=== PATIENT | male | born 1940 | race Hispanic/Latino ===

== ENCOUNTER 2019-09-26 23:17 | Emergency (ER) | payer MEDICARE ==
[~2019-09-26] VITALS: Ht 182.9 cm; Wt 78.0 kg
== END 2019-09-26 23:34 ==
LOC: ER 23:17
DX: Z46.6 Encounter for fitting and adjustment of urinary device (principal); I10 Essential (primary) hypertension; Z86.73 Personal history of transient ischemic attack (TIA), and cerebral infarction without residual deficits; Z85.89 Personal history of malignant neoplasm of other organs and systems
CPT/HCPCS: 51700; 51702; 99283

== ENCOUNTER 2019-11-10 13:04 | Inpatient (IN) | payer MEDICARE ==
[~2019-11-10] VITALS: Ht 177.8 cm; Wt 64.7 kg
[2019-11-10] MEDS: ALBUTEROL SULF 0.083% NEB SOLN 3 ML NEB NEB SCH ×4 (00:20→22:40)
--- OUTSIDE RECORDS SUMMARY | 2019-11-10 13:10 | XMS REPORT ---
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 Allergies, Adverse Reactions, Alerts This patient has no known allergies or adverse reactions. Medications This patient has no known medications. Encounters Start Date/Time End Date/Time Encounter Type Admission Type Attending Clinicians Care Facility Care Department Encounter ID 2017-12-21 13:58:00 2017-12-21 13:58:00 Outpatient [facility] [id number] 2017-12-21 08:26:00 2017-12-21 08:26:00 Outpatient [facility] [id number] 2017-06-21 13:03:00 2017-06-21 13:03:00 Outpatient [facility] [id number] 2017-04-01 14:23:00 2017-04-01 14:23:00 Outpatient [facility] [id number] Results Test Description Test Time Test Comments Text Results Atomic Results Result Comments XR Modified Barium Swallow 2019-11-08 14:52:18 Patient: ERIK DONATO Date/Time11/03/2019 15:21 CSTReason for ExamChokingReportEXAM: BARIUM SWALLOWCLINICAL HISTORY: ChokingTECHNIQUE: Barium swallow study was performed in conjunction with the speech pathologist.FINDINGS: The oral and pharyngeal phases of swallowing are normal. No evidence of muscular abnormality. No evidence of masses or ulcerations. There is significant tracheal aspiration noted. No evidence of diverticula or strictures.Fluoroscopy time: 26 secondsNumber Of Images: 55 cine loopsIMPRESSION:1. Tracheal aspiration is noted.2. Please see dedicated speech pathologist report for further details.LOCATION: R16 Final Dictated by: MD Connors Melanie CDictated DT/TM: 11/08/2019 2:50 pmSigned by: MD Connors Melanie CSigned (Electronic Signature): 11/08/2019 2:52 pm Basic Metabolic Panel 2019-11-03 06:52:50 Sodium Level (test code=Sodium Level) 140.0 mmol/L 135.0-145.0 Potassium Level (test code=Potassium Level) 4.1 mmol/L 3.5-5.1 Chloride Level (test code=Chloride Level) 107 mmol/L 98-105 CO2 (test code=CO2) 23 mmol/L 22-29 Anion Gap (test code=Anion Gap) 10 mmol/L 7-16 BUN (test code=BUN) 20.40 mg/dL 8.00-23.00 Creatinine Level (test code=Creatinine Level) 0.80 mg/dL 0.70-1.20 BUN/Creat Ratio (test code=BUN/Creat Ratio) 26 Glucose Level (test code=Glucose Level) 142 mg/dL 70-115 Calcium Level (test code=Calcium Level) 8.7 mg/dL 8.3-10.5 Basic Metabolic [id number] 06:52:50* Test Item Value Reference Range Comments Sodium Level (test code=Sodium Level) 140.0 mmol/L 135.0-145.0 Potassium Level (test code=Potassium Level) 4.1 mmol/L 3.5-5.1 Chloride Level (test code=Chloride Level) 107 mmol/L 98-105 CO2 (test code=CO2) 23 mmol/L 22-29 Anion Gap (test code=Anion Gap) 10 mmol/L 7-16 BUN (test code=BUN) 20.40 mg/dL 8.00-23.00 Creatinine Level (test code=Creatinine Level) 0.80 mg/dL 0.70-1.20 BUN/Creat Ratio (test code=BUN/Creat Ratio) 26 Glucose Level (test code=Glucose Level) 142 mg/dL 70-115 Calcium Level (test code=Calcium Level) 8.7 mg/dL 8.3-10.5 eGFR AA (test code=eGFR AA) >60 mL/min/1.73 m2 eGFR (estimated Glomerular Filtration Rate) is an estimated value, calculated from the patient's serum creatinine using the MDRD equation. It is NOT the patient's actual GFR. The eGFR provides a more clinically useful measure of kidney disease than serum creatinine alone.This calculation takes sex and race into account, if the information is provided. If the race is not provided, and the patient is -Aust[place], multiply by 1.212. If sex is not provided, and the patient is female, multiply by 0.742. Results for patients <18 years of age have not been validated by the MDRD study and should be interpreted with caution. eGFR Result Interpretation:eGFR > or=60 is in the Normal RangeeGFR < 60 may mean kidney diseaseeGFR < 15 may mean kidney failure Ranges recommended by the National Kidney Foundation, http://nkdep.nih.gov Basic Metabolic [id number] 06:52:50* Test Item Value Reference Range Comments Sodium Level (test code=Sodium Level) 140.0 mmol/L 135.0-145.0 Potassium Level (test code=Potassium Level) 4.1 mmol/L 3.5-5.1 Chloride Level (test code=Chloride Level) 107 mmol/L 98-105 CO2 (test code=CO2) 23 mmol/L 22-29 Anion Gap (test code=Anion Gap) 10 mmol/L 7-16 BUN (test code=BUN) 20.40 mg/dL 8.00-23.00 Creatinine Level (test code=Creatinine Level) 0.80 mg/dL 0.70-1.20 BUN/Creat Ratio (test code=BUN/Creat Ratio) 26 Glucose Level (test code=Glucose Level) 142 mg/dL 70-115 Calcium Level (test code=Calcium Level) 8.7 mg/dL 8.3-10.5 eGFR AA (test code=eGFR AA) >60 mL/min/1.73 m2 eGFR (estimated Glomerular Filtration Rate) is an estimated value, calculated from the patient's serum creatinine using the MDRD equation. It is NOT the patient's actual GFR. The eGFR provides a more clinically useful measure of kidney disease than serum creatinine alone.This calculation takes sex and race into account, if the information is provided. If the race is not provided, and the patient is -Austrian, multiply by 1.212. If sex is not provided, and the patient is female, multiply by 0.742. Results for patients <18 years of age have not been validated by the MDRD study and should be interpreted with caution. eGFR Result Interpretation:eGFR > or=60 is in the Normal RangeeGFR < 60 may mean kidney diseaseeGFR < 15 may mean kidney failure Ranges recommended by the National Kidney Foundation, http://nkdep.nih.gov eGFR Non-AA (test code=eGFR Non-AA) >60.00 mL/min/1.73 m2 eGFR (estimated Glomerular Filtration Rate) is an estimated value, calculated from the patient's serum creatinine using the MDRD equation. It is NOT the patient's actual GFR. The eGFR provides a more clinically useful measure of kidney disease than serum creatinine alone.This calculation takes sex and race into account, if the information is provided. If the race is not provided, and the patient is -Austrian, multiply by 1.212. If sex is not provided, and the patient is female, multiply by 0.742. Results for patients <18 years of age have not been validated by the MDRD study and should be interpreted with caution. eGFR Result Interpretation:eGFR > or=60 is in the Normal RangeeGFR < 60 may mean kidney diseaseeGFR < 15 may mean kidney failure Ranges recommended by the National Kidney Foundation, http://nkdep.nih.gov IG [id number] 06:30:40* Test Item Value Reference Range Comments IG (test code=IG) 0.4 % 0.0-5.0 IG Abs (test code=IG Abs) 0 x10 Complete Blood Count with [id number] 06:30:39* Test Item Value Reference Range Comments WBC (test code=WBC) 8.2 x10 4.4-10.5 RBC (test code=RBC) 4.06 x10 4.10-5.70 Hgb (test code=Hgb) 11.2 g/dL 13.4-17.4 MCV (test code=MCV) 87.40 fL 80.00-100.00 Hct (test code=Hct) 35.5 % 38.7-52.0 MCHC (test code=MCHC) 31.50 g/dL 32.00-37.50 RDW CV (test code=RDW CV) 14.6 % 11.5-14.5 MCH (test code=MCH) 27.6 pg 27.0-32.5 Platelets (test code=Platelets) 230.0 x10 140.0-440.0 MPV (test code=MPV) 12.1 fL Slide Review (test code=Slide Review) Auto Auto Result created by [email or web address] nRBC (test code=nRBC) 0 NRBC Abs (test code=NRBC Abs) 0.00 x10 IPF (test code=IPF) 0 % Automated [id number] 06:30:39* Test Item Value Reference Range Comments Neutro Auto (test code=Neutro Auto) 74.4 % 36.0-70.0 Lymph Auto (test code=Lymph Auto) 13.5 % 12.0-44.0 [place] Auto (test code=[place] Auto) 10.0 % 0.0-11.0 Eos, Auto (test code=Eos, Auto) 1.2 % 0.0-7.0 Basophil Auto (test code=Basophil Auto) 0.5 % 0.0-2.0 Neutro Absolute (test code=Neutro Absolute) 6.1 x10 1.6-7.4 Lymph Absolute (test code=Lymph Absolute) 1.11 x10 .50-4.60 [place] Absolute (test code=[place] Absolute) .82 x10 .00-1.20 Eos Absolute (test code=Eos Absolute) 0.10 x10 0.00-0.74 Baso Absolute (test code=Baso Absolute) 0.04 x10 0.00-0.21 C Reactive [id number] 19:07:59* Test Item Value Reference Range Comments CRP (test code=CRP) 134.0 mg/L 0.0-5.0 Vancomycin Level [id number] 19:07:49* Test Item Value Reference Range Comments Vanco Tr (test code=Vanco Tr) 6.2 mcg/mL 10.0-20.0 CT Foot w/o Contrast [id number] 16:10:52Patient: ERIK DONATO Date/Time11/02/2019 11:50 CSTReason for ExamOsteomyelitisReportCLINICAL INFORMATION: Ulcer of the distal hallux. Osteomyelitis.Dictation Location: R 16COMPARISON: Radiographs 10/31/2019.Technique: CT was done in the usual fashion. Sagittal and coronal reconstructions. Appropriate dose reduction and image optimization techniques were used. Findings: There is no acute fracture identified. Soft tissue swelling is seen at the dorsum of the great toe at the level of the first metatarsal phalangeal joint, and about the tuft of the distal phalanx. There is no apparent soft tissue mass or periosteal reaction. No destructive bone lesion identified. No radiopaque foreign body is noted.IMPRESSION:1. Soft tissue swelling at the dorsum of the great toe and about the tuft of the distal phalanx.2. No bony destruction or periosteal reaction is identified.3. Otherwise no acute finding noted.4. Perhaps follow-up with bone scan or MRI could be of additional benefi t. Final Dictated by: MD Flower Andrew GDictated DT/TM: 0 1:59 pmSigned by: MD Flower Andrew GSigned (Electronic Signature): 020 4:10 pmPOC [id number] 07:33:01* Test Item Value Reference Range Comments Glucose POC (test code=Glucose POC) 87 mg/dL 70-115 If you consider your patient critically ill, the Rosalinda-Accu Check Infrom II meter should not be used for Glucose determination. Draw a venous Glucose and send to the main Lab for analysis. POC [id number] 20:36:37* Test Item Value Reference Range Comments Glucose POC (test code=Glucose POC) 87 mg/dL 70-115 If you consider your patient critically ill, the Rosalinda-Accu Check Infrom II meter should not be used for Glucose determination. Draw a venous Glucose and send to the main Lab for analysis. Complete Blood Count with [id number] 08:21:12* Test Item Value Reference Range Comments WBC (test code=WBC) 11.1 x10 4.4-10.5 RBC (test code=RBC) 3.94 x10 4.10-5.70 Hgb (test code=Hgb) 10.9 g/dL 13.4-17.4 MCV (test code=MCV) 87.60 fL 80.00-100.00 Hct (test code=Hct) 34.5 % 38.7-52.0 MCHC (test code=MCHC) 31.60 g/dL 32.00-37.50 RDW CV (test code=RDW CV) 14.7 % 11.5-14.5 MCH (test code=MCH) 27.7 pg 27.0-32.5 Platelets (test code=Platelets) 259.0 x10 140.0-440.0 MPV (test code=MPV) 12.4 fL Slide Review (test code=Slide Review) Auto Auto Result created by [email or web address]_REV_AUTO nRBC (test code=nRBC) 0 NRBC Abs (test code=NRBC Abs) 0.00 x10 IPF (test code=IPF) 0 % Automated [id number] 08:21:12* Test Item Value Reference Range Comments Neutro Auto (test code=Neutro Auto) 80.8 % 36.0-70.0 Lymph Auto (test code=Lymph Auto) 9.7 % 12.0-44.0 [place] Auto (test code=[place] Auto) 8.0 % 0.0-11.0 Eos, Auto (test code=Eos, Auto) 0.5 % 0.0-7.0 Basophil Auto (test code=Basophil Auto) 0.5 % 0.0-2.0 Neutro Absolute (test code=Neutro Absolute) 9.0 x10 1.6-7.4 Lymph Absolute (test code=Lymph Absolute) 1.07 x10 .50-4.60 [place] Absolute (test code=[place] Absolute) .89 x10 .00-1.20 Eos Absolute (test code=Eos Absolute) 0.06 x10 0.00-0.74 Baso Absolute (test code=Baso Absolute) 0.05 x10 0.00-0.21 IG [id number] 08:21:12* Test Item Value Reference Range Comments IG (test code=IG) 0.5 % 0.0-5.0 IG Abs (test code=IG Abs) 0 x10 POC [id number] 07:40:40* Test Item Value Reference Range Comments Glucose POC (test code=Glucose POC) 93 mg/dL 70-115 Notify RN or MDIf you consider your patient critically ill, the Rosalinda-Accu Check Infrom II meter should not be used for Glucose determination. Draw a venous Glucose and send to the main Lab for analysis. XR Foot Complete 3+ Views [id number] 02:00:35Patient: ERIK DONATO Date/Time10/31/2019 21:14 CSTReason for Examulcer distal hallux;Other (please specify)ReportRADIOGRAPH OF THE left footLocation Code: [id number] HISTORY: Pain, ulcer distal halluxCOMMENT: No acute fracture or dislocation. Bones are well mildly osteopenic. Mild to moderate narrowing of the tarsometatarsal joints. Mild narrowing of the hallux MTP joint. Mild plantar soft tissue induration distall y.IMPRESSION:1. No acute osseous abnormality. Mild plantar soft tissue induratio n. Final Dictated by: MD Shannon RoyDictated DT/TM: 11/01/2019 1:59 amSigned by: MD Shannon RoySigned (Electronic Signature): 11/01/2019 2:00 amXR Chest 1 View [id number] 01:59:21Patient: ERIK DONATO Date/Time10/31/2019 21:15 CSTReason for ExamCongestionReportAP CHEST 10/31/2019 9:15 PMLocation Code: [id number]: October 02, 2019INDICATION: Congestion.FINDINGS: The cardiomediastinal silhouette is not enlarged. Pulmonary arya and vascularity are normal. Minimal left basilar atelectasis. Moderate ectasia of the aorta. Costophrenic sulci are sharp without effusion.IMPRESSION:1. Minimal left basilar atelectasis.2. Moderate ectasia of the aorta Final Dictated by: MD Shannon RoyDictated DT/TM: 11/01/2019 1:58 amSigned by: MD Shannon RoySigned (Electronic Signature): 11/01/2019 1:59 amBasic Metabolic [id number] 00:42:27* Test Item Value Reference Range Comments Sodium Level (test code=Sodium Level) 139.0 mmol/L 135.0-145.0 Potassium Level (test code=Potassium Level) 4.7 mmol/L 3.5-5.1 Chloride Level (test code=Chloride Level) 105 mmol/L 98-105 CO2 (test code=CO2) 19 mmol/L 22-29 Anion Gap (test code=Anion Gap) 15 mmol/L 7-16 BUN (test code=BUN) 17.80 mg/dL 8.00-23.00 Creatinine Level (test code=Creatinine Level) 0.90 mg/dL 0.70-1.20 BUN/Creat Ratio (test code=BUN/Creat Ratio) 20 Glucose Level (test code=Glucose Level) 94 mg/dL 70-115 Calcium Level (test code=Calcium Level) 9.0 mg/dL 8.3-10.5 Basic Metabolic [id number] 00:42:27* Test Item Value Reference Range Comments Sodium Level (test code=Sodium Level) 139.0 mmol/L 135.0-145.0 Potassium Level (test code=Potassium Level) 4.7 mmol/L 3.5-5.1 Chloride Level (test code=Chloride Level) 105 mmol/L 98-105 CO2 (test code=CO2) 19 mmol/L 22-29 Anion Gap (test code=Anion Gap) 15 mmol/L 7-16 BUN (test code=BUN) 17.80 mg/dL 8.00-23.00 Creatinine Level (test code=Creatinine Level) 0.90 mg/dL 0.70-1.20 BUN/Creat Ratio (test code=BUN/Creat Ratio) 20 Glucose Level (test code=Glucose Level) 94 mg/dL 70-115 Calcium Level (test code=Calcium Level) 9.0 mg/dL 8.3-10.5 eGFR AA (test code=eGFR AA) >60 mL/min/1.73 m2 eGFR (estimated Glomerular Filtration Rate) is an estimated value, calculated from the patient's serum creatinine using the MDRD equation. It is NOT the patient's actual GFR. The eGFR provides a more clinically useful measure of kidney disease than serum creatinine alone.This calculation takes sex and race into account, if the information is provided. If the race is not provided, and the patient is -Aust[place], multiply by 1.212. If sex is not provided, and the patient is female, multiply by 0.742. Results for patients <18 years of age have not been validated by the MDRD study and should be interpreted with caution. eGFR Result Interpretation:eGFR > or=60 is in the Normal RangeeGFR < 60 may mean kidney diseaseeGFR < 15 may mean kidney failure Ranges recommended by the National Kidney Foundation, http://nkdep.nih.gov Basic Metabolic [id number] 00:42:27* Test Item Value Reference Range Comments Sodium Level (test code=Sodium Level) 139.0 mmol/L 135.0-145.0 Potassium Level (test code=Potassium Level) 4.7 mmol/L 3.5-5.1 Chloride Level (test code=Chloride Level) 105 mmol/L 98-105 CO2 (test code=CO2) 19 mmol/L 22-29 Anion Gap (test code=Anion Gap) 15 mmol/L 7-16 BUN (test code=BUN) 17.80 mg/dL 8.00-23.00 Creatinine Level (test code=Creatinine Level) 0.90 mg/dL 0.70-1.20 BUN/Creat Ratio (test code=BUN/Creat Ratio) 20 Glucose Level (test code=Glucose Level) 94 mg/dL 70-115 Calcium Level (test code=Calcium Level) 9.0 mg/dL 8.3-10.5 eGFR AA (test code=eGFR AA) >60 mL/min/1.73 m2 eGFR (estimated Glomerular Filtration Rate) is an estimated value, calculated from the patient's serum creatinine using the MDRD equation. It is NOT the patient's actual GFR. The eGFR provides a more clinically useful measure of kidney disease than serum creatinine alone.This calculation takes sex and race into account, if the information is provided. If the race is not provided, and the patient is -Austrian, multiply by 1.212. If sex is not provided, and the patient is female, multiply by 0.742. Results for patients <18 years of age have not been validated by the MDRD study and should be interpreted with caution. eGFR Result Interpretation:eGFR > or=60 is in the Normal RangeeGFR < 60 may mean kidney diseaseeGFR < 15 may mean kidney failure Ranges recommended by the National Kidney Foundation, http://nkdep.nih.gov eGFR Non-AA (test code=eGFR Non-AA) >60.00 mL/min/1.73 m2 eGFR (estimated Glomerular Filtration Rate) is an estimated value, calculated from the patient's serum creatinine using the MDRD equation. It is NOT the patient's actual GFR. The eGFR provides a more clinically useful measure of kidney disease than serum creatinine alone.This calculation takes sex and race into account, if the information is provided. If the race is not provided, and the patient is -Austrian, multiply by 1.212. If sex is not provided, and the patient is female, multiply by 0.742. Results for patients <18 years of age have not been validated by the MDRD study and should be interpreted with caution. eGFR Result Interpretation:eGFR > or=60 is in the Normal RangeeGFR < 60 may mean kidney diseaseeGFR < 15 may mean kidney failure Ranges recommended by the National Kidney Foundation, http://nkdep.nih.gov Erythrocyte Sedimentation Rate [id number] 00:28:53* Test Item Value Reference Range Comments ESR STAT (test code=ESR STAT) 58 mm/hr 0-9 Prothrombin Time and [id number] 13:47:14* Test Item Value Reference Range Comments Prothrombin Time (test code=Prothrombin Time) 13.6 seconds 9.8-13.4 INR (test code=INR) 1.2 ratio 0.6-1.2 Comprehensive Metabolic [id number] 13:31:57* Test Item Value Reference Range Comments Sodium Level (test code=Sodium Level) 133.0 mmol/L 135.0-145.0 Potassium Level (test code=Potassium Level) 4.9 mmol/L 3.5-5.1 Chloride Level (test code=Chloride Level) 98 mmol/L 98-105 CO2 (test code=CO2) 25 mmol/L 22-29 Anion Gap (test code=Anion Gap) 10 mmol/L 7-16 BUN (test code=BUN) 22.60 mg/dL 8.00-23.00 Creatinine Level (test code=Creatinine Level) 1.10 mg/dL 0.70-1.20 BUN/Creat Ratio (test code=BUN/Creat Ratio) 21 Glucose Level (test code=Glucose Level) 135 mg/dL 70-115 Calcium Level (test code=Calcium Level) 9.8 mg/dL 8.3-10.5 Alk Phos (test code=Alk Phos) 128 U/L 40-129 Bilirubin Total (test code=Bilirubin Total) 0.5 mg/dL 0.1-0.9 Albumin Level (test code=Albumin Level) 3.8 g/dL 3.5-5.2 Protein Total (test code=Protein Total) 7.0 g/dL 6.4-8.3 ALT (test code=ALT) 34 U/L 1-41 AST (test code=AST) 25 U/L 1-40 Globulin (test code=Globulin) 3.2 g/dL 2.9-3.1 A/G Ratio (test code=A/G Ratio) 1.2 ratio Comprehensive Metabolic [id number] 13:31:57* Test Item Value Reference Range Comments Sodium Level (test code=Sodium Level) 133.0 mmol/L 135.0-145.0 Potassium Level (test code=Potassium Level) 4.9 mmol/L 3.5-5.1 Chloride Level (test code=Chloride Level) 98 mmol/L 98-105 CO2 (test code=CO2) 25 mmol/L 22-29 Anion Gap (test code=Anion Gap) 10 mmol/L 7-16 BUN (test code=BUN) 22.60 mg/dL 8.00-23.00 Creatinine Level (test code=Creatinine Level) 1.10 mg/dL 0.70-1.20 BUN/Creat Ratio (test code=BUN/Creat Ratio) 21 Glucose Level (test code=Glucose Level) 135 mg/dL 70-115 Calcium Level (test code=Calcium Level) 9.8 mg/dL 8.3-10.5 Alk Phos (test code=Alk Phos) 128 U/L 40-129 Bilirubin Total (test code=Bilirubin Total) 0.5 mg/dL 0.1-0.9 Albumin Level (test code=Albumin Level) 3.8 g/dL 3.5-5.2 Protein Total (test code=Protein Total) 7.0 g/dL 6.4-8.3 ALT (test code=ALT) 34 U/L 1-41 AST (test code=AST) 25 U/L 1-40 Globulin (test code=Globulin) 3.2 g/dL 2.9-3.1 A/G Ratio (test code=A/G Ratio) 1.2 ratio eGFR AA (test code=eGFR AA) >60 mL/min/1.73 m2 eGFR (estimated Glomerular Filtration Rate) is an estimated value, calculated from the patient's serum creatinine using the MDRD equation. It is NOT the patient's actual GFR. The eGFR provides a more clinically useful measure of kidney disease than serum creatinine alone.This calculation takes sex and race into account, if the information is provided. If the race is not provided, and the patient is -Austrian, multiply by 1.212. If sex is not provided, and the patient is female, multiply by 0.742. Results for patients <18 years of age have not been validated by the MDRD study and should be interpreted with caution. eGFR Result Interpretation:eGFR > or=60 is in the Normal RangeeGFR < 60 may mean kidney diseaseeGFR < 15 may mean kidney failure Ranges recommended by the National Kidney Foundation, http://nkdep.nih.gov Comprehensive Metabolic [id number] 13:31:57* Test Item Value Reference Range Comments Sodium Level (test code=Sodium Level) 133.0 mmol/L 135.0-145.0 Potassium Level (test code=Potassium Level) 4.9 mmol/L 3.5-5.1 Chloride Level (test code=Chloride Level) 98 mmol/L 98-105 CO2 (test code=CO2) 25 mmol/L 22-29 Anion Gap (test code=Anion Gap) 10 mmol/L 7-16 BUN (test code=BUN) 22.60 mg/dL 8.00-23.00 Creatinine Level (test code=Creatinine Level) 1.10 mg/dL 0.70-1.20 BUN/Creat Ratio (test code=BUN/Creat Ratio) 21 Glucose Level (test code=Glucose Level) 135 mg/dL 70-115 Calcium Level (test code=Calcium Level) 9.8 mg/dL 8.3-10.5 Alk Phos (test code=Alk Phos) 128 U/L 40-129 Bilirubin Total (test code=Bilirubin Total) 0.5 mg/dL 0.1-0.9 Albumin Level (test code=Albumin Level) 3.8 g/dL 3.5-5.2 Protein Total (test code=Protein Total) 7.0 g/dL 6.4-8.3 ALT (test code=ALT) 34 U/L 1-41 AST (test code=AST) 25 U/L 1-40 Globulin (test code=Globulin) 3.2 g/dL 2.9-3.1 A/G Ratio (test code=A/G Ratio) 1.2 ratio eGFR AA (test code=eGFR AA) >60 mL/min/1.73 m2 eGFR (estimated Glomerular Filtration Rate) is an estimated value, calculated from the patient's serum creatinine using the MDRD equation. It is NOT the patient's actual GFR. The eGFR provides a more clinically useful measure of kidney disease than serum creatinine alone.This calculation takes sex and race into account, if the information is provided. If the race is not provided, and the patient is -Austrian, multiply by 1.212. If sex is not provided, and the patient is female, multiply by 0.742. Results for patients <18 years of age have not been validated by the MDRD study and should be interpreted with caution. eGFR Result Interpretation:eGFR > or=60 is in the Normal RangeeGFR < 60 may mean kidney diseaseeGFR < 15 may mean kidney failure Ranges recommended by the National Kidney Foundation, http://nkdep.nih.gov eGFR Non-AA (test code=eGFR Non-AA) >60.00 mL/min/1.73 m2 eGFR (estimated Glomerular Filtration Rate) is an estimated value, calculated from the patient's serum creatinine using the MDRD equation. It is NOT the patient's actual GFR. The eGFR provides a more clinically useful measure of kidney disease than serum creatinine alone.This calculation takes sex and race into account, if the information is provided. If the race is not provided, and the patient is -[place]rian, multiply by 1.212. If sex is not provided, and the patient is female, multiply by 0.742. Results for patients <18 years of age have not been validated by the MDRD study and should be interpreted with caution. eGFR Result Interpretation:eGFR > or=60 is in the Normal RangeeGFR < 60 may mean kidney diseaseeGFR < 15 may mean kidney failure Ranges recommended by the National Kidney Foundation, http://nkdep.nih.gov IG [id number] 13:25:27* Test Item Value Reference Range Comments IG (test code=IG) 0.4 % 0.0-5.0 IG Abs (test code=IG Abs) 0 x10 Complete Blood Count with [id number] 13:25:26* Test Item Value Reference Range Comments WBC (test code=WBC) 12.3 x10 4.4-10.5 RBC (test code=RBC) 4.84 x10 4.10-5.70 Hgb (test code=Hgb) 13.2 g/dL 13.4-17.4 Hct (test code=Hct) 42.3 % 38.7-52.0 MCV (test code=MCV) 87.40 fL 80.00-100.00 MCHC (test code=MCHC) 31.20 g/dL 32.00-37.50 RDW CV (test code=RDW CV) 15.0 % 11.5-14.5 MCH (test code=MCH) 27.3 pg 27.0-32.5 Platelets (test code=Platelets) 319.0 x10 140.0-440.0 MPV (test code=MPV) 12.4 fL Slide Review (test code=Slide Review) Auto Auto Result created by [email or web address] nRBC (test code=nRBC) 0 NRBC Abs (test code=NRBC Abs) 0.00 x10 IPF (test code=IPF) 0 % Automated [id number] 13:25:26* Test Item Value Reference Range Comments Neutro Auto (test code=Neutro Auto) 83.8 % 36.0-70.0 Lymph Auto (test code=Lymph Auto) 9.8 % 12.0-44.0 [place] Auto (test code=[place] Auto) 5.2 % 0.0-11.0 Eos, Auto (test code=Eos, Auto) 0.4 % 0.0-7.0 Basophil Auto (test code=Basophil Auto) 0.4 % 0.0-2.0 Neutro Absolute (test code=Neutro Absolute) 10.3 x10 1.6-7.4 Lymph Absolute (test code=Lymph Absolute) 1.21 x10 .50-4.60 [place] Absolute (test code=[place] Absolute) .64 x10 .00-1.20 Eos Absolute (test code=Eos Absolute) 0.05 x10 0.00-0.74 Baso Absolute (test code=Baso Absolute) 0.05 x10 0.00-0.21 CT Angio Lower Extremity [id number] 15:46:45Patient: ERIK DONATO Date/Time10/25/2019 13:40 CSTReason for ExamPAIN, DISCOLORATION AND HX OF VENOUS [id number] OF STUDY: 10/25/2019 1:25 PMREASON FOR EXAM: PAIN, DISCOLORATION AND HX OF VENOUS INSUFFICIENCYCOMPARISON: None.TECHNIQUE: Contrast enhanced thin section helical images were obtained through the pelvis and bilateral lower extremities with the bolus of contrast timed for the optimal opacification of the arterial structures per departmental CTA protocol; Post-processing, retro reconstruction, and interpretation of angiographic images of the vessels was performed.3-D reconstructions were performed on an independent workstation and reviewed.There is motion degradation of the images which significantly limits evaluation.One or more of the following radiation dose reduction techniques was used: automated exposure control, adjustment of mA and/or KV according to patient size, and/or utilization of iterative reconstruction technique.FINDINGS:CTA of pelvis:There is infrarenal abdominal aortic aneurysm measuring 3.5 cm in diameter with eccentric mural thrombus present. There is atherosclerosis of the iliac arteries without aneurysm or significant stenosis. 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 There is small amount of atherosclerotic plaque present, however. Bilateral p rofunda femoris arteries and its muscular branches are well opacified and are un remarkable. The right superficial femoral artery is normal in course and caliber . There is no evidence of a focal stenosis of aneurysm. There is no dissection.B ilateral popliteal arteries are normal in course and caliber; however, the left popliteal artery is difficult to evaluate due to motion degradation. In the calf , three-vessel runoff is seen with evaluation limitations due to motion degradat ion. There is good visualization of the arterial structures to the distal ankle. The dorsalis pedis artery and the distal continuation of the posterior tibial a rtery, medial to the ankle are well visualized.The visualized soft tissue struct ures in the lower extremities are unremarkable. No focal masses are seen. The mu scles are unremarkable. There is no evidence of a fatty atrophy or rupture. No i ntramuscular mass or hematoma is seen.Included views of the knee joints demonstr ate no effusions or focal masses. The osseous structures of the lower extremitie s bilaterally are unremarkable. There are no focal lesions.IMPRESSION:1. 3.5 cm infrarenal abdominal aortic aneurysm.Exam Date/Time10/25/2019 13:40 CSTReport2. M oderate segment complete occlusion of the left SFA with distal reconstitution vi a profundus femoris arteries.3. Three-vessel runoff in the infrapopliteal vessel s seen bilaterally.Consider interventional radiology consultation for evaluation and treatment of left SFA lesion. Final Dictated by: MD Papo, adDictated DT/TM: 10/25/2019 3:39 pmSigned by: MD Papo, DianedSigned (Electroni c Signature): 10/25/2019 3:46 pmComprehensive Metabolic [id number] 06:29:24* Test Item Value Reference Range Comments Sodium Level (test code=Sodium Level) 136.0 mmol/L 135.0-145.0 Potassium Level (test code=Potassium Level) 4.2 mmol/L 3.5-5.1 Chloride Level (test code=Chloride Level) 103 mmol/L 98-105 CO2 (test code=CO2) 25 mmol/L 22-29 Anion Gap (test code=Anion Gap) 8 mmol/L 7-16 BUN (test code=BUN) 8.60 mg/dL 8.00-23.00 Creatinine Level (test code=Creatinine Level) 0.70 mg/dL 0.70-1.20 BUN/Creat Ratio (test code=BUN/Creat Ratio) 12 Glucose Level (test code=Glucose Level) 133 mg/dL 70-115 Calcium Level (test code=Calcium Level) 8.4 mg/dL 8.3-10.5 Alk Phos (test code=Alk Phos) 120 U/L 40-129 Bilirubin Total (test code=Bilirubin Total) 0.4 mg/dL 0.1-0.9 Albumin Level (test code=Albumin Level) 2.9 g/dL 3.5-5.2 Protein Total (test code=Protein Total) 5.4 g/dL 6.4-8.3 ALT (test code=ALT) 53 U/L 1-41 AST (test code=AST) 40 U/L 1-40 Globulin (test code=Globulin) 2.5 g/dL 2.9-3.1 A/G Ratio (test code=A/G Ratio) 1.2 ratio Magnesium [id number] 06:29:24* Test Item Value Reference Range Comments Magnesium Level (test code=Magnesium Level) 2.1 mg/dL 1.7-2.5 Comprehensive Metabolic [id number] 06:29:24* Test Item Value Reference Range Comments Sodium Level (test code=Sodium Level) 136.0 mmol/L 135.0-145.0 Potassium Level (test code=Potassium Level) 4.2 mmol/L 3.5-5.1 Chloride Level (test code=Chloride Level) 103 mmol/L 98-105 CO2 (test code=CO2) 25 mmol/L 22-29 Anion Gap (test code=Anion Gap) 8 mmol/L 7-16 BUN (test code=BUN) 8.60 mg/dL 8.00-23.00 Creatinine Level (test code=Creatinine Level) 0.70 mg/dL 0.70-1.20 BUN/Creat Ratio (test code=BUN/Creat Ratio) 12 Glucose Level (test code=Glucose Level) 133 mg/dL 70-115 Calcium Level (test code=Calcium Level) 8.4 mg/dL 8.3-10.5 Alk Phos (test code=Alk Phos) 120 U/L 40-129 Bilirubin Total (test code=Bilirubin Total) 0.4 mg/dL 0.1-0.9 Albumin Level (test code=Albumin Level) 2.9 g/dL 3.5-5.2 Protein Total (test code=Protein Total) 5.4 g/dL 6.4-8.3 ALT (test code=ALT) 53 U/L 1-41 AST (test code=AST) 40 U/L 1-40 Globulin (test code=Globulin) 2.5 g/dL 2.9-3.1 A/G Ratio (test code=A/G Ratio) 1.2 ratio eGFR AA (test code=eGFR AA) >60 mL/min/1.73 m2 eGFR (estimated Glomerular Filtration Rate) is an estimated value, calculated from the patient's serum creatinine using the MDRD equation. It is NOT the patient's actual GFR. The eGFR provides a more clinically useful measure of kidney disease than serum creatinine alone.This calculation takes sex and race into account, if the information is provided. If the race is not provided, and the patient is -[place], multiply by 1.212. If sex is not provided, and the patient is female, multiply by 0.742. Results for patients <18 years of age have not been validated by the MDRD study and should be interpreted with caution. eGFR Result Interpretation:eGFR > or=60 is in the Normal RangeeGFR < 60 may mean kidney diseaseeGFR < 15 may mean kidney failure Ranges recommended by the National Kidney Foundation, http://nkdep.nih.gov Comprehensive Metabolic [id number] 06:29:24* Test Item Value Reference Range Comments Sodium Level (test code=Sodium Level) 136.0 mmol/L 135.0-145.0 Potassium Level (test code=Potassium Level) 4.2 mmol/L 3.5-5.1 Chloride Level (test code=Chloride Level) 103 mmol/L 98-105 CO2 (test code=CO2) 25 mmol/L 22-29 Anion Gap (test code=Anion Gap) 8 mmol/L 7-16 BUN (test code=BUN) 8.60 mg/dL 8.00-23.00 Creatinine Level (test code=Creatinine Level) 0.70 mg/dL 0.70-1.20 BUN/Creat Ratio (test code=BUN/Creat Ratio) 12 Glucose Level (test code=Glucose Level) 133 mg/dL 70-115 Calcium Level (test code=Calcium Level) 8.4 mg/dL 8.3-10.5 Alk Phos (test code=Alk Phos) 120 U/L 40-129 Bilirubin Total (test code=Bilirubin Total) 0.4 mg/dL 0.1-0.9 Albumin Level (test code=Albumin Level) 2.9 g/dL 3.5-5.2 Protein Total (test code=Protein Total) 5.4 g/dL 6.4-8.3 ALT (test code=ALT) 53 U/L 1-41 AST (test code=AST) 40 U/L 1-40 Globulin (test code=Globulin) 2.5 g/dL 2.9-3.1 A/G Ratio (test code=A/G Ratio) 1.2 ratio eGFR AA (test code=eGFR AA) >60 mL/min/1.73 m2 eGFR (estimated Glomerular Filtration Rate) is an estimated value, calculated from the patient's serum creatinine using the MDRD equation. It is NOT the patient's actual GFR. The eGFR provides a more clinically useful measure of kidney disease than serum creatinine alone.This calculation takes sex and race into account, if the information is provided. If the race is not provided, and the patient is -[place], multiply by 1.212. If sex is not provided, and the patient is female, multiply by 0.742. Results for patients <18 years of age have not been validated by the MDRD study and should be interpreted with caution. eGFR Result Interpretation:eGFR > or=60 is in the Normal RangeeGFR < 60 may mean kidney diseaseeGFR < 15 may mean kidney failure Ranges recommended by the National Kidney Foundation, http://nkdep.nih.gov eGFR Non-AA (test code=eGFR Non-AA) >60.00 mL/min/1.73 m2 eGFR (estimated Glomerular Filtration Rate) is an estimated value, calculated from the patient's serum creatinine using the MDRD equation. It is NOT the patient's actual GFR. The eGFR provides a more clinically useful measure of kidney disease than serum creatinine alone.This calculation takes sex and race into account, if the information is provided. If the race is not provided, and the patient is -[place], multiply by 1.212. If sex is not provided, and the patient is female, multiply by 0.742. Results for patients <18 years of age have not been validated by the MDRD study and should be interpreted with caution. eGFR Result Interpretation:eGFR > or=60 is in the Normal RangeeGFR < 60 may mean kidney diseaseeGFR < 15 may mean kidney failure Ranges recommended by the National Kidney Foundation, http://nkdep.nih.gov Complete Blood Count with [id number] 06:22:52* Test Item Value Reference Range Comments WBC (test code=WBC) 10.8 x10 4.4-10.5 RBC (test code=RBC) 3.65 x10 4.10-5.70 Hgb (test code=Hgb) 10.0 g/dL 13.4-17.4 MCV (test code=MCV) 88.50 fL 80.00-100.00 Hct (test code=Hct) 32.3 % 38.7-52.0 MCHC (test code=MCHC) 31.00 g/dL 32.00-37.50 RDW CV (test code=RDW CV) 14.0 % 11.5-14.5 MCH (test code=MCH) 27.4 pg 27.0-32.5 Platelets (test code=Platelets) 361.0 x10 140.0-440.0 MPV (test code=MPV) 11.2 fL Slide Review (test code=Slide Review) Auto Auto Result created by [email or web address]_AUTO nRBC (test code=nRBC) 0 NRBC Abs (test code=NRBC Abs) 0.00 x10 IPF (test code=IPF) 0 % Automated [id number] 06:22:52* Test Item Value Reference Range Comments Neutro Auto (test code=Neutro Auto) 76.2 % 36.0-70.0 Lymph Auto (test code=Lymph Auto) 14.4 % 12.0-44.0 [place] Auto (test code=[place] Auto) 6.7 % 0.0-11.0 Eos, Auto (test code=Eos, Auto) 1.7 % 0.0-7.0 Basophil Auto (test code=Basophil Auto) 0.4 % 0.0-2.0 Neutro Absolute (test code=Neutro Absolute) 8.2 x10 1.6-7.4 Lymph Absolute (test code=Lymph Absolute) 1.55 x10 .50-4.60 [place] Absolute (test code=[place] Absolute) .72 x10 .00-1.20 Eos Absolute (test code=Eos Absolute) 0.18 x10 0.00-0.74 Baso Absolute (test code=Baso Absolute) 0.04 x10 0.00-0.21 IG [id number] 06:22:52* Test Item Value Reference Range Comments IG (test code=IG) 0.6 % 0.0-5.0 IG Abs (test code=IG Abs) 0 x10 XR Chest 1 View CVAD Insertion Fxsysy-[id number] 17:52:15Patient: ERIK DONATO Date/Time09/12/2019 17:36 CSTReason for ExamLine placementReportLocation: [id number], FRONTAL VIEWHISTORY: Line placementFINDINGS:Since 09/07/2019 a right PICC line has been place in the SVC. A right IJ central venous line is in place in this great toe pneumothorax. Bronchial wall thickening and likely infiltrate seen in both lower lungs. The heart size is normal. Aorta is partially calcified. Degenerative changes affect the thoracic spine.IMPRESSION:Right PICC line in good position within the SVC.Right IJ central venous line in good position within the SVC. No pneumothorax.Possible bilateral lower lung infiltrate/pneumonia. Final Dictated by: MD Belle, Agus DT/TM: 09/12/2019 5:51 pmS igned by: MD Belle, Lindsey (Electronic Signature): 09/12/2019 5:5 2 pmAutomated [id number] 05:53:49* Test Item Value Reference Range Comments Neutro Auto (test code=Neutro Auto) 71.5 % 36.0-70.0 Lymph Auto (test code=Lymph Auto) 18.1 % 12.0-44.0 [place] Auto (test code=[place] Auto) 7.9 % 0.0-11.0 Eos, Auto (test code=Eos, Auto) 1.7 % 0.0-7.0 Basophil Auto (test code=Basophil Auto) 0.4 % 0.0-2.0 Neutro Absolute (test code=Neutro Absolute) 5.8 x10 1.6-7.4 Lymph Absolute (test code=Lymph Absolute) 1.48 x10 .50-4.60 [place] Absolute (test code=[place] Absolute) .65 x10 .00-1.20 Eos Absolute (test code=Eos Absolute) 0.14 x10 0.00-0.74 Baso Absolute (test code=Baso Absolute) 0.03 x10 0.00-0.21 IG [id number] 05:53:49* Test Item Value Reference Range Comments IG (test code=IG) 0.4 % 0.0-5.0 IG Abs (test code=IG Abs) 0 x10 Complete Blood Count with [id number] 05:53:48* Test Item Value Reference Range Comments WBC (test code=WBC) 8.2 x10 4.4-10.5 RBC (test code=RBC) 3.76 x10 4.10-5.70 Hgb (test code=Hgb) 10.3 g/dL 13.4-17.4 Hct (test code=Hct) 33.1 % 38.7-52.0 MCV (test code=MCV) 88.00 fL 80.00-100.00 MCHC (test code=MCHC) 31.10 g/dL 32.00-37.50 RDW CV (test code=RDW CV) 14.0 % 11.5-14.5 MCH (test code=MCH) 27.4 pg 27.0-32.5 Platelets (test code=Platelets) 352.0 x10 140.0-440.0 MPV (test code=MPV) 11.6 fL Slide Review (test code=Slide Review) Auto Auto Result created by [email or web address]_REV_AUTO nRBC (test code=nRBC) 0 NRBC Abs (test code=NRBC Abs) 0.00 x10 IPF (test code=IPF) 0 % Comprehensive Metabolic [id number] 05:24:41* Test Item Value Reference Range Comments Sodium Level (test code=Sodium Level) 139.0 mmol/L 135.0-145.0 Potassium Level (test code=Potassium Level) 4.3 mmol/L 3.5-5.1 Chloride Level (test code=Chloride Level) 106 mmol/L 98-105 CO2 (test code=CO2) 22 mmol/L 22-29 Anion Gap (test code=Anion Gap) 11 mmol/L 7-16 BUN (test code=BUN) 8.30 mg/dL 8.00-23.00 Creatinine Level (test code=Creatinine Level) 0.80 mg/dL 0.70-1.20 BUN/Creat Ratio (test code=BUN/Creat Ratio) 10 Glucose Level (test code=Glucose Level) 128 mg/dL 70-115 Calcium Level (test code=Calcium Level) 8.2 mg/dL 8.3-10.5 Alk Phos (test code=Alk Phos) 123 U/L 40-129 Bilirubin Total (test code=Bilirubin Total) 0.3 mg/dL 0.1-0.9 Albumin Level (test code=Albumin Level) 2.8 g/dL 3.5-5.2 Protein Total (test code=Protein Total) 5.4 g/dL 6.4-8.3 ALT (test code=ALT) 46 U/L 1-41 AST (test code=AST) 32 U/L 1-40 Globulin (test code=Globulin) 2.6 g/dL 2.9-3.1 A/G Ratio (test code=A/G Ratio) 1.1 ratio Magnesium [id number] 05:24:41* Test Item Value Reference Range Comments Magnesium Level (test code=Magnesium Level) 2.1 mg/dL 1.7-2.5 Comprehensive Metabolic [id number] 05:24:41* Test Item Value Reference Range Comments Sodium Level (test code=Sodium Level) 139.0 mmol/L 135.0-145.0 Potassium Level (test code=Potassium Level) 4.3 mmol/L 3.5-5.1 Chloride Level (test code=Chloride Level) 106 mmol/L 98-105 CO2 (test code=CO2) 22 mmol/L 22-29 Anion Gap (test code=Anion Gap) 11 mmol/L 7-16 BUN (test code=BUN) 8.30 mg/dL 8.00-23.00 Creatinine Level (test code=Creatinine Level) 0.80 mg/dL 0.70-1.20 BUN/Creat Ratio (test code=BUN/Creat Ratio) 10 Glucose Level (test code=Glucose Level) 128 mg/dL 70-115 Calcium Level (test code=Calcium Level) 8.2 mg/dL 8.3-10.5 Alk Phos (test code=Alk Phos) 123 U/L 40-129 Bilirubin Total (test code=Bilirubin Total) 0.3 mg/dL 0.1-0.9 Albumin Level (test code=Albumin Level) 2.8 g/dL 3.5-5.2 Protein Total (test code=Protein Total) 5.4 g/dL 6.4-8.3 ALT (test code=ALT) 46 U/L 1-41 AST (test code=AST) 32 U/L 1-40 Globulin (test code=Globulin) 2.6 g/dL 2.9-3.1 A/G Ratio (test code=A/G Ratio) 1.1 ratio eGFR AA (test code=eGFR AA) >60 mL/min/1.73 m2 eGFR (estimated Glomerular Filtration Rate) is an estimated value, calculated from the patient's serum creatinine using the MDRD equation. It is NOT the patient's actual GFR. The eGFR provides a more clinically useful measure of kidney disease than serum creatinine alone.This calculation takes sex and race into account, if the information is provided. If the race is not provided, and the patient is -[place], multiply by 1.212. If sex is not provided, and the patient is female, multiply by 0.742. Results for patients <18 years of age have not been validated by the MDRD study and should be interpreted with caution. eGFR Result Interpretation:eGFR > or=60 is in the Normal RangeeGFR < 60 may mean kidney diseaseeGFR < 15 may mean kidney failure Ranges recommended by the National Kidney Foundation, http://nkdep.nih.gov Phosphorus [id number] 05:24:41* Test Item Value Reference Range Comments Phosphorus Level (test code=Phosphorus Level) 2.70 mg/dL 2.70-4.50 Comprehensive Metabolic [id number] 05:24:41* Test Item Value Reference Range Comments Sodium Level (test code=Sodium Level) 139.0 mmol/L 135.0-145.0 Potassium Level (test code=Potassium Level) 4.3 mmol/L 3.5-5.1 Chloride Level (test code=Chloride Level) 106 mmol/L 98-105 CO2 (test code=CO2) 22 mmol/L 22-29 Anion Gap (test code=Anion Gap) 11 mmol/L 7-16 BUN (test code=BUN) 8.30 mg/dL 8.00-23.00 Creatinine Level (test code=Creatinine Level) 0.80 mg/dL 0.70-1.20 BUN/Creat Ratio (test code=BUN/Creat Ratio) 10 Glucose Level (test code=Glucose Level) 128 mg/dL 70-115 Calcium Level (test code=Calcium Level) 8.2 mg/dL 8.3-10.5 Alk Phos (test code=Alk Phos) 123 U/L 40-129 Bilirubin Total (test code=Bilirubin Total) 0.3 mg/dL 0.1-0.9 Albumin Level (test code=Albumin Level) 2.8 g/dL 3.5-5.2 Protein Total (test code=Protein Total) 5.4 g/dL 6.4-8.3 ALT (test code=ALT) 46 U/L 1-41 AST (test code=AST) 32 U/L 1-40 Globulin (test code=Globulin) 2.6 g/dL 2.9-3.1 A/G Ratio (test code=A/G Ratio) 1.1 ratio eGFR AA (test code=eGFR AA) >60 mL/min/1.73 m2 eGFR (estimated Glomerular Filtration Rate) is an estimated value, calculated from the patient's serum creatinine using the MDRD equation. It is NOT the patient's actual GFR. The eGFR provides a more clinically useful measure of kidney disease than serum creatinine alone.This calculation takes sex and race into account, if the information is provided. If the race is not provided, and the patient is -[place], multiply by 1.212. If sex is not provided, and the patient is female, multiply by 0.742. Results for patients <18 years of age have not been validated by the MDRD study and should be interpreted with caution. eGFR Result Interpretation:eGFR > or=60 is in the Normal RangeeGFR < 60 may mean kidney diseaseeGFR < 15 may mean kidney failure Ranges recommended by the National Kidney Foundation, http://nkdep.nih.gov eGFR Non-AA (test code=eGFR Non-AA) >60.00 mL/min/1.73 m2 eGFR (estimated Glomerular Filtration Rate) is an estimated value, calculated from the patient's serum creatinine using the MDRD equation. It is NOT the patient's actual GFR. The eGFR provides a more clinically useful measure of kidney disease than serum creatinine alone.This calculation takes sex and race into account, if the information is provided. If the race is not provided, and the patient is -[place], multiply by 1.212. If sex is not provided, and the patient is female, multiply by 0.742. Results for patients <18 years of age have not been validated by the MDRD study and should be interpreted with caution. eGFR Result Interpretation:eGFR > or=60 is in the Normal RangeeGFR < 60 may mean kidney diseaseeGFR < 15 may mean kidney failure Ranges recommended by the National Kidney Foundation, http://nkdep.nih.gov Blood [id number] 09:36:33* Test Item Value Reference Range Comments ORGANISM (test code=ORGANISM) Enterococcus group D Ampicillin (test code=Amp) Erythromycin (test code=Eryth) Gentamicin synergy (test code=Gent-Syn) Linezolid (test code=Linez) Penicillin (test code=Pen) Streptomycin synergy (test code=Strep-Syn) Vancomycin (test code=Vanc) ORGANISM (test code=ORGANISM2) Enterococcus group D Minocycline (test code=Carson) Final Report (test code=Final Report) Staphylococcus aureus For sensitivity refer to accession number [id number](blood culture of [id number]) Enterococcus group D Vancomycin-Resistant entercocci Contact isolation recommended Results called to and read back by: Eloina Gomez RN 09/10/19 12:01:32/PXS Refer to [facility] nucleic acid testing located in the Lab Tab, Infectious Disease Section in PowerChart. Anaerobic Gram Stain Report (test code=Anaerobic Gram Stain Report) Evidence of growth Gram Positive Cocci in Pairs Results called to and read back by: Brenda Cotton RN at 09/07/19 19:32:40/CL Automated [id number] 03:56:05* Test Item Value Reference Range Comments Neutro Auto (test code=Neutro Auto) 70.2 % 36.0-70.0 Lymph Auto (test code=Lymph Auto) 19.7 % 12.0-44.0 [place] Auto (test code=[place] Auto) 7.2 % 0.0-11.0 Eos, Auto (test code=Eos, Auto) 2.0 % 0.0-7.0 Basophil Auto (test code=Basophil Auto) 0.4 % 0.0-2.0 Neutro Absolute (test code=Neutro Absolute) 5.2 x10 1.6-7.4 Lymph Absolute (test code=Lymph Absolute) 1.45 x10 .50-4.60 [place] Absolute (test code=[place] Absolute) .53 x10 .00-1.20 Eos Absolute (test code=Eos Absolute) 0.15 x10 0.00-0.74 Baso Absolute (test code=Baso Absolute) 0.03 x10 0.00-0.21 IG [id number] 03:56:05* Test Item Value Reference Range Comments IG (test code=IG) 0.5 % 0.0-5.0 IG Abs (test code=IG Abs) 0 x10 Complete Blood Count with [id number] 03:56:04* Test Item Value Reference Range Comments WBC (test code=WBC) 7.4 x10 4.4-10.5 RBC (test code=RBC) 3.67 x10 4.10-5.70 Hgb (test code=Hgb) 10.2 g/dL 13.4-17.4 MCV (test code=MCV) 87.70 fL 80.00-100.00 Hct (test code=Hct) 32.2 % 38.7-52.0 MCHC (test code=MCHC) 31.70 g/dL 32.00-37.50 RDW CV (test code=RDW CV) 14.0 % 11.5-14.5 MCH (test code=MCH) 27.8 pg 27.0-32.5 Platelets (test code=Platelets) 311.0 x10 140.0-440.0 MPV (test code=MPV) 10.6 fL Slide Review (test code=Slide Review) Auto Auto Result created by [email or web address]_REV_AUTO nRBC (test code=nRBC) 0 NRBC Abs (test code=NRBC Abs) 0.00 x10 IPF (test code=IPF) 0 % Comprehensive Metabolic [id number] 03:44:11* Test Item Value Reference Range Comments Sodium Level (test code=Sodium Level) 138.0 mmol/L 135.0-145.0 Potassium Level (test code=Potassium Level) 4.0 mmol/L 3.5-5.1 Chloride Level (test code=Chloride Level) 107 mmol/L 98-105 CO2 (test code=CO2) 22 mmol/L 22-29 Anion Gap (test code=Anion Gap) 9 mmol/L 7-16 BUN (test code=BUN) 7.30 mg/dL 8.00-23.00 Creatinine Level (test code=Creatinine Level) 0.70 mg/dL 0.70-1.20 BUN/Creat Ratio (test code=BUN/Creat Ratio) 10 Glucose Level (test code=Glucose Level) 138 mg/dL 70-115 Calcium Level (test code=Calcium Level) 8.2 mg/dL 8.3-10.5 Alk Phos (test code=Alk Phos) 115 U/L 40-129 Bilirubin Total (test code=Bilirubin Total) 0.4 mg/dL 0.1-0.9 Albumin Level (test code=Albumin Level) 2.8 g/dL 3.5-5.2 Protein Total (test code=Protein Total) 5.4 g/dL 6.4-8.3 ALT (test code=ALT) 37 U/L 1-41 AST (test code=AST) 26 U/L 1-40 Globulin (test code=Globulin) 2.6 g/dL 2.9-3.1 A/G Ratio (test code=A/G Ratio) 1.1 ratio Magnesium [id number] 03:44:11* Test Item Value Reference Range Comments Magnesium Level (test code=Magnesium Level) 2.1 mg/dL 1.7-2.5 Comprehensive Metabolic [id number] 03:44:11* Test Item Value Reference Range Comments Sodium Level (test code=Sodium Level) 138.0 mmol/L 135.0-145.0 Potassium Level (test code=Potassium Level) 4.0 mmol/L 3.5-5.1 Chloride Level (test code=Chloride Level) 107 mmol/L 98-105 CO2 (test code=CO2) 22 mmol/L 22-29 Anion Gap (test code=Anion Gap) 9 mmol/L 7-16 BUN (test code=BUN) 7.30 mg/dL 8.00-23.00 Creatinine Level (test code=Creatinine Level) 0.70 mg/dL 0.70-1.20 BUN/Creat Ratio (test code=BUN/Creat Ratio) 10 Glucose Level (test code=Glucose Level) 138 mg/dL 70-115 Calcium Level (test code=Calcium Level) 8.2 mg/dL 8.3-10.5 Alk Phos (test code=Alk Phos) 115 U/L 40-129 Bilirubin Total (test code=Bilirubin Total) 0.4 mg/dL 0.1-0.9 Albumin Level (test code=Albumin Level) 2.8 g/dL 3.5-5.2 Protein Total (test code=Protein Total) 5.4 g/dL 6.4-8.3 ALT (test code=ALT) 37 U/L 1-41 AST (test code=AST) 26 U/L 1-40 Globulin (test code=Globulin) 2.6 g/dL 2.9-3.1 A/G Ratio (test code=A/G Ratio) 1.1 ratio eGFR AA (test code=eGFR AA) >60 mL/min/1.73 m2 eGFR (estimated Glomerular Filtration Rate) is an estimated value, calculated from the patient's serum creatinine using the MDRD equation. It is NOT the patient's actual GFR. The eGFR provides a more clinically useful measure of kidney disease than serum creatinine alone.This calculation takes sex and race into account, if the information is provided. If the race is not provided, and the patient is -Aust[place], multiply by 1.212. If sex is not provided, and the patient is female, multiply by 0.742. Results for patients <18 years of age have not been validated by the MDRD study and should be interpreted with caution. eGFR Result Interpretation:eGFR > or=60 is in the Normal RangeeGFR < 60 may mean kidney diseaseeGFR < 15 may mean kidney failure Ranges recommended by the National Kidney Foundation, http://nkdep.nih.gov Phosphorus [id number] 03:44:11* Test Item Value Reference Range Comments Phosphorus Level (test code=Phosphorus Level) 2.70 mg/dL 2.70-4.50 Comprehensive Metabolic [id number] 03:44:11* Test Item Value Reference Range Comments Sodium Level (test code=Sodium Level) 138.0 mmol/L 135.0-145.0 Potassium Level (test code=Potassium Level) 4.0 mmol/L 3.5-5.1 Chloride Level (test code=Chloride Level) 107 mmol/L 98-105 CO2 (test code=CO2) 22 mmol/L 22-29 Anion Gap (test code=Anion Gap) 9 mmol/L 7-16 BUN (test code=BUN) 7.30 mg/dL 8.00-23.00 Creatinine Level (test code=Creatinine Level) 0.70 mg/dL 0.70-1.20 BUN/Creat Ratio (test code=BUN/Creat Ratio) 10 Glucose Level (test code=Glucose Level) 138 mg/dL 70-115 Calcium Level (test code=Calcium Level) 8.2 mg/dL 8.3-10.5 Alk Phos (test code=Alk Phos) 115 U/L 40-129 Bilirubin Total (test code=Bilirubin Total) 0.4 mg/dL 0.1-0.9 Albumin Level (test code=Albumin Level) 2.8 g/dL 3.5-5.2 Protein Total (test code=Protein Total) 5.4 g/dL 6.4-8.3 ALT (test code=ALT) 37 U/L 1-41 AST (test code=AST) 26 U/L 1-40 Globulin (test code=Globulin) 2.6 g/dL 2.9-3.1 A/G Ratio (test code=A/G Ratio) 1.1 ratio eGFR AA (test code=eGFR AA) >60 mL/min/1.73 m2 eGFR (estimated Glomerular Filtration Rate) is an estimated value, calculated from the patient's serum creatinine using the MDRD equation. It is NOT the patient's actual GFR. The eGFR provides a more clinically useful measure of kidney disease than serum creatinine alone.This calculation takes sex and race into account, if the information is provided. If the race is not provided, and the patient is -Austrian, multiply by 1.212. If sex is not provided, and the patient is female, multiply by 0.742. Results for patients <18 years of age have not been validated by the MDRD study and should be interpreted with caution. eGFR Result Interpretation:eGFR > or=60 is in the Normal RangeeGFR < 60 may mean kidney diseaseeGFR < 15 may mean kidney failure Ranges recommended by the National Kidney Foundation, http://nkdep.nih.gov eGFR Non-AA (test code=eGFR Non-AA) >60.00 mL/min/1.73 m2 eGFR (estimated Glomerular Filtration Rate) is an estimated value, calculated from the patient's serum creatinine using the MDRD equation. It is NOT the patient's actual GFR. The eGFR provides a more clinically useful measure of kidney disease than serum creatinine alone.This calculation takes sex and race into account, if the information is provided. If the race is not provided, and the patient is -Austrian, multiply by 1.212. If sex is not provided, and the patient is female, multiply by 0.742. Results for patients <18 years of age have not been validated by the MDRD study and should be interpreted with caution. eGFR Result Interpretation:eGFR > or=60 is in the Normal RangeeGFR < 60 may mean kidney diseaseeGFR < 15 may mean kidney failure Ranges recommended by the National Kidney Foundation, http://nkdep.nih.gov Urine [id number] 09:51:55* Test Item Value Reference Range Comments ORGANISM (test code=ORGANISM) Methicillin-Resistant Staphylococcus aureus Ciprofloxacin (test code=Cipro) Gentamicin (test code=Gent) Levofloxacin (test code=Levo) Linezolid (test code=Linez) Nitrofurantoin (test code=Nitro) Oxacillin (test code=Ox) Rifampin (test code=Rif) Tetracycline (test code=Tetra) Trimethoprim/Sulfa (test code=SXT) Vancomycin (test code=Vanc) ORGANISM (test code=ORGANISM2) Enterococcus group D Ampicillin (test code=Amp) Ciprofloxacin (test code=Cipro) Gentamicin synergy (test code=Gent-Syn) Levofloxacin (test code=Levo) Linezolid (test code=Linez) Penicillin (test code=Pen) Streptomycin synergy (test code=Strep-Syn) Tetracycline (test code=Tetra) Vancomycin (test code=Vanc) Final Report (test code=Final Report) 50,000 cfu/ml Methicillin-Resistant Staphylococcus aureus Contact isolation recommended Results called to and read back by: Eloina Gomez RN 09/09/19 09:37:57/PXS >=100,000 cfu/ml Enterococcus group D Urine [id number] 09:51:55* Test Item Value Reference Range Comments ORGANISM (test code=ORGANISM) Methicillin-Resistant Staphylococcus aureus Ciprofloxacin (test code=Cipro) Gentamicin (test code=Gent) Levofloxacin (test code=Levo) Linezolid (test code=Linez) Nitrofurantoin (test code=Nitro) Oxacillin (test code=Ox) Rifampin (test code=Rif) Tetracycline (test code=Tetra) Trimethoprim/Sulfa (test code=SXT) Vancomycin (test code=Vanc) ORGANISM (test code=ORGANISM2) Enterococcus group D Ampicillin (test code=Amp) Ciprofloxacin (test code=Cipro) Gentamicin synergy (test code=Gent-Syn) Levofloxacin (test code=Levo) Linezolid (test code=Linez) Nitrofurantoin (test code=Nitro) Penicillin (test code=Pen) Streptomycin synergy (test code=Strep-Syn) Tetracycline (test code=Tetra) Vancomycin (test code=Vanc) Final Report (test code=Final Report) 50,000 cfu/ml Methicillin-Resistant Staphylococcus aureus Contact isolation recommended Results called to and read back by: Eloina Gomez RN 09/09/19 09:37:57/PXS >=100,000 cfu/ml Enterococcus group D [id number] 03:41:31* Test Item Value Reference Range Comments Ferritin Level (test code=Ferritin Level) 84 ng/mL 30-400 Comprehensive Metabolic [id number] 03:36:32* Test Item Value Reference Range Comments Sodium Level (test code=Sodium Level) 137.0 mmol/L 135.0-145.0 Potassium Level (test code=Potassium Level) 4.1 mmol/L 3.5-5.1 Chloride Level (test code=Chloride Level) 105 mmol/L 98-105 CO2 (test code=CO2) 23 mmol/L 22-29 Anion Gap (test code=Anion Gap) 9 mmol/L 7-16 BUN (test code=BUN) 8.80 mg/dL 8.00-23.00 Creatinine Level (test code=Creatinine Level) 0.70 mg/dL 0.70-1.20 BUN/Creat Ratio (test code=BUN/Creat Ratio) 13 Glucose Level (test code=Glucose Level) 119 mg/dL 70-115 Calcium Level (test code=Calcium Level) 8.2 mg/dL 8.3-10.5 Alk Phos (test code=Alk Phos) 104 U/L 40-129 Bilirubin Total (test code=Bilirubin Total) 0.3 mg/dL 0.1-0.9 Albumin Level (test code=Albumin Level) 2.6 g/dL 3.5-5.2 Protein Total (test code=Protein Total) 5.0 g/dL 6.4-8.3 ALT (test code=ALT) 32 U/L 1-41 AST (test code=AST) 23 U/L 1-40 Globulin (test code=Globulin) 2.4 g/dL 2.9-3.1 A/G Ratio (test code=A/G Ratio) 1.1 ratio Comprehensive Metabolic [id number] 03:36:32* Test Item Value Reference Range Comments Sodium Level (test code=Sodium Level) 137.0 mmol/L 135.0-145.0 Potassium Level (test code=Potassium Level) 4.1 mmol/L 3.5-5.1 Chloride Level (test code=Chloride Level) 105 mmol/L 98-105 CO2 (test code=CO2) 23 mmol/L 22-29 Anion Gap (test code=Anion Gap) 9 mmol/L 7-16 BUN (test code=BUN) 8.80 mg/dL 8.00-23.00 Creatinine Level (test code=Creatinine Level) 0.70 mg/dL 0.70-1.20 BUN/Creat Ratio (test code=BUN/Creat Ratio) 13 Glucose Level (test code=Glucose Level) 119 mg/dL 70-115 Calcium Level (test code=Calcium Level) 8.2 mg/dL 8.3-10.5 Alk Phos (test code=Alk Phos) 104 U/L 40-129 Bilirubin Total (test code=Bilirubin Total) 0.3 mg/dL 0.1-0.9 Albumin Level (test code=Albumin Level) 2.6 g/dL 3.5-5.2 Protein Total (test code=Protein Total) 5.0 g/dL 6.4-8.3 ALT (test code=ALT) 32 U/L 1-41 AST (test code=AST) 23 U/L 1-40 Globulin (test code=Globulin) 2.4 g/dL 2.9-3.1 A/G Ratio (test code=A/G Ratio) 1.1 ratio eGFR AA (test code=eGFR AA) >60 mL/min/1.73 m2 eGFR (estimated Glomerular Filtration Rate) is an estimated value, calculated from the patient's serum creatinine using the MDRD equation. It is NOT the patient's actual GFR. The eGFR provides a more clinically useful measure of kidney disease than serum creatinine alone.This calculation takes sex and race into account, if the information is provided. If the race is not provided, and the patient is -Austrian, multiply by 1.212. If sex is not provided, and the patient is female, multiply by 0.742. Results for patients <18 years of age have not been validated by the MDRD study and should be interpreted with caution. eGFR Result Interpretation:eGFR > or=60 is in the Normal RangeeGFR < 60 may mean kidney diseaseeGFR < 15 may mean kidney failure Ranges recommended by the National Kidney Foundation, http://nkdep.nih.gov Magnesium [id number] 03:36:32* Test Item Value Reference Range Comments Magnesium Level (test code=Magnesium Level) 2.0 mg/dL 1.7-2.5 Phosphorus [id number] 03:36:32* Test Item Value Reference Range Comments Phosphorus Level (test code=Phosphorus Level) 2.50 mg/dL 2.70-4.50 TIBC and [id number] 03:36:32* Test Item Value Reference Range Comments Iron (test code=Iron) 29 mcg/dL 59-158 UIBC. (test code=UIBC.) 188 mcg/dL 112-346 TIBC Calc (test code=TIBC Calc) 217 mcg/dL 149-491 PSAT (test code=PSAT) 13 % 20-50 Comprehensive Metabolic [id number] 03:36:32* Test Item Value Reference Range Comments Sodium Level (test code=Sodium Level) 137.0 mmol/L 135.0-145.0 Potassium Level (test code=Potassium Level) 4.1 mmol/L 3.5-5.1 Chloride Level (test code=Chloride Level) 105 mmol/L 98-105 CO2 (test code=CO2) 23 mmol/L 22-29 Anion Gap (test code=Anion Gap) 9 mmol/L 7-16 BUN (test code=BUN) 8.80 mg/dL 8.00-23.00 Creatinine Level (test code=Creatinine Level) 0.70 mg/dL 0.70-1.20 BUN/Creat Ratio (test code=BUN/Creat Ratio) 13 Glucose Level (test code=Glucose Level) 119 mg/dL 70-115 Calcium Level (test code=Calcium Level) 8.2 mg/dL 8.3-10.5 Alk Phos (test code=Alk Phos) 104 U/L 40-129 Bilirubin Total (test code=Bilirubin Total) 0.3 mg/dL 0.1-0.9 Albumin Level (test code=Albumin Level) 2.6 g/dL 3.5-5.2 Protein Total (test code=Protein Total) 5.0 g/dL 6.4-8.3 ALT (test code=ALT) 32 U/L 1-41 AST (test code=AST) 23 U/L 1-40 Globulin (test code=Globulin) 2.4 g/dL 2.9-3.1 A/G Ratio (test code=A/G Ratio) 1.1 ratio eGFR AA (test code=eGFR AA) >60 mL/min/1.73 m2 eGFR (estimated Glomerular Filtration Rate) is an estimated value, calculated from the patient's serum creatinine using the MDRD equation. It is NOT the patient's actual GFR. The eGFR provides a more clinically useful measure of kidney disease than serum creatinine alone.This calculation takes sex and race into account, if the information is provided. If the race is not provided, and the patient is -Aust[place], multiply by 1.212. If sex is not provided, and the patient is female, multiply by 0.742. Results for patients <18 years of age have not been validated by the MDRD study and should be interpreted with caution. eGFR Result Interpretation:eGFR > or=60 is in the Normal RangeeGFR < 60 may mean kidney diseaseeGFR < 15 may mean kidney failure Ranges recommended by the National Kidney Foundation, http://nkdep.nih.gov eGFR Non-AA (test code=eGFR Non-AA) >60.00 mL/min/1.73 m2 eGFR (estimated Glomerular Filtration Rate) is an estimated value, calculated from the patient's serum creatinine using the MDRD equation. It is NOT the patient's actual GFR. The eGFR provides a more clinically useful measure of kidney disease than serum creatinine alone.This calculation takes sex and race into account, if the information is provided. If the race is not provided, and the patient is -Austrian, multiply by 1.212. If sex is not provided, and the patient is female, multiply by 0.742. Results for patients <18 years of age have not been validated by the MDRD study and should be interpreted with caution. eGFR Result Interpretation:eGFR > or=60 is in the Normal RangeeGFR < 60 may mean kidney diseaseeGFR < 15 may mean kidney failure Ranges recommended by the National Kidney Foundation, http://nkdep.nih.gov Complete Blood Count with [id number] 03:12:46* Test Item Value Reference Range Comments WBC (test code=WBC) 8.1 x10 4.4-10.5 RBC (test code=RBC) 3.46 x10 4.10-5.70 Hgb (test code=Hgb) 9.5 g/dL 13.4-17.4 Hct (test code=Hct) 30.6 % 38.7-52.0 MCV (test code=MCV) 88.40 fL 80.00-100.00 MCHC (test code=MCHC) 31.00 g/dL 32.00-37.50 RDW CV (test code=RDW CV) 14.2 % 11.5-14.5 MCH (test code=MCH) 27.5 pg 27.0-32.5 Platelets (test code=Platelets) 292.0 x10 140.0-440.0 MPV (test code=MPV) 11.0 fL Slide Review (test code=Slide Review) Auto Auto Result created by [email or web address] nRBC (test code=nRBC) 0 NRBC Abs (test code=NRBC Abs) 0.00 x10 IPF (test code=IPF) 0 % Automated [id number] 03:12:46* Test Item Value Reference Range Comments Neutro Auto (test code=Neutro Auto) 78.1 % 36.0-70.0 Lymph Auto (test code=Lymph Auto) 12.4 % 12.0-44.0 [place] Auto (test code=[place] Auto) 7.8 % 0.0-11.0 Eos, Auto (test code=Eos, Auto) 1.0 % 0.0-7.0 Basophil Auto (test code=Basophil Auto) 0.2 % 0.0-2.0 Neutro Absolute (test code=Neutro Absolute) 6.3 x10 1.6-7.4 Lymph Absolute (test code=Lymph Absolute) 1.00 x10 .50-4.60 [place] Absolute (test code=[place] Absolute) .63 x10 .00-1.20 Eos Absolute (test code=Eos Absolute) 0.08 x10 0.00-0.74 Baso Absolute (test code=Baso Absolute) 0.02 x10 0.00-0.21 IG [id number] 03:12:46* Test Item Value Reference Range Comments IG (test code=IG) 0.5 % 0.0-5.0 IG Abs (test code=IG Abs) 0 x10 Comprehensive Metabolic [id number] 05:47:33* Test Item Value Reference Range Comments Sodium Level (test code=Sodium Level) 140.0 mmol/L 135.0-145.0 Potassium Level (test code=Potassium Level) 4.0 mmol/L 3.5-5.1 Chloride Level (test code=Chloride Level) 108 mmol/L 98-105 CO2 (test code=CO2) 21 mmol/L 22-29 Anion Gap (test code=Anion Gap) 11 mmol/L 7-16 BUN (test code=BUN) 10.70 mg/dL 8.00-23.00 Creatinine Level (test code=Creatinine Level) 0.70 mg/dL 0.70-1.20 BUN/Creat Ratio (test code=BUN/Creat Ratio) 15 Glucose Level (test code=Glucose Level) 127 mg/dL 70-115 Calcium Level (test code=Calcium Level) 7.8 mg/dL 8.3-10.5 Alk Phos (test code=Alk Phos) 107 U/L 40-129 Bilirubin Total (test code=Bilirubin Total) 0.3 mg/dL 0.1-0.9 Albumin Level (test code=Albumin Level) 2.5 g/dL 3.5-5.2 Protein Total (test code=Protein Total) 5.1 g/dL 6.4-8.3 ALT (test code=ALT) 36 U/L 1-41 AST (test code=AST) 28 U/L 1-40 Globulin (test code=Globulin) 2.6 g/dL 2.9-3.1 A/G Ratio (test code=A/G Ratio) 1.0 ratio Comprehensive Metabolic [id number] 05:47:33* Test Item Value Reference Range Comments Sodium Level (test code=Sodium Level) 140.0 mmol/L 135.0-145.0 Potassium Level (test code=Potassium Level) 4.0 mmol/L 3.5-5.1 Chloride Level (test code=Chloride Level) 108 mmol/L 98-105 CO2 (test code=CO2) 21 mmol/L 22-29 Anion Gap (test code=Anion Gap) 11 mmol/L 7-16 BUN (test code=BUN) 10.70 mg/dL 8.00-23.00 Creatinine Level (test code=Creatinine Level) 0.70 mg/dL 0.70-1.20 BUN/Creat Ratio (test code=BUN/Creat Ratio) 15 Glucose Level (test code=Glucose Level) 127 mg/dL 70-115 Calcium Level (test code=Calcium Level) 7.8 mg/dL 8.3-10.5 Alk Phos (test code=Alk Phos) 107 U/L 40-129 Bilirubin Total (test code=Bilirubin Total) 0.3 mg/dL 0.1-0.9 Albumin Level (test code=Albumin Level) 2.5 g/dL 3.5-5.2 Protein Total (test code=Protein Total) 5.1 g/dL 6.4-8.3 ALT (test code=ALT) 36 U/L 1-41 AST (test code=AST) 28 U/L 1-40 Globulin (test code=Globulin) 2.6 g/dL 2.9-3.1 A/G Ratio (test code=A/G Ratio) 1.0 ratio eGFR AA (test code=eGFR AA) >60 mL/min/1.73 m2 eGFR (estimated Glomerular Filtration Rate) is an estimated value, calculated from the patient's serum creatinine using the MDRD equation. It is NOT the patient's actual GFR. The eGFR provides a more clinically useful measure of kidney disease than serum creatinine alone.This calculation takes sex and race into account, if the information is provided. If the race is not provided, and the patient is -Aust[place], multiply by 1.212. If sex is not provided, and the patient is female, multiply by 0.742. Results for patients <18 years of age have not been validated by the MDRD study and should be interpreted with caution. eGFR Result Interpretation:eGFR > or=60 is in the Normal RangeeGFR < 60 may mean kidney diseaseeGFR < 15 may mean kidney failure Ranges recommended by the National Kidney Foundation, http://nkdep.nih.gov Magnesium [id number] 05:47:33* Test Item Value Reference Range Comments Magnesium Level (test code=Magnesium Level) 2.2 mg/dL 1.7-2.5 Phosphorus [id number] 05:47:33* Test Item Value Reference Range Comments Phosphorus Level (test code=Phosphorus Level) 2.00 mg/dL 2.70-4.50 Comprehensive Metabolic [id number] 05:47:33* Test Item Value Reference Range Comments Sodium Level (test code=Sodium Level) 140.0 mmol/L 135.0-145.0 Potassium Level (test code=Potassium Level) 4.0 mmol/L 3.5-5.1 Chloride Level (test code=Chloride Level) 108 mmol/L 98-105 CO2 (test code=CO2) 21 mmol/L 22-29 Anion Gap (test code=Anion Gap) 11 mmol/L 7-16 BUN (test code=BUN) 10.70 mg/dL 8.00-23.00 Creatinine Level (test code=Creatinine Level) 0.70 mg/dL 0.70-1.20 BUN/Creat Ratio (test code=BUN/Creat Ratio) 15 Glucose Level (test code=Glucose Level) 127 mg/dL 70-115 Calcium Level (test code=Calcium Level) 7.8 mg/dL 8.3-10.5 Alk Phos (test code=Alk Phos) 107 U/L 40-129 Bilirubin Total (test code=Bilirubin Total) 0.3 mg/dL 0.1-0.9 Albumin Level (test code=Albumin Level) 2.5 g/dL 3.5-5.2 Protein Total (test code=Protein Total) 5.1 g/dL 6.4-8.3 ALT (test code=ALT) 36 U/L 1-41 AST (test code=AST) 28 U/L 1-40 Globulin (test code=Globulin) 2.6 g/dL 2.9-3.1 A/G Ratio (test code=A/G Ratio) 1.0 ratio eGFR AA (test code=eGFR AA) >60 mL/min/1.73 m2 eGFR (estimated Glomerular Filtration Rate) is an estimated value, calculated from the patient's serum creatinine using the MDRD equation. It is NOT the patient's actual GFR. The eGFR provides a more clinically useful measure of kidney disease than serum creatinine alone.This calculation takes sex and race into account, if the information is provided. If the race is not provided, and the patient is -[place], multiply by 1.212. If sex is not provided, and the patient is female, multiply by 0.742. Results for patients <18 years of age have not been validated by the MDRD study and should be interpreted with caution. eGFR Result Interpretation:eGFR > or=60 is in the Normal RangeeGFR < 60 may mean kidney diseaseeGFR < 15 may mean kidney failure Ranges recommended by the National Kidney Foundation, http://nkdep.nih.gov eGFR Non-AA (test code=eGFR Non-AA) >60.00 mL/min/1.73 m2 eGFR (estimated Glomerular Filtration Rate) is an estimated value, calculated from the patient's serum creatinine using the MDRD equation. It is NOT the patient's actual GFR. The eGFR provides a more clinically useful measure of kidney disease than serum creatinine alone.This calculation takes sex and race into account, if the information is provided. If the race is not provided, and the patient is -[place]rian, multiply by 1.212. If sex is not provided, and the patient is female, multiply by 0.742. Results for patients <18 years of age have not been validated by the MDRD study and should be interpreted with caution. eGFR Result Interpretation:eGFR > or=60 is in the Normal RangeeGFR < 60 may mean kidney diseaseeGFR < 15 may mean kidney failure Ranges recommended by the National Kidney Foundation, http://nkdep.nih.gov Complete Blood Count with [id number] 05:32:39* Test Item Value Reference Range Comments WBC (test code=WBC) 8.3 x10 4.4-10.5 RBC (test code=RBC) 3.42 x10 4.10-5.70 Hgb (test code=Hgb) 9.5 g/dL 13.4-17.4 MCV (test code=MCV) 88.90 fL 80.00-100.00 Hct (test code=Hct) 30.4 % 38.7-52.0 MCHC (test code=MCHC) 31.30 g/dL 32.00-37.50 RDW CV (test code=RDW CV) 14.4 % 11.5-14.5 MCH (test code=MCH) 27.8 pg 27.0-32.5 Platelets (test code=Platelets) 302.0 x10 140.0-440.0 MPV (test code=MPV) 11.4 fL Slide Review (test code=Slide Review) Auto Auto Result created by [email or web address] nRBC (test code=nRBC) 0 NRBC Abs (test code=NRBC Abs) 0.00 x10 IPF (test code=IPF) 0 % Automated [id number] 05:32:39* Test Item Value Reference Range Comments Neutro Auto (test code=Neutro Auto) 77.9 % 36.0-70.0 Lymph Auto (test code=Lymph Auto) 12.9 % 12.0-44.0 [place] Auto (test code=[place] Auto) 8.3 % 0.0-11.0 Eos, Auto (test code=Eos, Auto) 0.5 % 0.0-7.0 Basophil Auto (test code=Basophil Auto) 0.2 % 0.0-2.0 Neutro Absolute (test code=Neutro Absolute) 6.4 x10 1.6-7.4 Lymph Absolute (test code=Lymph Absolute) 1.07 x10 .50-4.60 [place] Absolute (test code=[place] Absolute) .69 x10 .00-1.20 Eos Absolute (test code=Eos Absolute) 0.04 x10 0.00-0.74 Baso Absolute (test code=Baso Absolute) 0.02 x10 0.00-0.21 IG [id number] 05:32:39* Test Item Value Reference Range Comments IG (test code=IG) 0.2 % 0.0-5.0 IG Abs (test code=IG Abs) 0 x10 IR Venous [id number] 14:51:48Patient: DONATOERIK Date/Time09/08/2019 12:35 CSTReason for ExamRIJ or LIJReportPROCEDURE:1. INFERIOR VENACAVOGRAM AND IVC FILTER PLACEMENT2. 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 He is currently in the ICU with a contraindication to anticoagulation. The request is for IVC filter placement.SEDATION: Under physician supervision, intravenous Versed and fentanyl were administered for moderate sedation. Pulse oximetry, heart rate, and blood pressure were continuously monitored by a dedicated IR trained nurse. The physician spent 30 minutes of continuous jvem-vo-aoep sedation time with the patient.CONTRAST: 10 mL nonionic contrastFLUOROSCOPY TIME: 1.1 minutes; DAP: 90 [id number] TYPE: OPTION infrarenal retrievable IVC filterACCESS SITE: Right internal jugular veinCOMPLICATIONS: NoneTECHNIQUE:The risks, benefits, and alternatives to the procedure and sedation were explained, and informed written consent was obtained. A time out was performed prior to procedure initiation.The right neck was prepped and draped in sterile fashion. All elements of maximum barrier sterile technique were utilized.The vascular structures were ultrasonographically evaluated. Under ultrasound guidance, the right internal jugular vein was accessed with a micropuncture needle. Vein patency and needle entry were documented. A 0.018" wire was placed and the nee dle exchanged for a 4 [place] dilator.An Amplatz wire was advanced into the infer ior vena cava, and the dilator exchanged for a filter sheath. Inferior venacavo graphy was performed using nonionic contrast. This is a baseline study to define variant anatomy, caval size, location and number of renal veins, and to evaluate for iliocaval thrombus.Under direct fluoroscopic guidance, the filter was posi tioned and deployed below the lowest renal vein. The postplacement radiograph s howed no evidence of tilt or migration. The wire was replaced. The filter tucker th was removed. Then a new 7 [place] triple-lumen central line was placed over t he wire. The catheter tip was positioned at the superior cavoatrial junction. The catheter was secured to the skin isn't 2-0 Prolene. A sterile and thymic dr essing was applied.No immediate complication occurred, and the patient was disch arged from the angiography suite in satisfactory condition.FINDINGS:1. There is no iliocaval thrombus.2. The IVC is normal in caliber. There is no aberrant peg brianna.3. The filter is appropriately positioned below the lowest renal vein.4. The right internal jugular vein is ultrasonographically patent and compresses.Exam Date/Time09/08/2019 12:35 CSTReportIMPRESSION:1. Successful image guided placemen t of an infrarenal OPTION IVC filter as described. If the patient is a candidate for filter retrieval, this ideally should be scheduled with interventional radi ology within 3 months.2. Successful placement of a triple-lumen central venous catheter. The catheter is ready for use.Location: R16 Final Dictated by: MD Hicks Adam FDictated DT/TM: 09/08/2019 2:22 pmSigned by: MD Hicks Adam FSigned (Electronic Signature): 09/08/2019 2:51 pmIR Filter Placement 2019-09-08 14:51:48Patient: ERIK DONATO Date/Time09/08/2019 12:30 CSTReason for ExamDVTReportPROCEDURE:1. INFERIOR VENACAVOGRAM AND IVC FILTER PLACEMENT2. 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 He is currently in the ICU with a contraindication to anticoagulation. The request is for IVC filter placement.SEDATION: Under physician supervision, intravenous Versed and fentanyl were administered for moderate sedation. Pulse oximetry, heart rate, and blood pressure were continuously monitored by a dedicated IR trained nurse. The physician spent 30 minutes of continuous gpdd-ur-bleg sedation time with the patient.CONTRAST: 10 mL nonionic contrastFLUOROSCOPY TIME: 1.1 minutes; DAP: 90 [id number] TYPE: OPTION infrarenal retrievable IVC filterACCESS SITE: Right internal jugular veinCOMPLICATIONS: NoneTECHNIQUE:The risks, benefits, and alternatives to the procedure and sedation were explained, and informed written consent was obtained. A time out was performed prior to procedure initiation.The right neck was prepped and draped in sterile fashion. All elements of maximum barrier sterile technique were utilized.The vascular st ructures were ultrasonographically evaluated. Under ultrasound guidance, the [facility] internal jugular vein was accessed with a micropuncture needle. Vein patenc y and needle entry were documented. A 0.018" wire was placed and the needle exc hanged for a 4 Barbadian dilator.An Amplatz wire was advanced into the inferior jassi a cava, and the dilator exchanged for a filter sheath. Inferior venacavography was performed using nonionic contrast. This is a baseline study to define varian t anatomy, caval size, location and number of renal veins, and to evaluate for i liocaval thrombus.Under direct fluoroscopic guidance, the filter was positioned and deployed below the lowest renal vein. The postplacement radiograph showed n o evidence of tilt or migration. The wire was replaced. The filter sheath was removed. Then a new 7 Barbadian triple-lumen central line was placed over the wire . The catheter tip was positioned at the superior cavoatrial junction. The cat heter was secured to the skin isn't 2-0 Prolene. A sterile and thymic dressing was applied.No immediate complication occurred, and the patient was discharged f rom the angiography suite in satisfactory condition.FINDINGS:1. There is no ilio caval thrombus.2. The IVC is normal in caliber. There is no aberrant anatomy.3. The filter is appropriately positioned below the lowest renal vein.4. The right internal jugular vein is ultrasonographically patent and compresses.Exam Date/Ti il09/08/2019 12:30 CSTReportIMPRESSION:1. Successful image guided placement of an infrarenal OPTION IVC filter as described. If the patient is a candidate for fi lter retrieval, this ideally should be scheduled with interventional radiology siobhan perdomo 3 months.2. Successful placement of a triple-lumen central venous cathete r. The catheter is ready for use.Location: R16 Final Dictated by: MD Kurt, Samuel FDictated DT/TM: 09/08/2019 2:22 pmSigned by: MD Kutr, John candelaria FSigned (Electronic Signature): 09/08/2019 2:51 pmBlood [id number] 12:26:53* Test Item Value Reference Range Comments ORGANISM (test code=ORGANISM) Methicillin-Resistant Staphylococcus aureus Chloramphenicol (test code=Chlor) Ciprofloxacin (test code=Cipro) Erythromycin (test code=Eryth) Gentamicin (test code=Gent) Levofloxacin (test code=Levo) Linezolid (test code=Linez) Oxacillin (test code=Ox) Rifampin (test code=Rif) Tetracycline (test code=Tetra) Trimethoprim/Sulfa (test code=SXT) Vancomycin (test code=Vanc) Final Report (test code=Final Report) Methicillin-Resistant Staphylococcus aureus Contact isolation recommended Results called to and read back by: Eloina Gomez RN 09/09/19 09:40:06/PXS Anaerobic Gram Stain Report (test code=Anaerobic Gram Stain Report) Evidence of growth Gram Positive Cocci in Clusters Results called to and read back by: Brenda Cotton RN at 09/07/19 19:32:40/CL Urine [id number] 12:02:54* Test Item Value Reference Range Comments ORGANISM (test code=ORGANISM) Methicillin-Resistant Staphylococcus aureus Ciprofloxacin (test code=Cipro) Gentamicin (test code=Gent) Levofloxacin (test code=Levo) Linezolid (test code=Linez) Nitrofurantoin (test code=Nitro) Oxacillin (test code=Ox) Rifampin (test code=Rif) Tetracycline (test code=Tetra) Trimethoprim/Sulfa (test code=SXT) Vancomycin (test code=Vanc) ORGANISM (test code=ORGANISM2) Enterococcus group D Ampicillin (test code=Amp) Gentamicin synergy (test code=Gent-Syn) Linezolid (test code=Linez) Penicillin (test code=Pen) Streptomycin synergy (test code=Strep-Syn) Vancomycin (test code=Vanc) Final Report (test code=Final Report) 50,000 cfu/ml Methicillin-Resistant Staphylococcus aureus Contact isolation recommended Results called to and read back by: Eloina Gomez RN 09/09/19 09:37:57/PXS >=100,000 cfu/ml Enterococcus group D Blood [id number] 12:01:47No growth at 5 days.Magnesium [id number] 06:56:07* Test Item Value Reference Range Comments Magnesium Level (test code=Magnesium Level) 2.1 mg/dL 1.7-2.5 Phosphorus [id number] 06:56:07* Test Item Value Reference Range Comments Phosphorus Level (test code=Phosphorus Level) 2.40 mg/dL 2.70-4.50 Comprehensive Metabolic [id number] 06:56:06* Test Item Value Reference Range Comments Sodium Level (test code=Sodium Level) 137.0 mmol/L 135.0-145.0 Potassium Level (test code=Potassium Level) 4.4 mmol/L 3.5-5.1 Chloride Level (test code=Chloride Level) 108 mmol/L 98-105 CO2 (test code=CO2) 19 mmol/L 22-29 Anion Gap (test code=Anion Gap) 10 mmol/L 7-16 BUN (test code=BUN) 19.30 mg/dL 8.00-23.00 Creatinine Level (test code=Creatinine Level) 0.80 mg/dL 0.70-1.20 BUN/Creat Ratio (test code=BUN/Creat Ratio) 24 Glucose Level (test code=Glucose Level) 114 mg/dL 70-115 Calcium Level (test code=Calcium Level) 7.8 mg/dL 8.3-10.5 Alk Phos (test code=Alk Phos) 107 U/L 40-129 Bilirubin Total (test code=Bilirubin Total) 0.4 mg/dL 0.1-0.9 Albumin Level (test code=Albumin Level) 2.5 g/dL 3.5-5.2 Protein Total (test code=Protein Total) 4.9 g/dL 6.4-8.3 ALT (test code=ALT) 37 U/L 1-41 AST (test code=AST) 30 U/L 1-40 Globulin (test code=Globulin) 2.4 g/dL 2.9-3.1 A/G Ratio (test code=A/G Ratio) 1.0 ratio eGFR AA (test code=eGFR AA) >60 mL/min/1.73 m2 eGFR (estimated Glomerular Filtration Rate) is an estimated value, calculated from the patient's serum creatinine using the MDRD equation. It is NOT the patient's actual GFR. The eGFR provides a more clinically useful measure of kidney disease than serum creatinine alone.This calculation takes sex and race into account, if the information is provided. If the race is not provided, and the patient is -Austrian, multiply by 1.212. If sex is not provided, and the patient is female, multiply by 0.742. Results for patients <18 years of age have not been validated by the MDRD study and should be interpreted with caution. eGFR Result Interpretation:eGFR > or=60 is in the Normal RangeeGFR < 60 may mean kidney diseaseeGFR < 15 may mean kidney failure Ranges recommended by the National Kidney Foundation, http://nkdep.nih.gov Creatine [id number] 06:56:06* Test Item Value Reference Range Comments CK (test code=CK) 67 U/L 39-308 Comprehensive Metabolic [id number] 06:56:06* Test Item Value Reference Range Comments Sodium Level (test code=Sodium Level) 137.0 mmol/L 135.0-145.0 Potassium Level (test code=Potassium Level) 4.4 mmol/L 3.5-5.1 Chloride Level (test code=Chloride Level) 108 mmol/L 98-105 CO2 (test code=CO2) 19 mmol/L 22-29 Anion Gap (test code=Anion Gap) 10 mmol/L 7-16 BUN (test code=BUN) 19.30 mg/dL 8.00-23.00 Creatinine Level (test code=Creatinine Level) 0.80 mg/dL 0.70-1.20 BUN/Creat Ratio (test code=BUN/Creat Ratio) 24 Glucose Level (test code=Glucose Level) 114 mg/dL 70-115 Calcium Level (test code=Calcium Level) 7.8 mg/dL 8.3-10.5 Alk Phos (test code=Alk Phos) 107 U/L 40-129 Bilirubin Total (test code=Bilirubin Total) 0.4 mg/dL 0.1-0.9 Albumin Level (test code=Albumin Level) 2.5 g/dL 3.5-5.2 Protein Total (test code=Protein Total) 4.9 g/dL 6.4-8.3 ALT (test code=ALT) 37 U/L 1-41 AST (test code=AST) 30 U/L 1-40 Globulin (test code=Globulin) 2.4 g/dL 2.9-3.1 A/G Ratio (test code=A/G Ratio) 1.0 ratio eGFR AA (test code=eGFR AA) >60 mL/min/1.73 m2 eGFR (estimated Glomerular Filtration Rate) is an estimated value, calculated from the patient's serum creatinine using the MDRD equation. It is NOT the patient's actual GFR. The eGFR provides a more clinically useful measure of kidney disease than serum creatinine alone.This calculation takes sex and race into account, if the information is provided. If the race is not provided, and the patient is -Austrian, multiply by 1.212. If sex is not provided, and the patient is female, multiply by 0.742. Results for patients <18 years of age have not been validated by the MDRD study and should be interpreted with caution. eGFR Result Interpretation:eGFR > or=60 is in the Normal RangeeGFR < 60 may mean kidney diseaseeGFR < 15 may mean kidney failure Ranges recommended by the National Kidney Foundation, http://nkdep.nih.gov Creatine Kinase MB [id number] 06:56:06* Test Item Value Reference Range Comments CKMB (test code=CKMB) 2.8 ng/mL 0.0-4.9 CKMB % (test code=CKMB %) 4.2 % 0.0-3.4 Comprehensive Metabolic [id number] 06:56:06* Test Item Value Reference Range Comments Sodium Level (test code=Sodium Level) 137.0 mmol/L 135.0-145.0 Potassium Level (test code=Potassium Level) 4.4 mmol/L 3.5-5.1 Chloride Level (test code=Chloride Level) 108 mmol/L 98-105 CO2 (test code=CO2) 19 mmol/L 22-29 Anion Gap (test code=Anion Gap) 10 mmol/L 7-16 BUN (test code=BUN) 19.30 mg/dL 8.00-23.00 Creatinine Level (test code=Creatinine Level) 0.80 mg/dL 0.70-1.20 BUN/Creat Ratio (test code=BUN/Creat Ratio) 24 Glucose Level (test code=Glucose Level) 114 mg/dL 70-115 Calcium Level (test code=Calcium Level) 7.8 mg/dL 8.3-10.5 Alk Phos (test code=Alk Phos) 107 U/L 40-129 Bilirubin Total (test code=Bilirubin Total) 0.4 mg/dL 0.1-0.9 Albumin Level (test code=Albumin Level) 2.5 g/dL 3.5-5.2 Protein Total (test code=Protein Total) 4.9 g/dL 6.4-8.3 ALT (test code=ALT) 37 U/L 1-41 AST (test code=AST) 30 U/L 1-40 Globulin (test code=Globulin) 2.4 g/dL 2.9-3.1 A/G Ratio (test code=A/G Ratio) 1.0 ratio eGFR AA (test code=eGFR AA) >60 mL/min/1.73 m2 eGFR (estimated Glomerular Filtration Rate) is an estimated value, calculated from the patient's serum creatinine using the MDRD equation. It is NOT the patient's actual GFR. The eGFR provides a more clinically useful measure of kidney disease than serum creatinine alone.This calculation takes sex and race into account, if the information is provided. If the race is not provided, and the patient is -Austrian, multiply by 1.212. If sex is not provided, and the patient is female, multiply by 0.742. Results for patients <18 years of age have not been validated by the MDRD study and should be interpreted with caution. eGFR Result Interpretation:eGFR > or=60 is in the Normal RangeeGFR < 60 may mean kidney diseaseeGFR < 15 may mean kidney failure Ranges recommended by the National Kidney Foundation, http://nkdep.nih.gov eGFR Non-AA (test code=eGFR Non-AA) >60.00 mL/min/1.73 m2 eGFR (estimated Glomerular Filtration Rate) is an estimated value, calculated from the patient's serum creatinine using the MDRD equation. It is NOT the patient's actual GFR. The eGFR provides a more clinically useful measure of kidney disease than serum creatinine alone.This calculation takes sex and race into account, if the information is provided. If the race is not provided, and the patient is -Austrian, multiply by 1.212. If sex is not provided, and the patient is female, multiply by 0.742. Results for patients <18 years of age have not been validated by the MDRD study and should be interpreted with caution. eGFR Result Interpretation:eGFR > or=60 is in the Normal RangeeGFR < 60 may mean kidney diseaseeGFR < 15 may mean kidney failure Ranges recommended by the National Kidney Foundation, http://nkdep.nih.gov Complete Blood Count with [id number] 06:27:24* Test Item Value Reference Range Comments WBC (test code=WBC) 12.1 x10 4.4-10.5 Delta check investigated values correlate with patients condition, antibioticsResults called to and read back by: Fe cotton RN 09/08/2019 06:27:15 WELLNESS PROGRAM COORDINATOR CE RBC (test code=RBC) 3.30 x10 4.10-5.70 Hgb (test code=Hgb) 9.2 g/dL 13.4-17.4 MCV (test code=MCV) 91.80 fL 80.00-100.00 Hct (test code=Hct) 30.3 % 38.7-52.0 MCHC (test code=MCHC) 30.40 g/dL 32.00-37.50 MCH (test code=MCH) 27.9 pg 27.0-32.5 RDW CV (test code=RDW CV) 14.5 % 11.5-14.5 Platelets (test code=Platelets) 260.0 x10 140.0-440.0 MPV (test code=MPV) 11.2 fL Slide Review (test code=Slide Review) Auto Auto Result created by [email or web address] nRBC (test code=nRBC) 0 NRBC Abs (test code=NRBC Abs) 0.00 x10 IPF (test code=IPF) 0 % Automated [id number] 06:27:24* Test Item Value Reference Range Comments Neutro Auto (test code=Neutro Auto) 85.1 % 36.0-70.0 Lymph Auto (test code=Lymph Auto) 7.1 % 12.0-44.0 [place] Auto (test code=[place] Auto) 6.7 % 0.0-11.0 Eos, Auto (test code=Eos, Auto) 0.2 % 0.0-7.0 Basophil Auto (test code=Basophil Auto) 0.2 % 0.0-2.0 Neutro Absolute (test code=Neutro Absolute) 10.3 x10 1.6-7.4 Lymph Absolute (test code=Lymph Absolute) .86 x10 .50-4.60 [place] Absolute (test code=[place] Absolute) .81 x10 .00-1.20 Eos Absolute (test code=Eos Absolute) 0.03 x10 0.00-0.74 Baso Absolute (test code=Baso Absolute) 0.02 x10 0.00-0.21 IG [id number] 06:27:24* Test Item Value Reference Range Comments IG (test code=IG) 0.7 % 0.0-5.0 IG Abs (test code=IG Abs) 0 x10 US Lower Ext Venous Duplex [id number] 23:29:27Patient: ERIK DONATO Date/Time09/07/2019 20:15 CSTReason for ExamEvaluate Chronic DVTReportLOWER EXTREMITY VENOUS ULTRASOUND WITH Doppler ( BILATERAL )Location: [id number] HISTORY: Evaluate chronic DVTTECHNIQUE: Real-time Duplex grayscale, color and spectral Doppler evaluation of the right and left common femoral, superficial femoral, greater saphenous, popliteal , and posterior tibial veins was performed. Color flow and Spectral analysis performed. Venous inflow patterns were documented. Exam was performed without a radiologist in attendance.FINDINGS:No evidence of left leg abnormalities.There is partially occlusive thrombus in the right common femoral vein junction to the greater saphenous vein. It extends partially into the profunda femoris where it appears more hypoechoic and acute. A trickle of flow is seen here. The thrombus present at the junction of the common femoral vein and greater saphenous vein appears echogenic and could be subacute to chron ic although not evident on exam performed 5 weeks prior. The posterior tibi al vein, popliteal vein, anterior tibial vein, dorsalis pedis vein, and superfic ial femoral veins are patent without DVT.IMPRESSION:1. Partially occlusive throm bus at the junction of the right common femoral vein, greater saphenous vein and proximal profunda femoris vein. The thrombus near the junction of the right com mon femoral vein and greater saphenous vein appears mildly echogenic and may be subacute. There was no evidence of DVT on exam performed 5 weeks prior.2. Above findings were called to Yashira Cotton RN at 2328 hours Final Dictated b y: MD Norman Maria VDictated DT/TM: 09/07/2019 9:11 pmSigned by: Dexter Norman Maria VSigned (Electronic Signature): 09/07/2019 11:29 pmVerigene Gram- Positive Blood [id number] 22:56:30* Test Item Value Reference Range Comments Staphylococcus species (test code=Staphylococcus species) Detected Not Detected Positive for methicillin-resistant Staphylococcus aureus (MRSA) by Verigene nucleic acid test.Isolation precautions recommended.Conventional identification and antimicrobial susceptibility testing to follow.Positive for Vancomycin-Resistant Enterococcus faecalis (VRE) by Verigene nucleic acid test. Isolation precautions recommended.Conventional identification and antimicrobial susceptibility testing to follow.Results called to and read back by: KARIN Randolph 09/07/2019 22:54:23 WELLNESS PROGRAM COORDINATOR Sade (Pharmacist) 09/07/2019 22:56:26 WELLNESS PROGRAM COORDINATOR CE Staphylococcus aureus (test code=Staphylococcus aureus) Detected Not Detected Positive for methicillin-resistant Staphylococcus aureus (MRSA) by Verigene nucleic acid test.Isolation precautions recommended.Conventional identification and antimicrobial susceptibility testing to follow.Positive for Vancomycin-Resistant Enterococcus faecalis (VRE) by Verigene nucleic acid test. Isolation precautions recommended.Conventional identification and antimicrobial susceptibility testing to follow.Results called to and read back by: KARIN Randolph 09/07/2019 22:54:23 WELLNESS PROGRAM COORDINATOR Sade (Pharmacist) 09/07/2019 22:56:26 WELLNESS PROGRAM COORDINATOR CE Staphylococcus epidermidis (test code=Staphylococcus epidermidis) Not Detected Not Detected Staphylococcus lugdunensis (test code=Staphylococcus lugdunensis) Not Detected Not Detected mecA (methicillin) (test code=mecA (methicillin)) Detected Not Detected Positive for methicillin-resistant Staphylococcus aureus (MRSA) by Verigene nucleic acid test.Isolation precautions recommended.Conventional identification and antimicrobial susceptibility testing to follow.Positive for Vancomycin-Resistant Enterococcus faecalis (VRE) by Verigene nucleic acid test. Isolation precautions recommended.Conventional identification and antimicrobial susceptibility testing to follow.Results called to and read back by: KARIN Randolph 09/07/2019 22:54:23 WELLNESS PROGRAM COORDINATOR Sade (Pharmacist) 09/07/2019 22:56:26 WELLNESS PROGRAM COORDINATOR CE Streptococcus species (test code=Streptococcus species) Not Detected Not Detected Streptococcus anginosus Grp (test code=Streptococcus anginosus Grp) Not Detected Not Detected Streptococcus agalactiae (test code=Streptococcus agalactiae) Not Detected Not Detected Streptococcus pneumoniae (test code=Streptococcus pneumoniae) Not Detected Not Detected Streptococcus pyogenes (test code=Streptococcus pyogenes) Not Detected Not Detected Enterococcus faecalis (test code=Enterococcus faecalis) Detected Not Detected Positive for methicillin-resistant Staphylococcus aureus (MRSA) by Verigene nucleic acid test.Isolation precautions recommended.Conventional identification and antimicrobial susceptibility testing to follow.Positive for Vancomycin-Resistant Enterococcus faecalis (VRE) by Verigene nucleic acid test. Isolation precautions recommended.Conventional identification and antimicrobial susceptibility testing to follow.Results called to and read back by: KARIN Randolph 09/07/2019 22:54:23 WELLNESS PROGRAM COORDINATOR Sade (Pharmacist) 09/07/2019 22:56:26 WELLNESS PROGRAM COORDINATOR CE Enterococcus faecium (test code=Enterococcus faecium) Not Detected Not Detected Eddie (vancomycin) (test code=Eddie (vancomycin)) Detected Not Detected Positive for methicillin-resistant Staphylococcus aureus (MRSA) by Verigene nucleic acid test.Isolation precautions recommended.Conventional identification and antimicrobial susceptibility testing to follow.Positive for Vancomycin-Resistant Enterococcus faecalis (VRE) by Verigene nucleic acid test. Isolation precautions recommended.Conventional identification and antimicrobial susceptibility testing to follow.Results called to and read back by: KARIN Randolph 09/07/2019 22:54:23 WELLNESS PROGRAM COORDINATOR Sade (Pharmacist) 09/07/2019 22:56:26 WELLNESS PROGRAM COORDINATOR CE vanB (vancomycin) (test code=vanB (vancomycin)) Not Detected Not Detected Listeria species (test code=Listeria species) Not Detected Not Detected Verigene Disclaimer (test code=Verigene Disclaimer) See Comment The presence of nucleic acids in clinical specimens does not exclude the possibility of multiple organisms causing an infection. Negative results do not rule out the possibility of infection with other organisms. The detection of nucleic acids encoding genes for antibiotics resistance does not always correspond to phenotypic antibiotic resistance. Some bacterial species may carry additional antibiotics resistance not tested for by this assay. Results of nucleic acid testing are preliminary and will be verified by culture/susceptibility tests to follow. Verigene results should not be used as the sole basis for diagnosis, treatment or patient management decisions. POC [id number] 15:54:02* Test Item Value Reference Range Comments Glucose POC (test code=Glucose POC) 141 mg/dL 70-115 If you consider your patient critically ill, the Rosalinda-Accu Check Infrom II meter should not be used for Glucose determination. Draw a venous Glucose and send to the main Lab for analysis. CT Abdomen and Pelvis w/o [id number] 13:34:39Patient: DONATO, ERIK M Date/Time09/07/2019 12:22 CSTReason for ExamAbdominal painReportCT OF THE ABDOMEN AND PELVIS WITHOUT CONTRASTLocation R 16HISTORY: Abdominal painTECHNIQUE:Noncontrast axial CT abdomen and pelvis at 5 mm thickness slices. No PO contrast was administered. The images were reviewed in soft tissue, lung and bone windows. Sagittal and coronal images were reformatted. One or more the following dose reduction techniques is utilized: Use of iterative reconstruction, automated exposure control, adjustment of the mAs and Kv for the patient's weight. DLP 735.32 mGy- cm.COMPARISON: CT chest dated 02/02/2018 (upper abdomen visualized)FINDINGS:Lung bases: Diffuse airspace consolidation in the lung bases, right greater than left. Lungs appear hyperinflated.Abdomen Findings:Liver: No significant abnorma lity.Gallbladder: Mildly distended with focal gallstone at the fundus. No biliar y dilatationPancreas: Mildly atrophicSpleen: Normal sized.Kidneys: Contrast in c ollecting system from prior CT. No hydronephrosis. Kidneys are mildly atrophic.A drenals: No significant abnormality.Bowel: Small hiatal hernia is seen, 3.2 cm. Question nodular thickening at the GE junction, 2.2 cm (series 3 image 21). NG t ube terminates in the gastric body.No dilated bowel loops. Mild pancolonic diver ticulosis without diverticulitis. No appendiceal enlargement.Peritoneum: No free intra-abdominal air or fluid.Bone Windows: No aggressive appearing osseous lesi ons. Mild degenerative changes along spine.Vascular:Diffuse fusiform abdominal a ortic aneurysm, measures up to 3.8 cm in diameter infrarenal , increased compare d to 2018 exam where it measured 3.3 cm at the same level. Rim of tissue draping anterior to the aneurysm is chronic.Lymph Nodes:No significant abnormality.Pelv is Findings:Bladder: Contrast in bladder from prior diagnostic exam.Prostate: No prostatomegaly. Prominence of the prostatic urethra, question prior TURP.Seminal vesicles: No significant abnormality.Exam Date/Time09/07/2019 12:22 CSTReportIMP RESSION:1. Bilateral lower lobe pneumonia redemonstrated, right greater than lef t.2. Abdominal aortic aneurysm,, 3.8 cm infrarenal, progressed since 01/2018 with (where it measured 3.3 cm.) Vascular consultation/follow-up.3.Cholelithiasis, m inimally dilated gallbladder. Exclude right upper quadrant pain.4. Hiatal hernia with questionable 2.2 cm masslike thickening at the GE junction. Correlate on e ndoscopy when feasible.5. Mild diffuse colon diverticulosis without diverticulit is. Final Dictated by: MD Ying, Kendra FDictated DT/TM: 09/07/2019 1:05 pmSigned by: MD Ying, Kendra FSigned (Electronic S ignature): 09/07/2019 1:34 pmManual [id number] 12:55:17* Test Item Value Reference Range Comments Segs Man (test code=Segs Man) 90.0 % 36.0-70.0 Band Man (test code=Band Man) 3.0 % 0.0-6.0 Lymph Man (test code=Lymph Man) 2.0 % 12.0-44.0 Monocyte Man (test code=Monocyte Man) 5.0 % 0.0-11.0 Eos Man (test code=Eos Man) 0.0 % 0.0-7.0 Basophil Man (test code=Basophil Man) 0.0 0.0-2.0 Neut Man Abs (test code=Neut Man Abs) 47.3 x10 1.6-7.4 Lymph Man Abs (test code=Lymph Man Abs) 1.0 x10 0.5-4.6 [place] Man Abs (test code=[place] Man Abs) 2.5 x10 0.0-1.2 Eos Man Abs (test code=Eos Man Abs) 0.00 x10 0.00-0.74 Baso Man Abs (test code=Baso Man Abs) 0.00 x10 0.00-0.21 RBC Morph (test code=RBC Morph) Normal Normal Hypochromia (test code=Hypochromia) None Seen None Seen Anisocyte (test code=Anisocyte) None None Microcyte (test code=Microcyte) None Seen None Seen Macrocyte (test code=Macrocyte) None Seen None Seen Poik (test code=Poik) None Seen None Seen Polychrom (test code=Polychrom) None Seen None Seen Acanthocyte (test code=Acanthocyte) None Seen None Seen Baso Stippling RBC (test code=Baso Stippling RBC) None Seen None Seen Plt Estimation (test code=Plt Estimation) Increased Normal Platelet Morphology (test code=Platelet Morphology) Large platelets Normal Path Rev (test code=Path Rev) Indicated Pathology Review of Peripheral [id number] 12:21:48* Test Item Value Reference Range Comments Path Smear Review (test code=Path Smear Review) See Comment Reactive neutrophiliaReactive thrombocytosis Lactic Acid, Plasma (Venous)2019-09-07 08:02:25* Test Item Value Reference Range Comments Lactic Acid, Plasma (Venous) (test code=Lactic Acid, Plasma (Venous)) 2.3 mmol/L 0.5-1.9 Critical results called to nurse rashad norman at 09/07/2019 08:02:14 WELLNESS PROGRAM COORDINATOR by MARGARET. Read back and verified? Yes Manual [id number] 07:25:13* Test Item Value Reference Range Comments Segs Man (test code=Segs Man) 85.0 % 36.0-70.0 Band Man (test code=Band Man) 12.0 % 0.0-6.0 Lymph Man (test code=Lymph Man) 1.0 % 12.0-44.0 Monocyte Man (test code=Monocyte Man) 1.0 % 0.0-11.0 Eos Man (test code=Eos Man) 0.0 % 0.0-7.0 Basophil Man (test code=Basophil Man) 0.0 0.0-2.0 Rachel Man (test code=Rachel Man) 1 % 0-2 Neut Man Abs (test code=Neut Man Abs) 39.6 x10 1.6-7.4 Lymph Man Abs (test code=Lymph Man Abs) 0.4 x10 0.5-4.6 [place] Man Abs (test code=[place] Man Abs) 0.4 x10 0.0-1.2 Eos Man Abs (test code=Eos Man Abs) 0.00 x10 0.00-0.74 Baso Man Abs (test code=Baso Man Abs) 0.00 x10 0.00-0.21 RBC Morph (test code=RBC Morph) As Indicated Normal Hypochromia (test code=Hypochromia) 1+ None Seen Plt Estimation (test code=Plt Estimation) Normal Normal Manual [id number] 07:25:13* Test Item Value Reference Range Comments Segs Man (test code=Segs Man) 85.0 % 36.0-70.0 Band Man (test code=Band Man) 12.0 % 0.0-6.0 Lymph Man (test code=Lymph Man) 1.0 % 12.0-44.0 Monocyte Man (test code=Monocyte Man) 1.0 % 0.0-11.0 Eos Man (test code=Eos Man) 0.0 % 0.0-7.0 Basophil Man (test code=Basophil Man) 0.0 0.0-2.0 Rachel Man (test code=Rachel Man) 1 % 0-2 Neut Man Abs (test code=Neut Man Abs) 39.6 x10 1.6-7.4 Lymph Man Abs (test code=Lymph Man Abs) 0.4 x10 0.5-4.6 [place] Man Abs (test code=[place] Man Abs) 0.4 x10 0.0-1.2 Eos Man Abs (test code=Eos Man Abs) 0.00 x10 0.00-0.74 Baso Man Abs (test code=Baso Man Abs) 0.00 x10 0.00-0.21 RBC Morph (test code=RBC Morph) As Indicated Normal Hypochromia (test code=Hypochromia) 1+ None Seen Anisocyte (test code=Anisocyte) None None Microcyte (test code=Microcyte) None Seen None Seen Macrocyte (test code=Macrocyte) None Seen None Seen Poik (test code=Poik) None Seen None Seen Polychrom (test code=Polychrom) None Seen None Seen Acanthocyte (test code=Acanthocyte) None Seen None Seen Baso Stippling RBC (test code=Baso Stippling RBC) None Seen None Seen Plt Estimation (test code=Plt Estimation) Normal Normal CT Angio [id number] 05:45:54Patient: ERIK DONATO Date/Time09/07/2019 05:18 CSTReason for Examhypoxia, known untreated DVT LUE;DVT, knownAddendumADDENDUM:Results were verbally communicated by telephone to Dr. Pereira on 09/07/2019 5:44 AM by [facility] on- call. Final Dictated by: MD Lockett Mohammad TDictated DT/TM: 09/07/2019 5:45 amSigned by: MD Lockett Mohammad TSigned (Electronic Signature): 09/07/2019 5:45 amReportAFTER HOURS SERVICE ON: 09/07/2019 5:36 AMCT Scan of the Chest With ContrastLocation Code [id number]: DVT, known;hypoxia, known untreated DVT LUETechnique: Scans were performed on a helical scanner post IV contrast. Coronal and sagittal reconstructions were performed.One or more of the following dose reduction techniques were used: Automated exposure control, adjustment of the mA and/or kV according to patient size, and/or utilization of iterative reconstruction technique.FINDINGS:Study is motion degraded which limits evaluation of the smaller vessels. There is an elongated thin filling defect within a segmental branch of the right upper lobe consistent with pulmonary embolism. There is no saddle embolism. Atherosclerosis noted in the aorta and coronary arteries. No evidence of ascending aortic aneurysm. The mid descending aorta measures 2.8 cm. The distal descending aorta there is mildly dilated measuring 3.4 cm. The aorta had a diaphragmatic hiatus there is also tortuous and dilated measuring 3.7 cm. There is fusiform but partially vis ualized aneurysmal dilatation of the abdominal aorta measuring 3.7 cm. There is atherosclerotic plaque as well as atheromatous circumferential plaque occupying approximately 60% of the abdominal aortic diameter. No evidence of aortic dissec tion in the thorax. There is no cardiomegaly or significant pericardial effusion .There are extensive emphysematous changes. There is no pneumothorax. There is n o pulmonary edema. There are dense bilateral lower lobe atelectatic changes.Ther e is a small gallstone.IMPRESSION:Nonocclusive right upper lobe segmental pulmon pam embolism.No aortic dissection. 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.Large bilateral lower lobe atelectasis.Advanced emphys ematous changes.Cholelithiasis.Exam Date/Time09/07/2019 05:18 CSTReport FOR INTERNAL CODING PURPOSES ONLYCRITICAL RESULT CODE: C VRRN Final Dictated by: MD Lockett Mohammad TDictated DT/TM: 10/2019 5:36 amSigned by: MD Lockett Mohammad TSigned (Electronic Signature) : 09/07/2019 5:41 amReport last revised on 09/07/2019 05:45 WELLNESS PROGRAM COORDINATOR by MD Lockett Mohammad TCT Angio [id number] 05:41:59Patient: ERIK DONATO Date/Time09/07/2019 05:18 CSTReason for Examhypoxia, known untreated DVT LUE;DVT, knownReportAFTER HOURS SERVICE ON: 09/07/2019 5:36 AMCT Scan of the Chest With ContrastLocation Code [id number]: DVT, known;hypoxia, known untreated DVT LUETechnique: Scans were performed on a helical scanner post IV contrast. Coronal and sagittal reconstructions were performed.One or more of the following dose reduction techniques were used: Automated exposure control, adjustment of the mA and/or kV according to patient size, and/or utilization of iterative reconstruction technique.FINDINGS:Study is motion degraded which limits evaluation of the smaller vessels. There is an elongated thin filling defect within a segmental branch of the right upper lobe consistent with pulmonary embolism. There is no saddle embolism. Atherosclerosis noted in the aorta and coronary arteries. No evidence of ascending aortic aneurysm. The mid descending aorta measures 2.8 cm. The distal descending aorta there is mildly dilated measuring 3.4 cm. The aorta had a diaphragmatic hiatus there is also tortuous and dilated measuring 3.7 cm. There is fusiform but partially visualized aneurysmal dilatation of the abdominal aorta measuring 3.7 cm. There is atherosclerotic plaque as well as atheromatous circumferential plaque occupying approximately 60% of the abdominal aortic diameter. No evidence of aortic dissection in the thorax. There is no cardiomegaly or significant pericardial effusion.There are extensive emphysematous changes. There is no pneumothorax. There is no pulmonary edema. There are dense bilateral lower lobe atelectatic changes.There is a small gallstone.IMPRESSION:Nonocclusive right upper lobe segmental pulmonary embolism.No aortic dissection. Mild aneurysmal d ilatation of the descending aorta and abdominal aorta.Large bilateral lower lobe atelectasis.Advanced emphysematous changes.Cholelithiasis.FOR INTERNAL CODING PURPOSES ONLYCRITICAL RESULT CODE: CVRRN Final Dictated by: MD Lockett Mohammad TDictated DT/TM: 09/07/2019 5: 36 amSigned by: MD Lockett Mohammad TSigned (Electronic Signature): 020 5:41 amIG [id number] 05:23:12* Test Item Value Reference Range Comments IG (test code=IG) 2.0 % 0.0-5.0 IG Abs (test code=IG Abs) 1 x10 Complete Blood Count with [id number] 05:23:11* Test Item Value Reference Range Comments WBC (test code=WBC) 40.4 x10 4.4-10.5 Second sample submitted Delta check investigated values correlate with patients condition,no reason was given. antibiotics started after the second draw of bloodCritical results called to Yan at 09/07/2019 05:22:02 WELLNESS PROGRAM COORDINATOR by CE. Read back and verified? YES RBC (test code=RBC) 3.58 x10 4.10-5.70 Hgb (test code=Hgb) 10.2 g/dL 13.4-17.4 Hct (test code=Hct) 32.8 % 38.7-52.0 MCV (test code=MCV) 91.60 fL 80.00-100.00 MCHC (test code=MCHC) 31.10 g/dL 32.00-37.50 RDW CV (test code=RDW CV) 14.5 % 11.5-14.5 MCH (test code=MCH) 28.5 pg 27.0-32.5 Platelets (test code=Platelets) 348.0 x10 140.0-440.0 MPV (test code=MPV) 11.7 fL Slide Review (test code=Slide Review) Manual Auto Result created by GL_SJM_SLIDE_REV_AUTO GL_SJM_XN_RFLX GL_SJM_XN_RFLX nRBC (test code=nRBC) 0 NRBC Abs (test code=NRBC Abs) 0.00 x10 Pos Diff XN (test code=Pos Diff XN) A Pos Count XN (test code=Pos Count XN) A IPF (test code=IPF) 0 % Urinalysis [id number] 05:13:37* Test Item Value Reference Range Comments UA WBC (test code=UA WBC) TNTC 0-5 UA RBC (test code=UA RBC) 11-19 0-5 UA Bacteria (test code=UA Bacteria) Moderate UA Squam Epithelial (test code=UA Squam Epithelial) 0-5 UA Mucous (test code=UA Mucous) Few Urinalysis with Culture, if [id number] 04:28:21* Test Item Value Reference Range Comments UA Color (test code=UA Color) DEO Yellow UA Appear (test code=UA Appear) CLDY Clear UA pH (test code=UA pH) 5 UA Spec Grav (test code=UA Spec Grav) 1.020 1.001-1.035 UA Glucose (test code=UA Glucose) NEG Negative UA Bili (test code=UA Bili) NEG Negative UA Ketones (test code=UA Ketones) 5 mg/dL Negative UA Blood (test code=UA Blood) 250 cells/mcL Negative UA Protein (test code=UA Protein) 75 mg/dL Negative UA Urobilinogen (test code=UA Urobilinogen) 1 mg/dL >0.2 UA Nitrite (test code=UA Nitrite) NEG Negative UA Leuk Est (test code=UA Leuk Est) 500 cells/mcL Negative UA Micro Ind? (test code=UA Micro Ind?) Indicated Not Indicated Result created by rule GL_SJM_UA_MICRO_IND Lactic Acid, Plasma (Venous)2019-09-07 04:05:53* Test Item Value Reference Range Comments Lactic Acid, Plasma (Venous) (test code=Lactic Acid, Plasma (Venous)) 3.3 mmol/L 0.5-1.9 Verified by repeat analysis.Critical results called to dano hays at 09/07/2019 04:05:46 WELLNESS PROGRAM COORDINATOR by og. Read back and verified? yes Comprehensive Metabolic [id number] 04:05:52* Test Item Value Reference Range Comments Sodium Level (test code=Sodium Level) 137.0 mmol/L 135.0-145.0 Potassium Level (test code=Potassium Level) 4.7 mmol/L 3.5-5.1 Chloride Level (test code=Chloride Level) 99 mmol/L 98-105 CO2 (test code=CO2) 20 mmol/L 22-29 Anion Gap (test code=Anion Gap) 18 mmol/L 7-16 BUN (test code=BUN) 31.70 mg/dL 8.00-23.00 Creatinine Level (test code=Creatinine Level) 1.60 mg/dL 0.70-1.20 BUN/Creat Ratio (test code=BUN/Creat Ratio) 20 Glucose Level (test code=Glucose Level) 189 mg/dL 70-115 Calcium Level (test code=Calcium Level) 9.5 mg/dL 8.3-10.5 Alk Phos (test code=Alk Phos) 149 U/L 40-129 Bilirubin Total (test code=Bilirubin Total) 0.7 mg/dL 0.1-0.9 Albumin Level (test code=Albumin Level) 3.3 g/dL 3.5-5.2 Protein Total (test code=Protein Total) 6.5 g/dL 6.4-8.3 ALT (test code=ALT) 57 U/L 1-41 AST (test code=AST) 40 U/L 1-40 Globulin (test code=Globulin) 3.2 g/dL 2.9-3.1 A/G Ratio (test code=A/G Ratio) 1.0 ratio Pro B Natriuretic [id number] 04:05:52* Test Item Value Reference Range Comments NT-proBNP (test code=NT-proBNP) 643 pg/mL 0-449 Comprehensive Metabolic [id number] 04:05:52* Test Item Value Reference Range Comments Sodium Level (test code=Sodium Level) 137.0 mmol/L 135.0-145.0 Potassium Level (test code=Potassium Level) 4.7 mmol/L 3.5-5.1 Chloride Level (test code=Chloride Level) 99 mmol/L 98-105 CO2 (test code=CO2) 20 mmol/L 22-29 Anion Gap (test code=Anion Gap) 18 mmol/L 7-16 BUN (test code=BUN) 31.70 mg/dL 8.00-23.00 Creatinine Level (test code=Creatinine Level) 1.60 mg/dL 0.70-1.20 BUN/Creat Ratio (test code=BUN/Creat Ratio) 20 Glucose Level (test code=Glucose Level) 189 mg/dL 70-115 Calcium Level (test code=Calcium Level) 9.5 mg/dL 8.3-10.5 Alk Phos (test code=Alk Phos) 149 U/L 40-129 Bilirubin Total (test code=Bilirubin Total) 0.7 mg/dL 0.1-0.9 Albumin Level (test code=Albumin Level) 3.3 g/dL 3.5-5.2 Protein Total (test code=Protein Total) 6.5 g/dL 6.4-8.3 ALT (test code=ALT) 57 U/L 1-41 AST (test code=AST) 40 U/L 1-40 Globulin (test code=Globulin) 3.2 g/dL 2.9-3.1 A/G Ratio (test code=A/G Ratio) 1.0 ratio eGFR AA (test code=eGFR AA) 51 mL/min/1.73 m2 eGFR (estimated Glomerular Filtration Rate) is an estimated value, calculated from the patient's serum creatinine using the MDRD equation. It is NOT the patient's actual GFR. The eGFR provides a more clinically useful measure of kidney disease than serum creatinine alone.This calculation takes sex and race into account, if the information is provided. If the race is not provided, and the patient is -[place], multiply by 1.212. If sex is not provided, and the patient is female, multiply by 0.742. Results for patients <18 years of age have not been validated by the MDRD study and should be interpreted with caution. eGFR Result Interpretation:eGFR > or=60 is in the Normal RangeeGFR < 60 may mean kidney diseaseeGFR < 15 may mean kidney failure Ranges recommended by the National Kidney Foundation, http://nkdep.nih.gov Troponin [id number] 04:05:52* Test Item Value Reference Range Comments Troponin-T (test code=Troponin-T) 100.500 ng/L 0.000-22.000 Verified by repeat analysis.Critical results called to dano hays at 09/07/2019 04:05:46 WELLNESS PROGRAM COORDINATOR by og. Read back and verified? yesThe CV of the assay at 99th percentile for both male and female patient population is < 10%. A rise and fall in BONITA with at least one value above the 99th percentile with clinical evidence of myocardial ischemia would support a diagnosis of AMI. A delta of at least 20% is recommended to assess acute changes in results above the 99th percentile in serial measurements. Stable BONITA levels (<20%) delta above the 99th percentile URL would support a diagnosis of chronic myocardial injury. Comprehensive Metabolic [id number] 04:05:52* Test Item Value Reference Range Comments Sodium Level (test code=Sodium Level) 137.0 mmol/L 135.0-145.0 Potassium Level (test code=Potassium Level) 4.7 mmol/L 3.5-5.1 Chloride Level (test code=Chloride Level) 99 mmol/L 98-105 CO2 (test code=CO2) 20 mmol/L 22-29 Anion Gap (test code=Anion Gap) 18 mmol/L 7-16 BUN (test code=BUN) 31.70 mg/dL 8.00-23.00 Creatinine Level (test code=Creatinine Level) 1.60 mg/dL 0.70-1.20 BUN/Creat Ratio (test code=BUN/Creat Ratio) 20 Glucose Level (test code=Glucose Level) 189 mg/dL 70-115 Calcium Level (test code=Calcium Level) 9.5 mg/dL 8.3-10.5 Alk Phos (test code=Alk Phos) 149 U/L 40-129 Bilirubin Total (test code=Bilirubin Total) 0.7 mg/dL 0.1-0.9 Albumin Level (test code=Albumin Level) 3.3 g/dL 3.5-5.2 Protein Total (test code=Protein Total) 6.5 g/dL 6.4-8.3 ALT (test code=ALT) 57 U/L 1-41 AST (test code=AST) 40 U/L 1-40 Globulin (test code=Globulin) 3.2 g/dL 2.9-3.1 A/G Ratio (test code=A/G Ratio) 1.0 ratio eGFR AA (test code=eGFR AA) 51 mL/min/1.73 m2 eGFR (estimated Glomerular Filtration Rate) is an estimated value, calculated from the patient's serum creatinine using the MDRD equation. It is NOT the patient's actual GFR. The eGFR provides a more clinically useful measure of kidney disease than serum creatinine alone.This calculation takes sex and race into account, if the information is provided. If the race is not provided, and the patient is -Aust[place], multiply by 1.212. If sex is not provided, and the patient is female, multiply by 0.742. Results for patients <18 years of age have not been validated by the MDRD study and should be interpreted with caution. eGFR Result Interpretation:eGFR > or=60 is in the Normal RangeeGFR < 60 may mean kidney diseaseeGFR < 15 may mean kidney failure Ranges recommended by the National Kidney Foundation, http://nkdep.nih.gov eGFR Non-AA (test code=eGFR Non-AA) 42.24 mL/min/1.73 m2 eGFR (estimated Glomerular Filtration Rate) is an estimated value, calculated from the patient's serum creatinine using the MDRD equation. It is NOT the patient's actual GFR. The eGFR provides a more clinically useful measure of kidney disease than serum creatinine alone.This calculation takes sex and race into account, if the information is provided. If the race is not provided, and the patient is -[place], multiply by 1.212. If sex is not provided, and the patient is female, multiply by 0.742. Results for patients <18 years of age have not been validated by the MDRD study and should be interpreted with caution. eGFR Result Interpretation:eGFR > or=60 is in the Normal RangeeGFR < 60 may mean kidney diseaseeGFR < 15 may mean kidney failure Ranges recommended by the National Kidney Foundation, http://nkdep.nih.gov Complete Blood Count with [id number] 03:16:14* Test Item Value Reference Range Comments WBC (test code=WBC) 50.9 x10 4.4-10.5 Critical results called to KARIN Serna at 09/07/2019 03:14:56 WELLNESS PROGRAM COORDINATOR by CE. Read back and verified? YES RBC (test code=RBC) 4.44 x10 4.10-5.70 Hgb (test code=Hgb) 12.4 g/dL 13.4-17.4 Hct (test code=Hct) 39.6 % 38.7-52.0 MCV (test code=MCV) 89.20 fL 80.00-100.00 MCHC (test code=MCHC) 31.30 g/dL 32.00-37.50 RDW CV (test code=RDW CV) 14.4 % 11.5-14.5 MCH (test code=MCH) 27.9 pg 27.0-32.5 Platelets (test code=Platelets) 458.0 x10 140.0-440.0 MPV (test code=MPV) 12.0 fL Slide Review (test code=Slide Review) Manual Auto Result created by GL_SJM_SLIDE_REV_AUTO GL_SJM_XN_RFLX GL_SJM_XN_RFLX GL_SJM_XN_RFLX GL_SJM_XN_RFLX nRBC (test code=nRBC) 0 NRBC Abs (test code=NRBC Abs) 0.00 x10 Pos Diff XN (test code=Pos Diff XN) A Pos Count XN (test code=Pos Count XN) A IG [id number] 03:16:14* Test Item Value Reference Range Comments IG (test code=IG) 2.4 % 0.0-5.0 IG Abs (test code=IG Abs) 1 x10 Complete Blood Count with [id number] 03:16:14* Test Item Value Reference Range Comments WBC (test code=WBC) 50.9 x10 4.4-10.5 Critical results called to KARIN Serna at 09/07/2019 03:14:56 WELLNESS PROGRAM COORDINATOR by VIVIANA. Read back and verified? YES RBC (test code=RBC) 4.44 x10 4.10-5.70 Hgb (test code=Hgb) 12.4 g/dL 13.4-17.4 Hct (test code=Hct) 39.6 % 38.7-52.0 MCV (test code=MCV) 89.20 fL 80.00-100.00 MCHC (test code=MCHC) 31.30 g/dL 32.00-37.50 RDW CV (test code=RDW CV) 14.4 % 11.5-14.5 MCH (test code=MCH) 27.9 pg 27.0-32.5 Platelets (test code=Platelets) 458.0 x10 140.0-440.0 MPV (test code=MPV) 12.0 fL Slide Review (test code=Slide Review) Manual Auto Result created by GL_[facility]_SLIDE_REV_AUTO GL_SJM_XN_RFLX GL_SJM_XN_RFLX GL_SJM_XN_RFLX GL_SJM_XN_RFLX nRBC (test code=nRBC) 0 NRBC Abs (test code=NRBC Abs) 0.00 x10 Pos Diff XN (test code=Pos Diff XN) A Pos Count XN (test code=Pos Count XN) A IPF (test code=IPF) 0 % Complete Blood Count with [id number] 03:16:14* Test Item Value Reference Range Comments WBC (test code=WBC) 50.9 x10 4.4-10.5 Critical results called to KARIN Serna at 09/07/2019 03:14:56 WELLNESS PROGRAM COORDINATOR by CE. Read back and verified? YES RBC (test code=RBC) 4.44 x10 4.10-5.70 Hgb (test code=Hgb) 12.4 g/dL 13.4-17.4 Hct (test code=Hct) 39.6 % 38.7-52.0 MCV (test code=MCV) 89.20 fL 80.00-100.00 MCHC (test code=MCHC) 31.30 g/dL 32.00-37.50 RDW CV (test code=RDW CV) 14.4 % 11.5-14.5 MCH (test code=MCH) 27.9 pg 27.0-32.5 Platelets (test code=Platelets) 458.0 x10 140.0-440.0 MPV (test code=MPV) 12.0 fL Slide Review (test code=Slide Review) Manual Auto Result created by GL_[facility]_SLIDE_REV_AUTO GL_SJM_XN_RFLX GL_SJM_XN_RFLX GL_SJM_XN_RFLX GL_SJM_XN_RFLX nRBC (test code=nRBC) 0 NRBC Abs (test code=NRBC Abs) 0.00 x10 Pos Diff XN (test code=Pos Diff XN) A Pos Morph XN (test code=Pos Morph XN) A Pos Count XN (test code=Pos Count XN) A IPF (test code=IPF) 0 % Prothrombin Time and [id number] 02:50:20* Test Item Value Reference Range Comments Prothrombin Time (test code=Prothrombin Time) 13.9 seconds 9.8-13.4 INR (test code=INR) 1.2 ratio 0.6-1.2 XR Chest 1 View [id number] 02:49:50Patient: ERIK DONATO Date/Time09/07/2019 02:38 CSTReason for ExamCoughReportAFTER HOURS SERVICE ON: 09/07/2019 2:49 AMAP Portable ChestLocation Code [id number]: CoughFINDINGS:There are no infiltrates. There are no pleural effusions. There is no pneumothorax. Aorta is tortuous without significant change from multiple prior examinations including 01/24/2018. Cardiac silhouette is within normal limits.IMPRESSION:No active pulmonary findings. Final Dictated by: MD Levy, Tracey TDictated DT/TM: 09/07/2019 2:49 amSigned by: MD Lockett Mohammad TSigned (Electronic Signature): 09/07/2019 2:49 amPOC [id number] 02:19:11* Test Item Value Reference Range Comments pH Art (test code=pH Art) 7.48 7.35-7.45 pH Temp Homero Art (test code=pH Temp Homero Art) 7.48 pCO2 Art (test code=pCO2 Art) 26 mmHg 35-45 pCO2 Temp Homero Art (test code=pCO2 Temp Homero Art) 26 mmHg pO2 Art (test code=pO2 Art) 105 mmHg 80-100 L pO2 Temp Homero Art (test code=pO2 Temp Homero Art) 105 mmHg ctHb Art (test code=ctHb Art) 12.1 g/dL 12.2-17.4 O2 Sat Art (test code=O2 Sat Art) 99.1 % 80.0-100.0 FO2Hb Art (test code=FO2Hb Art) 97.0 % 0.0-100.0 FCOHb Art (test code=FCOHb Art) 1.7 % 0.0-20.0 FMetHb Art (test code=FMetHb Art) 0.4 % 0.0-20.0 HCO3 Art (test code=HCO3 Art) 19.6 mmol/L 22.0-26.0 L Hct Art (test code=Hct Art) 37 % 34-52 Na Art (test code=Na Art) 135 mmol/L 135-145 K Art (test code=K Art) 4.5 mmol/L 3.5-4.5 iCa Art (test code=iCa Art) 1.23 mmol/L 1.00-1.50 Cl Art (test code=Cl Art) 106 mmol/L 95-105 Glu Art (test code=Glu Art) 211 mg/dL 75-115 Base Excess Arterial (test code=Base Excess Arterial) -2.6 FiO2 Art (test code=FiO2 Art) 100 % Lactate Art (test code=Lactate Art) 1.7 mmol/L 0.5-2.2 Draw Site (test code=Draw Site) Radial. R Liter Flow (test code=Liter Flow) 15.0 Basic Metabolic [id number] 05:45:46* Test Item Value Reference Range Comments Sodium Level (test code=Sodium Level) 148.0 mmol/L 135.0-145.0 Potassium Level (test code=Potassium Level) 4.1 mmol/L 3.5-5.1 Chloride Level (test code=Chloride Level) 116 mmol/L 98-105 CO2 (test code=CO2) 22 mmol/L 22-29 Anion Gap (test code=Anion Gap) 10 mmol/L 7-16 BUN (test code=BUN) 23.30 mg/dL 8.00-23.00 Creatinine Level (test code=Creatinine Level) 0.80 mg/dL 0.70-1.20 BUN/Creat Ratio (test code=BUN/Creat Ratio) 29 Glucose Level (test code=Glucose Level) 211 mg/dL 70-115 Calcium Level (test code=Calcium Level) 7.5 mg/dL 8.3-10.5 Basic Metabolic [id number] 05:45:46* Test Item Value Reference Range Comments Sodium Level (test code=Sodium Level) 148.0 mmol/L 135.0-145.0 Potassium Level (test code=Potassium Level) 4.1 mmol/L 3.5-5.1 Chloride Level (test code=Chloride Level) 116 mmol/L 98-105 CO2 (test code=CO2) 22 mmol/L 22-29 Anion Gap (test code=Anion Gap) 10 mmol/L 7-16 BUN (test code=BUN) 23.30 mg/dL 8.00-23.00 Creatinine Level (test code=Creatinine Level) 0.80 mg/dL 0.70-1.20 BUN/Creat Ratio (test code=BUN/Creat Ratio) 29 Glucose Level (test code=Glucose Level) 211 mg/dL 70-115 Calcium Level (test code=Calcium Level) 7.5 mg/dL 8.3-10.5 eGFR AA (test code=eGFR AA) >60 mL/min/1.73 m2 eGFR (estimated Glomerular Filtration Rate) is an estimated value, calculated from the patient's serum creatinine using the MDRD equation. It is NOT the patient's actual GFR. The eGFR provides a more clinically useful measure of kidney disease than serum creatinine alone.This calculation takes sex and race into account, if the information is provided. If the race is not provided, and the patient is -[place], multiply by 1.212. If sex is not provided, and the patient is female, multiply by 0.742. Results for patients <18 years of age have not been validated by the MDRD study and should be interpreted with caution. eGFR Result Interpretation:eGFR > or=60 is in the Normal RangeeGFR < 60 may mean kidney diseaseeGFR < 15 may mean kidney failure Ranges recommended by the National Kidney Foundation, http://nkdep.nih.gov Basic Metabolic [id number] 05:45:46* Test Item Value Reference Range Comments Sodium Level (test code=Sodium Level) 148.0 mmol/L 135.0-145.0 Potassium Level (test code=Potassium Level) 4.1 mmol/L 3.5-5.1 Chloride Level (test code=Chloride Level) 116 mmol/L 98-105 CO2 (test code=CO2) 22 mmol/L 22-29 Anion Gap (test code=Anion Gap) 10 mmol/L 7-16 BUN (test code=BUN) 23.30 mg/dL 8.00-23.00 Creatinine Level (test code=Creatinine Level) 0.80 mg/dL 0.70-1.20 BUN/Creat Ratio (test code=BUN/Creat Ratio) 29 Glucose Level (test code=Glucose Level) 211 mg/dL 70-115 Calcium Level (test code=Calcium Level) 7.5 mg/dL 8.3-10.5 eGFR AA (test code=eGFR AA) >60 mL/min/1.73 m2 eGFR (estimated Glomerular Filtration Rate) is an estimated value, calculated from the patient's serum creatinine using the MDRD equation. It is NOT the patient's actual GFR. The eGFR provides a more clinically useful measure of kidney disease than serum creatinine alone.This calculation takes sex and race into account, if the information is provided. If the race is not provided, and the patient is -[place], multiply by 1.212. If sex is not provided, and the patient is female, multiply by 0.742. Results for patients <18 years of age have not been validated by the MDRD study and should be interpreted with caution. eGFR Result Interpretation:eGFR > or=60 is in the Normal RangeeGFR < 60 may mean kidney diseaseeGFR < 15 may mean kidney failure Ranges recommended by the National Kidney Foundation, http://nkdep.nih.gov eGFR Non-AA (test code=eGFR Non-AA) >60.00 mL/min/1.73 m2 eGFR (estimated Glomerular Filtration Rate) is an estimated value, calculated from the patient's serum creatinine using the MDRD equation. It is NOT the patient's actual GFR. The eGFR provides a more clinically useful measure of kidney disease than serum creatinine alone.This calculation takes sex and race into account, if the information is provided. If the race is not provided, and the patient is -[place], multiply by 1.212. If sex is not provided, and the patient is female, multiply by 0.742. Results for patients <18 years of age have not been validated by the MDRD study and should be interpreted with caution. eGFR Result Interpretation:eGFR > or=60 is in the Normal RangeeGFR < 60 may mean kidney diseaseeGFR < 15 may mean kidney failure Ranges recommended by the National Kidney Foundation, http://nkdep.nih.gov IG [id number] 04:39:50* Test Item Value Reference Range Comments IG (test code=IG) 0.5 % 0.0-5.0 IG Abs (test code=IG Abs) 0 x10 Complete Blood Count with [id number] 04:39:49* Test Item Value Reference Range Comments WBC (test code=WBC) 11.6 x10 4.4-10.5 RBC (test code=RBC) 2.90 x10 4.10-5.70 Hgb (test code=Hgb) 8.5 g/dL 13.4-17.4 MCV (test code=MCV) 94.10 fL 80.00-100.00 Hct (test code=Hct) 27.3 % 38.7-52.0 MCHC (test code=MCHC) 31.10 g/dL 32.00-37.50 RDW CV (test code=RDW CV) 14.6 % 11.5-14.5 MCH (test code=MCH) 29.3 pg 27.0-32.5 Platelets (test code=Platelets) 219.0 x10 140.0-440.0 MPV (test code=MPV) 12.5 fL Slide Review (test code=Slide Review) Auto Auto Result created by [email or web address]_[email or web address] nRBC (test code=nRBC) 0 NRBC Abs (test code=NRBC Abs) 0.00 x10 IPF (test code=IPF) 0 % Automated [id number] 04:39:49* Test Item Value Reference Range Comments Neutro Auto (test code=Neutro Auto) 84.5 % 36.0-70.0 Lymph Auto (test code=Lymph Auto) 7.4 % 12.0-44.0 [place] Auto (test code=[place] Auto) 6.3 % 0.0-11.0 Eos, Auto (test code=Eos, Auto) 1.0 % 0.0-7.0 Basophil Auto (test code=Basophil Auto) 0.3 % 0.0-2.0 Neutro Absolute (test code=Neutro Absolute) 9.8 x10 1.6-7.4 Lymph Absolute (test code=Lymph Absolute) .86 x10 .50-4.60 [place] Absolute (test code=[place] Absolute) .73 x10 .00-1.20 Eos Absolute (test code=Eos Absolute) 0.11 x10 0.00-0.74 Baso Absolute (test code=Baso Absolute) 0.03 x10 0.00-0.21 US Lower Ext Venous Duplex [id number] 23:02:29Patient: ERIK DONATO Date/Time08/09/2019 20:55 CSTReason for ExamHX of DVTReportBILATERAL LOWER EXTREMITY VENOUS DOPPLER ULTRASOUND :Location code: [id number] INDICATION: PainCOMPARISON: None availableFINDINGS:Static, perry-scale, color doppler and spectral imaging of the bilateral lower extremity veins were obtained with and without compression and augmentation.Normal flow is seen in bilateral common femoral, superficial femoral, popliteal, posterior tibial and anterior tibial veins. There is normal compression and augmentation. No filling defects are seen.IMPRESSION:No sonographic evidence for lower extremity deep venous thrombosis bilaterally. Final Dictated by: MD Guardado Alan FDictated DT/TM: 08/09/2019 11:01 p mSigned by: MD Guardado Alan FSigned (Electronic Signature): 08/09/2019 11:02 pm Basic Metabolic [id number] 06:44:18* Test Item Value Reference Range Comments Sodium Level (test code=Sodium Level) 148.0 mmol/L 135.0-145.0 Potassium Level (test code=Potassium Level) 3.7 mmol/L 3.5-5.1 Chloride Level (test code=Chloride Level) 116 mmol/L 98-105 CO2 (test code=CO2) 23 mmol/L 22-29 Anion Gap (test code=Anion Gap) 9 mmol/L 7-16 BUN (test code=BUN) 25.10 mg/dL 8.00-23.00 Creatinine Level (test code=Creatinine Level) 0.90 mg/dL 0.70-1.20 BUN/Creat Ratio (test code=BUN/Creat Ratio) 28 Glucose Level (test code=Glucose Level) 199 mg/dL 70-115 Calcium Level (test code=Calcium Level) 7.5 mg/dL 8.3-10.5 Basic Metabolic [id number] 06:44:18* Test Item Value Reference Range Comments Sodium Level (test code=Sodium Level) 148.0 mmol/L 135.0-145.0 Potassium Level (test code=Potassium Level) 3.7 mmol/L 3.5-5.1 Chloride Level (test code=Chloride Level) 116 mmol/L 98-105 CO2 (test code=CO2) 23 mmol/L 22-29 Anion Gap (test code=Anion Gap) 9 mmol/L 7-16 BUN (test code=BUN) 25.10 mg/dL 8.00-23.00 Creatinine Level (test code=Creatinine Level) 0.90 mg/dL 0.70-1.20 BUN/Creat Ratio (test code=BUN/Creat Ratio) 28 Glucose Level (test code=Glucose Level) 199 mg/dL 70-115 Calcium Level (test code=Calcium Level) 7.5 mg/dL 8.3-10.5 eGFR AA (test code=eGFR AA) >60 mL/min/1.73 m2 eGFR (estimated Glomerular Filtration Rate) is an estimated value, calculated from the patient's serum creatinine using the MDRD equation. It is NOT the patient's actual GFR. The eGFR provides a more clinically useful measure of kidney disease than serum creatinine alone.This calculation takes sex and race into account, if the information is provided. If the race is not provided, and the patient is -Austrian, multiply by 1.212. If sex is not provided, and the patient is female, multiply by 0.742. Results for patients <18 years of age have not been validated by the MDRD study and should be interpreted with caution. eGFR Result Interpretation:eGFR > or=60 is in the Normal RangeeGFR < 60 may mean kidney diseaseeGFR < 15 may mean kidney failure Ranges recommended by the National Kidney Foundation, http://nkdep.nih.gov Basic Metabolic [id number] 06:44:18* Test Item Value Reference Range Comments Sodium Level (test code=Sodium Level) 148.0 mmol/L 135.0-145.0 Potassium Level (test code=Potassium Level) 3.7 mmol/L 3.5-5.1 Chloride Level (test code=Chloride Level) 116 mmol/L 98-105 CO2 (test code=CO2) 23 mmol/L 22-29 Anion Gap (test code=Anion Gap) 9 mmol/L 7-16 BUN (test code=BUN) 25.10 mg/dL 8.00-23.00 Creatinine Level (test code=Creatinine Level) 0.90 mg/dL 0.70-1.20 BUN/Creat Ratio (test code=BUN/Creat Ratio) 28 Glucose Level (test code=Glucose Level) 199 mg/dL 70-115 Calcium Level (test code=Calcium Level) 7.5 mg/dL 8.3-10.5 eGFR AA (test code=eGFR AA) >60 mL/min/1.73 m2 eGFR (estimated Glomerular Filtration Rate) is an estimated value, calculated from the patient's serum creatinine using the MDRD equation. It is NOT the patient's actual GFR. The eGFR provides a more clinically useful measure of kidney disease than serum creatinine alone.This calculation takes sex and race into account, if the information is provided. If the race is not provided, and the patient is -[place], multiply by 1.212. If sex is not provided, and the patient is female, multiply by 0.742. Results for patients <18 years of age have not been validated by the MDRD study and should be interpreted with caution. eGFR Result Interpretation:eGFR > or=60 is in the Normal RangeeGFR < 60 may mean kidney diseaseeGFR < 15 may mean kidney failure Ranges recommended by the National Kidney Foundation, http://nkdep.nih.gov eGFR Non-AA (test code=eGFR Non-AA) >60.00 mL/min/1.73 m2 eGFR (estimated Glomerular Filtration Rate) is an estimated value, calculated from the patient's serum creatinine using the MDRD equation. It is NOT the patient's actual GFR. The eGFR provides a more clinically useful measure of kidney disease than serum creatinine alone.This calculation takes sex and race into account, if the information is provided. If the race is not provided, and the patient is -[place], multiply by 1.212. If sex is not provided, and the patient is female, multiply by 0.742. Results for patients <18 years of age have not been validated by the MDRD study and should be interpreted with caution. eGFR Result Interpretation:eGFR > or=60 is in the Normal RangeeGFR < 60 may mean kidney diseaseeGFR < 15 may mean kidney failure Ranges recommended by the National Kidney Foundation, http://nkdep.nih.gov Automated [id number] 06:31:12* Test Item Value Reference Range Comments Neutro Auto (test code=Neutro Auto) 83.0 % 36.0-70.0 Lymph Auto (test code=Lymph Auto) 8.3 % 12.0-44.0 [place] Auto (test code=[place] Auto) 5.9 % 0.0-11.0 Eos, Auto (test code=Eos, Auto) 1.9 % 0.0-7.0 Basophil Auto (test code=Basophil Auto) 0.3 % 0.0-2.0 Neutro Absolute (test code=Neutro Absolute) 8.4 x10 1.6-7.4 Lymph Absolute (test code=Lymph Absolute) .84 x10 .50-4.60 [place] Absolute (test code=[place] Absolute) .60 x10 .00-1.20 Eos Absolute (test code=Eos Absolute) 0.19 x10 0.00-0.74 Baso Absolute (test code=Baso Absolute) 0.03 x10 0.00-0.21 IG [id number] 06:31:12* Test Item Value Reference Range Comments IG (test code=IG) 0.6 % 0.0-5.0 IG Abs (test code=IG Abs) 0 x10 Complete Blood Count with [id number] 06:31:11* Test Item Value Reference Range Comments WBC (test code=WBC) 10.2 x10 4.4-10.5 RBC (test code=RBC) 2.83 x10 4.10-5.70 Hgb (test code=Hgb) 8.2 g/dL 13.4-17.4 Hct (test code=Hct) 26.9 % 38.7-52.0 MCV (test code=MCV) 95.10 fL 80.00-100.00 MCHC (test code=MCHC) 30.50 g/dL 32.00-37.50 RDW CV (test code=RDW CV) 14.4 % 11.5-14.5 MCH (test code=MCH) 29.0 pg 27.0-32.5 Platelets (test code=Platelets) 208.0 x10 140.0-440.0 MPV (test code=MPV) 12.2 fL Slide Review (test code=Slide Review) Auto Auto Result created by [email or web address]_REV_AUTO nRBC (test code=nRBC) 0 NRBC Abs (test code=NRBC Abs) 0.00 x10 IPF (test code=IPF) 0 % Blood [id number] 00:01:43No growth at 5 days.POC [id number] 12:52:46* Test Item Value Reference Range Comments pH Art (test code=pH Art) 7.40 7.35-7.45 pCO2 Art (test code=pCO2 Art) 39 mmHg 35-45 pO2 Art (test code=pO2 Art) 172 mmHg 80-100 pO2 Temp Homero Art (test code=pO2 Temp Homero Art) 171 mmHg ctHb Art (test code=ctHb Art) 7.6 g/dL 12.2-17.4 O2 Sat Art (test code=O2 Sat Art) 99.6 % 80.0-100.0 FO2Hb Art (test code=FO2Hb Art) 97.4 % 0.0-100.0 FCOHb Art (test code=FCOHb Art) 0.9 % 0.0-20.0 FMetHb Art (test code=FMetHb Art) 1.3 % 0.0-20.0 HCO3 Art (test code=HCO3 Art) 23.9 mmol/L 22.0-26.0 Hct Art (test code=Hct Art) 23 % 34-52 Na Art (test code=Na Art) 141 mmol/L 135-145 K Art (test code=K Art) 4.6 mmol/L 3.5-4.5 iCa Art (test code=iCa Art) 1.14 mmol/L 1.00-1.50 Cl Art (test code=Cl Art) 110 mmol/L 95-105 Glu Art (test code=Glu Art) 173 mg/dL 75-115 Base Excess Arterial (test code=Base Excess Arterial) -0.9 FiO2 Art (test code=FiO2 Art) 80 % Lactate Art (test code=Lactate Art) 2.2 mmol/L 0.5-2.2 Patient Temp (test code=Patient Temp) 37 Deg C Draw Site (test code=Draw Site) Art Line Resp Rate (test code=Resp Rate) 20 Tidal Volume (test code=Tidal Volume) 0.50 PEEP. (test code=PEEP.) 5 XR Chest 1 View [id number] 11:09:44Patient: ERIK DONATO Date/Time08/08/2019 11:00 CSTReason for ExamCoughReportCHEST 1 VIEWCLINICAL INFORMATION: CoughCOMPARISON: Chest radiograph dated August 03, 2019FINDINGS:An ill-defined patchy opacity is now seen at the right cardiophrenic angle. The remainder of the lungs are clear. No pneumothorax or pleural effusion is present. The heart size is normal. The aorta is ectatic and tortuous. A gastrostomy tube overlies the left upper quadrant.IMPRESSION:Ill-defined opacity at the right cardiophrenic angle. Correlate for aspiration versus pneumonia.LOCATION: R16 Final Dictated by: MD Hicks Adam FDictated DT/TM: 08/08/2019 11:08 amSigned by: MD Hicks Adam FSigned (Electronic Signature): 08/08/2019 11:09 amBasic Metabolic [id number] 07:54:46* Test Item Value Reference Range Comments Sodium Level (test code=Sodium Level) 149.0 mmol/L 135.0-145.0 Potassium Level (test code=Potassium Level) 4.2 mmol/L 3.5-5.1 Chloride Level (test code=Chloride Level) 116 mmol/L 98-105 CO2 (test code=CO2) 23 mmol/L 22-29 Anion Gap (test code=Anion Gap) 10 mmol/L 7-16 BUN (test code=BUN) 28.20 mg/dL 8.00-23.00 Creatinine Level (test code=Creatinine Level) 0.90 mg/dL 0.70-1.20 BUN/Creat Ratio (test code=BUN/Creat Ratio) 31 Glucose Level (test code=Glucose Level) 202 mg/dL 70-115 Calcium Level (test code=Calcium Level) 7.6 mg/dL 8.3-10.5 Basic Metabolic [id number] 07:54:46* Test Item Value Reference Range Comments Sodium Level (test code=Sodium Level) 149.0 mmol/L 135.0-145.0 Potassium Level (test code=Potassium Level) 4.2 mmol/L 3.5-5.1 Chloride Level (test code=Chloride Level) 116 mmol/L 98-105 CO2 (test code=CO2) 23 mmol/L 22-29 Anion Gap (test code=Anion Gap) 10 mmol/L 7-16 BUN (test code=BUN) 28.20 mg/dL 8.00-23.00 Creatinine Level (test code=Creatinine Level) 0.90 mg/dL 0.70-1.20 BUN/Creat Ratio (test code=BUN/Creat Ratio) 31 Glucose Level (test code=Glucose Level) 202 mg/dL 70-115 Calcium Level (test code=Calcium Level) 7.6 mg/dL 8.3-10.5 eGFR AA (test code=eGFR AA) >60 mL/min/1.73 m2 eGFR (estimated Glomerular Filtration Rate) is an estimated value, calculated from the patient's serum creatinine using the MDRD equation. It is NOT the patient's actual GFR. The eGFR provides a more clinically useful measure of kidney disease than serum creatinine alone.This calculation takes sex and race into account, if the information is provided. If the race is not provided, and the patient is -[place], multiply by 1.212. If sex is not provided, and the patient is female, multiply by 0.742. Results for patients <18 years of age have not been validated by the MDRD study and should be interpreted with caution. eGFR Result Interpretation:eGFR > or=60 is in the Normal RangeeGFR < 60 may mean kidney diseaseeGFR < 15 may mean kidney failure Ranges recommended by the National Kidney Foundation, http://nkdep.nih.gov Basic Metabolic [id number] 07:54:46* Test Item Value Reference Range Comments Sodium Level (test code=Sodium Level) 149.0 mmol/L 135.0-145.0 Potassium Level (test code=Potassium Level) 4.2 mmol/L 3.5-5.1 Chloride Level (test code=Chloride Level) 116 mmol/L 98-105 CO2 (test code=CO2) 23 mmol/L 22-29 Anion Gap (test code=Anion Gap) 10 mmol/L 7-16 BUN (test code=BUN) 28.20 mg/dL 8.00-23.00 Creatinine Level (test code=Creatinine Level) 0.90 mg/dL 0.70-1.20 BUN/Creat Ratio (test code=BUN/Creat Ratio) 31 Glucose Level (test code=Glucose Level) 202 mg/dL 70-115 Calcium Level (test code=Calcium Level) 7.6 mg/dL 8.3-10.5 eGFR AA (test code=eGFR AA) >60 mL/min/1.73 m2 eGFR (estimated Glomerular Filtration Rate) is an estimated value, calculated from the patient's serum creatinine using the MDRD equation. It is NOT the patient's actual GFR. The eGFR provides a more clinically useful measure of kidney disease than serum creatinine alone.This calculation takes sex and race into account, if the information is provided. If the race is not provided, and the patient is -[place], multiply by 1.212. If sex is not provided, and the patient is female, multiply by 0.742. Results for patients <18 years of age have not been validated by the MDRD study and should be interpreted with caution. eGFR Result Interpretation:eGFR > or=60 is in the Normal RangeeGFR < 60 may mean kidney diseaseeGFR < 15 may mean kidney failure Ranges recommended by the National Kidney Foundation, http://nkdep.nih.gov eGFR Non-AA (test code=eGFR Non-AA) >60.00 mL/min/1.73 m2 eGFR (estimated Glomerular Filtration Rate) is an estimated value, calculated from the patient's serum creatinine using the MDRD equation. It is NOT the patient's actual GFR. The eGFR provides a more clinically useful measure of kidney disease than serum creatinine alone.This calculation takes sex and race into account, if the information is provided. If the race is not provided, and the patient is -[place], multiply by 1.212. If sex is not provided, and the patient is female, multiply by 0.742. Results for patients <18 years of age have not been validated by the MDRD study and should be interpreted with caution. eGFR Result Interpretation:eGFR > or=60 is in the Normal RangeeGFR < 60 may mean kidney diseaseeGFR < 15 may mean kidney failure Ranges recommended by the National Kidney Foundation, http://nkdep.nih.gov Automated [id number] 07:17:35* Test Item Value Reference Range Comments Neutro Auto (test code=Neutro Auto) 83.7 % 36.0-70.0 Lymph Auto (test code=Lymph Auto) 6.7 % 12.0-44.0 [place] Auto (test code=[place] Auto) 6.9 % 0.0-11.0 Eos, Auto (test code=Eos, Auto) 1.7 % 0.0-7.0 Basophil Auto (test code=Basophil Auto) 0.2 % 0.0-2.0 Neutro Absolute (test code=Neutro Absolute) 10.1 x10 1.6-7.4 Lymph Absolute (test code=Lymph Absolute) .81 x10 .50-4.60 [place] Absolute (test code=[place] Absolute) .83 x10 .00-1.20 Eos Absolute (test code=Eos Absolute) 0.21 x10 0.00-0.74 Baso Absolute (test code=Baso Absolute) 0.02 x10 0.00-0.21 Hemoglobin and [id number] 07:17:35* Test Item Value Reference Range Comments Hgb (test code=Hgb) 8.6 g/dL 13.4-17.4 Hct (test code=Hct) 26.4 % 38.7-52.0 IG [id number] 07:17:35* Test Item Value Reference Range Comments IG (test code=IG) 0.8 % 0.0-5.0 IG Abs (test code=IG Abs) 0 x10 Complete Blood Count with [id number] 07:17:34* Test Item Value Reference Range Comments WBC (test code=WBC) 12.0 x10 4.4-10.5 RBC (test code=RBC) 2.84 x10 4.10-5.70 Hgb (test code=Hgb) 8.6 g/dL 13.4-17.4 MCV (test code=MCV) 93.00 fL 80.00-100.00 Hct (test code=Hct) 26.4 % 38.7-52.0 MCHC (test code=MCHC) 32.60 g/dL 32.00-37.50 MCH (test code=MCH) 30.3 pg 27.0-32.5 RDW CV (test code=RDW CV) 14.4 % 11.5-14.5 Platelets (test code=Platelets) 192.0 x10 140.0-440.0 MPV (test code=MPV) 11.9 fL Slide Review (test code=Slide Review) Auto Auto Result created by [email or web address]_REV_AUTO nRBC (test code=nRBC) 0 NRBC Abs (test code=NRBC Abs) 0.00 x10 IPF (test code=IPF) 0 % NM Gastrointestinal Blood Loss [id number] 20:29:30Patient: ERIK DONATO Date/Time08/07/2019 20:02 CSTReason for ExamG.I. bleedReportNuclear medicine GI bleeding scan:Location code: R 16CLINICAL INDICATION: GI bleedCOMMENTS: After IV injection of 27.0 mCi Tc 99m pertechnetate labeled autologous RBC, dynamic flow images of the abdomen were obtained followed by the sequential images for 71 minutes.FINDINGS:There is no evidence of focal abnormal tracer accumulation in t he abdomen to suggest active GI bleeding. Renal uptake is noted. There is also uptake within the bladder. There is normal radiotracer accumulation in the vascu lature, liver and spleen.IMPRESSION:No scintigraphic evidence for active GI blee d. Final Dictated by: MD Guardado Alan FDictated DT/TM: 08/07/2019 8: 24 pmSigned by: MD Guardado Alan FSigned (Electronic Signature): 08/07/2019 8:29 [facility] Metabolic [id number] 07:06:44* Test Item Value Reference Range Comments Sodium Level (test code=Sodium Level) 141.0 mmol/L 135.0-145.0 Potassium Level (test code=Potassium Level) 3.8 mmol/L 3.5-5.1 Chloride Level (test code=Chloride Level) 110 mmol/L 98-105 CO2 (test code=CO2) 21 mmol/L 22-29 Anion Gap (test code=Anion Gap) 10 mmol/L 7-16 BUN (test code=BUN) 24.70 mg/dL 8.00-23.00 Creatinine Level (test code=Creatinine Level) 1.00 mg/dL 0.70-1.20 BUN/Creat Ratio (test code=BUN/Creat Ratio) 25 Glucose Level (test code=Glucose Level) 191 mg/dL 70-115 Calcium Level (test code=Calcium Level) 7.8 mg/dL 8.3-10.5 Basic Metabolic [id number] 07:06:44* Test Item Value Reference Range Comments Sodium Level (test code=Sodium Level) 141.0 mmol/L 135.0-145.0 Potassium Level (test code=Potassium Level) 3.8 mmol/L 3.5-5.1 Chloride Level (test code=Chloride Level) 110 mmol/L 98-105 CO2 (test code=CO2) 21 mmol/L 22-29 Anion Gap (test code=Anion Gap) 10 mmol/L 7-16 BUN (test code=BUN) 24.70 mg/dL 8.00-23.00 Creatinine Level (test code=Creatinine Level) 1.00 mg/dL 0.70-1.20 BUN/Creat Ratio (test code=BUN/Creat Ratio) 25 Glucose Level (test code=Glucose Level) 191 mg/dL 70-115 Calcium Level (test code=Calcium Level) 7.8 mg/dL 8.3-10.5 eGFR AA (test code=eGFR AA) >60 mL/min/1.73 m2 eGFR (estimated Glomerular Filtration Rate) is an estimated value, calculated from the patient's serum creatinine using the MDRD equation. It is NOT the patient's actual GFR. The eGFR provides a more clinically useful measure of kidney disease than serum creatinine alone.This calculation takes sex and race into account, if the information is provided. If the race is not provided, and the patient is -[place], multiply by 1.212. If sex is not provided, and the patient is female, multiply by 0.742. Results for patients <18 years of age have not been validated by the MDRD study and should be interpreted with caution. eGFR Result Interpretation:eGFR > or=60 is in the Normal RangeeGFR < 60 may mean kidney diseaseeGFR < 15 may mean kidney failure Ranges recommended by the National Kidney Foundation, http://nkdep.nih.gov Basic Metabolic [id number] 07:06:44* Test Item Value Reference Range Comments Sodium Level (test code=Sodium Level) 141.0 mmol/L 135.0-145.0 Potassium Level (test code=Potassium Level) 3.8 mmol/L 3.5-5.1 Chloride Level (test code=Chloride Level) 110 mmol/L 98-105 CO2 (test code=CO2) 21 mmol/L 22-29 Anion Gap (test code=Anion Gap) 10 mmol/L 7-16 BUN (test code=BUN) 24.70 mg/dL 8.00-23.00 Creatinine Level (test code=Creatinine Level) 1.00 mg/dL 0.70-1.20 BUN/Creat Ratio (test code=BUN/Creat Ratio) 25 Glucose Level (test code=Glucose Level) 191 mg/dL 70-115 Calcium Level (test code=Calcium Level) 7.8 mg/dL 8.3-10.5 eGFR AA (test code=eGFR AA) >60 mL/min/1.73 m2 eGFR (estimated Glomerular Filtration Rate) is an estimated value, calculated from the patient's serum creatinine using the MDRD equation. It is NOT the patient's actual GFR. The eGFR provides a more clinically useful measure of kidney disease than serum creatinine alone.This calculation takes sex and race into account, if the information is provided. If the race is not provided, and the patient is -[place], multiply by 1.212. If sex is not provided, and the patient is female, multiply by 0.742. Results for patients <18 years of age have not been validated by the MDRD study and should be interpreted with caution. eGFR Result Interpretation:eGFR > or=60 is in the Normal RangeeGFR < 60 may mean kidney diseaseeGFR < 15 may mean kidney failure Ranges recommended by the National Kidney Foundation, http://nkdep.nih.gov eGFR Non-AA (test code=eGFR Non-AA) >60.00 mL/min/1.73 m2 eGFR (estimated Glomerular Filtration Rate) is an estimated value, calculated from the patient's serum creatinine using the MDRD equation. It is NOT the patient's actual GFR. The eGFR provides a more clinically useful measure of kidney disease than serum creatinine alone.This calculation takes sex and race into account, if the information is provided. If the race is not provided, and the patient is -[place], multiply by 1.212. If sex is not provided, and the patient is female, multiply by 0.742. Results for patients <18 years of age have not been validated by the MDRD study and should be interpreted with caution. eGFR Result Interpretation:eGFR > or=60 is in the Normal RangeeGFR < 60 may mean kidney diseaseeGFR < 15 may mean kidney failure Ranges recommended by the National Kidney Foundation, http://nkdep.nih.gov Complete Blood Count with [id number] 05:13:15* Test Item Value Reference Range Comments WBC (test code=WBC) 13.3 x10 4.4-10.5 RBC (test code=RBC) 2.91 x10 4.10-5.70 Hgb (test code=Hgb) 8.7 g/dL 13.4-17.4 MCV (test code=MCV) 93.10 fL 80.00-100.00 Hct (test code=Hct) 27.1 % 38.7-52.0 MCHC (test code=MCHC) 32.10 g/dL 32.00-37.50 RDW CV (test code=RDW CV) 14.6 % 11.5-14.5 MCH (test code=MCH) 29.9 pg 27.0-32.5 Platelets (test code=Platelets) 173.0 x10 140.0-440.0 MPV (test code=MPV) 11.8 fL Slide Review (test code=Slide Review) Auto Auto Result created by [email or web address]_AUTO nRBC (test code=nRBC) 0 NRBC Abs (test code=NRBC Abs) 0.00 x10 IPF (test code=IPF) 0 % Automated [id number] 05:13:15* Test Item Value Reference Range Comments Neutro Auto (test code=Neutro Auto) 84.0 % 36.0-70.0 Lymph Auto (test code=Lymph Auto) 6.8 % 12.0-44.0 [place] Auto (test code=[place] Auto) 8.1 % 0.0-11.0 Eos, Auto (test code=Eos, Auto) 0.3 % 0.0-7.0 Basophil Auto (test code=Basophil Auto) 0.2 % 0.0-2.0 Neutro Absolute (test code=Neutro Absolute) 11.2 x10 1.6-7.4 Lymph Absolute (test code=Lymph Absolute) .91 x10 .50-4.60 [place] Absolute (test code=[place] Absolute) 1.08 x10 .00-1.20 Eos Absolute (test code=Eos Absolute) 0.04 x10 0.00-0.74 Baso Absolute (test code=Baso Absolute) 0.03 x10 0.00-0.21 IG [id number] 05:13:15* Test Item Value Reference Range Comments IG (test code=IG) 0.6 % 0.0-5.0 IG Abs (test code=IG Abs) 0 x10 XR Forearm 2 Views [id number] 15:32:09Patient: ERIK DONATO Date/Time08/06/2019 15:24 CSTReason for ExamPAIN RT. ARM;Other (please specify)ReportExam: XR Forearm 2 Views RightLocation code: Z45Xxsmhdf: Other (please specify);PAIN RT. ARMComparison: None availableFINDINGS:There is no acute fracture or dislocation. There is normal mineralization of osseous structures. The joint spaces are maintained. Ulnar minus variance is seen. The soft tissues are within normal limits.IMPRESSION:No acute osseous abnormality.Ulnar minus variance. Final Dictated by: MD Guardado Alan FDictated DT/TM: 08/06/2019 3:31 pmSigned by: MD Guardado Alan FSigned (Electronic Signature): 08/06/2019 3:32 pmUrine [id number] 08:32:25* Test Item Value Reference Range Comments ORGANISM (test code=ORGANISM) Escherichia coli Amikacin (test code=Amik) Ampicillin (test code=Amp) Ampicillin/Sulbactam (test code=Amp/Sul) Cefazolin (test code=Cefaz) Cefepime (test code=Cefep) Cefotaxime (test code=Cefo) Ceftazidime (test code=Ceftaz) Ceftriaxone (test code=Ceftri) Cefuroxime (test code=Cefur) Ciprofloxacin (test code=Cipro) Gentamicin (test code=Gent) Imipenem (test code=Imi) Levofloxacin (test code=Levo) Meropenem (test code=Mackenzie) Nitrofurantoin (test code=Nitro) Piperacillin/Tazobactam (test code=Pip/Naman) Tobramycin (test code=Tobra) Trimethoprim/Sulfa (test code=SXT) Final Report (test code=Final Report) >=100,000 cfu/ml Escherichia coli Comprehensive Metabolic [id number] 05:50:12* Test Item Value Reference Range Comments Sodium Level (test code=Sodium Level) 149.0 mmol/L 135.0-145.0 Potassium Level (test code=Potassium Level) 3.8 mmol/L 3.5-5.1 Chloride Level (test code=Chloride Level) 116 mmol/L 98-105 CO2 (test code=CO2) 23 mmol/L 22-29 Anion Gap (test code=Anion Gap) 10 mmol/L 7-16 BUN (test code=BUN) 24.60 mg/dL 8.00-23.00 Creatinine Level (test code=Creatinine Level) 0.90 mg/dL 0.70-1.20 BUN/Creat Ratio (test code=BUN/Creat Ratio) 27 Glucose Level (test code=Glucose Level) 168 mg/dL 70-115 Calcium Level (test code=Calcium Level) 7.8 mg/dL 8.3-10.5 Alk Phos (test code=Alk Phos) 80 U/L 40-129 Bilirubin Total (test code=Bilirubin Total) 0.5 mg/dL 0.1-0.9 Albumin Level (test code=Albumin Level) 2.4 g/dL 3.5-5.2 Protein Total (test code=Protein Total) 4.7 g/dL 6.4-8.3 ALT (test code=ALT) 37 U/L 1-41 AST (test code=AST) 40 U/L 1-40 Globulin (test code=Globulin) 2.3 g/dL 2.9-3.1 A/G Ratio (test code=A/G Ratio) 1.0 ratio eGFR AA (test code=eGFR AA) >60 mL/min/1.73 m2 eGFR (estimated Glomerular Filtration Rate) is an estimated value, calculated from the patient's serum creatinine using the MDRD equation. It is NOT the patient's actual GFR. The eGFR provides a more clinically useful measure of kidney disease than serum creatinine alone.This calculation takes sex and race into account, if the information is provided. If the race is not provided, and the patient is -Aust[place], multiply by 1.212. If sex is not provided, and the patient is female, multiply by 0.742. Results for patients <18 years of age have not been validated by the MDRD study and should be interpreted with caution. eGFR Result Interpretation:eGFR > or=60 is in the Normal RangeeGFR < 60 may mean kidney diseaseeGFR < 15 may mean kidney failure Ranges recommended by the National Kidney Foundation, http://nkdep.nih.gov Comprehensive Metabolic [id number] 05:50:12* Test Item Value Reference Range Comments Sodium Level (test code=Sodium Level) 149.0 mmol/L 135.0-145.0 Potassium Level (test code=Potassium Level) 3.8 mmol/L 3.5-5.1 Chloride Level (test code=Chloride Level) 116 mmol/L 98-105 CO2 (test code=CO2) 23 mmol/L 22-29 Anion Gap (test code=Anion Gap) 10 mmol/L 7-16 BUN (test code=BUN) 24.60 mg/dL 8.00-23.00 Creatinine Level (test code=Creatinine Level) 0.90 mg/dL 0.70-1.20 BUN/Creat Ratio (test code=BUN/Creat Ratio) 27 Glucose Level (test code=Glucose Level) 168 mg/dL 70-115 Calcium Level (test code=Calcium Level) 7.8 mg/dL 8.3-10.5 Alk Phos (test code=Alk Phos) 80 U/L 40-129 Bilirubin Total (test code=Bilirubin Total) 0.5 mg/dL 0.1-0.9 Albumin Level (test code=Albumin Level) 2.4 g/dL 3.5-5.2 Protein Total (test code=Protein Total) 4.7 g/dL 6.4-8.3 ALT (test code=ALT) 37 U/L 1-41 AST (test code=AST) 40 U/L 1-40 Globulin (test code=Globulin) 2.3 g/dL 2.9-3.1 A/G Ratio (test code=A/G Ratio) 1.0 ratio eGFR AA (test code=eGFR AA) >60 mL/min/1.73 m2 eGFR (estimated Glomerular Filtration Rate) is an estimated value, calculated from the patient's serum creatinine using the MDRD equation. It is NOT the patient's actual GFR. The eGFR provides a more clinically useful measure of kidney disease than serum creatinine alone.This calculation takes sex and race into account, if the information is provided. If the race is not provided, and the patient is -Aust[place], multiply by 1.212. If sex is not provided, and the patient is female, multiply by 0.742. Results for patients <18 years of age have not been validated by the MDRD study and should be interpreted with caution. eGFR Result Interpretation:eGFR > or=60 is in the Normal RangeeGFR < 60 may mean kidney diseaseeGFR < 15 may mean kidney failure Ranges recommended by the National Kidney Foundation, http://nkdep.nih.gov Magnesium [id number] 05:50:12* Test Item Value Reference Range Comments Magnesium Level (test code=Magnesium Level) 2.2 mg/dL 1.7-2.5 Phosphorus [id number] 05:50:12* Test Item Value Reference Range Comments Phosphorus Level (test code=Phosphorus Level) 2.20 mg/dL 2.70-4.50 Comprehensive Metabolic [id number] 05:50:12* Test Item Value Reference Range Comments Sodium Level (test code=Sodium Level) 149.0 mmol/L 135.0-145.0 Potassium Level (test code=Potassium Level) 3.8 mmol/L 3.5-5.1 Chloride Level (test code=Chloride Level) 116 mmol/L 98-105 CO2 (test code=CO2) 23 mmol/L 22-29 Anion Gap (test code=Anion Gap) 10 mmol/L 7-16 BUN (test code=BUN) 24.60 mg/dL 8.00-23.00 Creatinine Level (test code=Creatinine Level) 0.90 mg/dL 0.70-1.20 BUN/Creat Ratio (test code=BUN/Creat Ratio) 27 Glucose Level (test code=Glucose Level) 168 mg/dL 70-115 Calcium Level (test code=Calcium Level) 7.8 mg/dL 8.3-10.5 Alk Phos (test code=Alk Phos) 80 U/L 40-129 Bilirubin Total (test code=Bilirubin Total) 0.5 mg/dL 0.1-0.9 Albumin Level (test code=Albumin Level) 2.4 g/dL 3.5-5.2 Protein Total (test code=Protein Total) 4.7 g/dL 6.4-8.3 ALT (test code=ALT) 37 U/L 1-41 AST (test code=AST) 40 U/L 1-40 Globulin (test code=Globulin) 2.3 g/dL 2.9-3.1 A/G Ratio (test code=A/G Ratio) 1.0 ratio eGFR AA (test code=eGFR AA) >60 mL/min/1.73 m2 eGFR (estimated Glomerular Filtration Rate) is an estimated value, calculated from the patient's serum creatinine using the MDRD equation. It is NOT the patient's actual GFR. The eGFR provides a more clinically useful measure of kidney disease than serum creatinine alone.This calculation takes sex and race into account, if the information is provided. If the race is not provided, and the patient is -[place], multiply by 1.212. If sex is not provided, and the patient is female, multiply by 0.742. Results for patients <18 years of age have not been validated by the MDRD study and should be interpreted with caution. eGFR Result Interpretation:eGFR > or=60 is in the Normal RangeeGFR < 60 may mean kidney diseaseeGFR < 15 may mean kidney failure Ranges recommended by the National Kidney Foundation, http://nkdep.nih.gov eGFR Non-AA (test code=eGFR Non-AA) >60.00 mL/min/1.73 m2 eGFR (estimated Glomerular Filtration Rate) is an estimated value, calculated from the patient's serum creatinine using the MDRD equation. It is NOT the patient's actual GFR. The eGFR provides a more clinically useful measure of kidney disease than serum creatinine alone.This calculation takes sex and race into account, if the information is provided. If the race is not provided, and the patient is -[place], multiply by 1.212. If sex is not provided, and the patient is female, multiply by 0.742. Results for patients <18 years of age have not been validated by the MDRD study and should be interpreted with caution. eGFR Result Interpretation:eGFR > or=60 is in the Normal RangeeGFR < 60 may mean kidney diseaseeGFR < 15 may mean kidney failure Ranges recommended by the National Kidney Foundation, http://nkdep.nih.gov Prothrombin Time and [id number] 05:13:08* Test Item Value Reference Range Comments Prothrombin Time (test code=Prothrombin Time) 13.3 seconds 9.8-13.4 INR (test code=INR) 1.1 ratio 0.6-1.2 Complete Blood Count with [id number] 05:05:22* Test Item Value Reference Range Comments WBC (test code=WBC) 11.9 x10 4.4-10.5 RBC (test code=RBC) 2.77 x10 4.10-5.70 Hgb (test code=Hgb) 8.4 g/dL 13.4-17.4 MCV (test code=MCV) 93.90 fL 80.00-100.00 Hct (test code=Hct) 26.0 % 38.7-52.0 MCHC (test code=MCHC) 32.30 g/dL 32.00-37.50 RDW CV (test code=RDW CV) 14.6 % 11.5-14.5 MCH (test code=MCH) 30.3 pg 27.0-32.5 Platelets (test code=Platelets) 147.0 x10 140.0-440.0 MPV (test code=MPV) 11.8 fL Slide Review (test code=Slide Review) Auto Auto Result created by [email or web address]_[email or web address] nRBC (test code=nRBC) 0 NRBC Abs (test code=NRBC Abs) 0.00 x10 IPF (test code=IPF) 0 % Automated [id number] 05:05:22* Test Item Value Reference Range Comments Neutro Auto (test code=Neutro Auto) 84.2 % 36.0-70.0 Lymph Auto (test code=Lymph Auto) 7.2 % 12.0-44.0 [place] Auto (test code=[place] Auto) 6.6 % 0.0-11.0 Eos, Auto (test code=Eos, Auto) 1.0 % 0.0-7.0 Basophil Auto (test code=Basophil Auto) 0.2 % 0.0-2.0 Neutro Absolute (test code=Neutro Absolute) 10.0 x10 1.6-7.4 Lymph Absolute (test code=Lymph Absolute) .86 x10 .50-4.60 [place] Absolute (test code=[place] Absolute) .78 x10 .00-1.20 Eos Absolute (test code=Eos Absolute) 0.12 x10 0.00-0.74 Baso Absolute (test code=Baso Absolute) 0.02 x10 0.00-0.21 IG [id number] 05:05:22* Test Item Value Reference Range Comments IG (test code=IG) 0.8 % 0.0-5.0 IG Abs (test code=IG Abs) 0 x10 Red Blood Cells [id number] 21:51:56* Test Item Value Reference Range Comments # of Units (test code=# of Units) 1 RBC Trn Reason (test code=RBC Trn Reason) Acute blood loss >15% or 750 ml RBC Product Ready (test code=RBC Product Ready) RBC Ready 3C ABSC [id number] 21:46:16* Test Item Value Reference Range Comments SC1 IS (test code=SC1 IS) NT SC2 IS (test code=SC2 IS) NT SC3 IS (test code=SC3 IS) NT SC1 37 (test code=SC1 37) 0 SC2 37 (test code=SC2 37) 0 SC3 37 (test code=SC3 37) 0 SC1 AHG (test code=SC1 AHG) 0 SC2 AHG (test code=SC2 AHG) 0 SC3 AHG (test code=SC3 AHG) 0 SC1 CC (test code=SC1 CC) 2+ SC2 CC (test code=SC2 CC) 2+ SC3 CC (test code=SC3 CC) 2+ Antibody Screen (3C) (test code=Antibody Screen (3C)) Negative ABSC [id number] 21:14:57* Test Item Value Reference Range Comments Previous History (test code=Previous History) Yes Prev History BBID (test code=BBID) [id number] Methodology (test code=Methodology) Test-Tube(TT) Anti-A (test code=Anti-A) 0 Anti-B (test code=Anti-B) 0 Anti-D (test code=Anti-D) 4+ DCon (test code=DCon) NT A1 (test code=A1) 4+ B cells (test code=B cells) 4+ ABORh (test code=ABORh) O POS Blood [id number] 18:02:42No growth at 5 days.Urine [id number] 10:44:39* Test Item Value Reference Range Comments ORGANISM (test code=ORGANISM) Escherichia coli Amikacin (test code=Amik) Ampicillin (test code=Amp) Ampicillin/Sulbactam (test code=Amp/Sul) Cefazolin (test code=Cefaz) Cefepime (test code=Cefep) Cefotaxime (test code=Cefo) Ceftazidime (test code=Ceftaz) Ceftriaxone (test code=Ceftri) Cefuroxime (test code=Cefur) Ciprofloxacin (test code=Cipro) Gentamicin (test code=Gent) Imipenem (test code=Imi) Levofloxacin (test code=Levo) Meropenem (test code=Mackenzie) Nitrofurantoin (test code=Nitro) Piperacillin/Tazobactam (test code=Pip/Naman) Tobramycin (test code=Tobra) Trimethoprim/Sulfa (test code=SXT) Final Report (test code=Final Report) >=100,000 cfu/ml Escherichia coli Comprehensive Metabolic [id number] 06:58:46* Test Item Value Reference Range Comments Sodium Level (test code=Sodium Level) 149.0 mmol/L 135.0-145.0 Potassium Level (test code=Potassium Level) 3.8 mmol/L 3.5-5.1 Chloride Level (test code=Chloride Level) 116 mmol/L 98-105 CO2 (test code=CO2) 23 mmol/L 22-29 Anion Gap (test code=Anion Gap) 10 mmol/L 7-16 BUN (test code=BUN) 29.30 mg/dL 8.00-23.00 Creatinine Level (test code=Creatinine Level) 1.00 mg/dL 0.70-1.20 BUN/Creat Ratio (test code=BUN/Creat Ratio) 29 Glucose Level (test code=Glucose Level) 180 mg/dL 70-115 Calcium Level (test code=Calcium Level) 7.4 mg/dL 8.3-10.5 Alk Phos (test code=Alk Phos) 74 U/L 40-129 Bilirubin Total (test code=Bilirubin Total) 0.5 mg/dL 0.1-0.9 Albumin Level (test code=Albumin Level) 2.7 g/dL 3.5-5.2 Protein Total (test code=Protein Total) 4.7 g/dL 6.4-8.3 ALT (test code=ALT) 24 U/L 1-41 AST (test code=AST) 25 U/L 1-40 Globulin (test code=Globulin) 2.0 g/dL 2.9-3.1 A/G Ratio (test code=A/G Ratio) 1.4 ratio Comprehensive Metabolic [id number] 06:58:46* Test Item Value Reference Range Comments Sodium Level (test code=Sodium Level) 149.0 mmol/L 135.0-145.0 Potassium Level (test code=Potassium Level) 3.8 mmol/L 3.5-5.1 Chloride Level (test code=Chloride Level) 116 mmol/L 98-105 CO2 (test code=CO2) 23 mmol/L 22-29 Anion Gap (test code=Anion Gap) 10 mmol/L 7-16 BUN (test code=BUN) 29.30 mg/dL 8.00-23.00 Creatinine Level (test code=Creatinine Level) 1.00 mg/dL 0.70-1.20 BUN/Creat Ratio (test code=BUN/Creat Ratio) 29 Glucose Level (test code=Glucose Level) 180 mg/dL 70-115 Calcium Level (test code=Calcium Level) 7.4 mg/dL 8.3-10.5 Alk Phos (test code=Alk Phos) 74 U/L 40-129 Bilirubin Total (test code=Bilirubin Total) 0.5 mg/dL 0.1-0.9 Albumin Level (test code=Albumin Level) 2.7 g/dL 3.5-5.2 Protein Total (test code=Protein Total) 4.7 g/dL 6.4-8.3 ALT (test code=ALT) 24 U/L 1-41 AST (test code=AST) 25 U/L 1-40 Globulin (test code=Globulin) 2.0 g/dL 2.9-3.1 A/G Ratio (test code=A/G Ratio) 1.4 ratio eGFR AA (test code=eGFR AA) >60 mL/min/1.73 m2 eGFR (estimated Glomerular Filtration Rate) is an estimated value, calculated from the patient's serum creatinine using the MDRD equation. It is NOT the patient's actual GFR. The eGFR provides a more clinically useful measure of kidney disease than serum creatinine alone.This calculation takes sex and race into account, if the information is provided. If the race is not provided, and the patient is -[place], multiply by 1.212. If sex is not provided, and the patient is female, multiply by 0.742. Results for patients <18 years of age have not been validated by the MDRD study and should be interpreted with caution. eGFR Result Interpretation:eGFR > or=60 is in the Normal RangeeGFR < 60 may mean kidney diseaseeGFR < 15 may mean kidney failure Ranges recommended by the National Kidney Foundation, http://nkdep.nih.gov Magnesium [id number] 06:58:46* Test Item Value Reference Range Comments Magnesium Level (test code=Magnesium Level) 2.0 mg/dL 1.7-2.5 Phosphorus [id number] 06:58:46* Test Item Value Reference Range Comments Phosphorus Level (test code=Phosphorus Level) 2.00 mg/dL 2.70-4.50 Comprehensive Metabolic [id number] 06:58:46* Test Item Value Reference Range Comments Sodium Level (test code=Sodium Level) 149.0 mmol/L 135.0-145.0 Potassium Level (test code=Potassium Level) 3.8 mmol/L 3.5-5.1 Chloride Level (test code=Chloride Level) 116 mmol/L 98-105 CO2 (test code=CO2) 23 mmol/L 22-29 Anion Gap (test code=Anion Gap) 10 mmol/L 7-16 BUN (test code=BUN) 29.30 mg/dL 8.00-23.00 Creatinine Level (test code=Creatinine Level) 1.00 mg/dL 0.70-1.20 BUN/Creat Ratio (test code=BUN/Creat Ratio) 29 Glucose Level (test code=Glucose Level) 180 mg/dL 70-115 Calcium Level (test code=Calcium Level) 7.4 mg/dL 8.3-10.5 Alk Phos (test code=Alk Phos) 74 U/L 40-129 Bilirubin Total (test code=Bilirubin Total) 0.5 mg/dL 0.1-0.9 Albumin Level (test code=Albumin Level) 2.7 g/dL 3.5-5.2 Protein Total (test code=Protein Total) 4.7 g/dL 6.4-8.3 ALT (test code=ALT) 24 U/L 1-41 AST (test code=AST) 25 U/L 1-40 Globulin (test code=Globulin) 2.0 g/dL 2.9-3.1 A/G Ratio (test code=A/G Ratio) 1.4 ratio eGFR AA (test code=eGFR AA) >60 mL/min/1.73 m2 eGFR (estimated Glomerular Filtration Rate) is an estimated value, calculated from the patient's serum creatinine using the MDRD equation. It is NOT the patient's actual GFR. The eGFR provides a more clinically useful measure of kidney disease than serum creatinine alone.This calculation takes sex and race into account, if the information is provided. If the race is not provided, and the patient is -[place], multiply by 1.212. If sex is not provided, and the patient is female, multiply by 0.742. Results for patients <18 years of age have not been validated by the MDRD study and should be interpreted with caution. eGFR Result Interpretation:eGFR > or=60 is in the Normal RangeeGFR < 60 may mean kidney diseaseeGFR < 15 may mean kidney failure Ranges recommended by the National Kidney Foundation, http://nkdep.nih.gov eGFR Non-AA (test code=eGFR Non-AA) >60.00 mL/min/1.73 m2 eGFR (estimated Glomerular Filtration Rate) is an estimated value, calculated from the patient's serum creatinine using the MDRD equation. It is NOT the patient's actual GFR. The eGFR provides a more clinically useful measure of kidney disease than serum creatinine alone.This calculation takes sex and race into account, if the information is provided. If the race is not provided, and the patient is -[place], multiply by 1.212. If sex is not provided, and the patient is female, multiply by 0.742. Results for patients <18 years of age have not been validated by the MDRD study and should be interpreted with caution. eGFR Result Interpretation:eGFR > or=60 is in the Normal RangeeGFR < 60 may mean kidney diseaseeGFR < 15 may mean kidney failure Ranges recommended by the National Kidney Foundation, http://nkdep.nih.gov Complete Blood Count with [id number] 06:29:34* Test Item Value Reference Range Comments WBC (test code=WBC) 11.7 x10 4.4-10.5 RBC (test code=RBC) 2.47 x10 4.10-5.70 Hgb (test code=Hgb) 7.3 g/dL 13.4-17.4 MCV (test code=MCV) 91.90 fL 80.00-100.00 Hct (test code=Hct) 22.7 % 38.7-52.0 MCHC (test code=MCHC) 32.20 g/dL 32.00-37.50 RDW CV (test code=RDW CV) 15.2 % 11.5-14.5 MCH (test code=MCH) 29.6 pg 27.0-32.5 Platelets (test code=Platelets) 144.0 x10 140.0-440.0 MPV (test code=MPV) 12.4 fL Slide Review (test code=Slide Review) Auto Auto Result created by [email or web address]_[email or web address] nRBC (test code=nRBC) 0 NRBC Abs (test code=NRBC Abs) 0.00 x10 IPF (test code=IPF) 0 % Automated [id number] 06:29:34* Test Item Value Reference Range Comments Neutro Auto (test code=Neutro Auto) 81.8 % 36.0-70.0 Lymph Auto (test code=Lymph Auto) 8.1 % 12.0-44.0 [place] Auto (test code=[place] Auto) 8.9 % 0.0-11.0 Eos, Auto (test code=Eos, Auto) 0.3 % 0.0-7.0 Basophil Auto (test code=Basophil Auto) 0.2 % 0.0-2.0 Neutro Absolute (test code=Neutro Absolute) 9.6 x10 1.6-7.4 Lymph Absolute (test code=Lymph Absolute) .95 x10 .50-4.60 [place] Absolute (test code=[place] Absolute) 1.04 x10 .00-1.20 Eos Absolute (test code=Eos Absolute) 0.03 x10 0.00-0.74 Baso Absolute (test code=Baso Absolute) 0.02 x10 0.00-0.21 IG [id number] 06:29:34* Test Item Value Reference Range Comments IG (test code=IG) 0.7 % 0.0-5.0 IG Abs (test code=IG Abs) 0 x10 Prothrombin Time and [id number] 04:32:48* Test Item Value Reference Range Comments Prothrombin Time (test code=Prothrombin Time) 12.1 seconds 9.8-13.4 INR (test code=INR) 1.0 ratio 0.6-1.2 POC [id number] 17:43:24* Test Item Value Reference Range Comments Glucose POC (test code=Glucose POC) 136 mg/dL 70-115 If you consider your patient critically ill, the Rosalinda-Accu Check Infrom II meter should not be used for Glucose determination. Draw a venous Glucose and send to the main Lab for analysis. Prothrombin Time and [id number] 04:49:19* Test Item Value Reference Range Comments Prothrombin Time (test code=Prothrombin Time) 12.1 seconds 9.8-13.4 INR (test code=INR) 1.0 ratio 0.6-1.2 Comprehensive Metabolic [id number] 04:32:21* Test Item Value Reference Range Comments Sodium Level (test code=Sodium Level) 146.0 mmol/L 135.0-145.0 Potassium Level (test code=Potassium Level) 3.9 mmol/L 3.5-5.1 Chloride Level (test code=Chloride Level) 114 mmol/L 98-105 CO2 (test code=CO2) 25 mmol/L 22-29 Anion Gap (test code=Anion Gap) 7 mmol/L 7-16 BUN (test code=BUN) 38.40 mg/dL 8.00-23.00 Creatinine Level (test code=Creatinine Level) 1.10 mg/dL 0.70-1.20 BUN/Creat Ratio (test code=BUN/Creat Ratio) 35 Glucose Level (test code=Glucose Level) 155 mg/dL 70-115 Calcium Level (test code=Calcium Level) 7.7 mg/dL 8.3-10.5 Alk Phos (test code=Alk Phos) 67 U/L 40-129 Bilirubin Total (test code=Bilirubin Total) 0.7 mg/dL 0.1-0.9 Albumin Level (test code=Albumin Level) 2.8 g/dL 3.5-5.2 Protein Total (test code=Protein Total) 4.6 g/dL 6.4-8.3 ALT (test code=ALT) 21 U/L 1-41 AST (test code=AST) 24 U/L 1-40 Globulin (test code=Globulin) 1.8 g/dL 2.9-3.1 A/G Ratio (test code=A/G Ratio) 1.6 ratio Comprehensive Metabolic [id number] 04:32:21* Test Item Value Reference Range Comments Sodium Level (test code=Sodium Level) 146.0 mmol/L 135.0-145.0 Potassium Level (test code=Potassium Level) 3.9 mmol/L 3.5-5.1 Chloride Level (test code=Chloride Level) 114 mmol/L 98-105 CO2 (test code=CO2) 25 mmol/L 22-29 Anion Gap (test code=Anion Gap) 7 mmol/L 7-16 BUN (test code=BUN) 38.40 mg/dL 8.00-23.00 Creatinine Level (test code=Creatinine Level) 1.10 mg/dL 0.70-1.20 BUN/Creat Ratio (test code=BUN/Creat Ratio) 35 Glucose Level (test code=Glucose Level) 155 mg/dL 70-115 Calcium Level (test code=Calcium Level) 7.7 mg/dL 8.3-10.5 Alk Phos (test code=Alk Phos) 67 U/L 40-129 Bilirubin Total (test code=Bilirubin Total) 0.7 mg/dL 0.1-0.9 Albumin Level (test code=Albumin Level) 2.8 g/dL 3.5-5.2 Protein Total (test code=Protein Total) 4.6 g/dL 6.4-8.3 ALT (test code=ALT) 21 U/L 1-41 AST (test code=AST) 24 U/L 1-40 Globulin (test code=Globulin) 1.8 g/dL 2.9-3.1 A/G Ratio (test code=A/G Ratio) 1.6 ratio eGFR AA (test code=eGFR AA) >60 mL/min/1.73 m2 eGFR (estimated Glomerular Filtration Rate) is an estimated value, calculated from the patient's serum creatinine using the MDRD equation. It is NOT the patient's actual GFR. The eGFR provides a more clinically useful measure of kidney disease than serum creatinine alone.This calculation takes sex and race into account, if the information is provided. If the race is not provided, and the patient is -Aust[place], multiply by 1.212. If sex is not provided, and the patient is female, multiply by 0.742. Results for patients <18 years of age have not been validated by the MDRD study and should be interpreted with caution. eGFR Result Interpretation:eGFR > or=60 is in the Normal RangeeGFR < 60 may mean kidney diseaseeGFR < 15 may mean kidney failure Ranges recommended by the National Kidney Foundation, http://nkdep.nih.gov Magnesium [id number] 04:32:21* Test Item Value Reference Range Comments Magnesium Level (test code=Magnesium Level) 2.2 mg/dL 1.7-2.5 Phosphorus [id number] 04:32:21* Test Item Value Reference Range Comments Phosphorus Level (test code=Phosphorus Level) 1.50 mg/dL 2.70-4.50 Comprehensive Metabolic [id number] 04:32:21* Test Item Value Reference Range Comments Sodium Level (test code=Sodium Level) 146.0 mmol/L 135.0-145.0 Potassium Level (test code=Potassium Level) 3.9 mmol/L 3.5-5.1 Chloride Level (test code=Chloride Level) 114 mmol/L 98-105 CO2 (test code=CO2) 25 mmol/L 22-29 Anion Gap (test code=Anion Gap) 7 mmol/L 7-16 BUN (test code=BUN) 38.40 mg/dL 8.00-23.00 Creatinine Level (test code=Creatinine Level) 1.10 mg/dL 0.70-1.20 BUN/Creat Ratio (test code=BUN/Creat Ratio) 35 Glucose Level (test code=Glucose Level) 155 mg/dL 70-115 Calcium Level (test code=Calcium Level) 7.7 mg/dL 8.3-10.5 Alk Phos (test code=Alk Phos) 67 U/L 40-129 Bilirubin Total (test code=Bilirubin Total) 0.7 mg/dL 0.1-0.9 Albumin Level (test code=Albumin Level) 2.8 g/dL 3.5-5.2 Protein Total (test code=Protein Total) 4.6 g/dL 6.4-8.3 ALT (test code=ALT) 21 U/L 1-41 AST (test code=AST) 24 U/L 1-40 Globulin (test code=Globulin) 1.8 g/dL 2.9-3.1 A/G Ratio (test code=A/G Ratio) 1.6 ratio eGFR AA (test code=eGFR AA) >60 mL/min/1.73 m2 eGFR (estimated Glomerular Filtration Rate) is an estimated value, calculated from the patient's serum creatinine using the MDRD equation. It is NOT the patient's actual GFR. The eGFR provides a more clinically useful measure of kidney disease than serum creatinine alone.This calculation takes sex and race into account, if the information is provided. If the race is not provided, and the patient is -Austrian, multiply by 1.212. If sex is not provided, and the patient is female, multiply by 0.742. Results for patients <18 years of age have not been validated by the MDRD study and should be interpreted with caution. eGFR Result Interpretation:eGFR > or=60 is in the Normal RangeeGFR < 60 may mean kidney diseaseeGFR < 15 may mean kidney failure Ranges recommended by the National Kidney Foundation, http://nkdep.nih.gov eGFR Non-AA (test code=eGFR Non-AA) >60.00 mL/min/1.73 m2 eGFR (estimated Glomerular Filtration Rate) is an estimated value, calculated from the patient's serum creatinine using the MDRD equation. It is NOT the patient's actual GFR. The eGFR provides a more clinically useful measure of kidney disease than serum creatinine alone.This calculation takes sex and race into account, if the information is provided. If the race is not provided, and the patient is -Austrian, multiply by 1.212. If sex is not provided, and the patient is female, multiply by 0.742. Results for patients <18 years of age have not been validated by the MDRD study and should be interpreted with caution. eGFR Result Interpretation:eGFR > or=60 is in the Normal RangeeGFR < 60 may mean kidney diseaseeGFR < 15 may mean kidney failure Ranges recommended by the National Kidney Foundation, http://nkdep.nih.gov Complete Blood Count with [id number] 04:26:44* Test Item Value Reference Range Comments WBC (test code=WBC) 10.4 x10 4.4-10.5 RBC (test code=RBC) 2.46 x10 4.10-5.70 Hgb (test code=Hgb) 7.3 g/dL 13.4-17.4 MCV (test code=MCV) 90.70 fL 80.00-100.00 Hct (test code=Hct) 22.3 % 38.7-52.0 MCHC (test code=MCHC) 32.70 g/dL 32.00-37.50 RDW CV (test code=RDW CV) 15.2 % 11.5-14.5 MCH (test code=MCH) 29.7 pg 27.0-32.5 Platelets (test code=Platelets) 123.0 x10 140.0-440.0 MPV (test code=MPV) 12.1 fL Slide Review (test code=Slide Review) Auto Auto Result created by GL_SJM_SLIDE_REV_AUTO GL_SJM_XN_RFLX GL_SJM_XN_RFLX nRBC (test code=nRBC) 0 NRBC Abs (test code=NRBC Abs) 0.00 x10 IPF (test code=IPF) 4 % Automated [id number] 04:26:44* Test Item Value Reference Range Comments Neutro Auto (test code=Neutro Auto) 76.7 % 36.0-70.0 Lymph Auto (test code=Lymph Auto) 9.7 % 12.0-44.0 [place] Auto (test code=[place] Auto) 11.7 % 0.0-11.0 Eos, Auto (test code=Eos, Auto) 1.1 % 0.0-7.0 Basophil Auto (test code=Basophil Auto) 0.1 % 0.0-2.0 Neutro Absolute (test code=Neutro Absolute) 8.0 x10 1.6-7.4 Lymph Absolute (test code=Lymph Absolute) 1.01 x10 .50-4.60 [place] Absolute (test code=[place] Absolute) 1.22 x10 .00-1.20 Eos Absolute (test code=Eos Absolute) 0.12 x10 0.00-0.74 Baso Absolute (test code=Baso Absolute) 0.01 x10 0.00-0.21 IG [id number] 04:26:44* Test Item Value Reference Range Comments IG (test code=IG) 0.7 % 0.0-5.0 IG Abs (test code=IG Abs) 0 x10 Complete Blood Count with Drzfxziyjcyd1464-21-12 04:26:44* Test Item Value Reference Range Comments WBC (test code=WBC) 10.4 x10 4.4-10.5 RBC (test code=RBC) 2.46 x10 4.10-5.70 Hgb (test code=Hgb) 7.3 g/dL 13.4-17.4 MCV (test code=MCV) 90.70 fL 80.00-100.00 Hct (test code=Hct) 22.3 % 38.7-52.0 MCHC (test code=MCHC) 32.70 g/dL 32.00-37.50 RDW CV (test code=RDW CV) 15.2 % 11.5-14.5 MCH (test code=MCH) 29.7 pg 27.0-32.5 Platelets (test code=Platelets) 123.0 x10 140.0-440.0 MPV (test code=MPV) 12.1 fL Slide Review (test code=Slide Review) Auto Auto Result created by GL_SJM_SLIDE_REV_AUTO GL_SJM_XN_RFLX GL_SJM_XN_RFLX nRBC (test code=nRBC) 0 NRBC Abs (test code=NRBC Abs) 0.00 x10 Pos Count XN (test code=Pos Count XN) A IPF (test code=IPF) 4 % Blood [id number] 03:01:39No growth at 5 days.[id number] 21:43:58* Test Item Value Reference Range Comments RBC Morph (test code=RBC Morph) As Indicated Normal Anisocyte (test code=Anisocyte) 1+ None Hypochromia (test code=Hypochromia) 1+ None Seen Plt Estimation (test code=Plt Estimation) Decreased Normal Complete Blood Count with [id number] 21:41:55* Test Item Value Reference Range Comments WBC (test code=WBC) 12.2 x10 4.4-10.5 RBC (test code=RBC) 2.57 x10 4.10-5.70 Hgb (test code=Hgb) 7.6 g/dL 13.4-17.4 Hct (test code=Hct) 23.1 % 38.7-52.0 MCV (test code=MCV) 89.90 fL 80.00-100.00 MCHC (test code=MCHC) 32.90 g/dL 32.00-37.50 RDW CV (test code=RDW CV) 15.1 % 11.5-14.5 MCH (test code=MCH) 29.6 pg 27.0-32.5 Platelets (test code=Platelets) 130.0 x10 140.0-440.0 MPV (test code=MPV) 12.3 fL Slide Review (test code=Slide Review) Smear Auto Result created by GL_SJM_SLIDE_REV_AUTO GL_SJM_XN_RFLX GL_SJM_XN_RFLX GL_SJM_XN_RFLX nRBC (test code=nRBC) 0 NRBC Abs (test code=NRBC Abs) 0.02 x10 Pos Count XN (test code=Pos Count XN) A IPF (test code=IPF) 4 % Automated [id number] 21:41:55* Test Item Value Reference Range Comments Neutro Auto (test code=Neutro Auto) 80.1 % 36.0-70.0 Lymph Auto (test code=Lymph Auto) 7.5 % 12.0-44.0 [place] Auto (test code=[place] Auto) 10.8 % 0.0-11.0 Eos, Auto (test code=Eos, Auto) 0.6 % 0.0-7.0 Basophil Auto (test code=Basophil Auto) 0.2 % 0.0-2.0 Neutro Absolute (test code=Neutro Absolute) 9.8 x10 1.6-7.4 Lymph Absolute (test code=Lymph Absolute) .92 x10 .50-4.60 [place] Absolute (test code=[place] Absolute) 1.32 x10 .00-1.20 Eos Absolute (test code=Eos Absolute) 0.07 x10 0.00-0.74 Baso Absolute (test code=Baso Absolute) 0.03 x10 0.00-0.21 IG [id number] 21:41:55* Test Item Value Reference Range Comments IG (test code=IG) 0.8 % 0.0-5.0 IG Abs (test code=IG Abs) 0 x10 Complete Blood Count with [id number] 16:04:03* Test Item Value Reference Range Comments WBC (test code=WBC) 12.1 x10 4.4-10.5 RBC (test code=RBC) 2.58 x10 4.10-5.70 Hgb (test code=Hgb) 7.6 g/dL 13.4-17.4 Hct (test code=Hct) 23.4 % 38.7-52.0 MCV (test code=MCV) 90.70 fL 80.00-100.00 MCHC (test code=MCHC) 32.50 g/dL 32.00-37.50 RDW CV (test code=RDW CV) 14.9 % 11.5-14.5 MCH (test code=MCH) 29.5 pg 27.0-32.5 Platelets (test code=Platelets) 138.0 x10 140.0-440.0 MPV (test code=MPV) 11.9 fL Slide Review (test code=Slide Review) Auto Auto Result created by GL_SJM_SLIDE_REV_AUTO GL_SJM_XN_RFLX nRBC (test code=nRBC) 0 NRBC Abs (test code=NRBC Abs) 0.00 x10 Pos Diff XN (test code=Pos Diff XN) A IPF (test code=IPF) 0 % Automated Pqofsqfrpfmb2652-11-93 16:04:03* Test Item Value Reference Range Comments Neutro Auto (test code=Neutro Auto) 79.0 % 36.0-70.0 Lymph Auto (test code=Lymph Auto) 7.3 % 12.0-44.0 [place] Auto (test code=[place] Auto) 12.5 % 0.0-11.0 Eos, Auto (test code=Eos, Auto) 0.3 % 0.0-7.0 Basophil Auto (test code=Basophil Auto) 0.2 % 0.0-2.0 Neutro Absolute (test code=Neutro Absolute) 9.6 x10 1.6-7.4 Lymph Absolute (test code=Lymph Absolute) .88 x10 .50-4.60 [place] Absolute (test code=[place] Absolute) 1.52 x10 .00-1.20 Eos Absolute (test code=Eos Absolute) 0.04 x10 0.00-0.74 Baso Absolute (test code=Baso Absolute) 0.02 x10 0.00-0.21 IG [id number] 16:04:03* Test Item Value Reference Range Comments IG (test code=IG) 0.7 % 0.0-5.0 IG Abs (test code=IG Abs) 0 x10 POC [id number] 15:42:16* Test Item Value Reference Range Comments Glucose POC (test code=Glucose POC) 168 mg/dL 70-115 If you consider your patient critically ill, the Rosalinda-Accu Check Infrom II meter should not be used for Glucose determination. Draw a venous Glucose and send to the main Lab for analysis. Red Blood Cells [id number] 12:20:37* Test Item Value Reference Range Comments # of Units (test code=# of Units) 1 RBC Trn Reason (test code=RBC Trn Reason) Hgb <7, symptomatic RBC Product Ready (test code=RBC Product Ready) RBC Ready POC [id number] 08:57:56* Test Item Value Reference Range Comments Glucose POC (test code=Glucose POC) 187 mg/dL 70-115 If you consider your patient critically ill, the Rosalinda-Accu Check Infrom II meter should not be used for Glucose determination. Draw a venous Glucose and send to the main Lab for analysis. [id number] 06:48:01* Test Item Value Reference Range Comments RBC Morph (test code=RBC Morph) As Indicated Normal Anisocyte (test code=Anisocyte) 1+ None Hypochromia (test code=Hypochromia) 1+ None Seen Plt Estimation (test code=Plt Estimation) Normal Normal Comprehensive Metabolic [id number] 05:59:01* Test Item Value Reference Range Comments Sodium Level (test code=Sodium Level) 145.0 mmol/L 135.0-145.0 Potassium Level (test code=Potassium Level) 4.4 mmol/L 3.5-5.1 Chloride Level (test code=Chloride Level) 112 mmol/L 98-105 CO2 (test code=CO2) 24 mmol/L 22-29 Anion Gap (test code=Anion Gap) 9 mmol/L 7-16 BUN (test code=BUN) 49.60 mg/dL 8.00-23.00 Creatinine Level (test code=Creatinine Level) 1.40 mg/dL 0.70-1.20 BUN/Creat Ratio (test code=BUN/Creat Ratio) 35 Glucose Level (test code=Glucose Level) 174 mg/dL 70-115 Calcium Level (test code=Calcium Level) 7.6 mg/dL 8.3-10.5 Alk Phos (test code=Alk Phos) 63 U/L 40-129 Bilirubin Total (test code=Bilirubin Total) 0.9 mg/dL 0.1-0.9 Albumin Level (test code=Albumin Level) 3.0 g/dL 3.5-5.2 Protein Total (test code=Protein Total) 4.6 g/dL 6.4-8.3 ALT (test code=ALT) 22 U/L 1-41 AST (test code=AST) 29 U/L 1-40 Globulin (test code=Globulin) 1.6 g/dL 2.9-3.1 A/G Ratio (test code=A/G Ratio) 1.9 ratio Magnesium [id number] 05:59:01* Test Item Value Reference Range Comments Magnesium Level (test code=Magnesium Level) 2.1 mg/dL 1.7-2.5 Comprehensive Metabolic [id number] 05:59:01* Test Item Value Reference Range Comments Sodium Level (test code=Sodium Level) 145.0 mmol/L 135.0-145.0 Potassium Level (test code=Potassium Level) 4.4 mmol/L 3.5-5.1 Chloride Level (test code=Chloride Level) 112 mmol/L 98-105 CO2 (test code=CO2) 24 mmol/L 22-29 Anion Gap (test code=Anion Gap) 9 mmol/L 7-16 BUN (test code=BUN) 49.60 mg/dL 8.00-23.00 Creatinine Level (test code=Creatinine Level) 1.40 mg/dL 0.70-1.20 BUN/Creat Ratio (test code=BUN/Creat Ratio) 35 Glucose Level (test code=Glucose Level) 174 mg/dL 70-115 Calcium Level (test code=Calcium Level) 7.6 mg/dL 8.3-10.5 Alk Phos (test code=Alk Phos) 63 U/L 40-129 Bilirubin Total (test code=Bilirubin Total) 0.9 mg/dL 0.1-0.9 Albumin Level (test code=Albumin Level) 3.0 g/dL 3.5-5.2 Protein Total (test code=Protein Total) 4.6 g/dL 6.4-8.3 ALT (test code=ALT) 22 U/L 1-41 AST (test code=AST) 29 U/L 1-40 Globulin (test code=Globulin) 1.6 g/dL 2.9-3.1 A/G Ratio (test code=A/G Ratio) 1.9 ratio eGFR AA (test code=eGFR AA) 60 mL/min/1.73 m2 eGFR (estimated Glomerular Filtration Rate) is an estimated value, calculated from the patient's serum creatinine using the MDRD equation. It is NOT the patient's actual GFR. The eGFR provides a more clinically useful measure of kidney disease than serum creatinine alone.This calculation takes sex and race into account, if the information is provided. If the race is not provided, and the patient is -[place], multiply by 1.212. If sex is not provided, and the patient is female, multiply by 0.742. Results for patients <18 years of age have not been validated by the MDRD study and should be interpreted with caution. eGFR Result Interpretation:eGFR > or=60 is in the Normal RangeeGFR < 60 may mean kidney diseaseeGFR < 15 may mean kidney failure Ranges recommended by the National Kidney Foundation, http://nkdep.nih.gov Phosphorus [id number] 05:59:01* Test Item Value Reference Range Comments Phosphorus Level (test code=Phosphorus Level) 3.20 mg/dL 2.70-4.50 Comprehensive Metabolic [id number] 05:59:01* Test Item Value Reference Range Comments Sodium Level (test code=Sodium Level) 145.0 mmol/L 135.0-145.0 Potassium Level (test code=Potassium Level) 4.4 mmol/L 3.5-5.1 Chloride Level (test code=Chloride Level) 112 mmol/L 98-105 CO2 (test code=CO2) 24 mmol/L 22-29 Anion Gap (test code=Anion Gap) 9 mmol/L 7-16 BUN (test code=BUN) 49.60 mg/dL 8.00-23.00 Creatinine Level (test code=Creatinine Level) 1.40 mg/dL 0.70-1.20 BUN/Creat Ratio (test code=BUN/Creat Ratio) 35 Glucose Level (test code=Glucose Level) 174 mg/dL 70-115 Calcium Level (test code=Calcium Level) 7.6 mg/dL 8.3-10.5 Alk Phos (test code=Alk Phos) 63 U/L 40-129 Bilirubin Total (test code=Bilirubin Total) 0.9 mg/dL 0.1-0.9 Albumin Level (test code=Albumin Level) 3.0 g/dL 3.5-5.2 Protein Total (test code=Protein Total) 4.6 g/dL 6.4-8.3 ALT (test code=ALT) 22 U/L 1-41 AST (test code=AST) 29 U/L 1-40 Globulin (test code=Globulin) 1.6 g/dL 2.9-3.1 A/G Ratio (test code=A/G Ratio) 1.9 ratio eGFR AA (test code=eGFR AA) 60 mL/min/1.73 m2 eGFR (estimated Glomerular Filtration Rate) is an estimated value, calculated from the patient's serum creatinine using the MDRD equation. It is NOT the patient's actual GFR. The eGFR provides a more clinically useful measure of kidney disease than serum creatinine alone.This calculation takes sex and race into account, if the information is provided. If the race is not provided, and the patient is -[place], multiply by 1.212. If sex is not provided, and the patient is female, multiply by 0.742. Results for patients <18 years of age have not been validated by the MDRD study and should be interpreted with caution. eGFR Result Interpretation:eGFR > or=60 is in the Normal RangeeGFR < 60 may mean kidney diseaseeGFR < 15 may mean kidney failure Ranges recommended by the National Kidney Foundation, http://nkdep.nih.gov eGFR Non-AA (test code=eGFR Non-AA) 49.27 mL/min/1.73 m2 eGFR (estimated Glomerular Filtration Rate) is an estimated value, calculated from the patient's serum creatinine using the MDRD equation. It is NOT the patient's actual GFR. The eGFR provides a more clinically useful measure of kidney disease than serum creatinine alone.This calculation takes sex and race into account, if the information is provided. If the race is not provided, and the patient is -[place], multiply by 1.212. If sex is not provided, and the patient is female, multiply by 0.742. Results for patients <18 years of age have not been validated by the MDRD study and should be interpreted with caution. eGFR Result Interpretation:eGFR > or=60 is in the Normal RangeeGFR < 60 may mean kidney diseaseeGFR < 15 may mean kidney failure Ranges recommended by the National Kidney Foundation, http://nkdep.nih.gov Red Blood Cells [id number] 05:45:28* Test Item Value Reference Range Comments # of Units (test code=# of Units) 1 RBC Trn Reason (test code=RBC Trn Reason) Hgb <7, symptomatic RBC Product Ready (test code=RBC Product Ready) RBC Ready Automated [id number] 05:29:03* Test Item Value Reference Range Comments Neutro Auto (test code=Neutro Auto) 79.2 % 36.0-70.0 Lymph Auto (test code=Lymph Auto) 7.9 % 12.0-44.0 [place] Auto (test code=[place] Auto) 11.7 % 0.0-11.0 Eos, Auto (test code=Eos, Auto) 0.3 % 0.0-7.0 Basophil Auto (test code=Basophil Auto) 0.3 % 0.0-2.0 Neutro Absolute (test code=Neutro Absolute) 8.6 x10 1.6-7.4 Lymph Absolute (test code=Lymph Absolute) .85 x10 .50-4.60 [place] Absolute (test code=[place] Absolute) 1.27 x10 .00-1.20 Eos Absolute (test code=Eos Absolute) 0.03 x10 0.00-0.74 Baso Absolute (test code=Baso Absolute) 0.03 x10 0.00-0.21 IG [id number] 05:29:03* Test Item Value Reference Range Comments IG (test code=IG) 0.6 % 0.0-5.0 IG Abs (test code=IG Abs) 0 x10 Complete Blood Count with Xawhlqgmxsgp4570-00-53 05:29:02* Test Item Value Reference Range Comments WBC (test code=WBC) 10.8 x10 4.4-10.5 RBC (test code=RBC) 2.26 x10 4.10-5.70 Hgb (test code=Hgb) 6.5 g/dL 13.4-17.4 Critical results called to Lino Reza RN at 08/03/2019 05:28:35 WELLNESS PROGRAM COORDINATOR by DD. Read back and verified? Yes MCV (test code=MCV) 92.00 fL 80.00-100.00 Hct (test code=Hct) 20.8 % 38.7-52.0 MCHC (test code=MCHC) 31.30 g/dL 32.00-37.50 RDW CV (test code=RDW CV) 15.0 % 11.5-14.5 MCH (test code=MCH) 28.8 pg 27.0-32.5 Platelets (test code=Platelets) 138.0 x10 140.0-440.0 MPV (test code=MPV) 12.3 fL Slide Review (test code=Slide Review) Smear Auto Result created by GL_SJM_SLIDE_REV_AUTO GL_SJM_XN_RFLX GL_SJM_XN_RFLX nRBC (test code=nRBC) 0 NRBC Abs (test code=NRBC Abs) 0.02 x10 Pos Count XN (test code=Pos Count XN) A IPF (test code=IPF) 0 % XR Chest 1 View [id number] 05:27:04Patient: ERIK DONATO Date/Time08/03/2019 04:52 CSTReason for ExamET tube placementReportDICTATION LOCATION: [id number]: Male, 78 years of age with ET tube placementEXAM: CHEST X-RAY, ONE VIEWCOMPARISON: 08/02/2019COMMENT: Frontal view of the chest is provided. ET tube again noted in satisfactory position. No focal infiltrate, consolidation, mass lesion, or effusion is seen. Cardiac silhouette is within normal limits. No acute bony abnormalities. Gastrostomy tube projected over the stomach.IMPRESSION: No acute infiltrate and no change since prior study. Final Dictated by: Jamila Almanza LDictated DT/TM: 08/03/2019 5:25 amSigned by: Jamila Almanza LSigned (Electronic Signature): 08/03/2019 5:27 amProthrombin Time and INR 2019-08-03 05:14:17* Test Item Value Reference Range Comments Prothrombin Time (test code=Prothrombin Time) 12.6 seconds 9.8-13.4 INR (test code=INR) 1.1 ratio 0.6-1.2 POC [id number] 04:15:46* Test Item Value Reference Range Comments pH Art (test code=pH Art) 7.39 7.35-7.45 pH Temp Homero Art (test code=pH Temp Homero Art) 7.39 pCO2 Art (test code=pCO2 Art) 41 mmHg 35-45 pCO2 Temp Homero Art (test code=pCO2 Temp Homero Art) 41 mmHg pO2 Art (test code=pO2 Art) 43 mmHg 80-100 L pO2 Temp Homero Art (test code=pO2 Temp Homero Art) 43 mmHg ctHb Art (test code=ctHb Art) 6.5 g/dL 12.2-17.4 L O2 Sat Art (test code=O2 Sat Art) 78.6 % 80.0-100.0 L FO2Hb Art (test code=FO2Hb Art) 76.5 % 0.0-100.0 FCOHb Art (test code=FCOHb Art) 1.7 % 0.0-20.0 FMetHb Art (test code=FMetHb Art) 1.0 % 0.0-20.0 HCO3 Art (test code=HCO3 Art) 24.7 mmol/L 22.0-26.0 Hct Art (test code=Hct Art) 20 % 34-52 Na Art (test code=Na Art) 144 mmol/L 135-145 K Art (test code=K Art) 4.3 mmol/L 3.5-4.5 iCa Art (test code=iCa Art) 1.13 mmol/L 1.00-1.50 Cl Art (test code=Cl Art) 112 mmol/L 95-105 Glu Art (test code=Glu Art) 169 mg/dL 75-115 Base Excess Arterial (test code=Base Excess Arterial) -0.3 FiO2 Art (test code=FiO2 Art) 30 % Lactate Art (test code=Lactate Art) 1.9 mmol/L 0.5-2.2 Draw Site (test code=Draw Site) Radial. R Tidal Volume (test code=Tidal Volume) 0.50 PEEP. (test code=PEEP.) 5.0 Lower Ext Arterial Duplex [id number] 03:54:45Patient: ERIK DONATO Date/Time08/03/2019 01:18 CSTReason for ExamDiminished or Absent Pulse(s)ReportAFTER HOURS SERVICE ON: 08/03/2019 3:51 AMBilateral Lower Extremity Arterial DopplerLocation Code [id number]: Diminished or Absent Pulse(s)Technique: Real-time perry scale, Doppler spectral analysis and Doppler color flow evaluation was performed using a dedicated transducer.Findings:Lower extremity arterial system was evaluated including the common femoral, superficial femoral and popliteal arteries. The right proximal femoral artery cannot be assessed due to overlying band age.Waveforms are predominantly triphasic comment dampened. Elevated peak systol ic velocities are seen in the right common femoral artery measuring 190 cm/s and in the left proximal femoral artery measuring 182 cm/s. There is no evidence of conclusion.Impression:Diminished/dampened arterial flow demonstrating diffuse m onophasic waveforms throughout. No evidence of occlusion. Final Dictat ed by: MD Lockett Mohammad TDictated DT/TM: 08/03/2019 3:51 amSigned by: MD Lockett Mohammad TSigned (Electronic Signature): 08/03/2019 3:54 amUS Upper Ext Venous Duplex [id number] 02:28:47Patient: ERIK DONATO Date/Time08/03/2019 01:19 CSTReason for ExamExtremity EdemaReportDICTATION LOCATION: [id number]: Male, 78 years of age with edema in the left armEXAM: LEFT UPPER EXTREMITY VENOUS DOPPLERCOMPARISON: NoneTECHNIQUE: Real-time grayscale 2-D imaging, Doppler spectral analysis, and Doppler color flow imaging were performed of the left IJ, subclavian, axillary, basilic, cephalic, brachial, radial, and ulnar veins.FINDINGS: Nonocclusive thrombus is present in the left axillary vein. Occlusive thrombus is present in the left basilic, cephalic, and median cubital veins. There is normal compressibility in the left internal jugular, subclavian, brachial, radial, and ulnar veins.IMPRESSION:1. Incompletely occlusive thrombus in left axillary vein.2. Occlusive thrombus seen in the left basilic, cephalic, and median cubital veins. Final Dictated by: Jamila Almanza LDictated DT/TM: 08/03/2019 2:25 amSigned by: Jamila Almanza LSigned (Electronic Signature): 08/03/2019 2:28 amComplete Blood Count with [id number] 23:07:44* Test Item Value Reference Range Comments WBC (test code=WBC) 12.7 x10 4.4-10.5 RBC (test code=RBC) 2.37 x10 4.10-5.70 Hgb (test code=Hgb) 7.0 g/dL 13.4-17.4 Hct (test code=Hct) 21.5 % 38.7-52.0 MCV (test code=MCV) 90.70 fL 80.00-100.00 MCHC (test code=MCHC) 32.60 g/dL 32.00-37.50 RDW CV (test code=RDW CV) 15.1 % 11.5-14.5 MCH (test code=MCH) 29.5 pg 27.0-32.5 Platelets (test code=Platelets) 144.0 x10 140.0-440.0 MPV (test code=MPV) 12.4 fL Slide Review (test code=Slide Review) Auto Auto Result created by GL_SJM_SLIDE_REV_AUTO nRBC (test code=nRBC) 0 NRBC Abs (test code=NRBC Abs) 0.00 x10 IPF (test code=IPF) 0 % Automated [id number] 23:07:44* Test Item Value Reference Range Comments Neutro Auto (test code=Neutro Auto) 81.6 % 36.0-70.0 Lymph Auto (test code=Lymph Auto) 6.3 % 12.0-44.0 [place] Auto (test code=[place] Auto) 11.2 % 0.0-11.0 Eos, Auto (test code=Eos, Auto) 0.1 % 0.0-7.0 Basophil Auto (test code=Basophil Auto) 0.2 % 0.0-2.0 Neutro Absolute (test code=Neutro Absolute) 10.4 x10 1.6-7.4 Lymph Absolute (test code=Lymph Absolute) .80 x10 .50-4.60 [place] Absolute (test code=[place] Absolute) 1.42 x10 .00-1.20 Eos Absolute (test code=Eos Absolute) 0.01 x10 0.00-0.74 Baso Absolute (test code=Baso Absolute) 0.02 x10 0.00-0.21 IG [id number] 23:07:44* Test Item Value Reference Range Comments IG (test code=IG) 0.6 % 0.0-5.0 IG Abs (test code=IG Abs) 0 x10 Automated [id number] 17:50:36* Test Item Value Reference Range Comments Neutro Auto (test code=Neutro Auto) 82.4 % 36.0-70.0 Lymph Auto (test code=Lymph Auto) 6.0 % 12.0-44.0 [place] Auto (test code=[place] Auto) 10.3 % 0.0-11.0 Eos, Auto (test code=Eos, Auto) 0.5 % 0.0-7.0 Basophil Auto (test code=Basophil Auto) 0.2 % 0.0-2.0 Neutro Absolute (test code=Neutro Absolute) 10.4 x10 1.6-7.4 Lymph Absolute (test code=Lymph Absolute) .76 x10 .50-4.60 [place] Absolute (test code=[place] Absolute) 1.30 x10 .00-1.20 Eos Absolute (test code=Eos Absolute) 0.06 x10 0.00-0.74 Baso Absolute (test code=Baso Absolute) 0.03 x10 0.00-0.21 IG [id number] 17:50:36* Test Item Value Reference Range Comments IG (test code=IG) 0.6 % 0.0-5.0 IG Abs (test code=IG Abs) 0 x10 Complete Blood Count with Oaxvbtiaaoux2393-03-42 17:50:35* Test Item Value Reference Range Comments WBC (test code=WBC) 12.7 x10 4.4-10.5 RBC (test code=RBC) 2.46 x10 4.10-5.70 Hgb (test code=Hgb) 7.2 g/dL 13.4-17.4 Hct (test code=Hct) 21.9 % 38.7-52.0 MCV (test code=MCV) 89.00 fL 80.00-100.00 MCHC (test code=MCHC) 32.90 g/dL 32.00-37.50 RDW CV (test code=RDW CV) 14.9 % 11.5-14.5 MCH (test code=MCH) 29.3 pg 27.0-32.5 Platelets (test code=Platelets) 159.0 x10 140.0-440.0 MPV (test code=MPV) 12.2 fL Slide Review (test code=Slide Review) Auto Auto Result created by GL_SJM_SLIDE_REV_AUTO nRBC (test code=nRBC) 0 NRBC Abs (test code=NRBC Abs) 0.00 x10 IPF (test code=IPF) 0 % IG [id number] 09:38:20* Test Item Value Reference Range Comments IG (test code=IG) 0.6 % 0.0-5.0 IG Abs (test code=IG Abs) 0 x10 Complete Blood Count with [id number] 09:38:19* Test Item Value Reference Range Comments WBC (test code=WBC) 15.2 x10 4.4-10.5 RBC (test code=RBC) 2.55 x10 4.10-5.70 Hgb (test code=Hgb) 7.5 g/dL 13.4-17.4 Hct (test code=Hct) 22.5 % 38.7-52.0 MCV (test code=MCV) 88.20 fL 80.00-100.00 MCHC (test code=MCHC) 33.30 g/dL 32.00-37.50 RDW CV (test code=RDW CV) 14.8 % 11.5-14.5 MCH (test code=MCH) 29.4 pg 27.0-32.5 Platelets (test code=Platelets) 181.0 x10 140.0-440.0 MPV (test code=MPV) 12.1 fL Slide Review (test code=Slide Review) Auto Auto Result created by GL_SJM_SLIDE_REV_AUTO [email or web address]_RFLX nRBC (test code=nRBC) 0 NRBC Abs (test code=NRBC Abs) 0.02 x10 Pos Diff XN (test code=Pos Diff XN) A IPF (test code=IPF) 0 % Automated Wllvagmkqozb0918-08-08 09:38:19* Test Item Value Reference Range Comments Neutro Auto (test code=Neutro Auto) 77.6 % 36.0-70.0 Lymph Auto (test code=Lymph Auto) 8.5 % 12.0-44.0 [place] Auto (test code=[place] Auto) 10.8 % 0.0-11.0 Eos, Auto (test code=Eos, Auto) 2.0 % 0.0-7.0 Basophil Auto (test code=Basophil Auto) 0.5 % 0.0-2.0 Neutro Absolute (test code=Neutro Absolute) 11.8 x10 1.6-7.4 Lymph Absolute (test code=Lymph Absolute) 1.29 x10 .50-4.60 [place] Absolute (test code=[place] Absolute) 1.64 x10 .00-1.20 Eos Absolute (test code=Eos Absolute) 0.31 x10 0.00-0.74 Baso Absolute (test code=Baso Absolute) 0.08 x10 0.00-0.21 XR Chest 1 View [id number] 07:07:00Patient: ERIK DONATO Date/Time08/02/2019 05:16 CSTReason for ExamLine placementReportDictation location R16:Portable chest one view.HISTORY: Line placementCOMMENT: Compared to one day prior. The endotracheal tube remains in good position. The heart and mediastinum are stable. Patchy bibasilar infiltrates and small effusions again noted with no new consolidation, pneumothorax or effusion Visualized soft tissues and skeletal structures are unremarkable.IMPRESSION: No active disease in the chest. Final Dictated by: MD Quiles Phebe CDictated DT/TM: 08/02/2019 7:06 amSigned by: MD Quiles Phebe CSigned (Electronic Signature): 08/02/2019 7:07 am Prothrombin Time and [id number] 03:50:44* Test Item Value Reference Range Comments Prothrombin Time (test code=Prothrombin Time) 13.7 seconds 9.8-13.4 INR (test code=INR) 1.2 ratio 0.6-1.2 Complete Blood Count with [id number] 03:44:28* Test Item Value Reference Range Comments WBC (test code=WBC) 14.5 x10 4.4-10.5 RBC (test code=RBC) 2.52 x10 4.10-5.70 Hgb (test code=Hgb) 7.4 g/dL 13.4-17.4 MCV (test code=MCV) 89.70 fL 80.00-100.00 Hct (test code=Hct) 22.6 % 38.7-52.0 MCHC (test code=MCHC) 32.70 g/dL 32.00-37.50 MCH (test code=MCH) 29.4 pg 27.0-32.5 RDW CV (test code=RDW CV) 14.7 % 11.5-14.5 Platelets (test code=Platelets) 185.0 x10 140.0-440.0 MPV (test code=MPV) 12.3 fL Slide Review (test code=Slide Review) Auto Auto Result created by GL_SJM_SLIDE_REV_AUTO nRBC (test code=nRBC) 0 NRBC Abs (test code=NRBC Abs) 0.00 x10 IPF (test code=IPF) 0 % Automated [id number] 03:44:28* Test Item Value Reference Range Comments Neutro Auto (test code=Neutro Auto) 81.0 % 36.0-70.0 Lymph Auto (test code=Lymph Auto) 7.6 % 12.0-44.0 [place] Auto (test code=[place] Auto) 9.4 % 0.0-11.0 Eos, Auto (test code=Eos, Auto) 1.0 % 0.0-7.0 Basophil Auto (test code=Basophil Auto) 0.6 % 0.0-2.0 Neutro Absolute (test code=Neutro Absolute) 11.8 x10 1.6-7.4 Lymph Absolute (test code=Lymph Absolute) 1.10 x10 .50-4.60 [place] Absolute (test code=[place] Absolute) 1.36 x10 .00-1.20 Eos Absolute (test code=Eos Absolute) 0.15 x10 0.00-0.74 Baso Absolute (test code=Baso Absolute) 0.08 x10 0.00-0.21 IG [id number] 03:44:28* Test Item Value Reference Range Comments IG (test code=IG) 0.4 % 0.0-5.0 IG Abs (test code=IG Abs) 0 x10 Comprehensive Metabolic [id number] 03:41:09* Test Item Value Reference Range Comments Sodium Level (test code=Sodium Level) 142.0 mmol/L 135.0-145.0 Potassium Level (test code=Potassium Level) 5.1 mmol/L 3.5-5.1 Chloride Level (test code=Chloride Level) 108 mmol/L 98-105 CO2 (test code=CO2) 23 mmol/L 22-29 Anion Gap (test code=Anion Gap) 11 mmol/L 7-16 BUN (test code=BUN) 46.90 mg/dL 8.00-23.00 Creatinine Level (test code=Creatinine Level) 1.60 mg/dL 0.70-1.20 BUN/Creat Ratio (test code=BUN/Creat Ratio) 29 Glucose Level (test code=Glucose Level) 198 mg/dL 70-115 Calcium Level (test code=Calcium Level) 8.2 mg/dL 8.3-10.5 Alk Phos (test code=Alk Phos) 56 U/L 40-129 Bilirubin Total (test code=Bilirubin Total) 1.5 mg/dL 0.1-0.9 Albumin Level (test code=Albumin Level) 3.0 g/dL 3.5-5.2 Protein Total (test code=Protein Total) 4.5 g/dL 6.4-8.3 ALT (test code=ALT) 15 U/L 1-41 AST (test code=AST) 24 U/L 1-40 Globulin (test code=Globulin) 1.5 g/dL 2.9-3.1 A/G Ratio (test code=A/G Ratio) 2.0 ratio Magnesium [id number] 03:41:09* Test Item Value Reference Range Comments Magnesium Level (test code=Magnesium Level) 2.0 mg/dL 1.7-2.5 Comprehensive Metabolic [id number] 03:41:09* Test Item Value Reference Range Comments Sodium Level (test code=Sodium Level) 142.0 mmol/L 135.0-145.0 Potassium Level (test code=Potassium Level) 5.1 mmol/L 3.5-5.1 Chloride Level (test code=Chloride Level) 108 mmol/L 98-105 CO2 (test code=CO2) 23 mmol/L 22-29 Anion Gap (test code=Anion Gap) 11 mmol/L 7-16 BUN (test code=BUN) 46.90 mg/dL 8.00-23.00 Creatinine Level (test code=Creatinine Level) 1.60 mg/dL 0.70-1.20 BUN/Creat Ratio (test code=BUN/Creat Ratio) 29 Glucose Level (test code=Glucose Level) 198 mg/dL 70-115 Calcium Level (test code=Calcium Level) 8.2 mg/dL 8.3-10.5 Alk Phos (test code=Alk Phos) 56 U/L 40-129 Bilirubin Total (test code=Bilirubin Total) 1.5 mg/dL 0.1-0.9 Albumin Level (test code=Albumin Level) 3.0 g/dL 3.5-5.2 Protein Total (test code=Protein Total) 4.5 g/dL 6.4-8.3 ALT (test code=ALT) 15 U/L 1-41 AST (test code=AST) 24 U/L 1-40 Globulin (test code=Globulin) 1.5 g/dL 2.9-3.1 A/G Ratio (test code=A/G Ratio) 2.0 ratio eGFR AA (test code=eGFR AA) 51 mL/min/1.73 m2 eGFR (estimated Glomerular Filtration Rate) is an estimated value, calculated from the patient's serum creatinine using the MDRD equation. It is NOT the patient's actual GFR. The eGFR provides a more clinically useful measure of kidney disease than serum creatinine alone.This calculation takes sex and race into account, if the information is provided. If the race is not provided, and the patient is -[place], multiply by 1.212. If sex is not provided, and the patient is female, multiply by 0.742. Results for patients <18 years of age have not been validated by the MDRD study and should be interpreted with caution. eGFR Result Interpretation:eGFR > or=60 is in the Normal RangeeGFR < 60 may mean kidney diseaseeGFR < 15 may mean kidney failure Ranges recommended by the National Kidney Foundation, http://nkdep.nih.gov Phosphorus [id number] 03:41:09* Test Item Value Reference Range Comments Phosphorus Level (test code=Phosphorus Level) 4.60 mg/dL 2.70-4.50 Comprehensive Metabolic [id number] 03:41:09* Test Item Value Reference Range Comments Sodium Level (test code=Sodium Level) 142.0 mmol/L 135.0-145.0 Potassium Level (test code=Potassium Level) 5.1 mmol/L 3.5-5.1 Chloride Level (test code=Chloride Level) 108 mmol/L 98-105 CO2 (test code=CO2) 23 mmol/L 22-29 Anion Gap (test code=Anion Gap) 11 mmol/L 7-16 BUN (test code=BUN) 46.90 mg/dL 8.00-23.00 Creatinine Level (test code=Creatinine Level) 1.60 mg/dL 0.70-1.20 BUN/Creat Ratio (test code=BUN/Creat Ratio) 29 Glucose Level (test code=Glucose Level) 198 mg/dL 70-115 Calcium Level (test code=Calcium Level) 8.2 mg/dL 8.3-10.5 Alk Phos (test code=Alk Phos) 56 U/L 40-129 Bilirubin Total (test code=Bilirubin Total) 1.5 mg/dL 0.1-0.9 Albumin Level (test code=Albumin Level) 3.0 g/dL 3.5-5.2 Protein Total (test code=Protein Total) 4.5 g/dL 6.4-8.3 ALT (test code=ALT) 15 U/L 1-41 AST (test code=AST) 24 U/L 1-40 Globulin (test code=Globulin) 1.5 g/dL 2.9-3.1 A/G Ratio (test code=A/G Ratio) 2.0 ratio eGFR AA (test code=eGFR AA) 51 mL/min/1.73 m2 eGFR (estimated Glomerular Filtration Rate) is an estimated value, calculated from the patient's serum creatinine using the MDRD equation. It is NOT the patient's actual GFR. The eGFR provides a more clinically useful measure of kidney disease than serum creatinine alone.This calculation takes sex and race into account, if the information is provided. If the race is not provided, and the patient is -[place], multiply by 1.212. If sex is not provided, and the patient is female, multiply by 0.742. Results for patients <18 years of age have not been validated by the MDRD study and should be interpreted with caution. eGFR Result Interpretation:eGFR > or=60 is in the Normal RangeeGFR < 60 may mean kidney diseaseeGFR < 15 may mean kidney failure Ranges recommended by the National Kidney Foundation, http://nkdep.nih.gov eGFR Non-AA (test code=eGFR Non-AA) 42.24 mL/min/1.73 m2 eGFR (estimated Glomerular Filtration Rate) is an estimated value, calculated from the patient's serum creatinine using the MDRD equation. It is NOT the patient's actual GFR. The eGFR provides a more clinically useful measure of kidney disease than serum creatinine alone.This calculation takes sex and race into account, if the information is provided. If the race is not provided, and the patient is -[place], multiply by 1.212. If sex is not provided, and the patient is female, multiply by 0.742. Results for patients <18 years of age have not been validated by the MDRD study and should be interpreted with caution. eGFR Result Interpretation:eGFR > or=60 is in the Normal RangeeGFR < 60 may mean kidney diseaseeGFR < 15 may mean kidney failure Ranges recommended by the National Kidney Foundation, http://nkdep.nih.gov Basic Metabolic [id number] 22:28:51* Test Item Value Reference Range Comments Sodium Level (test code=Sodium Level) 140.0 mmol/L 135.0-145.0 Potassium Level (test code=Potassium Level) 4.8 mmol/L 3.5-5.1 Chloride Level (test code=Chloride Level) 107 mmol/L 98-105 CO2 (test code=CO2) 24 mmol/L 22-29 Anion Gap (test code=Anion Gap) 9 mmol/L 7-16 BUN (test code=BUN) 45.10 mg/dL 8.00-23.00 Creatinine Level (test code=Creatinine Level) 1.40 mg/dL 0.70-1.20 BUN/Creat Ratio (test code=BUN/Creat Ratio) 32 Glucose Level (test code=Glucose Level) 200 mg/dL 70-115 Calcium Level (test code=Calcium Level) 8.2 mg/dL 8.3-10.5 Basic Metabolic [id number] 22:28:51* Test Item Value Reference Range Comments Sodium Level (test code=Sodium Level) 140.0 mmol/L 135.0-145.0 Potassium Level (test code=Potassium Level) 4.8 mmol/L 3.5-5.1 Chloride Level (test code=Chloride Level) 107 mmol/L 98-105 CO2 (test code=CO2) 24 mmol/L 22-29 Anion Gap (test code=Anion Gap) 9 mmol/L 7-16 BUN (test code=BUN) 45.10 mg/dL 8.00-23.00 Creatinine Level (test code=Creatinine Level) 1.40 mg/dL 0.70-1.20 BUN/Creat Ratio (test code=BUN/Creat Ratio) 32 Glucose Level (test code=Glucose Level) 200 mg/dL 70-115 Calcium Level (test code=Calcium Level) 8.2 mg/dL 8.3-10.5 eGFR AA (test code=eGFR AA) 60 mL/min/1.73 m2 eGFR (estimated Glomerular Filtration Rate) is an estimated value, calculated from the patient's serum creatinine using the MDRD equation. It is NOT the patient's actual GFR. The eGFR provides a more clinically useful measure of kidney disease than serum creatinine alone.This calculation takes sex and race into account, if the information is provided. If the race is not provided, and the patient is -[place], multiply by 1.212. If sex is not provided, and the patient is female, multiply by 0.742. Results for patients <18 years of age have not been validated by the MDRD study and should be interpreted with caution. eGFR Result Interpretation:eGFR > or=60 is in the Normal RangeeGFR < 60 may mean kidney diseaseeGFR < 15 may mean kidney failure Ranges recommended by the National Kidney Foundation, http://nkdep.nih.gov Basic Metabolic [id number] 22:28:51* Test Item Value Reference Range Comments Sodium Level (test code=Sodium Level) 140.0 mmol/L 135.0-145.0 Potassium Level (test code=Potassium Level) 4.8 mmol/L 3.5-5.1 Chloride Level (test code=Chloride Level) 107 mmol/L 98-105 CO2 (test code=CO2) 24 mmol/L 22-29 Anion Gap (test code=Anion Gap) 9 mmol/L 7-16 BUN (test code=BUN) 45.10 mg/dL 8.00-23.00 Creatinine Level (test code=Creatinine Level) 1.40 mg/dL 0.70-1.20 BUN/Creat Ratio (test code=BUN/Creat Ratio) 32 Glucose Level (test code=Glucose Level) 200 mg/dL 70-115 Calcium Level (test code=Calcium Level) 8.2 mg/dL 8.3-10.5 eGFR AA (test code=eGFR AA) 60 mL/min/1.73 m2 eGFR (estimated Glomerular Filtration Rate) is an estimated value, calculated from the patient's serum creatinine using the MDRD equation. It is NOT the patient's actual GFR. The eGFR provides a more clinically useful measure of kidney disease than serum creatinine alone.This calculation takes sex and race into account, if the information is provided. If the race is not provided, and the patient is -[place], multiply by 1.212. If sex is not provided, and the patient is female, multiply by 0.742. Results for patients <18 years of age have not been validated by the MDRD study and should be interpreted with caution. eGFR Result Interpretation:eGFR > or=60 is in the Normal RangeeGFR < 60 may mean kidney diseaseeGFR < 15 may mean kidney failure Ranges recommended by the National Kidney Foundation, http://nkdep.nih.gov eGFR Non-AA (test code=eGFR Non-AA) 49.27 mL/min/1.73 m2 eGFR (estimated Glomerular Filtration Rate) is an estimated value, calculated from the patient's serum creatinine using the MDRD equation. It is NOT the patient's actual GFR. The eGFR provides a more clinically useful measure of kidney disease than serum creatinine alone.This calculation takes sex and race into account, if the information is provided. If the race is not provided, and the patient is -[place], multiply by 1.212. If sex is not provided, and the patient is female, multiply by 0.742. Results for patients <18 years of age have not been validated by the MDRD study and should be interpreted with caution. eGFR Result Interpretation:eGFR > or=60 is in the Normal RangeeGFR < 60 may mean kidney diseaseeGFR < 15 may mean kidney failure Ranges recommended by the National Kidney Foundation, http://nkdep.nih.gov Hemoglobin and [id number] 21:33:10* Test Item Value Reference Range Comments Hgb (test code=Hgb) 7.6 g/dL 13.4-17.4 Hct (test code=Hct) 23.0 % 38.7-52.0 XR Chest 1 View CVAD Insertion Spldaf-[id number] 14:02:10Patient: ERIK DONATO Date/Time08/01/2019 13:45 CSTReason for ExamET tube placementReportEXAMINATION: XR Chest 1 View CVAD Insertion Follow-up.LOCATION: R16.HISTORY: ET tube placement.COMPARISON: None.FINDINGS:Examination is limited due to portable technique, patient body habitus and positioning.Cardiac silhouette/Mediastinal contour: Within normal limits. 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 No large pleural effusion.Osseous Structures: Degenerative changes of thoracic spine.Additional Findings: ET tube is 2.1 cm above gaby.IMPRESSION:No focal consolidation.Other findings as above. Final Dictated by: MD Velez Ankitkumar NDi ctated DT/TM: 08/01/2019 1:53 pmSigned by: MD Velez Ankitkumar NSigned (Electr onic Signature): 08/01/2019 2:02 pmPlatelet [id number] 10:04:56* Test Item Value Reference Range Comments # of Units (test code=# of Units) 1 PLT Transfuse Reason (test code=PLT Transfuse Reason) Bleeding w/ plt defect or anti plt med Platelet Product Ready (test code=Platelet Product Ready) PLT Ready 08/01/2019 10:04 ALFONSYANotified KARIN Mendoza / 1 PLT ready Red Blood Cells [id number] 10:04:56* Test Item Value Reference Range Comments # of Units (test code=# of Units) 3 RBC Trn Reason (test code=RBC Trn Reason) High risk, even if Hgb > 7 RBC Product Ready (test code=RBC Product Ready) RBC Ready 08/01/2019 10:04 ALFONSYANotified KARIN Mendoza / 2 RBC ready Basic Metabolic [id number] 09:19:42* Test Item Value Reference Range Comments Sodium Level (test code=Sodium Level) 139.0 mmol/L 135.0-145.0 Potassium Level (test code=Potassium Level) 4.2 mmol/L 3.5-5.1 Chloride Level (test code=Chloride Level) 108 mmol/L 98-105 CO2 (test code=CO2) 22 mmol/L 22-29 Anion Gap (test code=Anion Gap) 9 mmol/L 7-16 BUN (test code=BUN) 44.40 mg/dL 8.00-23.00 Creatinine Level (test code=Creatinine Level) 1.00 mg/dL 0.70-1.20 BUN/Creat Ratio (test code=BUN/Creat Ratio) 44 Glucose Level (test code=Glucose Level) 244 mg/dL 70-115 Calcium Level (test code=Calcium Level) 6.9 mg/dL 8.3-10.5 Critical results called to SABIHA Jade at 08/01/2019 09:19:30 WELLNESS PROGRAM COORDINATOR by SO. Read back and verified? YES Basic Metabolic [id number] 09:19:42* Test Item Value Reference Range Comments Sodium Level (test code=Sodium Level) 139.0 mmol/L 135.0-145.0 Potassium Level (test code=Potassium Level) 4.2 mmol/L 3.5-5.1 Chloride Level (test code=Chloride Level) 108 mmol/L 98-105 CO2 (test code=CO2) 22 mmol/L 22-29 Anion Gap (test code=Anion Gap) 9 mmol/L 7-16 BUN (test code=BUN) 44.40 mg/dL 8.00-23.00 Creatinine Level (test code=Creatinine Level) 1.00 mg/dL 0.70-1.20 BUN/Creat Ratio (test code=BUN/Creat Ratio) 44 Glucose Level (test code=Glucose Level) 244 mg/dL 70-115 Calcium Level (test code=Calcium Level) 6.9 mg/dL 8.3-10.5 Critical results called to SABIHA Jade at 08/01/2019 09:19:30 WELLNESS PROGRAM COORDINATOR by SO. Read back and verified? YES eGFR AA (test code=eGFR AA) >60 mL/min/1.73 m2 eGFR (estimated Glomerular Filtration Rate) is an estimated value, calculated from the patient's serum creatinine using the MDRD equation. It is NOT the patient's actual GFR. The eGFR provides a more clinically useful measure of kidney disease than serum creatinine alone.This calculation takes sex and race into account, if the information is provided. If the race is not provided, and the patient is -[place], multiply by 1.212. If sex is not provided, and the patient is female, multiply by 0.742. Results for patients <18 years of age have not been validated by the MDRD study and should be interpreted with caution. eGFR Result Interpretation:eGFR > or=60 is in the Normal RangeeGFR < 60 may mean kidney diseaseeGFR < 15 may mean kidney failure Ranges recommended by the National Kidney Foundation, http://nkdep.nih.gov Basic Metabolic [id number] 09:19:42* Test Item Value Reference Range Comments Sodium Level (test code=Sodium Level) 139.0 mmol/L 135.0-145.0 Potassium Level (test code=Potassium Level) 4.2 mmol/L 3.5-5.1 Chloride Level (test code=Chloride Level) 108 mmol/L 98-105 CO2 (test code=CO2) 22 mmol/L 22-29 Anion Gap (test code=Anion Gap) 9 mmol/L 7-16 BUN (test code=BUN) 44.40 mg/dL 8.00-23.00 Creatinine Level (test code=Creatinine Level) 1.00 mg/dL 0.70-1.20 BUN/Creat Ratio (test code=BUN/Creat Ratio) 44 Glucose Level (test code=Glucose Level) 244 mg/dL 70-115 Calcium Level (test code=Calcium Level) 6.9 mg/dL 8.3-10.5 Critical results called to SABIHA Jade at 08/01/2019 09:19:30 WELLNESS PROGRAM COORDINATOR by SO. Read back and verified? YES eGFR AA (test code=eGFR AA) >60 mL/min/1.73 m2 eGFR (estimated Glomerular Filtration Rate) is an estimated value, calculated from the patient's serum creatinine using the MDRD equation. It is NOT the patient's actual GFR. The eGFR provides a more clinically useful measure of kidney disease than serum creatinine alone.This calculation takes sex and race into account, if the information is provided. If the race is not provided, and the patient is -[place], multiply by 1.212. If sex is not provided, and the patient is female, multiply by 0.742. Results for patients <18 years of age have not been validated by the MDRD study and should be interpreted with caution. eGFR Result Interpretation:eGFR > or=60 is in the Normal RangeeGFR < 60 may mean kidney diseaseeGFR < 15 may mean kidney failure Ranges recommended by the National Kidney Foundation, http://nkdep.nih.gov eGFR Non-AA (test code=eGFR Non-AA) >60.00 mL/min/1.73 m2 eGFR (estimated Glomerular Filtration Rate) is an estimated value, calculated from the patient's serum creatinine using the MDRD equation. It is NOT the patient's actual GFR. The eGFR provides a more clinically useful measure of kidney disease than serum creatinine alone.This calculation takes sex and race into account, if the information is provided. If the race is not provided, and the patient is -[place], multiply by 1.212. If sex is not provided, and the patient is female, multiply by 0.742. Results for patients <18 years of age have not been validated by the MDRD study and should be interpreted with caution. eGFR Result Interpretation:eGFR > or=60 is in the Normal RangeeGFR < 60 may mean kidney diseaseeGFR < 15 may mean kidney failure Ranges recommended by the National Kidney Foundation, http://nkdep.nih.gov Ammonia [id number] 08:58:43* Test Item Value Reference Range Comments Ammonia Level (test code=Ammonia Level) 21.0 umol/L 11.0-35.0 ABORh [id number] 08:09:13* Test Item Value Reference Range Comments Methodology (test code=Methodology) Test-Tube(TT) Anti-A (test code=Anti-A) 0 Anti-B (test code=Anti-B) 0 Anti-AB (test code=Anti-AB) NT Anti-D (test code=Anti-D) 4+ ABORh Retype (test code=ABORh Retype) O POS Lipid [id number] 06:25:36* Test Item Value Reference Range Comments Cholesterol Total (test code=Cholesterol Total) 78 mg/dL 0-200 RISK OF HEART DISEASEPublished by [place] [employer] Analyte Optimal Borderline Increased RiskCHOL <200 200-239 >240TRIG <150 150-199 >200HDL Male >60 <40HDL Female >60 <50LDL <100 130-159 >160LDL Near optimal is 100-129 Triglycerides (test code=Triglycerides) 72 mg/dL 9-200 HDL (test code=HDL) 29 mg/dL 40-60 LDL (test code=LDL) 35 mg/dL 0-130 The equation being used in this calculation is LDL=(Chol - HDL) - (Trig / 5) VLDL (test code=VLDL) 14 mg/dL 5-40 The equation being used in this calculation is VLDL=Trig / 5 Chol/HDL (test code=Chol/HDL) 2.7 ratio 0.0-5.0 LDL/HDL Ratio (test code=LDL/HDL Ratio) 1 The equation being used in this calculation is LDL/HDL Ratio=LDL Calc/HDL Chol Magnesium [id number] 05:12:57* Test Item Value Reference Range Comments Magnesium Level (test code=Magnesium Level) 2.2 mg/dL 1.7-2.5 Phosphorus [id number] 05:12:57* Test Item Value Reference Range Comments Phosphorus Level (test code=Phosphorus Level) 3.40 mg/dL 2.70-4.50 Comprehensive Metabolic [id number] 05:12:56* Test Item Value Reference Range Comments Sodium Level (test code=Sodium Level) 137.0 mmol/L 135.0-145.0 Potassium Level (test code=Potassium Level) 5.7 mmol/L 3.5-5.1 Chloride Level (test code=Chloride Level) 107 mmol/L 98-105 CO2 (test code=CO2) 20 mmol/L 22-29 Anion Gap (test code=Anion Gap) 10 mmol/L 7-16 BUN (test code=BUN) 48.00 mg/dL 8.00-23.00 Creatinine Level (test code=Creatinine Level) 1.30 mg/dL 0.70-1.20 BUN/Creat Ratio (test code=BUN/Creat Ratio) 37 Glucose Level (test code=Glucose Level) 165 mg/dL 70-115 Calcium Level (test code=Calcium Level) 7.7 mg/dL 8.3-10.5 Alk Phos (test code=Alk Phos) 99 U/L 40-129 Bilirubin Total (test code=Bilirubin Total) 0.3 mg/dL 0.1-0.9 Albumin Level (test code=Albumin Level) 2.7 g/dL 3.5-5.2 Protein Total (test code=Protein Total) 4.7 g/dL 6.4-8.3 ALT (test code=ALT) 18 U/L 1-41 AST (test code=AST) 16 U/L 1-40 Globulin (test code=Globulin) 2.0 g/dL 2.9-3.1 A/G Ratio (test code=A/G Ratio) 1.4 ratio Comprehensive Metabolic [id number] 05:12:56* Test Item Value Reference Range Comments Sodium Level (test code=Sodium Level) 137.0 mmol/L 135.0-145.0 Potassium Level (test code=Potassium Level) 5.7 mmol/L 3.5-5.1 Chloride Level (test code=Chloride Level) 107 mmol/L 98-105 CO2 (test code=CO2) 20 mmol/L 22-29 Anion Gap (test code=Anion Gap) 10 mmol/L 7-16 BUN (test code=BUN) 48.00 mg/dL 8.00-23.00 Creatinine Level (test code=Creatinine Level) 1.30 mg/dL 0.70-1.20 BUN/Creat Ratio (test code=BUN/Creat Ratio) 37 Glucose Level (test code=Glucose Level) 165 mg/dL 70-115 Calcium Level (test code=Calcium Level) 7.7 mg/dL 8.3-10.5 Alk Phos (test code=Alk Phos) 99 U/L 40-129 Bilirubin Total (test code=Bilirubin Total) 0.3 mg/dL 0.1-0.9 Albumin Level (test code=Albumin Level) 2.7 g/dL 3.5-5.2 Protein Total (test code=Protein Total) 4.7 g/dL 6.4-8.3 ALT (test code=ALT) 18 U/L 1-41 AST (test code=AST) 16 U/L 1-40 Globulin (test code=Globulin) 2.0 g/dL 2.9-3.1 A/G Ratio (test code=A/G Ratio) 1.4 ratio eGFR AA (test code=eGFR AA) >60 mL/min/1.73 m2 eGFR (estimated Glomerular Filtration Rate) is an estimated value, calculated from the patient's serum creatinine using the MDRD equation. It is NOT the patient's actual GFR. The eGFR provides a more clinically useful measure of kidney disease than serum creatinine alone.This calculation takes sex and race into account, if the information is provided. If the race is not provided, and the patient is -Aust[place], multiply by 1.212. If sex is not provided, and the patient is female, multiply by 0.742. Results for patients <18 years of age have not been validated by the MDRD study and should be interpreted with caution. eGFR Result Interpretation:eGFR > or=60 is in the Normal RangeeGFR < 60 may mean kidney diseaseeGFR < 15 may mean kidney failure Ranges recommended by the National Kidney Foundation, http://nkdep.nih.gov Comprehensive Metabolic [id number] 05:12:56* Test Item Value Reference Range Comments Sodium Level (test code=Sodium Level) 137.0 mmol/L 135.0-145.0 Potassium Level (test code=Potassium Level) 5.7 mmol/L 3.5-5.1 Chloride Level (test code=Chloride Level) 107 mmol/L 98-105 CO2 (test code=CO2) 20 mmol/L 22-29 Anion Gap (test code=Anion Gap) 10 mmol/L 7-16 BUN (test code=BUN) 48.00 mg/dL 8.00-23.00 Creatinine Level (test code=Creatinine Level) 1.30 mg/dL 0.70-1.20 BUN/Creat Ratio (test code=BUN/Creat Ratio) 37 Glucose Level (test code=Glucose Level) 165 mg/dL 70-115 Calcium Level (test code=Calcium Level) 7.7 mg/dL 8.3-10.5 Alk Phos (test code=Alk Phos) 99 U/L 40-129 Bilirubin Total (test code=Bilirubin Total) 0.3 mg/dL 0.1-0.9 Albumin Level (test code=Albumin Level) 2.7 g/dL 3.5-5.2 Protein Total (test code=Protein Total) 4.7 g/dL 6.4-8.3 ALT (test code=ALT) 18 U/L 1-41 AST (test code=AST) 16 U/L 1-40 Globulin (test code=Globulin) 2.0 g/dL 2.9-3.1 A/G Ratio (test code=A/G Ratio) 1.4 ratio eGFR AA (test code=eGFR AA) >60 mL/min/1.73 m2 eGFR (estimated Glomerular Filtration Rate) is an estimated value, calculated from the patient's serum creatinine using the MDRD equation. It is NOT the patient's actual GFR. The eGFR provides a more clinically useful measure of kidney disease than serum creatinine alone.This calculation takes sex and race into account, if the information is provided. If the race is not provided, and the patient is -Austrian, multiply by 1.212. If sex is not provided, and the patient is female, multiply by 0.742. Results for patients <18 years of age have not been validated by the MDRD study and should be interpreted with caution. eGFR Result Interpretation:eGFR > or=60 is in the Normal RangeeGFR < 60 may mean kidney diseaseeGFR < 15 may mean kidney failure Ranges recommended by the National Kidney Foundation, http://nkdep.nih.gov eGFR Non-AA (test code=eGFR Non-AA) 53.67 mL/min/1.73 m2 eGFR (estimated Glomerular Filtration Rate) is an estimated value, calculated from the patient's serum creatinine using the MDRD equation. It is NOT the patient's actual GFR. The eGFR provides a more clinically useful measure of kidney disease than serum creatinine alone.This calculation takes sex and race into account, if the information is provided. If the race is not provided, and the patient is -Austrian, multiply by 1.212. If sex is not provided, and the patient is female, multiply by 0.742. Results for patients <18 years of age have not been validated by the MDRD study and should be interpreted with caution. eGFR Result Interpretation:eGFR > or=60 is in the Normal RangeeGFR < 60 may mean kidney diseaseeGFR < 15 may mean kidney failure Ranges recommended by the National Kidney Foundation, http://nkdep.nih.gov Prothrombin Time and [id number] 04:23:55* Test Item Value Reference Range Comments Prothrombin Time (test code=Prothrombin Time) 13.7 seconds 9.8-13.4 INR (test code=INR) 1.2 ratio 0.6-1.2 Platelet [id number] 04:23:15* Test Item Value Reference Range Comments # of Units (test code=# of Units) 1 PLT Transfuse Reason (test code=PLT Transfuse Reason) Other (please specify) Platelet Product Ready (test code=Platelet Product Ready) PLT Ready Complete Blood Count with [id number] 04:06:13* Test Item Value Reference Range Comments WBC (test code=WBC) 18.0 x10 4.4-10.5 RBC (test code=RBC) 2.56 x10 4.10-5.70 Hgb (test code=Hgb) 7.2 g/dL 13.4-17.4 MCV (test code=MCV) 92.60 fL 80.00-100.00 Hct (test code=Hct) 23.7 % 38.7-52.0 MCHC (test code=MCHC) 30.40 g/dL 32.00-37.50 RDW CV (test code=RDW CV) 14.2 % 11.5-14.5 MCH (test code=MCH) 28.1 pg 27.0-32.5 Platelets (test code=Platelets) 259.0 x10 140.0-440.0 MPV (test code=MPV) 12.6 fL Slide Review (test code=Slide Review) Auto Auto Result created by [email or web address]_REV_AUTO nRBC (test code=nRBC) 0 NRBC Abs (test code=NRBC Abs) 0.00 x10 IPF (test code=IPF) 0 % Automated [id number] 04:06:13* Test Item Value Reference Range Comments Neutro Auto (test code=Neutro Auto) 81.0 % 36.0-70.0 Lymph Auto (test code=Lymph Auto) 11.7 % 12.0-44.0 [place] Auto (test code=[place] Auto) 5.9 % 0.0-11.0 Eos, Auto (test code=Eos, Auto) 0.7 % 0.0-7.0 Basophil Auto (test code=Basophil Auto) 0.3 % 0.0-2.0 Neutro Absolute (test code=Neutro Absolute) 14.6 x10 1.6-7.4 Lymph Absolute (test code=Lymph Absolute) 2.11 x10 .50-4.60 [place] Absolute (test code=[place] Absolute) 1.07 x10 .00-1.20 Eos Absolute (test code=Eos Absolute) 0.12 x10 0.00-0.74 Baso Absolute (test code=Baso Absolute) 0.05 x10 0.00-0.21 IG [id number] 04:06:13* Test Item Value Reference Range Comments IG (test code=IG) 0.4 % 0.0-5.0 IG Abs (test code=IG Abs) 0 x10 XR Chest 1 View [id number] 02:50:38Patient: DONATOMADHUERIK M Date/Time08/01/2019 02:40 CSTReason for ExamShortness of breathReportAFTER HOURS SERVICE ON: 08/01/2019 2:49 AMAP Portable ChestLocation Code [id number]: Shortness of breathFINDINGS:There are no infiltrates. There are no pleural effusions. There is no pneumothorax. Again noted is a tortuous aorta compared to the prior x-ray of 12/21/2017. Cardiac silhouette is within normal limits.IMPRESSION:No active pulmonary findings. Final Dictated by: MD Lockett Mohammad TDictated DT/TM: 08/01/2019 2:49 amSigned by: MD Lockett Mohammad TSigned (Electronic Signature): 08/01/2019 2:50 amXR Abdomen KUB 1 [id number] 02:49:05Patient: ERIK DONATO Date/Time08/01/2019 02:41 CSTReason for ExamAbdominal painReportAFTER HOURS SERVICE ON: 08/01/2019 2:48 AMAbdomen, 1 Supine ViewLocation Code L07Osiwuby: Abdominal painFindings:The bowel gas pattern appears unremarkable. There is no evidence of bowel dilatation.Impression:Unremarkable abdomen. Final Dictated by: MD Lockett Mohammad TDictated DT/TM: 08/01/2019 2:48 amSigned by: MD Lockett Mohammad TSigned (Electronic Signature): 08/01/2019 2:49 amLactic Acid, Plasma (Venous)2019-08-01 02:27:28* Test Item Value Reference Range Comments Lactic Acid, Plasma (Venous) (test code=Lactic Acid, Plasma (Venous)) 1.7 mmol/L 0.5-1.9 Red Blood Cells [id number] 01:08:06* Test Item Value Reference Range Comments # of Units (test code=# of Units) 1 RBC Trn Reason (test code=RBC Trn Reason) High risk, even if Hgb > 7 RBC Product Ready (test code=RBC Product Ready) RBC Ready 3C ABSC [id number] 00:53:37* Test Item Value Reference Range Comments SC1 IS (test code=SC1 IS) NT SC2 IS (test code=SC2 IS) NT SC3 IS (test code=SC3 IS) NT SC1 37 (test code=SC1 37) 0 SC2 37 (test code=SC2 37) 0 SC3 37 (test code=SC3 37) 0 SC1 AHG (test code=SC1 AHG) 0 SC2 AHG (test code=SC2 AHG) 0 SC3 AHG (test code=SC3 AHG) 0 SC1 CC (test code=SC1 CC) 3+ SC2 CC (test code=SC2 CC) 3+ SC3 CC (test code=SC3 CC) 3+ Antibody Screen (3C) (test code=Antibody Screen (3C)) Negative ABSC ABORh [id number] 00:47:11* Test Item Value Reference Range Comments Methodology (test code=Methodology) Test-Tube(TT) Anti-A (test code=Anti-A) 0 Anti-B (test code=Anti-B) 0 Anti-AB (test code=Anti-AB) NT Anti-D (test code=Anti-D) 4+ ABORh Retype (test code=ABORh Retype) O POS [id number] 00:23:02* Test Item Value Reference Range Comments Previous History (test code=Previous History) No Prev History BBID (test code=BBID) [id number] Methodology (test code=Methodology) Test-Tube(TT) Anti-A (test code=Anti-A) 0 Anti-B (test code=Anti-B) 0 Anti-D (test code=Anti-D) 4+ DCon (test code=DCon) NT A1 (test code=A1) 4+ B cells (test code=B cells) 4+ ABORh (test code=ABORh) O POS Prothrombin Time and [id number] 00:15:40* Test Item Value Reference Range Comments Prothrombin Time (test code=Prothrombin Time) 13.5 seconds 9.8-13.4 INR (test code=INR) 1.2 ratio 0.6-1.2 Partial Thromboplastin [id number] 00:15:40* Test Item Value Reference Range Comments Partial Thromboplastin Time (test code=Partial Thromboplastin Time) 28.30 seconds 24.39-37.25 Comprehensive Metabolic [id number] 00:13:46* Test Item Value Reference Range Comments Sodium Level (test code=Sodium Level) 140.0 mmol/L 135.0-145.0 Potassium Level (test code=Potassium Level) 5.0 mmol/L 3.5-5.1 Chloride Level (test code=Chloride Level) 107 mmol/L 98-105 CO2 (test code=CO2) 23 mmol/L 22-29 Anion Gap (test code=Anion Gap) 10 mmol/L 7-16 BUN (test code=BUN) 35.00 mg/dL 8.00-23.00 Creatinine Level (test code=Creatinine Level) 1.10 mg/dL 0.70-1.20 BUN/Creat Ratio (test code=BUN/Creat Ratio) 32 Glucose Level (test code=Glucose Level) 111 mg/dL 70-115 Calcium Level (test code=Calcium Level) 7.9 mg/dL 8.3-10.5 Alk Phos (test code=Alk Phos) 108 U/L 40-129 Bilirubin Total (test code=Bilirubin Total) 0.3 mg/dL 0.1-0.9 Albumin Level (test code=Albumin Level) 2.9 g/dL 3.5-5.2 Protein Total (test code=Protein Total) 4.9 g/dL 6.4-8.3 ALT (test code=ALT) 18 U/L 1-41 AST (test code=AST) 18 U/L 1-40 Globulin (test code=Globulin) 2.0 g/dL 2.9-3.1 A/G Ratio (test code=A/G Ratio) 1.4 ratio Comprehensive Metabolic [id number] 00:13:46* Test Item Value Reference Range Comments Sodium Level (test code=Sodium Level) 140.0 mmol/L 135.0-145.0 Potassium Level (test code=Potassium Level) 5.0 mmol/L 3.5-5.1 Chloride Level (test code=Chloride Level) 107 mmol/L 98-105 CO2 (test code=CO2) 23 mmol/L 22-29 Anion Gap (test code=Anion Gap) 10 mmol/L 7-16 BUN (test code=BUN) 35.00 mg/dL 8.00-23.00 Creatinine Level (test code=Creatinine Level) 1.10 mg/dL 0.70-1.20 BUN/Creat Ratio (test code=BUN/Creat Ratio) 32 Glucose Level (test code=Glucose Level) 111 mg/dL 70-115 Calcium Level (test code=Calcium Level) 7.9 mg/dL 8.3-10.5 Alk Phos (test code=Alk Phos) 108 U/L 40-129 Bilirubin Total (test code=Bilirubin Total) 0.3 mg/dL 0.1-0.9 Albumin Level (test code=Albumin Level) 2.9 g/dL 3.5-5.2 Protein Total (test code=Protein Total) 4.9 g/dL 6.4-8.3 ALT (test code=ALT) 18 U/L 1-41 AST (test code=AST) 18 U/L 1-40 Globulin (test code=Globulin) 2.0 g/dL 2.9-3.1 A/G Ratio (test code=A/G Ratio) 1.4 ratio eGFR AA (test code=eGFR AA) >60 mL/min/1.73 m2 eGFR (estimated Glomerular Filtration Rate) is an estimated value, calculated from the patient's serum creatinine using the MDRD equation. It is NOT the patient's actual GFR. The eGFR provides a more clinically useful measure of kidney disease than serum creatinine alone.This calculation takes sex and race into account, if the information is provided. If the race is not provided, and the patient is -Aust[place], multiply by 1.212. If sex is not provided, and the patient is female, multiply by 0.742. Results for patients <18 years of age have not been validated by the MDRD study and should be interpreted with caution. eGFR Result Interpretation:eGFR > or=60 is in the Normal RangeeGFR < 60 may mean kidney diseaseeGFR < 15 may mean kidney failure Ranges recommended by the National Kidney Foundation, http://nkdep.nih.gov Comprehensive Metabolic [id number] 00:13:46* Test Item Value Reference Range Comments Sodium Level (test code=Sodium Level) 140.0 mmol/L 135.0-145.0 Potassium Level (test code=Potassium Level) 5.0 mmol/L 3.5-5.1 Chloride Level (test code=Chloride Level) 107 mmol/L 98-105 CO2 (test code=CO2) 23 mmol/L 22-29 Anion Gap (test code=Anion Gap) 10 mmol/L 7-16 BUN (test code=BUN) 35.00 mg/dL 8.00-23.00 Creatinine Level (test code=Creatinine Level) 1.10 mg/dL 0.70-1.20 BUN/Creat Ratio (test code=BUN/Creat Ratio) 32 Glucose Level (test code=Glucose Level) 111 mg/dL 70-115 Calcium Level (test code=Calcium Level) 7.9 mg/dL 8.3-10.5 Alk Phos (test code=Alk Phos) 108 U/L 40-129 Bilirubin Total (test code=Bilirubin Total) 0.3 mg/dL 0.1-0.9 Albumin Level (test code=Albumin Level) 2.9 g/dL 3.5-5.2 Protein Total (test code=Protein Total) 4.9 g/dL 6.4-8.3 ALT (test code=ALT) 18 U/L 1-41 AST (test code=AST) 18 U/L 1-40 Globulin (test code=Globulin) 2.0 g/dL 2.9-3.1 A/G Ratio (test code=A/G Ratio) 1.4 ratio eGFR AA (test code=eGFR AA) >60 mL/min/1.73 m2 eGFR (estimated Glomerular Filtration Rate) is an estimated value, calculated from the patient's serum creatinine using the MDRD equation. It is NOT the patient's actual GFR. The eGFR provides a more clinically useful measure of kidney disease than serum creatinine alone.This calculation takes sex and race into account, if the information is provided. If the race is not provided, and the patient is -[place], multiply by 1.212. If sex is not provided, and the patient is female, multiply by 0.742. Results for patients <18 years of age have not been validated by the MDRD study and should be interpreted with caution. eGFR Result Interpretation:eGFR > or=60 is in the Normal RangeeGFR < 60 may mean kidney diseaseeGFR < 15 may mean kidney failure Ranges recommended by the National Kidney Foundation, http://nkdep.nih.gov eGFR Non-AA (test code=eGFR Non-AA) >60.00 mL/min/1.73 m2 eGFR (estimated Glomerular Filtration Rate) is an estimated value, calculated from the patient's serum creatinine using the MDRD equation. It is NOT the patient's actual GFR. The eGFR provides a more clinically useful measure of kidney disease than serum creatinine alone.This calculation takes sex and race into account, if the information is provided. If the race is not provided, and the patient is -Austrian, multiply by 1.212. If sex is not provided, and the patient is female, multiply by 0.742. Results for patients <18 years of age have not been validated by the MDRD study and should be interpreted with caution. eGFR Result Interpretation:eGFR > or=60 is in the Normal RangeeGFR < 60 may mean kidney diseaseeGFR < 15 may mean kidney failure Ranges recommended by the National Kidney Foundation, http://nkdep.nih.gov Automated [id number] 23:59:13* Test Item Value Reference Range Comments Neutro Auto (test code=Neutro Auto) 76.1 % 36.0-70.0 Lymph Auto (test code=Lymph Auto) 10.7 % 12.0-44.0 [place] Auto (test code=[place] Auto) 9.3 % 0.0-11.0 Eos, Auto (test code=Eos, Auto) 2.9 % 0.0-7.0 Basophil Auto (test code=Basophil Auto) 0.4 % 0.0-2.0 Neutro Absolute (test code=Neutro Absolute) 8.2 x10 1.6-7.4 Lymph Absolute (test code=Lymph Absolute) 1.16 x10 .50-4.60 [place] Absolute (test code=[place] Absolute) 1.01 x10 .00-1.20 Eos Absolute (test code=Eos Absolute) 0.32 x10 0.00-0.74 Baso Absolute (test code=Baso Absolute) 0.04 x10 0.00-0.21 IG [id number] 23:59:13* Test Item Value Reference Range Comments IG (test code=IG) 0.6 % 0.0-5.0 IG Abs (test code=IG Abs) 0 x10 Complete Blood Count with [id number] 23:59:12* Test Item Value Reference Range Comments WBC (test code=WBC) 10.8 x10 4.4-10.5 RBC (test code=RBC) 2.91 x10 4.10-5.70 Hgb (test code=Hgb) 8.1 g/dL 13.4-17.4 MCV (test code=MCV) 91.40 fL 80.00-100.00 Hct (test code=Hct) 26.6 % 38.7-52.0 MCHC (test code=MCHC) 30.50 g/dL 32.00-37.50 RDW CV (test code=RDW CV) 14.1 % 11.5-14.5 MCH (test code=MCH) 27.8 pg 27.0-32.5 Platelets (test code=Platelets) 227.0 x10 140.0-440.0 MPV (test code=MPV) 12.3 fL Slide Review (test code=Slide Review) Auto Auto Result created by [email or web address]_REV_AUTO nRBC (test code=nRBC) 0 NRBC Abs (test code=NRBC Abs) 0.00 x10 IPF (test code=IPF) 0 % XR Ankle Complete 3+ Views [id number] 11:28:59Patient: ERIK DONATO Date/Time07/28/2019 11:14 CSTReason for ExamM25.572ReportEXAMINATION: XR Ankle Complete 3+ Views Left.LOCATION: R16.HISTORY: M25.572.COMPARISON: None.TECHNIQUE: AP, lateral, and oblique views of the left ankle were obtained.FINDINGS:No acute fracture or dislocation is identified. Posterior calcaneal enthesophyte is noted. Incidental note is made of an os peroneum. Soft tissue structures appear intact.IMPRESSION:No acute osseous abnormality is identified. Final Dictated by: MD Jake, Ferated DT/TM: 07/28/2019 11:27 amSigned by: MD Jake, Vicente (Electronic Signature): 07/28/2019 11:28 amXR Modified Barium [id number] 09:51:43Patient: ERIK DONATO Date/Time06/16/2019 09:11 CDTReason for ExamdysphagiaReportEXAMINATION: XR Modified Barium Swallow.LOCATION: R16.HISTORY: Difficulty swallowing, dysphagia.COMPARISON: None.FINDINGS:Fluoroscopic assistance was provided to speech therapy. Images were obtained from oropharynx to thoracic inlet while patient ingested barium coated food and liquid. Please see separately dictated speech therapy note for report and recommendation. Patient aspirated during the procedure.Fluoroscopic time: 2 minutes 40 seconds.IMPRESSION:Please see separately dictated speech therapy note for report and recommendation. Final Dictated by: MD Velez Ankitkumar NDictated DT/TM: 06/16/2019 9:50 amSigned by: MD Velez Ankitk umar NSigned (Electronic Signature): 06/16/2019 9:51 amUrine [id number] 06:24:20No growth at 24 hours. No growth at 48 hours.Thyroid Stimulating Hormone 2019-03-28 06:22:13* Test Item Value Reference Range Comments TSH (test code=TSH) 3.750 mIU/mL 0.270-4.200 Thyroxine Free [id number] 06:22:13* Test Item Value Reference Range Comments T4 Free (test code=T4 Free) 0.982 ng/dL 0.930-1.700 Magnesium [id number] 06:11:24* Test Item Value Reference Range Comments Magnesium Level (test code=Magnesium Level) 2.2 mg/dL 1.7-2.5 Urinalysis with Culture, if [id number] 23:46:28* Test Item Value Reference Range Comments UA Color (test code=UA Color) YELLO Yellow UA Appear (test code=UA Appear) CLEAR Clear UA pH (test code=UA pH) 6.5 UA Spec Grav (test code=UA Spec Grav) 1.017 1.001-1.035 UA Glucose (test code=UA Glucose) NEG Negative UA Bili (test code=UA Bili) NEG Negative UA Ketones (test code=UA Ketones) 5 mg/dL Negative UA Blood (test code=UA Blood) NEG Negative UA Protein (test code=UA Protein) NEG Negative UA Urobilinogen (test code=UA Urobilinogen) 1 mg/dL >0.2 UA Nitrite (test code=UA Nitrite) NEG Negative UA Leuk Est (test code=UA Leuk Est) NEG Negative UA Micro Ind? (test code=UA Micro Ind?) Not Indicated Not Indicated Result created by rule GL_SJM_UA_MICRO_IND XR Chest 2 [id number] 16:01:29Patient: ERIK DONATO Date/Time03/27/2019 15:53 CDTReason for ExamPneumoniaReportPA AND LATERAL CHEST:Location R 16HISTORY: PneumoniaCOMPARISON: Chest radiograph dated 03/09/2019FINDINGS:Interval clearing of previously seen left basilar atelectasis. No new airspace infiltrates. No evidence of pleural effusions. 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 Heart size is normal. Osseous structures appear stable.IMPRESSION:1. Interval clearing of previously seen left basilar atelec tasis. No new airspace infiltrates to suggest new or developing pneumonia. No pl eural effusions.2. 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 Recommend corre lation on CT of the chest with contrast when feasible. Final Dictated by: MD Ying, Kendra FDictated DT/TM: 03/27/2019 3:59 pmSigned by: MD He Eniola FSigned (Electronic Signature): 03/27/2019 4:01 pm MRI Brain w/o [id number] 11:14:59Patient: ERIK DONATO Date/Time03/27/2019 10:56 CDTReason for ExamCVA (Stroke)[id number] Brain w/o ContrastHISTORY: CVA (Stroke)TECHNIQUE: Multiplanar multisequence MR images of the brain were obtained without intravenous contrast.COMPARISON: Head CT 03/26/20 19FINDINGS:Multiple somewhat confluent hyperintense foci in the frontal and igor etal white matter on FLAIR and T2-weighted images. Chronic lacunar infarction in the right half of the prisca. There is no mass, mass effect or abnormal extra-axi al fluid collection. Diffusion-weighted images show no hyperacute, acute or colin y subacute infarction.The ventricles are normal in size, shape, and position.The re are normal signal voids in the larger intracranial vessels.The paranasal sinu ses and mastoid air cells are predominantly clear. The marrow signal pattern is within normal limits.IMPRESSION:Moderate white matter microvascular disease.Chr onic infarction in the prisca.No acute intracranial abnormalities. Final *Dictated by: MD Holland, Jason DT/TM: 03/27/2019 11:13 amSigned by: MD Holland, Aracelis (Electronic Signature): 03/27/2019 11:14 amBasic Metabolic [id number] 07:28:03* Test Item Value Reference Range Comments Sodium Level (test code=Sodium Level) 141.0 mmol/L 135.0-145.0 Potassium Level (test code=Potassium Level) 4.6 mmol/L 3.5-5.1 Chloride Level (test code=Chloride Level) 106 mmol/L 98-105 CO2 (test code=CO2) 25 mmol/L 22-29 Anion Gap (test code=Anion Gap) 10 mmol/L 7-16 BUN (test code=BUN) 19.60 mg/dL 8.00-23.00 Creatinine Level (test code=Creatinine Level) 1.00 mg/dL 0.70-1.20 BUN/Creat Ratio (test code=BUN/Creat Ratio) 20 Glucose Level (test code=Glucose Level) 131 mg/dL 70-115 Calcium Level (test code=Calcium Level) 9.0 mg/dL 8.3-10.5 Basic Metabolic [id number] 07:28:03* Test Item Value Reference Range Comments Sodium Level (test code=Sodium Level) 141.0 mmol/L 135.0-145.0 Potassium Level (test code=Potassium Level) 4.6 mmol/L 3.5-5.1 Chloride Level (test code=Chloride Level) 106 mmol/L 98-105 CO2 (test code=CO2) 25 mmol/L 22-29 Anion Gap (test code=Anion Gap) 10 mmol/L 7-16 BUN (test code=BUN) 19.60 mg/dL 8.00-23.00 Creatinine Level (test code=Creatinine Level) 1.00 mg/dL 0.70-1.20 BUN/Creat Ratio (test code=BUN/Creat Ratio) 20 Glucose Level (test code=Glucose Level) 131 mg/dL 70-115 Calcium Level (test code=Calcium Level) 9.0 mg/dL 8.3-10.5 eGFR AA (test code=eGFR AA) >60 mL/min/1.73 m2 eGFR (estimated Glomerular Filtration Rate) is an estimated value, calculated from the patient's serum creatinine using the MDRD equation. It is NOT the patient's actual GFR. The eGFR provides a more clinically useful measure of kidney disease than serum creatinine alone.This calculation takes sex and race into account, if the information is provided. If the race is not provided, and the patient is -Austrian, multiply by 1.212. If sex is not provided, and the patient is female, multiply by 0.742. Results for patients <18 years of age have not been validated by the MDRD study and should be interpreted with caution. eGFR Result Interpretation:eGFR > or=60 is in the Normal RangeeGFR < 60 may mean kidney diseaseeGFR < 15 may mean kidney failure Ranges recommended by the National Kidney Foundation, http://nkdep.nih.gov Basic Metabolic [id number] 07:28:03* Test Item Value Reference Range Comments Sodium Level (test code=Sodium Level) 141.0 mmol/L 135.0-145.0 Potassium Level (test code=Potassium Level) 4.6 mmol/L 3.5-5.1 Chloride Level (test code=Chloride Level) 106 mmol/L 98-105 CO2 (test code=CO2) 25 mmol/L 22-29 Anion Gap (test code=Anion Gap) 10 mmol/L 7-16 BUN (test code=BUN) 19.60 mg/dL 8.00-23.00 Creatinine Level (test code=Creatinine Level) 1.00 mg/dL 0.70-1.20 BUN/Creat Ratio (test code=BUN/Creat Ratio) 20 Glucose Level (test code=Glucose Level) 131 mg/dL 70-115 Calcium Level (test code=Calcium Level) 9.0 mg/dL 8.3-10.5 eGFR AA (test code=eGFR AA) >60 mL/min/1.73 m2 eGFR (estimated Glomerular Filtration Rate) is an estimated value, calculated from the patient's serum creatinine using the MDRD equation. It is NOT the patient's actual GFR. The eGFR provides a more clinically useful measure of kidney disease than serum creatinine alone.This calculation takes sex and race into account, if the information is provided. If the race is not provided, and the patient is -Austrian, multiply by 1.212. If sex is not provided, and the patient is female, multiply by 0.742. Results for patients <18 years of age have not been validated by the MDRD study and should be interpreted with caution. eGFR Result Interpretation:eGFR > or=60 is in the Normal RangeeGFR < 60 may mean kidney diseaseeGFR < 15 may mean kidney failure Ranges recommended by the National Kidney Foundation, http://nkdep.nih.gov eGFR Non-AA (test code=eGFR Non-AA) >60.00 mL/min/1.73 m2 eGFR (estimated Glomerular Filtration Rate) is an estimated value, calculated from the patient's serum creatinine using the MDRD equation. It is NOT the patient's actual GFR. The eGFR provides a more clinically useful measure of kidney disease than serum creatinine alone.This calculation takes sex and race into account, if the information is provided. If the race is not provided, and the patient is -Austrian, multiply by 1.212. If sex is not provided, and the patient is female, multiply by 0.742. Results for patients <18 years of age have not been validated by the MDRD study and should be interpreted with caution. eGFR Result Interpretation:eGFR > or=60 is in the Normal RangeeGFR < 60 may mean kidney diseaseeGFR < 15 may mean kidney failure Ranges recommended by the National Kidney Foundation, http://nkdep.nih.gov Troponin [id number] 07:25:05* Test Item Value Reference Range Comments Troponin-T (test code=Troponin-T) 9.850 ng/L 0.000-22.000 The CV of the assay at 99th percentile for both male and female patient population is < 10%. A rise and fall in BONITA with at least one value above the 99th percentile with clinical evidence of myocardial ischemia would support a diagnosis of AMI. A delta of at least 20% is recommended to access acute changes in results above the 99th percentile in serial measurements. Stable BONITA levels (<20%) delta above the 99th percentile URL would support a diagnosis of chronic myocardial injury. Complete Blood Count with [id number] 07:12:38* Test Item Value Reference Range Comments WBC (test code=WBC) 12.9 x10 4.4-10.5 RBC (test code=RBC) 3.80 x10 4.10-5.70 Hgb (test code=Hgb) 11.8 g/dL 13.4-17.4 Hct (test code=Hct) 35.7 % 38.7-52.0 MCV (test code=MCV) 93.90 fL 80.00-100.00 MCHC (test code=MCHC) 33.10 g/dL 32.00-37.50 MCH (test code=MCH) 31.1 pg 27.0-32.5 RDW CV (test code=RDW CV) 12.8 % 11.5-14.5 Platelets (test code=Platelets) 306.0 x10 140.0-440.0 MPV (test code=MPV) 11.9 fL Slide Review (test code=Slide Review) Auto Auto Result created by GL_SJM_SLIDE_REV_AUTO nRBC (test code=nRBC) 0 NRBC Abs (test code=NRBC Abs) 0.00 x10 IPF (test code=IPF) 0 % Automated [id number] 07:12:38* Test Item Value Reference Range Comments Neutro Auto (test code=Neutro Auto) 83.1 % 36.0-70.0 Lymph Auto (test code=Lymph Auto) 9.0 % 12.0-44.0 [place] Auto (test code=[place] Auto) 6.2 % 0.0-11.0 Eos, Auto (test code=Eos, Auto) 0.9 % 0.0-7.0 Basophil Auto (test code=Basophil Auto) 0.4 % 0.0-2.0 Neutro Absolute (test code=Neutro Absolute) 10.8 x10 1.6-7.4 Lymph Absolute (test code=Lymph Absolute) 1.16 x10 .50-4.60 [place] Absolute (test code=[place] Absolute) .80 x10 .00-1.20 Eos Absolute (test code=Eos Absolute) 0.12 x10 0.00-0.74 Baso Absolute (test code=Baso Absolute) 0.05 x10 0.00-0.21 IG [id number] 07:12:38* Test Item Value Reference Range Comments IG (test code=IG) 0.4 % 0.0-5.0 IG Abs (test code=IG Abs) 0 x10 Urinalysis with Culture, if [id number] 17:17:00* Test Item Value Reference Range Comments UA Color (test code=UA Color) YELLO Yellow UA Appear (test code=UA Appear) CLEAR Clear UA pH (test code=UA pH) 8 UA Spec Grav (test code=UA Spec Grav) 1.013 1.001-1.035 UA Glucose (test code=UA Glucose) NEG Negative UA Bili (test code=UA Bili) NEG Negative UA Ketones (test code=UA Ketones) NEG Negative UA Blood (test code=UA Blood) NEG Negative UA Protein (test code=UA Protein) NEG Negative UA Urobilinogen (test code=UA Urobilinogen) 0.2 mg/dL UA Nitrite (test code=UA Nitrite) NEG Negative UA Leuk Est (test code=UA Leuk Est) NEG Negative UA Micro Ind? (test code=UA Micro Ind?) Not Indicated Not Indicated Result created by rule GL_SJM_UA_MICRO_IND Troponin [id number] 16:41:28* Test Item Value Reference Range Comments Troponin-T (test code=Troponin-T) 9.010 ng/L 0.000-22.000 The CV of the assay at 99th percentile for both male and female patient population is < 10%. A rise and fall in BONITA with at least one value above the 99th percentile with clinical evidence of myocardial ischemia would support a diagnosis of AMI. A delta of at least 20% is recommended to access acute changes in results above the 99th percentile in serial measurements. Stable BONITA levels (<20%) delta above the 99th percentile URL would support a diagnosis of chronic myocardial injury. Comprehensive Metabolic [id number] 16:39:49* Test Item Value Reference Range Comments Sodium Level (test code=Sodium Level) 140.0 mmol/L 135.0-145.0 Potassium Level (test code=Potassium Level) 4.8 mmol/L 3.5-5.1 Chloride Level (test code=Chloride Level) 104 mmol/L 98-105 CO2 (test code=CO2) 26 mmol/L 22-29 Anion Gap (test code=Anion Gap) 10 mmol/L 7-16 BUN (test code=BUN) 22.30 mg/dL 8.00-23.00 Creatinine Level (test code=Creatinine Level) 1.00 mg/dL 0.70-1.20 BUN/Creat Ratio (test code=BUN/Creat Ratio) 22 Glucose Level (test code=Glucose Level) 132 mg/dL 70-115 Calcium Level (test code=Calcium Level) 8.8 mg/dL 8.3-10.5 Alk Phos (test code=Alk Phos) 144 U/L 40-129 Bilirubin Total (test code=Bilirubin Total) 0.3 mg/dL 0.1-0.9 Albumin Level (test code=Albumin Level) 3.5 g/dL 3.5-5.2 Protein Total (test code=Protein Total) 6.0 g/dL 6.4-8.3 ALT (test code=ALT) 21 U/L 1-41 AST (test code=AST) 21 U/L 1-40 Globulin (test code=Globulin) 2.5 g/dL 2.9-3.1 A/G Ratio (test code=A/G Ratio) 1.4 ratio Comprehensive Metabolic [id number] 16:39:49* Test Item Value Reference Range Comments Sodium Level (test code=Sodium Level) 140.0 mmol/L 135.0-145.0 Potassium Level (test code=Potassium Level) 4.8 mmol/L 3.5-5.1 Chloride Level (test code=Chloride Level) 104 mmol/L 98-105 CO2 (test code=CO2) 26 mmol/L 22-29 Anion Gap (test code=Anion Gap) 10 mmol/L 7-16 BUN (test code=BUN) 22.30 mg/dL 8.00-23.00 Creatinine Level (test code=Creatinine Level) 1.00 mg/dL 0.70-1.20 BUN/Creat Ratio (test code=BUN/Creat Ratio) 22 Glucose Level (test code=Glucose Level) 132 mg/dL 70-115 Calcium Level (test code=Calcium Level) 8.8 mg/dL 8.3-10.5 Alk Phos (test code=Alk Phos) 144 U/L 40-129 Bilirubin Total (test code=Bilirubin Total) 0.3 mg/dL 0.1-0.9 Albumin Level (test code=Albumin Level) 3.5 g/dL 3.5-5.2 Protein Total (test code=Protein Total) 6.0 g/dL 6.4-8.3 ALT (test code=ALT) 21 U/L 1-41 AST (test code=AST) 21 U/L 1-40 Globulin (test code=Globulin) 2.5 g/dL 2.9-3.1 A/G Ratio (test code=A/G Ratio) 1.4 ratio eGFR AA (test code=eGFR AA) >60 mL/min/1.73 m2 eGFR (estimated Glomerular Filtration Rate) is an estimated value, calculated from the patient's serum creatinine using the MDRD equation. It is NOT the patient's actual GFR. The eGFR provides a more clinically useful measure of kidney disease than serum creatinine alone.This calculation takes sex and race into account, if the information is provided. If the race is not provided, and the patient is -Austrian, multiply by 1.212. If sex is not provided, and the patient is female, multiply by 0.742. Results for patients <18 years of age have not been validated by the MDRD study and should be interpreted with caution. eGFR Result Interpretation:eGFR > or=60 is in the Normal RangeeGFR < 60 may mean kidney diseaseeGFR < 15 may mean kidney failure Ranges recommended by the National Kidney Foundation, http://nkdep.nih.gov Magnesium [id number] 16:39:49* Test Item Value Reference Range Comments Magnesium Level (test code=Magnesium Level) 2.2 mg/dL 1.7-2.5 Comprehensive Metabolic [id number] 16:39:49* Test Item Value Reference Range Comments Sodium Level (test code=Sodium Level) 140.0 mmol/L 135.0-145.0 Potassium Level (test code=Potassium Level) 4.8 mmol/L 3.5-5.1 Chloride Level (test code=Chloride Level) 104 mmol/L 98-105 CO2 (test code=CO2) 26 mmol/L 22-29 Anion Gap (test code=Anion Gap) 10 mmol/L 7-16 BUN (test code=BUN) 22.30 mg/dL 8.00-23.00 Creatinine Level (test code=Creatinine Level) 1.00 mg/dL 0.70-1.20 BUN/Creat Ratio (test code=BUN/Creat Ratio) 22 Glucose Level (test code=Glucose Level) 132 mg/dL 70-115 Calcium Level (test code=Calcium Level) 8.8 mg/dL 8.3-10.5 Alk Phos (test code=Alk Phos) 144 U/L 40-129 Bilirubin Total (test code=Bilirubin Total) 0.3 mg/dL 0.1-0.9 Albumin Level (test code=Albumin Level) 3.5 g/dL 3.5-5.2 Protein Total (test code=Protein Total) 6.0 g/dL 6.4-8.3 ALT (test code=ALT) 21 U/L 1-41 AST (test code=AST) 21 U/L 1-40 Globulin (test code=Globulin) 2.5 g/dL 2.9-3.1 A/G Ratio (test code=A/G Ratio) 1.4 ratio eGFR AA (test code=eGFR AA) >60 mL/min/1.73 m2 eGFR (estimated Glomerular Filtration Rate) is an estimated value, calculated from the patient's serum creatinine using the MDRD equation. It is NOT the patient's actual GFR. The eGFR provides a more clinically useful measure of kidney disease than serum creatinine alone.This calculation takes sex and race into account, if the information is provided. If the race is not provided, and the patient is -Austrian, multiply by 1.212. If sex is not provided, and the patient is female, multiply by 0.742. Results for patients <18 years of age have not been validated by the MDRD study and should be interpreted with caution. eGFR Result Interpretation:eGFR > or=60 is in the Normal RangeeGFR < 60 may mean kidney diseaseeGFR < 15 may mean kidney failure Ranges recommended by the National Kidney Foundation, http://nkdep.nih.gov eGFR Non-AA (test code=eGFR Non-AA) >60.00 mL/min/1.73 m2 eGFR (estimated Glomerular Filtration Rate) is an estimated value, calculated from the patient's serum creatinine using the MDRD equation. It is NOT the patient's actual GFR. The eGFR provides a more clinically useful measure of kidney disease than serum creatinine alone.This calculation takes sex and race into account, if the information is provided. If the race is not provided, and the patient is -Austrian, multiply by 1.212. If sex is not provided, and the patient is female, multiply by 0.742. Results for patients <18 years of age have not been validated by the MDRD study and should be interpreted with caution. eGFR Result Interpretation:eGFR > or=60 is in the Normal RangeeGFR < 60 may mean kidney diseaseeGFR < 15 may mean kidney failure Ranges recommended by the National Kidney Foundation, http://nkdep.nih.gov Prothrombin Time and [id number] 16:34:00* Test Item Value Reference Range Comments Prothrombin Time (test code=Prothrombin Time) 12.7 seconds 9.8-13.4 INR (test code=INR) 1.1 ratio 0.6-1.2 Partial Thromboplastin [id number] 16:34:00* Test Item Value Reference Range Comments Partial Thromboplastin Time (test code=Partial Thromboplastin Time) 33.10 seconds 24.39-37.25 Complete Blood Count with [id number] 16:24:00* Test Item Value Reference Range Comments WBC (test code=WBC) 9.6 x10 4.4-10.5 RBC (test code=RBC) 3.79 x10 4.10-5.70 Hgb (test code=Hgb) 11.7 g/dL 13.4-17.4 Hct (test code=Hct) 35.7 % 38.7-52.0 MCV (test code=MCV) 94.20 fL 80.00-100.00 MCHC (test code=MCHC) 32.80 g/dL 32.00-37.50 MCH (test code=MCH) 30.9 pg 27.0-32.5 RDW CV (test code=RDW CV) 12.7 % 11.5-14.5 Platelets (test code=Platelets) 328.0 x10 140.0-440.0 MPV (test code=MPV) 11.7 fL Slide Review (test code=Slide Review) Auto Auto Result created by GL_SJM_SLIDE_REV_AUTO nRBC (test code=nRBC) 0 NRBC Abs (test code=NRBC Abs) 0.00 x10 IPF (test code=IPF) 0 % Automated [id number] 16:24:00* Test Item Value Reference Range Comments Neutro Auto (test code=Neutro Auto) 78.5 % 36.0-70.0 Lymph Auto (test code=Lymph Auto) 12.0 % 12.0-44.0 [place] Auto (test code=[place] Auto) 7.1 % 0.0-11.0 Eos, Auto (test code=Eos, Auto) 1.6 % 0.0-7.0 Basophil Auto (test code=Basophil Auto) 0.5 % 0.0-2.0 Neutro Absolute (test code=Neutro Absolute) 7.6 x10 1.6-7.4 Lymph Absolute (test code=Lymph Absolute) 1.16 x10 .50-4.60 [place] Absolute (test code=[place] Absolute) .68 x10 .00-1.20 Eos Absolute (test code=Eos Absolute) 0.15 x10 0.00-0.74 Baso Absolute (test code=Baso Absolute) 0.05 x10 0.00-0.21 IG [id number] 16:24:00* Test Item Value Reference Range Comments IG (test code=IG) 0.3 % 0.0-5.0 IG Abs (test code=IG Abs) 0 x10 POC [id number] 15:52:43* Test Item Value Reference Range Comments Glucose POC (test code=Glucose POC) 162 mg/dL 70-115 Notify RN or MDIf you consider your patient critically ill, the Rosalinda-Accu Check Infrom II meter should not be used for Glucose determination. Draw a venous Glucose and send to the main Lab for analysis. CT Brain/Head w/o [id number] 15:47:52Patient: ERIK DONATO Date/Time03/26/2019 15:38 CDTReason for ExamStrokeReportCT head without contrast 03/26/2019 3:43 PMCLINICAL HISTORY: StrokeTECHNIQUE: Axial noncontrast CT images through the head were obtained. This examination was performed according to our departmental dose optimization program, which includes automated exposure control, adjustment of the mA and/or kV according to patient size, and/or use of iterative reconstruction technique.COMPARISON: 03/06/2019LOCATION: [id number]:There is no hemorrhage, extra-axial collection, mass, hydrocephalus, or midline shift. There is mild microvascular ischemia in the supratentorial white matter and prisca, with bilateral striatocapsular and thalamic infarcts. There is atherosclerotic calcification of the intracranial arterial vasculature. There is generalized parenchymal volume loss.The paranasal sinuses and mastoid air cells are well aer ated. The skull is intact.IMPRESSION:No intracranial hemorrhage or mass effect.C hronic appearing ischemic and involutional changes.If concern for acute patholog y persists, further evaluation with MRI is recommended.Findings were discussed w edmundo Phelps on 03/26/2019 at 1545. Final Dictated by: MD Harvey Ti mothy JDictated DT/TM: 03/26/2019 3:43 pmSigned by: MD Harvey Timothy JSigned (Electronic Signature): 03/26/2019 3:47 pmXR Modified Barium [id number] 08:58:30Patient: ERIK DONATO Date/Time03/22/2019 14:39 CDTReason for ExamDysphagia;StrokeAddendumAddendum to report: Correction to findings andimpression:There is blake aspiration noted with NECTAR consistencies. Cough reflex is noted. No aspiration is identified with PUDDING. Final Dictated by: MD Connors Melanie CDictated DT/TM: 03/23/2019 8:57 amSigned by: MD Connors Melanie CSdavid (Electronic Signature): 03/23/2019 8:58 amReportEXAM: BARIUM SWALLOWCLINICAL HISTORY: Dysphagia status post strokeTECHNIQUE: Barium swallow study was performed in conjunction with the speech pathologist.FINDINGS: The oral and pharyngeal phases of swallowing are normal. There is muscle weakness noted. No evidence of masses or ulcerations. There is blake aspiration noted with thin liquid consistencies. Cough reflex is noted. No aspiration is identified with thick consistencies. No evidence of dive rticula or strictures.Fluoroscopy time: 40.6 secondsNumber Of Images: 1.25 mGyIM PRESSION:1. Blake aspiration noted with thin liquid consistencies with cough r eflex noted.2. Please see dedicated speech pathologist report for further deta ils.LOCATION: R16 Final Dictated by: MD Connors Melanie CDictated DT/TM: 03/22/2019 2:48 pmSigned by: MD Connors Melanie CSigned (Electronic Sig nature): 03/22/2019 2:49 pmReport last revised on 03/23/2019 08:58 CDT by MD Connors Melanie CXR Modified Barium [id number] 14:49:54Patient: ERIK DONATO Date/Time03/22/2019 14:39 CDTReason for ExamDysphagia;StrokeReportEXAM: BARIUM SWALLOWCLINICAL HISTORY: Dysphagia status post strokeTECHNIQUE: Barium swallow study was performed in conjunction with the speech pathologist.FINDINGS: The oral and pharyngeal phases of swallowing are normal. There is muscle weakness noted. No evidence of masses or ulcerations. There is blake aspiration noted with thin liquid consistencies. Cough reflex is noted. No aspiration is identified with thick consistencies. No evidence of diverticula or strictures.Fluoroscopy time: 40.6 secondsNumber Of Images: 1.25 mGyIMPRESSION:1. Blake aspiration noted wi th thin liquid consistencies with cough reflex noted.2. Please see dedicated s peech pathologist report for further details.LOCATION: R16 Final Dicta drew by: MD Connors Melanie CDictated DT/TM: 03/22/2019 2:48 pmSigned by: Rashard chavis MD, Melanie CSigned (Electronic Signature): 03/22/2019 2:49 pmUrine [id number] 07:38:44 C Urine Added by GL_SJM_UA_CUL_INDNo growth at 24 hours. No growth at 48 hours.Urinalysis [id number] 13:36:27* Test Item Value Reference Range Comments UA WBC (test code=UA WBC) 20-29 0-5 UA RBC (test code=UA RBC) 0-5 0-5 UA Bacteria (test code=UA Bacteria) Few UA Squam Epithelial (test code=UA Squam Epithelial) 6-10 UA Mucous (test code=UA Mucous) Few UA Hyal Cast (test code=UA Hyal Cast) 1-5 Urinalysis with Culture, if [id number] 13:36:27* Test Item Value Reference Range Comments UA Color (test code=UA Color) YELLO Yellow UA Appear (test code=UA Appear) CLEAR Clear UA pH (test code=UA pH) 5 UA Spec Grav (test code=UA Spec Grav) 1.023 1.001-1.035 UA Glucose (test code=UA Glucose) NEG Negative UA Bili (test code=UA Bili) 1 mg/dL Negative UA Ketones (test code=UA Ketones) 150 mg/dL Negative UA Blood (test code=UA Blood) 150 cells/mcL Negative UA Protein (test code=UA Protein) NEG Negative UA Urobilinogen (test code=UA Urobilinogen) 1 mg/dL >0.2 UA Nitrite (test code=UA Nitrite) NEG Negative UA Leuk Est (test code=UA Leuk Est) 25 cells/mcL Negative UA Micro Ind? (test code=UA Micro Ind?) Indicated Not Indicated Result created by rule GL_SJM_UA_MICRO_IND POC [id number] 07:14:39* Test Item Value Reference Range Comments Glucose POC (test code=Glucose POC) 96 mg/dL 70-115 If you consider your patient critically ill, the Rosalinda-Accu Check Infrom II meter should not be used for Glucose determination. Draw a venous Glucose and send to the main Lab for analysis. Basic Metabolic [id number] 04:18:25* Test Item Value Reference Range Comments Sodium Level (test code=Sodium Level) 142.0 mmol/L 135.0-145.0 Potassium Level (test code=Potassium Level) 4.5 mmol/L 3.5-5.1 Chloride Level (test code=Chloride Level) 104 mmol/L 98-105 CO2 (test code=CO2) 22 mmol/L 22-29 Anion Gap (test code=Anion Gap) 16 mmol/L 7-16 BUN (test code=BUN) 19.60 mg/dL 8.00-23.00 Creatinine Level (test code=Creatinine Level) 1.20 mg/dL 0.70-1.20 BUN/Creat Ratio (test code=BUN/Creat Ratio) 16 Glucose Level (test code=Glucose Level) 84 mg/dL 70-115 Calcium Level (test code=Calcium Level) 8.7 mg/dL 8.3-10.5 Basic Metabolic [id number] 04:18:25* Test Item Value Reference Range Comments Sodium Level (test code=Sodium Level) 142.0 mmol/L 135.0-145.0 Potassium Level (test code=Potassium Level) 4.5 mmol/L 3.5-5.1 Chloride Level (test code=Chloride Level) 104 mmol/L 98-105 CO2 (test code=CO2) 22 mmol/L 22-29 Anion Gap (test code=Anion Gap) 16 mmol/L 7-16 BUN (test code=BUN) 19.60 mg/dL 8.00-23.00 Creatinine Level (test code=Creatinine Level) 1.20 mg/dL 0.70-1.20 BUN/Creat Ratio (test code=BUN/Creat Ratio) 16 Glucose Level (test code=Glucose Level) 84 mg/dL 70-115 Calcium Level (test code=Calcium Level) 8.7 mg/dL 8.3-10.5 eGFR AA (test code=eGFR AA) >60 mL/min/1.73 m2 eGFR (estimated Glomerular Filtration Rate) is an estimated value, calculated from the patient's serum creatinine using the MDRD equation. It is NOT the patient's actual GFR. The eGFR provides a more clinically useful measure of kidney disease than serum creatinine alone.This calculation takes sex and race into account, if the information is provided. If the race is not provided, and the patient is -[place], multiply by 1.212. If sex is not provided, and the patient is female, multiply by 0.742. Results for patients <18 years of age have not been validated by the MDRD study and should be interpreted with caution. eGFR Result Interpretation:eGFR > or=60 is in the Normal RangeeGFR < 60 may mean kidney diseaseeGFR < 15 may mean kidney failure Ranges recommended by the National Kidney Foundation, http://nkdep.nih.gov eGFR Non-AA (test code=eGFR Non-AA) 58.87 mL/min/1.73 m2 eGFR (estimated Glomerular Filtration Rate) is an estimated value, calculated from the patient's serum creatinine using the MDRD equation. It is NOT the patient's actual GFR. The eGFR provides a more clinically useful measure of kidney disease than serum creatinine alone.This calculation takes sex and race into account, if the information is provided. If the race is not provided, and the patient is -[place], multiply by 1.212. If sex is not provided, and the patient is female, multiply by 0.742. Results for patients <18 years of age have not been validated by the MDRD study and should be interpreted with caution. eGFR Result Interpretation:eGFR > or=60 is in the Normal RangeeGFR < 60 may mean kidney diseaseeGFR < 15 may mean kidney failure Ranges recommended by the National Kidney Foundation, http://nkdep.nih.gov Basic Metabolic [id number] 04:18:25* Test Item Value Reference Range Comments Sodium Level (test code=Sodium Level) 142.0 mmol/L 135.0-145.0 Potassium Level (test code=Potassium Level) 4.5 mmol/L 3.5-5.1 Chloride Level (test code=Chloride Level) 104 mmol/L 98-105 CO2 (test code=CO2) 22 mmol/L 22-29 Anion Gap (test code=Anion Gap) 16 mmol/L 7-16 BUN (test code=BUN) 19.60 mg/dL 8.00-23.00 Creatinine Level (test code=Creatinine Level) 1.20 mg/dL 0.70-1.20 BUN/Creat Ratio (test code=BUN/Creat Ratio) 16 Glucose Level (test code=Glucose Level) 84 mg/dL 70-115 Calcium Level (test code=Calcium Level) 8.7 mg/dL 8.3-10.5 eGFR AA (test code=eGFR AA) >60 mL/min/1.73 m2 eGFR (estimated Glomerular Filtration Rate) is an estimated value, calculated from the patient's serum creatinine using the MDRD equation. It is NOT the patient's actual GFR. The eGFR provides a more clinically useful measure of kidney disease than serum creatinine alone.This calculation takes sex and race into account, if the information is provided. If the race is not provided, and the patient is -Aust[place], multiply by 1.212. If sex is not provided, and the patient is female, multiply by 0.742. Results for patients <18 years of age have not been validated by the MDRD study and should be interpreted with caution. eGFR Result Interpretation:eGFR > or=60 is in the Normal RangeeGFR < 60 may mean kidney diseaseeGFR < 15 may mean kidney failure Ranges recommended by the National Kidney Foundation, http://nkdep.nih.gov eGFR Non-AA (test code=eGFR Non-AA) 58.87 mL/min/1.73 m2 eGFR (estimated Glomerular Filtration Rate) is an estimated value, calculated from the patient's serum creatinine using the MDRD equation. It is NOT the patient's actual GFR. The eGFR provides a more clinically useful measure of kidney disease than serum creatinine alone.This calculation takes sex and race into account, if the information is provided. If the race is not provided, and the patient is -Austrian, multiply by 1.212. If sex is not provided, and the patient is female, multiply by 0.742. Results for patients <18 years of age have not been validated by the MDRD study and should be interpreted with caution. eGFR Result Interpretation:eGFR > or=60 is in the Normal RangeeGFR < 60 may mean kidney diseaseeGFR < 15 may mean kidney failure Ranges recommended by the National Kidney Foundation, http://nkdep.nih.gov Complete Blood Count with [id number] 04:06:22* Test Item Value Reference Range Comments WBC (test code=WBC) 12.1 x10 4.4-10.5 RBC (test code=RBC) 4.35 x10 4.10-5.70 Hgb (test code=Hgb) 13.3 g/dL 13.4-17.4 Hct (test code=Hct) 41.2 % 38.7-52.0 MCV (test code=MCV) 94.70 fL 80.00-100.00 MCHC (test code=MCHC) 32.30 g/dL 32.00-37.50 RDW CV (test code=RDW CV) 12.8 % 11.5-14.5 MCH (test code=MCH) 30.6 pg 27.0-32.5 Platelets (test code=Platelets) 217.0 x10 140.0-440.0 MPV (test code=MPV) 11.4 fL Slide Review (test code=Slide Review) Auto Auto Result created by GL_[email or web address]_REV_AUTO nRBC (test code=nRBC) 0 NRBC Abs (test code=NRBC Abs) 0.00 x10 IPF (test code=IPF) 0 % Automated [id number] 04:06:22* Test Item Value Reference Range Comments Neutro Auto (test code=Neutro Auto) 79.8 % 36.0-70.0 Lymph Auto (test code=Lymph Auto) 10.7 % 12.0-44.0 [place] Auto (test code=[place] Auto) 7.8 % 0.0-11.0 Eos, Auto (test code=Eos, Auto) 0.9 % 0.0-7.0 Basophil Auto (test code=Basophil Auto) 0.2 % 0.0-2.0 Neutro Absolute (test code=Neutro Absolute) 9.6 x10 1.6-7.4 Lymph Absolute (test code=Lymph Absolute) 1.30 x10 .50-4.60 [place] Absolute (test code=[place] Absolute) .94 x10 .00-1.20 Eos Absolute (test code=Eos Absolute) 0.11 x10 0.00-0.74 Baso Absolute (test code=Baso Absolute) 0.03 x10 0.00-0.21 IG [id number] 04:06:22* Test Item Value Reference Range Comments IG (test code=IG) 0.6 % 0.0-5.0 IG Abs (test code=IG Abs) 0 x10 POC [id number] 20:45:46* Test Item Value Reference Range Comments Glucose POC (test code=Glucose POC) 96 mg/dL 70-115 If you consider your patient critically ill, the Rosalinda-Accu Check Infrom II meter should not be used for Glucose determination. Draw a venous Glucose and send to the main Lab for analysis. POC [id number] 16:21:53* Test Item Value Reference Range Comments Glucose POC (test code=Glucose POC) 97 mg/dL 70-115 If you consider your patient critically ill, the Rosalinda-Accu Check Infrom II meter should not be used for Glucose determination. Draw a venous Glucose and send to the main Lab for analysis. POC [id number] 11:42:41* Test Item Value Reference Range Comments Glucose POC (test code=Glucose POC) 89 mg/dL 70-115 If you consider your patient critically ill, the Rosalinda-Accu Check Infrom II meter should not be used for Glucose determination. Draw a venous Glucose and send to the main Lab for analysis. POC [id number] 07:30:12* Test Item Value Reference Range Comments Glucose POC (test code=Glucose POC) 97 mg/dL 70-115 If you consider your patient critically ill, the Rosalinda-Accu Check Infrom II meter should not be used for Glucose determination. Draw a venous Glucose and send to the main Lab for analysis. Comprehensive Metabolic [id number] 06:10:18* Test Item Value Reference Range Comments Sodium Level (test code=Sodium Level) 141.0 mmol/L 135.0-145.0 Potassium Level (test code=Potassium Level) 4.3 mmol/L 3.5-5.1 Chloride Level (test code=Chloride Level) 105 mmol/L 98-105 CO2 (test code=CO2) 23 mmol/L 22-29 Anion Gap (test code=Anion Gap) 13 mmol/L 7-16 BUN (test code=BUN) 16.80 mg/dL 8.00-23.00 Creatinine Level (test code=Creatinine Level) 1.20 mg/dL 0.70-1.20 BUN/Creat Ratio (test code=BUN/Creat Ratio) 14 Glucose Level (test code=Glucose Level) 96 mg/dL 70-115 Calcium Level (test code=Calcium Level) 8.8 mg/dL 8.3-10.5 Alk Phos (test code=Alk Phos) 138 U/L 40-129 Bilirubin Total (test code=Bilirubin Total) 0.7 mg/dL 0.1-0.9 Albumin Level (test code=Albumin Level) 3.8 g/dL 3.5-5.2 Protein Total (test code=Protein Total) 6.2 g/dL 6.4-8.3 ALT (test code=ALT) 14 U/L 1-41 AST (test code=AST) 22 U/L 1-40 Globulin (test code=Globulin) 2.4 g/dL 2.9-3.1 A/G Ratio (test code=A/G Ratio) 1.6 ratio Magnesium [id number] 06:10:18* Test Item Value Reference Range Comments Magnesium Level (test code=Magnesium Level) 2.0 mg/dL 1.7-2.5 Comprehensive Metabolic [id number] 06:10:18* Test Item Value Reference Range Comments Sodium Level (test code=Sodium Level) 141.0 mmol/L 135.0-145.0 Potassium Level (test code=Potassium Level) 4.3 mmol/L 3.5-5.1 Chloride Level (test code=Chloride Level) 105 mmol/L 98-105 CO2 (test code=CO2) 23 mmol/L 22-29 Anion Gap (test code=Anion Gap) 13 mmol/L 7-16 BUN (test code=BUN) 16.80 mg/dL 8.00-23.00 Creatinine Level (test code=Creatinine Level) 1.20 mg/dL 0.70-1.20 BUN/Creat Ratio (test code=BUN/Creat Ratio) 14 Glucose Level (test code=Glucose Level) 96 mg/dL 70-115 Calcium Level (test code=Calcium Level) 8.8 mg/dL 8.3-10.5 Alk Phos (test code=Alk Phos) 138 U/L 40-129 Bilirubin Total (test code=Bilirubin Total) 0.7 mg/dL 0.1-0.9 Albumin Level (test code=Albumin Level) 3.8 g/dL 3.5-5.2 Protein Total (test code=Protein Total) 6.2 g/dL 6.4-8.3 ALT (test code=ALT) 14 U/L 1-41 AST (test code=AST) 22 U/L 1-40 Globulin (test code=Globulin) 2.4 g/dL 2.9-3.1 A/G Ratio (test code=A/G Ratio) 1.6 ratio eGFR AA (test code=eGFR AA) >60 mL/min/1.73 m2 eGFR (estimated Glomerular Filtration Rate) is an estimated value, calculated from the patient's serum creatinine using the MDRD equation. It is NOT the patient's actual GFR. The eGFR provides a more clinically useful measure of kidney disease than serum creatinine alone.This calculation takes sex and race into account, if the information is provided. If the race is not provided, and the patient is -Austrian, multiply by 1.212. If sex is not provided, and the patient is female, multiply by 0.742. Results for patients <18 years of age have not been validated by the MDRD study and should be interpreted with caution. eGFR Result Interpretation:eGFR > or=60 is in the Normal RangeeGFR < 60 may mean kidney diseaseeGFR < 15 may mean kidney failure Ranges recommended by the National Kidney Foundation, http://nkdep.nih.gov eGFR Non-AA (test code=eGFR Non-AA) 58.87 mL/min/1.73 m2 eGFR (estimated Glomerular Filtration Rate) is an estimated value, calculated from the patient's serum creatinine using the MDRD equation. It is NOT the patient's actual GFR. The eGFR provides a more clinically useful measure of kidney disease than serum creatinine alone.This calculation takes sex and race into account, if the information is provided. If the race is not provided, and the patient is -Austrian, multiply by 1.212. If sex is not provided, and the patient is female, multiply by 0.742. Results for patients <18 years of age have not been validated by the MDRD study and should be interpreted with caution. eGFR Result Interpretation:eGFR > or=60 is in the Normal RangeeGFR < 60 may mean kidney diseaseeGFR < 15 may mean kidney failure Ranges recommended by the National Kidney Foundation, http://nkdep.nih.gov Phosphorus [id number] 06:10:18* Test Item Value Reference Range Comments Phosphorus Level (test code=Phosphorus Level) 3.20 mg/dL 2.70-4.50 Comprehensive Metabolic [id number] 06:10:18* Test Item Value Reference Range Comments Sodium Level (test code=Sodium Level) 141.0 mmol/L 135.0-145.0 Potassium Level (test code=Potassium Level) 4.3 mmol/L 3.5-5.1 Chloride Level (test code=Chloride Level) 105 mmol/L 98-105 CO2 (test code=CO2) 23 mmol/L 22-29 Anion Gap (test code=Anion Gap) 13 mmol/L 7-16 BUN (test code=BUN) 16.80 mg/dL 8.00-23.00 Creatinine Level (test code=Creatinine Level) 1.20 mg/dL 0.70-1.20 BUN/Creat Ratio (test code=BUN/Creat Ratio) 14 Glucose Level (test code=Glucose Level) 96 mg/dL 70-115 Calcium Level (test code=Calcium Level) 8.8 mg/dL 8.3-10.5 Alk Phos (test code=Alk Phos) 138 U/L 40-129 Bilirubin Total (test code=Bilirubin Total) 0.7 mg/dL 0.1-0.9 Albumin Level (test code=Albumin Level) 3.8 g/dL 3.5-5.2 Protein Total (test code=Protein Total) 6.2 g/dL 6.4-8.3 ALT (test code=ALT) 14 U/L 1-41 AST (test code=AST) 22 U/L 1-40 Globulin (test code=Globulin) 2.4 g/dL 2.9-3.1 A/G Ratio (test code=A/G Ratio) 1.6 ratio eGFR AA (test code=eGFR AA) >60 mL/min/1.73 m2 eGFR (estimated Glomerular Filtration Rate) is an estimated value, calculated from the patient's serum creatinine using the MDRD equation. It is NOT the patient's actual GFR. The eGFR provides a more clinically useful measure of kidney disease than serum creatinine alone.This calculation takes sex and race into account, if the information is provided. If the race is not provided, and the patient is -Austrian, multiply by 1.212. If sex is not provided, and the patient is female, multiply by 0.742. Results for patients <18 years of age have not been validated by the MDRD study and should be interpreted with caution. eGFR Result Interpretation:eGFR > or=60 is in the Normal RangeeGFR < 60 may mean kidney diseaseeGFR < 15 may mean kidney failure Ranges recommended by the National Kidney Foundation, http://nkdep.nih.gov eGFR Non-AA (test code=eGFR Non-AA) 58.87 mL/min/1.73 m2 eGFR (estimated Glomerular Filtration Rate) is an estimated value, calculated from the patient's serum creatinine using the MDRD equation. It is NOT the patient's actual GFR. The eGFR provides a more clinically useful measure of kidney disease than serum creatinine alone.This calculation takes sex and race into account, if the information is provided. If the race is not provided, and the patient is -Austrian, multiply by 1.212. If sex is not provided, and the patient is female, multiply by 0.742. Results for patients <18 years of age have not been validated by the MDRD study and should be interpreted with caution. eGFR Result Interpretation:eGFR > or=60 is in the Normal RangeeGFR < 60 may mean kidney diseaseeGFR < 15 may mean kidney failure Ranges recommended by the National Kidney Foundation, http://nkdep.nih.gov Complete Blood Count with [id number] 05:51:19* Test Item Value Reference Range Comments WBC (test code=WBC) 11.3 x10 4.4-10.5 RBC (test code=RBC) 4.29 x10 4.10-5.70 Hgb (test code=Hgb) 13.4 g/dL 13.4-17.4 MCV (test code=MCV) 93.70 fL 80.00-100.00 Hct (test code=Hct) 40.2 % 38.7-52.0 MCHC (test code=MCHC) 33.30 g/dL 32.00-37.50 RDW CV (test code=RDW CV) 12.9 % 11.5-14.5 MCH (test code=MCH) 31.2 pg 27.0-32.5 Platelets (test code=Platelets) 197.0 x10 140.0-440.0 MPV (test code=MPV) 11.0 fL Slide Review (test code=Slide Review) Auto Auto Result created by [email or web address]_AUTO nRBC (test code=nRBC) 0 NRBC Abs (test code=NRBC Abs) 0.00 x10 IPF (test code=IPF) 0 % Automated [id number] 05:51:19* Test Item Value Reference Range Comments Neutro Auto (test code=Neutro Auto) 79.6 % 36.0-70.0 Lymph Auto (test code=Lymph Auto) 11.5 % 12.0-44.0 [place] Auto (test code=[place] Auto) 7.2 % 0.0-11.0 Eos, Auto (test code=Eos, Auto) 1.1 % 0.0-7.0 Basophil Auto (test code=Basophil Auto) 0.3 % 0.0-2.0 Neutro Absolute (test code=Neutro Absolute) 9.0 x10 1.6-7.4 Lymph Absolute (test code=Lymph Absolute) 1.30 x10 .50-4.60 [place] Absolute (test code=[place] Absolute) .81 x10 .00-1.20 Eos Absolute (test code=Eos Absolute) 0.12 x10 0.00-0.74 Baso Absolute (test code=Baso Absolute) 0.03 x10 0.00-0.21 IG [id number] 05:51:19* Test Item Value Reference Range Comments IG (test code=IG) 0.3 % 0.0-5.0 IG Abs (test code=IG Abs) 0 x10 XR Chest 1 View [id number] 23:18:50Patient: ERIK DONATO Date/Time03/09/2019 22:49 CDTReason for ExamCongestionReportAFTER HOURS SERVICE ON: 03/09/2019 11:18 PMAP Portable ChestLocation Code [id number]: CongestionFINDINGS:Small left basilar subsegmental atelectasis. No confluent consolidation is seen. Comparison is made to the prior of 03/06/2019. There are no pleural effusions. There is no pneumothorax. Again noted is a tortuous aorta. Cardiac silhouette is within normal limits.IMPRESSION:Mild left basilar subsegmental atelectasis. Final Dictated by: MD Lockett Mohammad TDictated DT/TM: 03/09/2019 11:18 pmSigned by: MD Lockett Mohammad TSigned (Electronic Signature): 03/09/2019 11:18 pmBasi Metabolic [id number] 06:53:11* Test Item Value Reference Range Comments Sodium Level (test code=Sodium Level) 142.0 mmol/L 135.0-145.0 Potassium Level (test code=Potassium Level) 4.2 mmol/L 3.5-5.1 Chloride Level (test code=Chloride Level) 108 mmol/L 98-105 CO2 (test code=CO2) 22 mmol/L 22-29 Anion Gap (test code=Anion Gap) 12 mmol/L 7-16 BUN (test code=BUN) 15.50 mg/dL 8.00-23.00 Creatinine Level (test code=Creatinine Level) 1.20 mg/dL 0.70-1.20 BUN/Creat Ratio (test code=BUN/Creat Ratio) 13 Glucose Level (test code=Glucose Level) 117 mg/dL 70-115 Calcium Level (test code=Calcium Level) 8.6 mg/dL 8.3-10.5 Magnesium [id number] 06:53:11* Test Item Value Reference Range Comments Magnesium Level (test code=Magnesium Level) 2.2 mg/dL 1.7-2.5 Basic Metabolic [id number] 06:53:11* Test Item Value Reference Range Comments Sodium Level (test code=Sodium Level) 142.0 mmol/L 135.0-145.0 Potassium Level (test code=Potassium Level) 4.2 mmol/L 3.5-5.1 Chloride Level (test code=Chloride Level) 108 mmol/L 98-105 CO2 (test code=CO2) 22 mmol/L 22-29 Anion Gap (test code=Anion Gap) 12 mmol/L 7-16 BUN (test code=BUN) 15.50 mg/dL 8.00-23.00 Creatinine Level (test code=Creatinine Level) 1.20 mg/dL 0.70-1.20 BUN/Creat Ratio (test code=BUN/Creat Ratio) 13 Glucose Level (test code=Glucose Level) 117 mg/dL 70-115 Calcium Level (test code=Calcium Level) 8.6 mg/dL 8.3-10.5 eGFR AA (test code=eGFR AA) >60 mL/min/1.73 m2 eGFR (estimated Glomerular Filtration Rate) is an estimated value, calculated from the patient's serum creatinine using the MDRD equation. It is NOT the patient's actual GFR. The eGFR provides a more clinically useful measure of kidney disease than serum creatinine alone.This calculation takes sex and race into account, if the information is provided. If the race is not provided, and the patient is -Austrian, multiply by 1.212. If sex is not provided, and the patient is female, multiply by 0.742. Results for patients <18 years of age have not been validated by the MDRD study and should be interpreted with caution. eGFR Result Interpretation:eGFR > or=60 is in the Normal RangeeGFR < 60 may mean kidney diseaseeGFR < 15 may mean kidney failure Ranges recommended by the National Kidney Foundation, http://nkdep.nih.gov Phosphorus [id number] 06:53:11* Test Item Value Reference Range Comments Phosphorus Level (test code=Phosphorus Level) 3.20 mg/dL 2.70-4.50 Basic Metabolic [id number] 06:53:11* Test Item Value Reference Range Comments Sodium Level (test code=Sodium Level) 142.0 mmol/L 135.0-145.0 Potassium Level (test code=Potassium Level) 4.2 mmol/L 3.5-5.1 Chloride Level (test code=Chloride Level) 108 mmol/L 98-105 CO2 (test code=CO2) 22 mmol/L 22-29 Anion Gap (test code=Anion Gap) 12 mmol/L 7-16 BUN (test code=BUN) 15.50 mg/dL 8.00-23.00 Creatinine Level (test code=Creatinine Level) 1.20 mg/dL 0.70-1.20 BUN/Creat Ratio (test code=BUN/Creat Ratio) 13 Glucose Level (test code=Glucose Level) 117 mg/dL 70-115 Calcium Level (test code=Calcium Level) 8.6 mg/dL 8.3-10.5 eGFR AA (test code=eGFR AA) >60 mL/min/1.73 m2 eGFR (estimated Glomerular Filtration Rate) is an estimated value, calculated from the patient's serum creatinine using the MDRD equation. It is NOT the patient's actual GFR. The eGFR provides a more clinically useful measure of kidney disease than serum creatinine alone.This calculation takes sex and race into account, if the information is provided. If the race is not provided, and the patient is -[place], multiply by 1.212. If sex is not provided, and the patient is female, multiply by 0.742. Results for patients <18 years of age have not been validated by the MDRD study and should be interpreted with caution. eGFR Result Interpretation:eGFR > or=60 is in the Normal RangeeGFR < 60 may mean kidney diseaseeGFR < 15 may mean kidney failure Ranges recommended by the National Kidney Foundation, http://nkdep.nih.gov eGFR Non-AA (test code=eGFR Non-AA) 58.87 mL/min/1.73 m2 eGFR (estimated Glomerular Filtration Rate) is an estimated value, calculated from the patient's serum creatinine using the MDRD equation. It is NOT the patient's actual GFR. The eGFR provides a more clinically useful measure of kidney disease than serum creatinine alone.This calculation takes sex and race into account, if the information is provided. If the race is not provided, and the patient is -[place], multiply by 1.212. If sex is not provided, and the patient is female, multiply by 0.742. Results for patients <18 years of age have not been validated by the MDRD study and should be interpreted with caution. eGFR Result Interpretation:eGFR > or=60 is in the Normal RangeeGFR < 60 may mean kidney diseaseeGFR < 15 may mean kidney failure Ranges recommended by the National Kidney Foundation, http://nkdep.nih.gov Complete Blood Count with [id number] 06:22:49* Test Item Value Reference Range Comments WBC (test code=WBC) 11.7 x10 4.4-10.5 RBC (test code=RBC) 4.21 x10 4.10-5.70 Hgb (test code=Hgb) 13.0 g/dL 13.4-17.4 MCV (test code=MCV) 94.10 fL 80.00-100.00 Hct (test code=Hct) 39.6 % 38.7-52.0 MCHC (test code=MCHC) 32.80 g/dL 32.00-37.50 RDW CV (test code=RDW CV) 13.2 % 11.5-14.5 MCH (test code=MCH) 30.9 pg 27.0-32.5 Platelets (test code=Platelets) 200.0 x10 140.0-440.0 MPV (test code=MPV) 10.5 fL Slide Review (test code=Slide Review) Auto Auto Result created by [email or web address]_REV_AUTO nRBC (test code=nRBC) 0 NRBC Abs (test code=NRBC Abs) 0.00 x10 IPF (test code=IPF) 0 % Automated [id number] 06:22:49* Test Item Value Reference Range Comments Neutro Auto (test code=Neutro Auto) 77.5 % 36.0-70.0 Lymph Auto (test code=Lymph Auto) 12.4 % 12.0-44.0 [place] Auto (test code=[place] Auto) 8.8 % 0.0-11.0 Eos, Auto (test code=Eos, Auto) 0.7 % 0.0-7.0 Basophil Auto (test code=Basophil Auto) 0.3 % 0.0-2.0 Neutro Absolute (test code=Neutro Absolute) 9.0 x10 1.6-7.4 Lymph Absolute (test code=Lymph Absolute) 1.45 x10 .50-4.60 [place] Absolute (test code=[place] Absolute) 1.03 x10 .00-1.20 Eos Absolute (test code=Eos Absolute) 0.08 x10 0.00-0.74 Baso Absolute (test code=Baso Absolute) 0.04 x10 0.00-0.21 IG [id number] 06:22:49* Test Item Value Reference Range Comments IG (test code=IG) 0.3 % 0.0-5.0 IG Abs (test code=IG Abs) 0 x10 Complete Blood Count without [id number] 11:40:37* Test Item Value Reference Range Comments WBC (test code=WBC) 12.2 x10 4.4-10.5 RBC (test code=RBC) 4.34 x10 4.10-5.70 Hgb (test code=Hgb) 13.5 g/dL 13.4-17.4 Hct (test code=Hct) 40.6 % 38.7-52.0 MCV (test code=MCV) 93.50 fL 80.00-100.00 MCH (test code=MCH) 31.1 pg 27.0-32.5 MCHC (test code=MCHC) 33.30 g/dL 32.00-37.50 RDW CV (test code=RDW CV) 13.1 % 11.5-14.5 Platelets (test code=Platelets) 214.0 x10 140.0-440.0 MPV (test code=MPV) 11.0 fL nRBC (test code=nRBC) 0 NRBC Abs (test code=NRBC Abs) 0.00 x10 IPF (test code=IPF) 0 % XR Modified Barium [id number] 10:01:50Patient: ERIK DONATO Date/Time03/08/2019 09:45 CDTReason for Examaspiration pre;Other (please specify)ReportMODIFIED BARIUM SWALLOWLOCATION CODE: R 16HISTORY: Aspiration precautions. DysphagiaTECHNIQUE: Static fluoroscopic images of the upper airway were obtained during ingestion of various radiopaque liquids/foods under direct supervision and guidance of a speech therapist.FLUORO TIME: 84.2 secondsFINDINGS:#1 Thin Liquids:Aspiration with cup.#2 [place] Consistency:Aspiration with straw#3Pudding Consistency:There was no evidence of aspiration.IMPRESSION:Evidence of aspirationFor further evaluation of the swallowing mechanism, please see speech pathologist report. Final Dictated by: MD Ying, Kendra FDictated DT/TM: 03/08/2019 10:00 amSigned by: MD He Eniola FSigned (Elec tronic Signature): 03/08/2019 10:01 amUrine [id number] 09:47:11* Test Item Value Reference Range Comments ORGANISM (test code=ORGANISM) Escherichia coli Amikacin (test code=Amik) Ampicillin (test code=Amp) Ampicillin/Sulbactam (test code=Amp/Sul) Cefazolin (test code=Cefaz) Cefepime (test code=Cefep) Cefotaxime (test code=Cefo) Ceftazidime (test code=Ceftaz) Ceftriaxone (test code=Ceftri) Cefuroxime (test code=Cefur) Ciprofloxacin (test code=Cipro) Gentamicin (test code=Gent) Imipenem (test code=Imi) Levofloxacin (test code=Levo) Meropenem (test code=Mackenzie) Nitrofurantoin (test code=Nitro) Piperacillin/Tazobactam (test code=Pip/Naman) Tobramycin (test code=Tobra) Trimethoprim/Sulfa (test code=SXT) Final Report (test code=Final Report) >=100,000 cfu/ml Escherichia coli 30,000 cfu/ml Diphtheroids C Urine Added by GL_SJM_UA_CUL_INDLipid [id number] 06:56:21* Test Item Value Reference Range Comments Cholesterol Total (test code=Cholesterol Total) 177 mg/dL 0-200 RISK OF HEART DISEASEPublished by [employer] Analyte Optimal Borderline Increased RiskCHOL <200 200-239 >240TRIG <150 150-199 >200HDL Male >60 <40HDL Female >60 <50LDL <100 130-159 >160LDL Near optimal is 100-129 Triglycerides (test code=Triglycerides) 111 mg/dL 9-200 HDL (test code=HDL) 40 mg/dL 40-60 LDL (test code=LDL) 115 mg/dL 0-130 The equation being used in this calculation is LDL=(Chol - HDL) - (Trig / 5) VLDL (test code=VLDL) 22 mg/dL 5-40 The equation being used in this calculation is VLDL=Trig / 5 Chol/HDL (test code=Chol/HDL) 4.4 ratio 0.0-5.0 LDL/HDL Ratio (test code=LDL/HDL Ratio) 3 The equation being used in this calculation is LDL/HDL Ratio=LDL Calc/HDL Chol Troponin [id number] 18:09:02* Test Item Value Reference Range Comments Troponin-T (test code=Troponin-T) 10.290 ng/L 0.000-22.000 The CV of the assay at 99th percentile for both male and female patient population is < 10%. A rise and fall in BONITA with at least one value above the 99th percentile with clinical evidence of myocardial ischemia would support a diagnosis of AMI. A delta of at least 20% is recommended to access acute changes in results above the 99th percentile in serial measurements. Stable BONITA levels (<20%) delta above the 99th percentile URL would support a diagnosis of chronic myocardial injury. CT Angio [id number] 14:48:26Patient: DONATOERIK Dexter Date/Time03/07/2019 13:05 CDTReason for ExamEval ICA stenosis;Slurred speechReportCT Angio NeckHISTORY: Slurred speech;Eval ICA stenosisTECHNIQUE: Axial CT images were obtained from the aortic arch to the skull base after intravenous contrast utilizing CTA protocol. Maximum intensity projection images were created from the data set.One or more of the following dose reduction techniques were used: Automated exposure control, adjustment of the mA and/or kV according to patient size, and/or iterative reconstruction.COMPARISON: NoneFINDINGS:The imaged aortic arch is normal. The origins of the brachiocephalic, bilateral common carotid, and bilateral subclavian arteries are without significant stenosis.Right dominant vertebral artery system. The left vertebral artery demonstrates severe short segment stenosis in its distal V4 segment at the level of C2.The bilateral common carotid arteries are without significant stenosis or aneurysm. Mild calcified atherosclerotic plaque at the bilateral carotid bulbs. Mild stenosis of the ri ght ICA is noted estimated at less than 10%. Moderate 50% stenosis of the proxim al left ICA. Ectasia of the left ICA origin is noted.There is no evidence of art erial dissection, significant stenosis, occlusion, extravasation of contrast mat erial, arteriovenous fistula or pseudoaneurysm.Maximum intensity projection imag es confirm these findings.IMPRESSION:1. Moderate 50% stenosis of the left proxim al ICA.2. Severe stenosis of the left vertebral artery V4 segment at the level o f C2. Final Dictated by: MD Baez Roman PDictated DT/TM: 9 2:43 pmSigned by: MD Baez Roman PSigned (Electronic Signature): 03/07/2019 2:48 pmComprehensive Metabolic [id number] 07:06:15* Test Item Value Reference Range Comments Sodium Level (test code=Sodium Level) 143.0 mmol/L 135.0-145.0 Potassium Level (test code=Potassium Level) 4.6 mmol/L 3.5-5.1 Chloride Level (test code=Chloride Level) 108 mmol/L 98-105 CO2 (test code=CO2) 23 mmol/L 22-29 Anion Gap (test code=Anion Gap) 12 mmol/L 7-16 BUN (test code=BUN) 10.30 mg/dL 8.00-23.00 Creatinine Level (test code=Creatinine Level) 1.10 mg/dL 0.70-1.20 BUN/Creat Ratio (test code=BUN/Creat Ratio) 9 Glucose Level (test code=Glucose Level) 106 mg/dL 70-115 Calcium Level (test code=Calcium Level) 8.9 mg/dL 8.3-10.5 Alk Phos (test code=Alk Phos) 135 U/L 40-129 Bilirubin Total (test code=Bilirubin Total) 0.3 mg/dL 0.1-0.9 Albumin Level (test code=Albumin Level) 3.8 g/dL 3.5-5.2 Protein Total (test code=Protein Total) 6.0 g/dL 6.4-8.3 ALT (test code=ALT) 9 U/L 1-41 AST (test code=AST) 12 U/L 1-40 Globulin (test code=Globulin) 2.2 g/dL 2.9-3.1 A/G Ratio (test code=A/G Ratio) 1.7 ratio eGFR AA (test code=eGFR AA) >60 mL/min/1.73 m2 eGFR (estimated Glomerular Filtration Rate) is an estimated value, calculated from the patient's serum creatinine using the MDRD equation. It is NOT the patient's actual GFR. The eGFR provides a more clinically useful measure of kidney disease than serum creatinine alone.This calculation takes sex and race into account, if the information is provided. If the race is not provided, and the patient is -Aust[place], multiply by 1.212. If sex is not provided, and the patient is female, multiply by 0.742. Results for patients <18 years of age have not been validated by the MDRD study and should be interpreted with caution. eGFR Result Interpretation:eGFR > or=60 is in the Normal RangeeGFR < 60 may mean kidney diseaseeGFR < 15 may mean kidney failure Ranges recommended by the National Kidney Foundation, http://nkdep.nih.gov Comprehensive Metabolic [id number] 07:06:15* Test Item Value Reference Range Comments Sodium Level (test code=Sodium Level) 143.0 mmol/L 135.0-145.0 Potassium Level (test code=Potassium Level) 4.6 mmol/L 3.5-5.1 Chloride Level (test code=Chloride Level) 108 mmol/L 98-105 CO2 (test code=CO2) 23 mmol/L 22-29 Anion Gap (test code=Anion Gap) 12 mmol/L 7-16 BUN (test code=BUN) 10.30 mg/dL 8.00-23.00 Creatinine Level (test code=Creatinine Level) 1.10 mg/dL 0.70-1.20 BUN/Creat Ratio (test code=BUN/Creat Ratio) 9 Glucose Level (test code=Glucose Level) 106 mg/dL 70-115 Calcium Level (test code=Calcium Level) 8.9 mg/dL 8.3-10.5 Alk Phos (test code=Alk Phos) 135 U/L 40-129 Bilirubin Total (test code=Bilirubin Total) 0.3 mg/dL 0.1-0.9 Albumin Level (test code=Albumin Level) 3.8 g/dL 3.5-5.2 Protein Total (test code=Protein Total) 6.0 g/dL 6.4-8.3 ALT (test code=ALT) 9 U/L 1-41 AST (test code=AST) 12 U/L 1-40 Globulin (test code=Globulin) 2.2 g/dL 2.9-3.1 A/G Ratio (test code=A/G Ratio) 1.7 ratio eGFR AA (test code=eGFR AA) >60 mL/min/1.73 m2 eGFR (estimated Glomerular Filtration Rate) is an estimated value, calculated from the patient's serum creatinine using the MDRD equation. It is NOT the patient's actual GFR. The eGFR provides a more clinically useful measure of kidney disease than serum creatinine alone.This calculation takes sex and race into account, if the information is provided. If the race is not provided, and the patient is -Austrian, multiply by 1.212. If sex is not provided, and the patient is female, multiply by 0.742. Results for patients <18 years of age have not been validated by the MDRD study and should be interpreted with caution. eGFR Result Interpretation:eGFR > or=60 is in the Normal RangeeGFR < 60 may mean kidney diseaseeGFR < 15 may mean kidney failure Ranges recommended by the National Kidney Foundation, http://nkdep.nih.gov Comprehensive Metabolic [id number] 07:06:15* Test Item Value Reference Range Comments Sodium Level (test code=Sodium Level) 143.0 mmol/L 135.0-145.0 Potassium Level (test code=Potassium Level) 4.6 mmol/L 3.5-5.1 Chloride Level (test code=Chloride Level) 108 mmol/L 98-105 CO2 (test code=CO2) 23 mmol/L 22-29 Anion Gap (test code=Anion Gap) 12 mmol/L 7-16 BUN (test code=BUN) 10.30 mg/dL 8.00-23.00 Creatinine Level (test code=Creatinine Level) 1.10 mg/dL 0.70-1.20 BUN/Creat Ratio (test code=BUN/Creat Ratio) 9 Glucose Level (test code=Glucose Level) 106 mg/dL 70-115 Calcium Level (test code=Calcium Level) 8.9 mg/dL 8.3-10.5 Alk Phos (test code=Alk Phos) 135 U/L 40-129 Bilirubin Total (test code=Bilirubin Total) 0.3 mg/dL 0.1-0.9 Albumin Level (test code=Albumin Level) 3.8 g/dL 3.5-5.2 Protein Total (test code=Protein Total) 6.0 g/dL 6.4-8.3 ALT (test code=ALT) 9 U/L 1-41 AST (test code=AST) 12 U/L 1-40 Globulin (test code=Globulin) 2.2 g/dL 2.9-3.1 A/G Ratio (test code=A/G Ratio) 1.7 ratio eGFR AA (test code=eGFR AA) >60 mL/min/1.73 m2 eGFR (estimated Glomerular Filtration Rate) is an estimated value, calculated from the patient's serum creatinine using the MDRD equation. It is NOT the patient's actual GFR. The eGFR provides a more clinically useful measure of kidney disease than serum creatinine alone.This calculation takes sex and race into account, if the information is provided. If the race is not provided, and the patient is -Austrian, multiply by 1.212. If sex is not provided, and the patient is female, multiply by 0.742. Results for patients <18 years of age have not been validated by the MDRD study and should be interpreted with caution. eGFR Result Interpretation:eGFR > or=60 is in the Normal RangeeGFR < 60 may mean kidney diseaseeGFR < 15 may mean kidney failure Ranges recommended by the National Kidney Foundation, http://nkdep.nih.gov eGFR Non-AA (test code=eGFR Non-AA) >60.00 mL/min/1.73 m2 eGFR (estimated Glomerular Filtration Rate) is an estimated value, calculated from the patient's serum creatinine using the MDRD equation. It is NOT the patient's actual GFR. The eGFR provides a more clinically useful measure of kidney disease than serum creatinine alone.This calculation takes sex and race into account, if the information is provided. If the race is not provided, and the patient is -Austrian, multiply by 1.212. If sex is not provided, and the patient is female, multiply by 0.742. Results for patients <18 years of age have not been validated by the MDRD study and should be interpreted with caution. eGFR Result Interpretation:eGFR > or=60 is in the Normal RangeeGFR < 60 may mean kidney diseaseeGFR < 15 may mean kidney failure Ranges recommended by the National Kidney Foundation, http://nkdep.nih.gov Automated [id number] 06:26:58* Test Item Value Reference Range Comments Neutro Auto (test code=Neutro Auto) 75.5 % 36.0-70.0 Lymph Auto (test code=Lymph Auto) 14.7 % 12.0-44.0 [place] Auto (test code=[place] Auto) 7.7 % 0.0-11.0 Eos, Auto (test code=Eos, Auto) 1.2 % 0.0-7.0 Basophil Auto (test code=Basophil Auto) 0.4 % 0.0-2.0 Neutro Absolute (test code=Neutro Absolute) 8.1 x10 1.6-7.4 Lymph Absolute (test code=Lymph Absolute) 1.57 x10 .50-4.60 [place] Absolute (test code=[place] Absolute) .82 x10 .00-1.20 Eos Absolute (test code=Eos Absolute) 0.13 x10 0.00-0.74 Baso Absolute (test code=Baso Absolute) 0.04 x10 0.00-0.21 IG [id number] 06:26:58* Test Item Value Reference Range Comments IG (test code=IG) 0.5 % 0.0-5.0 IG Abs (test code=IG Abs) 0 x10 Complete Blood Count with [id number] 06:26:57* Test Item Value Reference Range Comments WBC (test code=WBC) 10.7 x10 4.4-10.5 RBC (test code=RBC) 4.30 x10 4.10-5.70 Hgb (test code=Hgb) 13.1 g/dL 13.4-17.4 Hct (test code=Hct) 40.1 % 38.7-52.0 MCV (test code=MCV) 93.30 fL 80.00-100.00 MCHC (test code=MCHC) 32.70 g/dL 32.00-37.50 RDW CV (test code=RDW CV) 13.1 % 11.5-14.5 MCH (test code=MCH) 30.5 pg 27.0-32.5 Platelets (test code=Platelets) 199.0 x10 140.0-440.0 MPV (test code=MPV) 11.0 fL Slide Review (test code=Slide Review) Auto Auto Result created by [email or web address]_REV_AUTO nRBC (test code=nRBC) 0 NRBC Abs (test code=NRBC Abs) 0.00 x10 IPF (test code=IPF) 0 % MRI Brain w/o [id number] 04:54:05Patient: ERIK DNOATO Date/Time03/07/2019 04:14 CDTReason for ExamConfusionAddendumADDENDUM:Results were verbally communicated by telephone to charge nurse Rosemary Nix on 03/07/2019 4:50 AM by [facility] on-call. Final Dictated by: MD Lockett Mohammad TDictated DT/TM: 03/07/2019 4:53 amSigned by: MD Lockett Mohammad TSigned (Electronic Signature): 03/07/2019 4:54 amReportAFTER HOURS SERVICE ON: 03/07/2019 4:29 AMMRI of the Brain Without ContrastLocation Code B05Skxzloj: ConfusionTechnique: Multiplanar, multisequence images were obtained pre IV contrast.Findings:Advanced chronic ischemic periventricular white matter changes are seen. Small lacunar infarcts noted in the basal ganglia. 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 Small bilateral pontine areas of impression active diffusion are seen measuring 7 and 4 mm suggestive of acute or subacute infarcts. Possible similar lesion is noted in the right thalamus. There is no large territorial infarct. There is no midline shift or mass effect. No acute hemorrhage.Impression:Small acute or subacute subcentimeter infarcts in the prisca and possibly the right thalamus.No hemorrhage, midline shift or mass effect.FOR INTERNAL CODING PURPOSES ONLYCRITICAL RESULT CODE: CVRRN Final Di ctated by: MD Lockett Mohammad TDictated DT/TM: 03/07/2019 4:29 amSigned b y: MD Lockett Mohammad TSigned (Electronic Signature): 03/07/2019 4:33 amRe port last revised on 03/07/2019 04:54 CDT by MD Lockett Mohammad [facility] Brain w/o Veyjqgxi9615-06-20 04:33:43Patient: ERIK DONATO Date/Time03/07/2019 04:14 CDTReason for ExamConfusionReportAFTER HOURS SERVICE ON: 03/07/2019 4:29 AMMRI of the Brain Without ContrastLocation Code S40Hojtjeo: ConfusionTechnique: Multiplanar, multisequence images were obtained pre IV contrast.Findings:Advanced chronic ischemic periventricular white matter changes are seen. Small lacunar infarcts noted in the basal ganglia. 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 Small bilateral pontine areas of impression active diffusion are seen measuring 7 and 4 mm suggestive of acute or subacute infarcts. Possible similar lesion is noted in the right thalamus. There is no large territorial infarct. There is no midline shift or mass effect. No acute hemorrhage.Impression:Small acute or subacute subcentimeter infarcts in the prisca and possibly the right thalamus.No hemorrhage, midline shift or mass effect.FOR INTERNAL CODING PURPOSES ONLYCRITICAL RESULT CODE: CVRRN Final Dictated by: MD Lockett Mohammad TDictated DT/TM: 03/07/2019 4:29 amSigned by: MD Lockett Mohammad TSigned (Electronic Signature): 03/07/2019 4:33 amUS Carotid Duplex [id number] 23:34:39Patient: ERIK DONATO Date/Time03/06/2019 23:00 CDTReason for UpucTbeuddexzEiqttlR39YGOTBPW DUPLEX ULTRASOUNDHISTORY: DizzinessTECHNIQUE: Grayscale real-time B-mode imaging with spectral and color flow Doppler analysis was performed of the neck to evaluate the extracranial carotid system.COMPARISON: NoneFINDINGS:Peak systolic velocities in cm/sec:Right CCA: 66Right ICA: 58Right ECA: 89Left CCA: 67Left ICA: 243Left ECA: 126Right IC/CC ratio: 0.9Left IC/CC ratio: 3.6Moderate atherosclerotic calcification in both carotid bulbs and in the left internal carotid artery.Antegrade flow seen in both vertebral arteries.IMPRESSION:Flow velocities suggest severe (greater than 70%) stenosis in the left internal carotid artery; however, there is not high-grade plaque in the left internal carotid artery. Consider further ev aluation with CTA.No significant stenosis in the right internal carotid artery.N OTE: Degree of stenosis is based on velocity criteria as defined by the Society of Radiologists in Ultrasound Consensus Conference Radiology 2003. Final * Dictated by: MD Lino VivekDictated DT/TM: 03/06/2019 11:28 pmSigned b y: MD Holland, Aracelis (Electronic Signature): 03/06/2019 11:34 pm Urinalysis [id number] 19:52:58* Test Item Value Reference Range Comments UA WBC (test code=UA WBC) TNTC 0-5 UA RBC (test code=UA RBC) 0-5 0-5 UA Bacteria (test code=UA Bacteria) Many UA Squam Epithelial (test code=UA Squam Epithelial) 0-5 Urinalysis with Culture, if [id number] 19:37:16* Test Item Value Reference Range Comments UA Color (test code=UA Color) YELLO Yellow UA Appear (test code=UA Appear) SCLD Clear UA pH (test code=UA pH) 5 UA Spec Grav (test code=UA Spec Grav) 1.010 1.001-1.035 UA Glucose (test code=UA Glucose) NEG Negative UA Bili (test code=UA Bili) NEG Negative UA Ketones (test code=UA Ketones) NEG Negative UA Blood (test code=UA Blood) 50 cells/mcL Negative UA Protein (test code=UA Protein) NEG Negative UA Urobilinogen (test code=UA Urobilinogen) 1 mg/dL >0.2 UA Nitrite (test code=UA Nitrite) POS Negative UA Leuk Est (test code=UA Leuk Est) 500 cells/mcL Negative UA Micro Ind? (test code=UA Micro Ind?) Indicated Not Indicated Result created by rule GL_SJM_UA_MICRO_IND Partial Thromboplastin [id number] 18:39:23* Test Item Value Reference Range Comments Partial Thromboplastin Time (test code=Partial Thromboplastin Time) 35.40 seconds 24.39-37.25 Prothrombin Time and [id number] 18:39:19* Test Item Value Reference Range Comments Prothrombin Time (test code=Prothrombin Time) 12.1 seconds 9.8-13.4 INR (test code=INR) 1.1 ratio 0.6-1.2 Comprehensive Metabolic [id number] 18:33:44* Test Item Value Reference Range Comments Sodium Level (test code=Sodium Level) 140.0 mmol/L 135.0-145.0 Potassium Level (test code=Potassium Level) 4.4 mmol/L 3.5-5.1 Chloride Level (test code=Chloride Level) 103 mmol/L 98-105 CO2 (test code=CO2) 27 mmol/L 22-29 Anion Gap (test code=Anion Gap) 10 mmol/L 7-16 BUN (test code=BUN) 9.60 mg/dL 8.00-23.00 Creatinine Level (test code=Creatinine Level) 1.20 mg/dL 0.70-1.20 BUN/Creat Ratio (test code=BUN/Creat Ratio) 8 Glucose Level (test code=Glucose Level) 93 mg/dL 70-115 Calcium Level (test code=Calcium Level) 9.1 mg/dL 8.3-10.5 Alk Phos (test code=Alk Phos) 147 U/L 40-129 Bilirubin Total (test code=Bilirubin Total) 0.4 mg/dL 0.1-0.9 Albumin Level (test code=Albumin Level) 4.0 g/dL 3.5-5.2 Protein Total (test code=Protein Total) 6.5 g/dL 6.4-8.3 ALT (test code=ALT) 10 U/L 1-41 AST (test code=AST) 13 U/L 1-40 Globulin (test code=Globulin) 2.5 g/dL 2.9-3.1 A/G Ratio (test code=A/G Ratio) 1.6 ratio Creatine [id number] 18:33:44* Test Item Value Reference Range Comments CK (test code=CK) 117 U/L 39-308 Comprehensive Metabolic [id number] 18:33:44* Test Item Value Reference Range Comments Sodium Level (test code=Sodium Level) 140.0 mmol/L 135.0-145.0 Potassium Level (test code=Potassium Level) 4.4 mmol/L 3.5-5.1 Chloride Level (test code=Chloride Level) 103 mmol/L 98-105 CO2 (test code=CO2) 27 mmol/L 22-29 Anion Gap (test code=Anion Gap) 10 mmol/L 7-16 BUN (test code=BUN) 9.60 mg/dL 8.00-23.00 Creatinine Level (test code=Creatinine Level) 1.20 mg/dL 0.70-1.20 BUN/Creat Ratio (test code=BUN/Creat Ratio) 8 Glucose Level (test code=Glucose Level) 93 mg/dL 70-115 Calcium Level (test code=Calcium Level) 9.1 mg/dL 8.3-10.5 Alk Phos (test code=Alk Phos) 147 U/L 40-129 Bilirubin Total (test code=Bilirubin Total) 0.4 mg/dL 0.1-0.9 Albumin Level (test code=Albumin Level) 4.0 g/dL 3.5-5.2 Protein Total (test code=Protein Total) 6.5 g/dL 6.4-8.3 ALT (test code=ALT) 10 U/L 1-41 AST (test code=AST) 13 U/L 1-40 Globulin (test code=Globulin) 2.5 g/dL 2.9-3.1 A/G Ratio (test code=A/G Ratio) 1.6 ratio eGFR AA (test code=eGFR AA) >60 mL/min/1.73 m2 eGFR (estimated Glomerular Filtration Rate) is an estimated value, calculated from the patient's serum creatinine using the MDRD equation. It is NOT the patient's actual GFR. The eGFR provides a more clinically useful measure of kidney disease than serum creatinine alone.This calculation takes sex and race into account, if the information is provided. If the race is not provided, and the patient is -Aust[place], multiply by 1.212. If sex is not provided, and the patient is female, multiply by 0.742. Results for patients <18 years of age have not been validated by the MDRD study and should be interpreted with caution. eGFR Result Interpretation:eGFR > or=60 is in the Normal RangeeGFR < 60 may mean kidney diseaseeGFR < 15 may mean kidney failure Ranges recommended by the National Kidney Foundation, http://nkdep.nih.gov eGFR Non-AA (test code=eGFR Non-AA) 58.87 mL/min/1.73 m2 eGFR (estimated Glomerular Filtration Rate) is an estimated value, calculated from the patient's serum creatinine using the MDRD equation. It is NOT the patient's actual GFR. The eGFR provides a more clinically useful measure of kidney disease than serum creatinine alone.This calculation takes sex and race into account, if the information is provided. If the race is not provided, and the patient is -Austrian, multiply by 1.212. If sex is not provided, and the patient is female, multiply by 0.742. Results for patients <18 years of age have not been validated by the MDRD study and should be interpreted with caution. eGFR Result Interpretation:eGFR > or=60 is in the Normal RangeeGFR < 60 may mean kidney diseaseeGFR < 15 may mean kidney failure Ranges recommended by the National Kidney Foundation, http://nkdep.nih.gov Comprehensive Metabolic [id number] 18:33:44* Test Item Value Reference Range Comments Sodium Level (test code=Sodium Level) 140.0 mmol/L 135.0-145.0 Potassium Level (test code=Potassium Level) 4.4 mmol/L 3.5-5.1 Chloride Level (test code=Chloride Level) 103 mmol/L 98-105 CO2 (test code=CO2) 27 mmol/L 22-29 Anion Gap (test code=Anion Gap) 10 mmol/L 7-16 BUN (test code=BUN) 9.60 mg/dL 8.00-23.00 Creatinine Level (test code=Creatinine Level) 1.20 mg/dL 0.70-1.20 BUN/Creat Ratio (test code=BUN/Creat Ratio) 8 Glucose Level (test code=Glucose Level) 93 mg/dL 70-115 Calcium Level (test code=Calcium Level) 9.1 mg/dL 8.3-10.5 Alk Phos (test code=Alk Phos) 147 U/L 40-129 Bilirubin Total (test code=Bilirubin Total) 0.4 mg/dL 0.1-0.9 Albumin Level (test code=Albumin Level) 4.0 g/dL 3.5-5.2 Protein Total (test code=Protein Total) 6.5 g/dL 6.4-8.3 ALT (test code=ALT) 10 U/L 1-41 AST (test code=AST) 13 U/L 1-40 Globulin (test code=Globulin) 2.5 g/dL 2.9-3.1 A/G Ratio (test code=A/G Ratio) 1.6 ratio eGFR AA (test code=eGFR AA) >60 mL/min/1.73 m2 eGFR (estimated Glomerular Filtration Rate) is an estimated value, calculated from the patient's serum creatinine using the MDRD equation. It is NOT the patient's actual GFR. The eGFR provides a more clinically useful measure of kidney disease than serum creatinine alone.This calculation takes sex and race into account, if the information is provided. If the race is not provided, and the patient is -Austrian, multiply by 1.212. If sex is not provided, and the patient is female, multiply by 0.742. Results for patients <18 years of age have not been validated by the MDRD study and should be interpreted with caution. eGFR Result Interpretation:eGFR > or=60 is in the Normal RangeeGFR < 60 may mean kidney diseaseeGFR < 15 may mean kidney failure Ranges recommended by the National Kidney Foundation, http://nkdep.nih.gov eGFR Non-AA (test code=eGFR Non-AA) 58.87 mL/min/1.73 m2 eGFR (estimated Glomerular Filtration Rate) is an estimated value, calculated from the patient's serum creatinine using the MDRD equation. It is NOT the patient's actual GFR. The eGFR provides a more clinically useful measure of kidney disease than serum creatinine alone.This calculation takes sex and race into account, if the information is provided. If the race is not provided, and the patient is -[place], multiply by 1.212. If sex is not provided, and the patient is female, multiply by 0.742. Results for patients <18 years of age have not been validated by the MDRD study and should be interpreted with caution. eGFR Result Interpretation:eGFR > or=60 is in the Normal RangeeGFR < 60 may mean kidney diseaseeGFR < 15 may mean kidney failure Ranges recommended by the National Kidney Foundation, http://nkdep.nih.gov Creatine Kinase MB [id number] 18:31:57* Test Item Value Reference Range Comments CKMB (test code=CKMB) 1.0 ng/mL 0.0-4.9 Troponin [id number] 18:31:57* Test Item Value Reference Range Comments Troponin-T (test code=Troponin-T) 9.030 ng/L 0.000-22.000 The CV of the assay at 99th percentile for both male and female patient population is < 10%. A rise and fall in BONITA with at least one value above the 99th percentile with clinical evidence of myocardial ischemia would support a diagnosis of AMI. A delta of at least 20% is recommended to access acute changes in results above the 99th percentile in serial measurements. Stable BONITA levels (<20%) delta above the 99th percentile URL would support a diagnosis of chronic myocardial injury. Creatine Kinase MB [id number] 18:31:57* Test Item Value Reference Range Comments CKMB (test code=CKMB) 1.0 ng/mL 0.0-4.9 CKMB % (test code=CKMB %) 0.9 % 0.0-3.4 XR Chest 1 View [id number] 18:23:11Patient: ERIK DONATO Date/Time03/06/2019 18:06 CDTReason for KdncGjcziBmaodjG02YEOH: XR Chest 1 View FrontalHISTORY: CoughCOMPARISON: 10/06/2018FINDINGS:Patchy retrocardiac airspace opacities. No pleural effusion or pneumothorax. The cardiac silhouette is within normal limits. No acute osseous abnormalities.IMPRESSION:Retrocardiac atelectasis and/or pneumonia. Final Dictated by: MD Holland, Jason DT/TM: 03/06/2019 6:22 pmSigned by: MD Lino VivekSigned (Electronic Signature): 03/06/2019 6:23 pmCT Brain/Head w/o [id number] 18:14:54Patient: ERIK DONATO Date/Time03/06/2019 17:59 CDTReason for ExamSlurred omefofHsswkdM35NA HEAD WITHOUT CONTRASTHISTORY: Slurred speechTECHNIQUE: Axial CT images from the skull base to the vertex without intravenous contrast. Coronal and sagittal reformatted images were created from the data set.One or more of the following dose reduction techniques were used: Automated exposure control, adjustment of the mA and/or kV according to patient size, and/or iterative reconstruction.COMPARISON: 05/07/2018FINDINGS:Multiple white matter hypodensities. Chronic lacunar infarctions in bilateral corpora striata. No evidence of acute infarction, intracranial hemorrhage, mass or mass effect, or abnormal extra-axial fluid collection.The ventricles are normal in size, shape and position.The density in the larger dural sinuses is grossly normal.The osseous structures and orbits have no significant abnormalities. The visualized paranasal sinuses and mastoid air cells are predominantly clear.IMPRESSION:Moderate white matter microvascular disease.No acute intracrani al abnormality. Final Dictated by: MD Holland, Jason DT/TM: 03/06/2019 6:13 pmSigned by: MD Holland, Aracelis (Electronic Signature): 03/06/2019 6:14 pmComplete Blood Count with [id number] 18:13:42* Test Item Value Reference Range Comments WBC (test code=WBC) 9.2 x10 4.4-10.5 RBC (test code=RBC) 4.43 x10 4.10-5.70 Hgb (test code=Hgb) 13.7 g/dL 13.4-17.4 MCV (test code=MCV) 93.90 fL 80.00-100.00 Hct (test code=Hct) 41.6 % 38.7-52.0 MCHC (test code=MCHC) 32.90 g/dL 32.00-37.50 RDW CV (test code=RDW CV) 13.0 % 11.5-14.5 MCH (test code=MCH) 30.9 pg 27.0-32.5 Platelets (test code=Platelets) 223.0 x10 140.0-440.0 MPV (test code=MPV) 10.8 fL Slide Review (test code=Slide Review) Auto Auto Result created by [email or web address] nRBC (test code=nRBC) 0 NRBC Abs (test code=NRBC Abs) 0.00 x10 IPF (test code=IPF) 0 % Automated [id number] 18:13:42* Test Item Value Reference Range Comments Neutro Auto (test code=Neutro Auto) 74.6 % 36.0-70.0 Lymph Auto (test code=Lymph Auto) 16.0 % 12.0-44.0 [place] Auto (test code=[place] Auto) 7.2 % 0.0-11.0 Eos, Auto (test code=Eos, Auto) 1.4 % 0.0-7.0 Basophil Auto (test code=Basophil Auto) 0.4 % 0.0-2.0 Neutro Absolute (test code=Neutro Absolute) 6.8 x10 1.6-7.4 Lymph Absolute (test code=Lymph Absolute) 1.47 x10 .50-4.60 [place] Absolute (test code=[place] Absolute) .66 x10 .00-1.20 Eos Absolute (test code=Eos Absolute) 0.13 x10 0.00-0.74 Baso Absolute (test code=Baso Absolute) 0.04 x10 0.00-0.21 IG [id number] 18:13:42* Test Item Value Reference Range Comments IG (test code=IG) 0.4 % 0.0-5.0 IG Abs (test code=IG Abs) 0 x10 XR Chest 2 [id number] 12:46:20Patient: ERIK DONATO Date/Time10/06/2018 12:08 CSTReason for ExamsmokerReportPA AND LATERAL CHEST:CLINICAL INFORMATION: smokerCOMPARISONS: Chest radiograph dated January 24, 2018FINDINGS:Lines and tubes: NoneLungs and pleura: The lungs are slightly hyperinflated. No acute airspace consolidation is seen. There is no pneumothorax or pleural effusion.Heart and mediastinum: The heart size is normal. The aorta is ectatic and tortuous.Bones and soft tissues: Mild thoracic spondylosis is noted.IMPRESSION:1. COPD.2. Ectatic aorta.Location: R16 Final Dictated by: MD Hicks Adam FDictated DT/TM: 10/06/2018 12:14 pmSigned by: MD Hicks Adam FSigned (Electronic Signature): 10/06/2018 12:46 pmCT Brain/Head w/o [id number] 23:13:17 Patient: ERIK DONATO am Date/Time05/07/2018 23:07 CDTReason for Exam?seizure;Head injuryReportCT Brain/ Head w/o ContrastLocation:[facility] hours services provided 05/07/2018 11:11 PMIndic ation:Head injury;?seizureComparison:Not availableTechnique: Axial CT images wer e acquired through the brain without contrast. Sagittal and coronal reformatted images are provided for interpretation. All CT scans at this facility use dose m odulation, iterative reconstruction, and/or weight-based dosing when appropriate to reduce radiation dose to as low as reasonably achievable.Findings:Bilateral periventricular regions of white matter hypodensity are present consistent with chronic microangiopathy. Circumscribed foci of hypodensity are present bilateral ly within the basal ganglia consistent with old lacunar infarcts. No acute intra cranial hemorrhage, mass or area of mass effect is noted. Ventricles and sulci a re prominent consistent with atrophy. The extra-axial spaces are clear. The calv arium is intact. Minimal mucosal edema is present within the right maxillary sin us.Impression: Chronic findings with no acute intracranial abnormality noted. Final Dictated by: MD Christian Dennis PDictated DT/TM: 05/07/2018 1 1:11 pmSigned by: MD Christian Dennis PSigned (Electronic Signature): 018 11:13 pmCT Chest w/o [id number] 13:45:50Patient: ERIK DONATO Date/Time02/02/2018 12:04 CDTReason for ExamR93.8ReportCT Chest w/o ContrastLOCATION CODE: V99TQTKBOG: R93.8 abnormal chest x-rayCOMPARISON: Chest radiograph 01/24/2018 and 12/21/2017TECHNIQUE: CT of the chest was performed without intravenous contrast. Coronal and sagittal reformatted images were created.One or more of the following dose reduction techniques were used: Automated exposure control, adjustment of the mA and/or kV according to patient size, and/or utilization of iterative reconstruction technique.DISCUSSION:Lungs and airways:The central a irways are clear.Subtle paraseptal emphysematous changes are seen in the upper l ungs, right greater than left.Mild groundglass and interstitial opacities are se en in the bilateral lower lungs, right greater than left.Subtle subpleural retic ular opacities are seen in the upper lungs.There are questionable trace bilatera l pleural effusions.Otherwise, no focal consolidation, or pneumothorax is seen.T here is a punctate calcified granuloma in the left upper lobe.Heart and mediasti num:The heart is normal in size.No pericardial effusion is seen.Calcified dodd ry artery and aortic atherosclerosis is seen.No mediastinal or hilar lymphadenop athy is seen.Upper abdomen: Fatty infiltration of the gastric bean is nonspecif ic. Mild cholelithiasis is present. Both kidneys are mildly atrophic. Mild perin ephric fat stranding can be normal for age. There is mild ectasia of the visuali zed abdominal aorta.Bones/soft tissues: There are mild to moderate degenerative changes throughout the spineIMPRESSION:1. Nonspecific mild groundglass and int erstitial opacities in the lower lungs, right greater than left, may be due to p neumonitis. Associated subtle subpleural reticular opacities in the upper lungs. Nonspecific interstitial pneumonia pattern of interstitial lung disease should also be considered.2. Questionable trace bilateral pleural effusions.3. Othe rwise, no acute abnormalities in the chest.4. Subtle paraseptal emphysematous changes, right greater than left. Final Dictated by: MD Inman A lfred EDictated DT/TM: 02/02/2018 1:32 pmSigned by: MD Inman Alfred ESigned (Electronic Signature): 02/02/2018 1:45 pmXR Chest 2 [id number] 12:10:51 Patient: ERIK DONATO am Date/Time01/24/2018 12:04 CDTReason for ExamsmokerReportEXAM: Chest x-ray, 2 v iewsLOCATION: [id number]: Chest radiograph 12/21/2017 and 09/12/2015INDICATION: smokerDISCUSSION:PA and lateral chest radiographs were submitted for interpretat ion.The lungs are hyperinflated.There are persistent mild bibasilar opacities.Ot herwise, no new consolidation, pleural effusion, or pneumothorax is seen.The aor ta is tortuous and mildly calcified.The cardiomediastinal silhouette is otherwis e within normal limits.No acute osseous abnormalities are identified.IMPRESSION: 1. Nonspecific, persistent mild bibasilar opacities may be due to atelectasis or scarring.2. Hyperinflated lungs.3. Otherwise, no acute cardiopulmonary ab normalities.Further evaluation with noncontrast chest CT is recommended. Fi nal Dictated by: MD Inman Alfred EDictluba DT/TM: 01/24/2018 12:07 p mSigned by: MD Inman Alfred ESigned (Electronic Signature): 01/24/2018 12: 10 pmXR CHEST 2V, [id number] 14:55:06EXAM: Chest 2 views.Location code: 16HISTORY: Nicotine dependenceCOMPARISON: 09/12/2015FINDINGS: PA and lateral views of the chest were obtained. There istortuosity of the thoracic aorta. Patchy airspace opacities areidentified in the bilateral lung bases. There is hyperinflation of thelungs with flattening of diaphragmatic leaflets. Cardiac silhouette isnormal in size. There is question of small right pleural effusion. Thereis no pneumothorax. Visualized skeletal structures are within normallimits.IMPRESSION: 1. Patchy atelectasis/consolidation in bilateral lower lobes.2. There is likely small right pleural effusion.
[2019-11-10] MEDS ORDERED: PROPOFOL IV EMULSION 10MG/ML 100 ML ONE (13:42)
[2019-11-10] MEDS ORDERED: SODIUM CHLORIDE 0.9% 1000ML 1,000 ML IV STA (13:42)
[2019-11-10] MEDS ORDERED: SODIUM CHLORIDE 0.9% 1000ML 1,000 ML ONE (13:42)
[2019-11-10] MEDS ORDERED: PIPER-TAZ 3.375 GM 50 ML IV STA (13:48)
[2019-11-10] MEDS ORDERED: SUCCINYLCHOLINE 200 MG/10 ML SYR IV STA (13:49)
[2019-11-10] MEDS ORDERED: VECURONIUM BROMIDE FOR INJ 20 MG VIAL IV STA (13:49)
[2019-11-10] MEDS ORDERED: ETOMIDATE 2 MG/ML 10 ML INJ IV STA (13:49)
[2019-11-10 13:58] LABS: BASOPHILS # (AUTO) 0.1 (0.0-0.1); BASOPHILS % 0.2 % (0.0-1.0); EOSINOPHILS # (AUTO) 0.1 (0.0-0.4); EOSINOPHILS % 0.3 % (0.0-6.0); HEMATOCRIT 43.5 % (38.2-49.6); HEMOGLOBIN 14.1 g/dL (14.0-18.0); LYMPHOCYTES # (AUTO) 0.8 (1.0-3.2); LYMPHOCYTES % 3.6 % (18.0-39.1); MEAN CORPUSCULAR HEMOGLOBIN 27.5 pg (28-32); MEAN CORPUSCULAR HGB CONC 32.4 g/dL (31-35); MEAN CORPUSCULAR VOLUME 84.8 fL (81-99); MONOCYTES # (AUTO) 0.7 (0.2-0.8); MONOCYTES % 3.1 % (4.4-11.3); NEUTROPHILS # (AUTO) 21.2 (2.1-6.9); NEUTROPHILS % 92.4 % (38.7-80.0); PLATELET COUNT 409 x10e3/uL (140-360); RED BLOOD COUNT 5.13 x10e6/uL (4.3-5.7)
[2019-11-10] MEDS ORDERED: PROPOFOL IV EMULSION 10MG/ML 100 ML IV SCH (14:00)
--- NOTE | 2019-11-10 14:13 | Diagnostic Imaging Report ---
Chest, 1 view, 11/10/2019. History: Respiratory distress. Comparison: None available. Findings: ET tube is present terminating 3 cm above the gaby. The cardiomediastinal silhouette and pulmonary vasculature are within normal limits for a portable exam. Patchy opacities are present the left lung base. Right lung is clear. There are no acute osseous or soft tissue abnormalities. Impression: Left basilar opacity may represent atelectasis or aspiration. ET tube as described above. Signed by: Tim Javier on 11/10/2019 2:10 PM
[2019-11-10] MEDS ORDERED: SODIUM CHLORIDE 0.9% 1000ML 1,000 ML IV ONE (14:30)
[2019-11-10 14:55] LABS: CLARITY,URINE SL CLOUDY (CLEAR); COLOR,URINE STRAW (YELLOW)
[2019-11-10 14:56] LABS: BILIRUBIN,URINE 1+ (NEGATIVE); KETONES,URINE NEGATIVE (NEGATIVE); LEUKOCYTE ESTERASE ,URINE TRACE (NEGATIVE); NITRITE,URINE POSITIVE (NEGATIVE); PROTEIN,URINE DIPSTICK 2+ (NEGATIVE); URINE UROBILINOGEN 0.2 mg/dL (0.2 - 1)
[2019-11-10] MEDS: IPRATROPIUM BROMIDE 0.02% 2.5 ML NEB NEB SCH ×2 (15:00→19:25)
[2019-11-10 15:08] LABS: BACTERIA,URINE MODERATE /HPF; WBC,URINE (MAN) >50 /HPF (0-5)
[2019-11-10] MEDS ORDERED: SUCCINYLCHOLINE CHLORIDE 20 MG/ML 10ML VIAL ONE (15:10)
[2019-11-10] MEDS ORDERED: ETOMIDATE 2 MG/ML 10 ML INJ IV ONE (15:10)
--- NOTE | 2019-11-10 15:38 | NUR ---
H&P cc: 78yoM, PCP , recently d/c from [facility] for clogged PEG tube and foot infection, sent to [facility] for recovery, decided to drink a milk shake inspite of oropharyngeal dysphagia, subsequently developed respiratory distress, brought here for mgmt, required intubation. 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, COPD, hx Cig, Alzheimer's dementia, prostate Cancer, glaucoma, VTE with DVT of left arm, right leg and left lung PE s/p IVC filter placement, GIB, esophageal ulcer PSHx: PEG, glaucoma, IVC filter Allergies; see emr FH/SH; ; hx cigs meds; see MAR ROS; unobtainable v/s; revd PE INtubated atraumatic ns1s2 symmetric chest expansion soft PEG no edema; chr changes feet skin dry neuro: sedated; not interactive labs/meds revd A/P: 78yoM Acute resp failure- vented Oropharyngeal dysphagia- PEG in place; important to avoid oral intake Hyperkalemia- recheck UTI- iv zosyn; Sepsis- due to UTI; iv zosyn; rec'd vanco; ID eval. 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 States she is MPOA; will bring paperwork; Also states wants to make pt DNR. Christian Lai MD, PHD.
--- NOTE | 2019-11-10 15:57 | Diagnostic Imaging Report ---
CT BRAIN WO HISTORY: 78-year-old female with altered mental status COMPARISON: None. TECHNIQUE: Noncontrast axial scans were obtained from skull base to the vertex. Coronal and sagittal reconstructions obtained from the axial data. One or more of the following dose reduction techniques were used: Automated exposure control, adjustment of the mA and/or kV according to patient size, and/or utilization of iterative reconstruction technique. DISCUSSION: Evaluation is slightly limited secondary to beam hardening artifact. Scalp/Skull: Unremarkable. Brain sulci: Moderately prominent, greater than expected for patient's age. Ventricles: Moderately prominent. No hydrocephalus. Extra-axial spaces: No masses or fluid collections. Parenchyma: No findings to suggest acute large vascular territorial infarct. Patchy hypodensities within the supratentorial white matter represent chronic microvascular ischemic changes. Chronic lacunar infarcts within the bilateral putamen and right cerebellar hemisphere with associated volume loss. No mass, hemorrhage, or large vascular territory acute infarct. Dural sinuses: No abnormal densities. Sellar/Suprasellar region: Intact. No masses. Skull base: Intact. Incidental findings: None. IMPRESSION: No acute intracranial abnormalities. Additional findings: 1. Multiple chronic lacunar infarcts as described above. 2. Moderate chronic microvascular ischemic changes. 3. Moderate generalized volume loss. This preliminary report was issued by Dr. Tima Cabezas M.D. neuroradiology fellow at 1558 hours on 11/10/2019. Signed by: DR Rodney Winters M.D. on 11/10/2019 4:04 PM
[2019-11-10] MEDS ORDERED: VANCOMYCIN 1GM/NS 250 ML 250 ML IV ONE (16:00)
[2019-11-10 16:46] LABS: INR 1.15; PROTHROMBIN TIME 15.4 seconds (11.9-14.5)
[2019-11-10 16:47] LABS: PARTIAL THROMBOPLASTIN TIME 35.2 seconds (23.8-35.5)
[2019-11-10 16:58] LABS: ALBUMIN 2.7 g/dL (3.5-5.0); ALBUMIN/GLOBULIN RATIO 0.6 (0.8-2.0); ANION GAP 12.3 mmol/L (8-16); CALCIUM 9.3 mg/dL (8.4-10.2); CREATININE, SERUM 1.28 mg/dL (0.72-1.25)
[2019-11-10 16:59] LABS: POTASSIUM 5.3 mmol/L (3.5-5.1)
[2019-11-10 17:08] LABS: CREATINE KINASE MB 1.3 ng/mL (0-5.0)
[2019-11-10] MEDS ORDERED: SODIUM CHLORIDE 0.9% 1000ML 1,000 ML IV SCH (17:30)
[2019-11-10] MEDS ORDERED: SODIUM CHLORIDE 0.9% 1000ML 2,000 ML ONE (17:34)
[2019-11-10] MEDS ORDERED: ALBUTEROL/IPRATROPIUM 3 ML NEB NEB PRN (17:45)
[2019-11-10] MEDS: SODIUM CHLORIDE 0.9% 1000ML 1,000 ML IV SCH (18:00)
[2019-11-10] MEDS: FENTANYL CITRATE INJ 2,000 MCG in SODIUM CHLORIDE 0.9% 250ML 210 ML IV SCH (18:15)
[2019-11-10 19:00] VITALS: BP 90/50
[2019-11-10 20:00] VITALS: BP 95/54
[2019-11-10] MEDS ORDERED: PIPER-TAZ 3.375 GM 50 ML IV SCH (20:00)
[2019-11-10 21:00] VITALS: BP 105/64
--- NOTE | 2019-11-10 21:49 | Diagnostic Imaging Report ---
EXAMINATION: CHEST XRAY LINE PLACEMENT INDICATION: Right PICC placement, verify position. COMPARISON: Chest x-ray 11/10/2019 FINDINGS: TUBES and LINES: New right upper extremity PICC, tip in the cavoatrial junction. ET tube tip 3.5 cm above gaby.. LUNGS: Normal lung volumes. Bilateral lower lung hazy airspace opacities. PLEURA: No pleural effusion or pneumothorax. HEART AND MEDIASTINUM: Cardiac size is mildly enlarged. BONES AND SOFT TISSUES: Degenerative changes in the spine and shoulders. No acute osseous lesion. Soft tissues are unremarkable. UPPER ABDOMEN: No free air under the diaphragm. IMPRESSION: New right upper extremity PICC, tip in the cavoatrial junction. ET tube tip 3.5 cm above gaby.. Bilateral lower lung airspace opacities concerning for pneumonia. Mild cardiomegaly. Signed by: Robert Choudhary DO on 11/10/2019 9:47 PM
[2019-11-10 22:00] VITALS: BP 100/53
[2019-11-10 22:00] LABS: ANION GAP 9.6 mmol/L (8-16); BLOOD UREA NITROGEN 29 mg/dL (7-26); BUN/CREATININE RATIO 25 (6-25); CALCIUM 8.5 mg/dL (8.4-10.2); CARBON DIOXIDE 24 mmol/L (22-29); CHLORIDE 105 mmol/L (98-107); CREATININE, SERUM 1.15 mg/dL (0.72-1.25); EST GLOMERULAR FILTRATION RATE > 60 ML/MIN (60-); GLUCOSE 101 mg/dL (74-118); POTASSIUM 4.6 mmol/L (3.5-5.1); SODIUM 134 mmol/L (136-145)
[2019-11-10 22:20] LABS: CREATINE KINASE MB 2.2 ng/mL (0-5.0)
[2019-11-10] MEDS: ACETAMINOPHEN 325 MG TAB PO PRN (22:30)
[2019-11-10 23:00] VITALS: BP 94/52
[2019-11-11] VITALS (24 sets, daily range): BP systolic 86–132; BP diastolic 40–67
[2019-11-11] MEDS: IPRATROPIUM BROMIDE 0.02% 2.5 ML NEB NEB SCH ×4 (04:05→19:15)
[2019-11-11] MEDS: ALBUTEROL SULF 0.083% NEB SOLN 3 ML NEB NEB SCH ×5 (04:05→19:15)
--- NOTE | 2019-11-11 04:36 | Consultation ---
DATE OF CONSULTATION: 11/10/2019 Critical Care Consultation REASON FOR CONSULT: ICU management. HISTORY OF PRESENT ILLNESS: Mr. Hampton is a 78-year-old male, who was transferred from [facility] where he drank smoothie, which was kept on the side of the bed by the family member. The patient is dysphagic and has a PEG tube. He is unable to give me any history. The source of history is the records from [facility]. The records reveal that 911 was called at 1424 by the nurse. The patient's family bought a vanilla milkshake. They left the vanilla milkshake on the bedside and left the room. When the son returned, he stated that half of the vanilla milkshake was gone. The patient is n.p.o. because he has failed swallowing many times and he has a PEG tube. He was transferred out and sent here. His history from the skilled nursing shows that he has a history of CVA, chronic dysphagia, PEG tube, hypertension, hyperlipidemia, DVT of the right leg. He has IVC filter, history of PE in the past, but the patient had GI bleed in August of 2019 and hence the anticoagulation was stopped then. He is intubated, currently sedated. REVIEW OF SYSTEMS: Unable to elicit from the patient because the patient is intubated. PAST MEDICAL HISTORY: History of stroke, dysphagia, PEG tube, hypertension, peripheral vascular disease. FAMILY AND SOCIAL HISTORY: He does not smoke. Does not drink. PHYSICAL EXAMINATION: VITAL SIGNS: Temperature 100.6, pulse of 104, blood pressure 103/64. HEENT: Head atraumatic, normocephalic. NECK: Supple, intubated. CHEST: Crackles on the right side. HEART: S1, S2 audible. ABDOMEN: Soft. PEG tube. EXTREMITIES: No pedal edema. NEUROLOGIC: Awake, but not following any commands. LABORATORY DATA: Chest x-ray, left basilar opacity, which in this context is left [place] [address], hemoglobin 14.1, platelets 409. Chemistry, sodium 131, potassium 5.3, chloride 102. BUN 25, creatinine 1.28. Lactic acid 2.6. ASSESSMENT/PLAN: Mr. Hampton is a 78-year-old male, who is admitted to ICU here after aspiration pneumonitis. The patient has history of pneumonia in the past, history of stroke, dysphagia, has PEG tube. PLAN: Continue the patient on IV Zosyn and vancomycin. For now, I will order ET aspirate to be sent for Gram stain and culture, vent setting reviewed. Check ABG and continue the nebulizer treatment for now. He was on anticoagulation at some point, which was stopped. An IVC at some point because of PE, which was stopped. Because of the possible GI bleed, resume Lovenox with DVT prophylaxis. Records from [facility] reviewed in the computer. The patient is seen and examined. CRITICAL CARE TIME SPENT: 50 minutes. Thank you for this consult. MD ALYSIA Wallace/MAYA /[id number]
[2019-11-11] MEDS: SODIUM CHLORIDE 0.9% 1000ML 1,000 ML IV SCH ×2 (04:40→13:39)
[2019-11-11 05:32] LABS: BASOPHILS % 0.2 % (0.0-1.0); HEMATOCRIT 32.4 % (38.2-49.6); LYMPHOCYTES # (AUTO) 0.6 (1.0-3.2); LYMPHOCYTES % 4.6 % (18.0-39.1); MEAN CORPUSCULAR HEMOGLOBIN 27.5 pg (28-32); MEAN CORPUSCULAR HGB CONC 31.5 g/dL (31-35); MEAN CORPUSCULAR VOLUME 87.3 fL (81-99); MONOCYTES # (AUTO) 0.4 (0.2-0.8); NEUTROPHILS # (AUTO) 12.1 (2.1-6.9); NEUTROPHILS % 91.6 % (38.7-80.0); PLATELET COUNT 254 x10e3/uL (140-360); RED BLOOD COUNT 3.71 x10e6/uL (4.3-5.7); RED CELL DISTRIBUTION WIDTH 15.3 % (11.7-14.4)
[2019-11-11 05:34] LABS: HEMOGLOBIN 10.2 g/dL (14.0-18.0)
[2019-11-11 05:45] LABS: ALBUMIN/GLOBULIN RATIO 0.6 (0.8-2.0); CALCIUM 8.2 mg/dL (8.4-10.2); CREATININE, SERUM 1.35 mg/dL (0.72-1.25)
[2019-11-11 06:19] LABS: CREATINE KINASE MB 5.3 ng/mL (0-5.0)
[2019-11-11 07:37] LABS: BAND NEUTROPHILS % (MANUAL) 24 %; LYMPHOCYTES % (MANUAL) 3 % (19-48); METAMYELOCYTES % (MANUAL) 1 % (0-0); MONOCYTES % (MANUAL) 2 % (3.4-9.0); MYELOCYTES % (MANUAL) 1 % (0-0); NEUTROPHILS % (MANUAL) 69 % (40-74)
[2019-11-11 07:38] LABS: ANISOCYTOSIS SLIGHT; OVALOCYTES FEW; PLATELET ESTIMATE ADEQUATE; PLATELET MORPHOLOGY COMMENT NORMAL; RBC MORPHOLOGY COMMENT ABNORMAL
--- NOTE | 2019-11-11 08:16 | Diagnostic Imaging Report ---
EXAMINATION: CHEST SINGLE (PORTABLE) INDICATION: Pneumonia. COMPARISON: Chest radiograph 11/10/2019. FINDINGS: TUBES and LINES: Right arm PICC terminates at the cavoatrial junction. ET terminates 4.6 cm above the gaby. LUNGS: Normal lung volumes. Persistent patchy consolidative opacity in the left mid and lower lung zones and slightly decreased consolidation in the right lower lung. PLEURA: Small left pleural effusion. No evidence of pneumothorax. HEART AND MEDIASTINUM: Cardiac size is mildly enlarged. BONES AND SOFT TISSUES: No acute osseous abnormality. UPPER ABDOMEN: No free air under the diaphragm. IMPRESSION: Lines and tubes as above. No evidence of pneumothorax. Left lower lung airspace opacities, suggestive of pneumonia. Decreased patchy opacities in the right lower lung, which may represent atelectasis or pneumonia. Signed by: Dr. Dru Sterling MD on 11/11/2019 8:13 AM
[2019-11-11] MEDS: FENTANYL CITRATE INJ 2,000 MCG in SODIUM CHLORIDE 0.9% 250ML 210 ML IV SCH (09:00)
--- NOTE | 2019-11-11 11:32 | Consultation ---
DATE OF CONSULTATION: 11/11/2019 INFECTIOUS DISEASE CONSULT REASON FOR CONSULTATION: Sepsis. Thank you, Dr. Lai, for asking me to see this patient. HISTORY OF PRESENT ILLNESS: The patient is a 78-year-old man, who was referred for sepsis. He was admitted through the emergency department for acute respiratory failure with hypoxia and pneumonitis due to 2 inhalation of food and vomitus. The patient was sent to the emergency department [facility] with difficulty breathing and vomiting. The patient drank his sons vanilla milkshake, aspirated and vomited. Subsequently, he developed difficulty breathing. He was recovering at the [facility] from stroke with dysphagia. He failed a swallow test and underwent PEG tube placement prior to discharge to the [facility]. PAST MEDICAL HISTORY: Hypertension, hyperlipidemia, deep venous thrombosis of the right lower extremity, dysphagia, cerebrovascular accident, gastrointestinal bleed, and peripheral arterial disease. PAST SURGICAL HISTORY: PEG tube placement and IVC filter. ALLERGIES: NO KNOWN DRUG ALLERGIES. MEDICATIONS: See MAR. The current antibiotic is Zosyn 3.375 g IV piggyback q.6 hours. He received vancomycin 1 g IV piggyback once in the emergency room. IMMUNIZATION: Influenza and pneumococcal vaccination status cannot be verified at this time. FAMILY HISTORY: Noncontributory. SOCIAL HISTORY: No alcohol or tobacco use. REVIEW OF SYSTEMS: Unable to obtain. PHYSICAL EXAMINATION: GENERAL: The patient is sedated and intubated. VITAL SIGNS: T-max 101.5, pulse rate 98, respiratory rate 16, blood pressure 102/55, and a weight 144 pounds. HEENT: Normocephalic and atraumatic. There is no icterus or injection of conjunctiva. There is no ear or nasal discharge. Orally intubated. NECK: Supple. No JVD. LUNGS: Few rhonchi bilaterally. HEART: Normal S1 and S2. Regular. ABDOMEN: The PEG tube site is clean. Soft and nontender. EXTREMITIES: No edema, clubbing, or cyanosis. SKIN: No acute erythema. PIPELAYER: Sedated. LABORATORY AND DIAGNOSTICS: WBC 13,170- down from 22,980 on admission- hemoglobin 10.2, hematocrit 32.4, platelets 254,000, segments 69, bands 24, lymphocytes 3, monocytes 2. BUN 33, creatinine 1.35, AST 20, ALT 23, alkaline phosphatase 65, total bilirubin 0.8. Influenza antigen test negative. Sputum culture is pending. Blood culture is pending. Urine culture was collected for yet unknown indication and it is also pending. Chest x-ray showed left lower lung airspace opacity suggestive of pneumonia. IMPRESSION: 1. Aspiration pneumonitis. 2. Acute respiratory failure with hypoxia. 3. Leukocytosis, appears to be reactive. 4. Dysphagia. PLAN: 1. Check procalcitonin level and if normal, antibiotics should be discontinued. 2. Continue endotracheal suctioning. 3. Verify influenza and pneumococcal vaccination status. MD RICHARD Martin/MAYA /[id number] MTDD
--- NOTE | 2019-11-11 11:54 | NUR ---
IM- progress note O/N see below ROS; unobtainable v/s; revd PE INtubated atraumatic ns1s2 symmetric chest expansion soft PEG no edema; chr changes feet skin dry neuro: sedated; not interactive labs/meds revd A/P: 78yoM Acute resp failure- vented Oropharyngeal dysphagia- PEG in place; important to avoid oral intake Hyperkalemia- recheck UTI- iv zosyn; Sepsis- due to UTI; iv zosyn; rec'd vanco; ID eval. 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 States she is MPOA; will bring paperwork; Also states wants to make pt DNR. 11/10 GNR PNA; GNR UTI; cont abx; Christian Lai MD, PHD.
--- NOTE | 2019-11-11 14:59 | NUR ---
Nutrition Intervention Note RD Recommendation(s) for Physician: -When TF is feasible, rec initiating continuous EN via PEG with Vital AF 1.2 @55mL/hr, providing 1584kcal, 99g protein, 1071mL water. -50mL water flushes q 4hr, additional per MD -Check GI tolerance and daily weight Plan of Care: RD following, monitoring for tolerance and adequacy, TF Nutrition reason for involvement: MST, Diagnosis, PEG RD Assessment (11/10) Chart reviewed. 78yoM, who was admitted from [facility] for aspiration PNA and acute respiratory failure. Per chart, pt drank a milk shake in spite of NPO and developed respiratory distress. Pt was intubated and ventilated. Visited pt in the room. Pt was on IV Fentanyl, no pressor med noted. Per family, pt had PEG replacement in October 2019. TF was well tolerated at the facility with Fibersource 1.2 @60mL/hr, continuous (1728kcal, 77g protein). Per family, pt also lost >10lbs within the last 3 months. Pt had moderate muscle and fat loss per observation. Verified height and weight with family. Will continue to monitor and follow. 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 Energy intake: <75% of estimated energy requirements for >3 months Weight loss: 7.5% in 3 months (Acute) Fat loss: Moderate somewhat hollow around orbital area Muscle loss: Moderate depression of temporal Supporting Evidence: Fluid accumulation: Mild Functional Status: decreased per family Nutrition Prescription (Diet Order): NPO Estimated Nutritional Needs: Calories: 1260 1575kcal(20-25kcal/kg/d) Weight used: CBW Protein: 82 126g (1.3-2g/kg/d) Weight used: CBW Diet Adequacy: Not meeting calorie needs, Not meeting protein needs Tolerance: N/A Diet Education Needs Assessment: Diet education not indicated. Nutrition Care Level: Moderate Nutrition Diagnosis: Inadequate oral intake related to aspiration PNA as evidenced by pt requiring EN through PEG. Goal: Patient will meet 75-100% of estimated needs by follow up Progress: N/A Interventions: Composition, Rate, Route Monitoring/Evaluation: Total energy intake, Total protein intake, Formula/Solution, Weight change Signed: Rhianna Davis MS, RD, LD
[2019-11-11] MEDS: PANTOPRAZOLE 40 MG 10ML VIAL IV SCH (17:20)
[2019-11-11] MEDS: LORATADINE 10 MG TAB PO SCH (17:20)
[2019-11-11] MEDS: ENOXAPARIN 30 MG/0.3 ML SYR SC SCH ×2 (17:20→17:21)
[2019-11-11] MEDS: PIPER-TAZ 3.375 GM 50 ML IV SCH ×2 (17:30→21:35)
--- NOTE | 2019-11-11 17:47 | Diagnostic Imaging Report ---
TECHNIQUE: CT of the chest, abdomen and pelvis without intravenous contrast. INDICATION: Possible infection. COMPARISON: Chest radiograph 11/11/2019. TECHNIQUE: Chest, Abdomen and pelvis were scanned utilizing a multidetector helical scanner from the thoracic inlet to the pubic symphysis without administration of IV or oral contrast. Coronal and sagittal reformations were obtained. Routine protocol was performed. Lack of intravenous contrast limits sensitivity for evaluation of vascular and visceral structures. COMPLICATIONS: None RADIATION DOSE: Total DLP: 927.7 mGy*cm Dose modulation, iterative reconstruction, and/or weight based adjustment of the mA/kV was utilized to reduce the radiation dose to as low as reasonably achievable. FINDINGS: LINES AND TUBES: Endotracheal tube terminates in the mid trachea. There are secretions within the upper trachea. Right subclavian central venous catheter terminates in the right brachiocephalic vein. Gastrostomy catheter terminates in the distal stomach. LUNGS AND AIRWAYS: Mild upper lobe predominant centrilobular emphysematous changes. There are multifocal patchy and consolidative opacities, most confluent in the left greater than right lower lobes. A focal subpleural consolidative opacity in the left lower lobe on series 5, image 39 measures 1.9 cm. PLEURA: The pleural spaces are clear. HEART AND MEDIASTINUM: The thyroid gland is normal. Prominent mediastinal lymph nodes, for example a 1 cm left paratracheal lymph node on series 5, image 45 and right peribronchial lymph node, measuring up to 1.4 cm on image 51, likely reactive. The heart and pericardium are within normal limits. Aortic valve calcifications. Scattered coronary atherosclerosis. HEPATOBILIARY: No evidence of mass. Scattered calcified granulomas in the right hepatic lobe. No biliary ductal dilatation. Cholelithiasis. SPLEEN: No splenomegaly. PANCREAS: No focal masses or ductal dilatation. ADRENALS: No adrenal nodules. KIDNEYS/URETERS: No hydronephrosis, stones, or solid mass lesions. PELVIC ORGANS/BLADDER: Hopkins catheter terminates in the bladder. Air within the bladder, likely echogenic. PERITONEUM / RETROPERITONEUM: No free air or fluid. LYMPH NODES: No lymphadenopathy. VESSELS: Moderate after Sawyer a calcifications of the abdominal aorta and branch vessels. There is a suprarenal abdominal aortic aneurysm, measuring up to 3.5 cm, seen on series 2, image 59. There is an infrarenal abdominal aortic aneurysm, measuring up to 3.7 cm on image 79. There is mild soft tissue thickening along the anterior wall of the infrarenal abdominal aorta, as seen on series 2, image 78. Infrarenal IVC filter is noted. GI TRACT: No distention or wall thickening. Fatty infiltration in the wall of the stomach, suggestive of prior inflammation. BONES AND SOFT TISSUES: Unremarkable. IMPRESSION: Findings of multifocal pneumonia. A subpleural focal consolidation in the left lower lobe, for which a follow-up chest CT is recommended in 3 months to assess for resolution. Suprarenal abdominal aortic aneurysm, measuring up to 3.5 cm an infrarenal abdominal aortic aneurysm, measuring up to 3.7 cm, incompletely evaluated in the absence of IV contrast. Nonspecific mild soft tissue thickening along the anterior wall the infrarenal abdominal aorta, which could be seen in the setting of inflammatory abdominal aortic aneurysm, retroperitoneal fibrosis, or other inflammatory condition. Follow-up CTA of the abdomen/pelvis is recommended for further evaluation. Signed by: Dr. Dru Sterling MD on 11/11/2019 5:44 PM
[2019-11-11 19:18] LABS: CREATINE KINASE MB 7.7 ng/mL (0-5.0)
--- NOTE | 2019-11-11 20:05 | NUR ---
ct abd/pelvis and chest completed. sedation off this morning. patient more alert but not following commands. plan to continue to wean vent per md orders. all icu team aware of temperatures, elevated lactic acids. no new orders. family updated with plan of care.
--- NOTE | 2019-11-11 20:07 | NUR ---
nursing report given to night shift manager KARIN Ayon
[2019-11-12] VITALS (24 sets, daily range): BP systolic 109–155; BP diastolic 42–86
[2019-11-12] MEDS: IPRATROPIUM BROMIDE 0.02% 2.5 ML NEB NEB SCH ×4 (02:00→19:05)
[2019-11-12] MEDS: ALBUTEROL SULF 0.083% NEB SOLN 3 ML NEB NEB SCH ×6 (02:00→19:05)
[2019-11-12] MEDS: PIPER-TAZ 3.375 GM 50 ML IV SCH ×4 (04:00→21:13)
--- NOTE | 2019-11-12 04:00 | NUR ---
Patient given a bed bath and repositioned for comfort
[2019-11-12] MEDS: SODIUM CHLORIDE 0.9% 1000ML 1,000 ML IV SCH (06:00)
[2019-11-12 06:32] LABS: ANION GAP 20.8 mmol/L (8-16); BLOOD UREA NITROGEN 30 mg/dL (7-26); BUN/CREATININE RATIO 31 (6-25); CALCIUM 7.2 mg/dL (8.4-10.2); CARBON DIOXIDE 18 mmol/L (22-29); CHLORIDE 114 mmol/L (98-107); CREATININE, SERUM 0.97 mg/dL (0.72-1.25); EST GLOMERULAR FILTRATION RATE > 60 ML/MIN (60-); GLUCOSE 96 mg/dL (74-118); POTASSIUM 3.8 mmol/L (3.5-5.1); SODIUM 149 mmol/L (136-145)
[2019-11-12 07:21] LABS: BASOPHILS % 0.1 % (0.0-1.0); EOSINOPHILS % 0.1 % (0.0-6.0); HEMATOCRIT 25.7 % (38.2-49.6); LYMPHOCYTES # (AUTO) 0.3 (1.0-3.2); LYMPHOCYTES % 3.4 % (18.0-39.1); MEAN CORPUSCULAR HEMOGLOBIN 27.5 pg (28-32); MEAN CORPUSCULAR HGB CONC 31.1 g/dL (31-35); MEAN CORPUSCULAR VOLUME 88.3 fL (81-99); MONOCYTES # (AUTO) 0.4 (0.2-0.8); MONOCYTES % 3.7 % (4.4-11.3); NEUTROPHILS # (AUTO) 8.5 (2.1-6.9); PLATELET COUNT 192 x10e3/uL (140-360); RED BLOOD COUNT 2.91 x10e6/uL (4.3-5.7); RED CELL DISTRIBUTION WIDTH 15.4 % (11.7-14.4)
--- NOTE | 2019-11-12 09:11 | NUR ---
IM- progress note O/N see below ROS; unobtainable v/s; revd PE INtubated atraumatic ns1s2 symmetric chest expansion soft PEG no edema; chr changes feet skin dry neuro: sedated; not interactive labs/meds revd A/P: 78yoM Acute resp failure- vented Oropharyngeal dysphagia- PEG in place; important to avoid oral intake Hyperkalemia- recheck UTI- iv zosyn; Sepsis- due to UTI; iv zosyn; rec'd vanco; ID eval. 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 States she is MPOA; will bring paperwork; Also states wants to make pt DNR. 11/10 GNR PNA; GNR UTI; cont abx; 11/11 AAA 3.5cm and 3.7cm; Serratia marcescens PNA. Christian Lai MD, PHD.
[2019-11-12] MEDS: LORATADINE 10 MG TAB PO SCH (09:42)
[2019-11-12] MEDS: PANTOPRAZOLE 40 MG 10ML VIAL IV SCH (09:42)
[2019-11-12 11:18] LABS: LYMPHOCYTES % (MANUAL) 3 % (19-48); MONOCYTES % (MANUAL) 3 % (3.4-9.0); NEUTROPHILS % (MANUAL) 94 % (40-74)
[2019-11-12] MEDS ORDERED: CEFTRIAXONE SOD 1 GM/NS 50 ML 50 ML IV SCH (11:30)
[2019-11-12] MEDS: DEXTROSE 5% 1,000 ML IV SCH (12:46)
[2019-11-12] MEDS ORDERED: EYE LUBRICANT OPTH OINT 3.5GM TUBE OP PRN (15:00)
[2019-11-12] MEDS: ACETAMINOPHEN 325 MG TAB PO PRN ×2 (15:00→22:20)
[2019-11-12] MEDS ORDERED: ACETYLCYSTEINE 20% INHAL SOLN 30 ML VIAL INH SCH (17:00)
[2019-11-12] MEDS: ENOXAPARIN 30 MG/0.3 ML SYR SC SCH (17:30)
[2019-11-12] MEDS: ACETYLCYSTEINE 200 MG/ML 4ML VIAL INH SCH (19:20)
[2019-11-13] VITALS (26 sets, daily range): BP systolic 114–166; BP diastolic 56–113
[2019-11-13] MEDS: DEXTROSE 5% 1,000 ML IV SCH ×2 (02:41→14:10)
[2019-11-13] MEDS: PIPER-TAZ 3.375 GM 50 ML IV SCH (02:41)
[2019-11-13] MEDS: ALBUTEROL SULF 0.083% NEB SOLN 3 ML NEB NEB SCH ×6 (03:48→23:55)
--- NOTE | 2019-11-13 05:43 | NUR ---
IM- progress note O/N see below ROS; unobtainable v/s; revd PE INtubated atraumatic ns1s2 symmetric chest expansion soft PEG no edema; chr changes feet skin dry neuro: sedated; not interactive labs/meds revd A/P: 78yoM Acute resp failure- vented Oropharyngeal dysphagia- PEG in place; important to avoid oral intake Hyperkalemia- recheck UTI- iv zosyn; Sepsis- due to UTI; iv zosyn; rec'd vanco; ID eval. 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 States she is MPOA; will bring paperwork; Also states wants to make pt DNR. 11/10 GNR PNA; GNR UTI; cont abx; 11/11 AAA 3.5cm and 3.7cm; Serratia marcescens PNA. 11/12 f/u labs; febrile; leukocytosis resolving; Christian Lai MD, PHD.
[2019-11-13 06:26] LABS: BASOPHILS % 0.2 % (0.0-1.0); EOSINOPHILS % 0.2 % (0.0-6.0); HEMATOCRIT 25.9 % (38.2-49.6); HEMOGLOBIN 8.1 g/dL (14.0-18.0); LYMPHOCYTES # (AUTO) 0.5 (1.0-3.2); LYMPHOCYTES % 4.3 % (18.0-39.1); MEAN CORPUSCULAR HEMOGLOBIN 26.9 pg (28-32); MEAN CORPUSCULAR HGB CONC 31.3 g/dL (31-35); MONOCYTES # (AUTO) 0.4 (0.2-0.8); MONOCYTES % 3.6 % (4.4-11.3); NEUTROPHILS # (AUTO) 9.8 (2.1-6.9); NEUTROPHILS % 91.1 % (38.7-80.0); PLATELET COUNT 206 x10e3/uL (140-360); RED BLOOD COUNT 3.01 x10e6/uL (4.3-5.7); RED CELL DISTRIBUTION WIDTH 15.4 % (11.7-14.4)
[2019-11-13 06:47] LABS: ANION GAP 7.5 mmol/L (8-16); BLOOD UREA NITROGEN 19 mg/dL (7-26); BUN/CREATININE RATIO 19 (6-25); CALCIUM 8.6 mg/dL (8.4-10.2); CARBON DIOXIDE 25 mmol/L (22-29); CHLORIDE 108 mmol/L (98-107); CREATININE, SERUM 0.99 mg/dL (0.72-1.25); EST GLOMERULAR FILTRATION RATE > 60 ML/MIN (60-); GLUCOSE 174 mg/dL (74-118); POTASSIUM 3.5 mmol/L (3.5-5.1); SODIUM 137 mmol/L (136-145)
[2019-11-13] MEDS: IPRATROPIUM BROMIDE 0.02% 2.5 ML NEB NEB SCH ×5 (07:40→23:55)
[2019-11-13] MEDS: ACETYLCYSTEINE 200 MG/ML 4ML VIAL INH SCH ×2 (07:40→19:25)
--- NOTE | 2019-11-13 08:52 | NUR ---
PT IS FROM [facility].
[2019-11-13 09:08] LABS: LYMPHOCYTES % (MANUAL) 4 % (19-48); MONOCYTES % (MANUAL) 3 % (3.4-9.0); NEUTROPHILS % (MANUAL) 93 % (40-74)
[2019-11-13] MEDS: PANTOPRAZOLE 40 MG 10ML VIAL IV SCH (09:30)
--- NOTE | 2019-11-13 09:36 | Diagnostic Imaging Report ---
EXAMINATION: CHEST SINGLE (PORTABLE) INDICATION: Extubation COMPARISON: Chest radiograph 11/11/2019 FINDINGS: LINES/TUBES:Endotracheal tube has been removed. Right PICC line terminates in the SVC. EKG leads overlie the chest. LUNGS:The right lung is well-inflated. The left lung is moderately inflated. There is left basilar opacity partially silhouetting the left nena diaphragm. PLEURA:No pleural effusion or pneumothorax. MEDIASTINUM:The heart is not enlarged. Tortuous thoracic aorta Atherosclerotic calcifications of the thoracic aorta. BONES/SOFT TISSUES:No acute osseous injury. ABDOMEN:No free air under the diaphragm. IMPRESSION: Left greater than right basilar opacities, compatible with multifocal aspiration or pneumonia in the proper clinical setting. Signed by: Eva Rose MD on 11/13/2019 9:33 AM
[2019-11-13] MEDS ORDERED: FUROSEMIDE INJ 10 MG/ML 2 ML VIAL IV SCH (10:00)
--- NOTE | 2019-11-13 11:51 | Progress Note ---
DATE: 11/13/2019 SUBJECTIVE: The patient was extubated yesterday. Today, he is having difficulty clearing his secretion. He is on BiPAP. ABG is pending. Family is at the bedside. Daughter and the are at bedside. The patient is awake, follows command on the right side. He has left-sided hemiparesis. PHYSICAL EXAMINATION: VITAL SIGNS: Temperature 100.2, pulse of 94, blood pressure 147/62, and respiratory rate of 18. HEENT: Atraumatic and normocephalic. CHEST: Crackles bilaterally. HEART: S1 and S2 audible. ABDOMEN: Soft. EXTREMITIES: No pedal edema. NEUROLOGICAL: He is awake, follows commands, but goes back to sleep. LABORATORY DATA: Reviewed. White count of 10,000 and hemoglobin 8.1. Chemistry; sodium 137, potassium 3.5, chloride 108, BUN 19, and creatinine 0.9. Lactic acid 2.1, down to 1.5 now. The patient underwent a CT chest, abdomen, and pelvis, which is showing evidence of multifocal pneumonia and subpleural focal consolidation in the left lower lobe. Microbiology reveals Serratia and Proteus on Gram stain. ASSESSMENT/PLAN: Mr. Hampton is a 78-year-old male, who has a history of stroke and also has history of DVT in the past. The patient has IVC filter. The patient has left-sided hemiplegia because of the stroke, has severe dysphagia, underwent PEG tube placement, came in because of aspiration pneumonia, now short of breath. The patient was intubated, extubated on 11/12/2019. Now, the patient has poor cough. Current problems: 1. Acute hypoxic respiratory failure. 2. Multilobar pneumonia. 3. History of deep venous thrombosis in the past. 4. History of stroke with left-sided hemiparesis. PLAN: 1. Continue IV antibiotics per ID recommendations. 2. I had a detailed discussion with the patient's daughter and at bedside about the tracheostomy, as the patient is unable to clear the secretions and possibly he can get re-intubated because of difficulty clearing the secretion. Currently, I will continue the patient on BiPAP. ABG is pending. Chest x-ray is not showing any changes. Continue current treatment. If the patient deteriorates, he will require intubation and tracheostomy. This has been discussed in detail with the patient's family at bedside. 3. Lovenox subcutaneous 30 mg daily for DVT prophylaxis. Possible need of upper extremity Dopplers. 4. Nebulizer treatment. 5. Continue the patient on Mucomyst. Thank you for this consult. MD ALYSIA Wallace/MAYA /[id number]
[2019-11-13] MEDS: CIPROFLOXACIN 400 MG/D5W 200ML 200 ML IV SCH ×2 (12:32→23:39)
[2019-11-13] MEDS: CEFEPIME 1GM/NS 0.9% 50 ML 50 ML IV SCH ×2 (14:30→21:43)
--- NOTE | 2019-11-13 14:58 | NUR ---
WOUND CARE CONSULT FOR 78 YO MALE HX OFASPIRATION, PNEAU, RESP FAILURE, SEPSIS EMELINA 11 ON STRICT PUP STATUS AND INTERVENTIONS AND ALTERNATING PRESSURE MATTRESS LABS: WBC-10.69 HGB_8.1 GLUCOSE-174 SKIN ASSESSMENT COMPLETE PATIENT PRESENTS WITH MULTIPLE DRIED STABLE ESCHAR TO BILATERAL HEELS AND LEFT GREAT TOE LEFT KNEE HEALING ABRASION SACRAL DTI 2.8CM X3CM X PURPLE CLOSED NONBLANCHABLE RECOMMENDATIONS: NURSING TO CONTINUE TO MAINTAIN STRICT PUP STATUS AND INTERVENTIONS AND ALTERNATING PRESSURE MATTRESS NURSING TO CONTINUE TO ASSIST PATIENT OUT OF BED FOR MEALS AND MUCH TOLERATED NURSING TO CONTINUE TO ASSIST PATIENT NEEDED WITH MEALS AND NUTRITIONAL SUPPLEMENTS TO ENSURE PROPER REQUIREMENTS FOR HEALING NURSING TO CONTINUE TO OFFLOAD FEET AND HEELS NEEDED WITH PILLOW SUSPENSION WHEN IN BED NURSING TO PAINT NECROTIC DRIED STABLE ESCHAR AREAS TO BILATERAL HEELS AND LEFT GREAT TOE WITH BETADINE AND LEAVE OPEN TO AIR NURSING TO APPLY VENELEX OINTMENT DAILY TO LEFT KNEE AND SACRAL DTI AND COVER WITH ALLEVYN FOAM DRESSING Addendum: 11/13/19 at 1508 by Mata Silverio RN Amended: Links added.
[2019-11-13] MEDS: ENOXAPARIN 30 MG/0.3 ML SYR SC SCH (16:45)
[2019-11-13] MEDS: ACETAMINOPHEN 325 MG TAB PO PRN (22:15)
[2019-11-14] VITALS (27 sets, daily range): BP systolic 117–185; BP diastolic 50–109
[2019-11-14] MEDS: ALBUTEROL SULF 0.083% NEB SOLN 3 ML NEB NEB SCH ×6 (02:58→23:20)
[2019-11-14] MEDS: DEXTROSE 5% 1,000 ML IV SCH (04:21)
[2019-11-14] MEDS: CEFEPIME 1GM/NS 0.9% 50 ML 50 ML IV SCH ×3 (05:20→22:11)
[2019-11-14 06:09] LABS: ABG PH 7.44 (7.31-7.41)
[2019-11-14 06:10] LABS: ABG HCO3 23 mmol/L (23-28); ABG PCO2 33 mmHg (41-51); ABG PO2 151 mmHg (80-105)
[2019-11-14] MEDS: ACETYLCYSTEINE 200 MG/ML 4ML VIAL INH SCH ×2 (07:00→19:20)
[2019-11-14] MEDS: IPRATROPIUM BROMIDE 0.02% 2.5 ML NEB NEB SCH ×3 (07:00→19:20)
[2019-11-14 07:14] LABS: ABG PCO2 23 mmHg (41-51); ABG PH 7.51 (7.31-7.41)
[2019-11-14 07:15] LABS: ABG HCO3 19 mmol/L (23-28); ABG PO2 189 mmHg (80-105)
[2019-11-14 07:30] LABS: ABG HCO3 21 mmol/L (23-28); ABG PCO2 33 mmHg (41-51); ABG PH 7.42 (7.31-7.41); ABG PO2 87 mmHg (80-105)
[2019-11-14 07:31] LABS: ABG BASE EXCESS -2.9 mmol/L (-2 - 3); ABG OXYGEN SATURATION 96.9 % (95-98)
[2019-11-14] MEDS: PANTOPRAZOLE 40 MG 10ML VIAL IV SCH (09:17)
[2019-11-14] MEDS: ACETAMINOPHEN 325 MG TAB PO PRN ×2 (09:43→18:30)
[2019-11-14] MEDS: DOCUSATE SODIUM LIQD 100 MG/10 ML UDC NG SCH (09:43)
--- NOTE | 2019-11-14 10:44 | NUR ---
Dr. Saucedo in speaking with pts family. Family agrees to intubation if necessary. Stat ABG ordered and RT notified.
[2019-11-14] MEDS ORDERED: FUROSEMIDE INJ 10 MG/ML 2 ML VIAL IV ONE (11:45)
[2019-11-14 11:55] LABS: ANION GAP 7.4 mmol/L (8-16); BLOOD UREA NITROGEN 16 mg/dL (7-26); BUN/CREATININE RATIO 18 (6-25); CALCIUM 8.6 mg/dL (8.4-10.2); CARBON DIOXIDE 26 mmol/L (22-29); CHLORIDE 104 mmol/L (98-107); EST GLOMERULAR FILTRATION RATE > 60 ML/MIN (60-); GLUCOSE 195 mg/dL (74-118); POTASSIUM 3.4 mmol/L (3.5-5.1); SODIUM 134 mmol/L (136-145)
[2019-11-14] MEDS: BALSAM PERU/CASTOR OIL 60 GM OINT...G. TP SCH (12:33)
[2019-11-14] MEDS ORDERED: POTASSIUM CHLORIDE 20MEQ/15ML UDC PEG ONE (12:45)
[2019-11-14] MEDS: CIPROFLOXACIN 400 MG/D5W 200ML 200 ML IV SCH (13:09)
--- NOTE | 2019-11-14 13:17 | Diagnostic Imaging Report ---
EXAM: CHEST SINGLE (PORTABLE) DATE: 11/14/2019 10:48 AM INDICATION: Aspiration pneumonia COMPARISON: 11/13/2019 FINDINGS: The trachea is midline. Patchy opacities again identified within the left lung base. Mildly increased opacities within the right lung base. There is no evidence for new large focal consolidation, pneumothorax, or significant pleural effusion. The cardiomediastinal silhouette is stable in appearance. No acute osseous abnormality is identified. IMPRESSION: Persistent patchy consolidative opacities identified within the left greater than right lung base. Findings can be seen in the setting of aspiration or a multifocal infectious process in the appropriate clinical setting. Signed by: Dr. Naveen Dixon MD on 11/14/2019 1:15 PM
[2019-11-14] MEDS: ENOXAPARIN 30 MG/0.3 ML SYR SC SCH (16:40)
--- NOTE | 2019-11-14 18:01 | NUR ---
Nutrition Intervention Note RD Recommendation(s) for Physician: - Recommend to continue Vital AF 1.2 @ goal rate of 55mL/hr at this time, providing 1584kcal, 99g protein, 1071mL water. - 50mL water flushes q 4hr, additional per MD - Check GI tolerance and daily weight Plan of Care: RD following, monitoring for tolerance and adequacy, TF Nutrition reason for involvement: follow up RD Assessment (11/13) Follow up. Pt was extubated on 11/11. Pt is tolerating tube feeding per RN. Pt was receiving Vital AF @ 45 mL/hr at time of visit and is being advanced towards goal rate. Pt was discussed during interdisciplinary rounds and RN mentioned pt may possibly be reintubated. Will continue to monitor. (11/10) Chart reviewed. 78yoM, who was admitted from [facility] for aspiration PNA and acute respiratory failure. Per chart, pt drank a milk shake in spite of NPO and developed respiratory distress. Pt was intubated and ventilated. Visited pt in the room. Pt was on IV Fentanyl, no pressor med noted. Per family, pt had PEG replacement in October 2019. TF was well tolerated at the facility with Fibersource 1.2 @60mL/hr, continuous (1728kcal, 77g protein). Per family, pt also lost >10lbs within the last 3 months. Pt had moderate muscle and fat loss per observation. Verified height and weight with family. Will continue to monitor and follow. Principal Problems/Diagnoses: Aspiration PNA, Acute respiratory failure 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, COPD, hx Cig, Alzheimer's dementia, prostate Cancer, glaucoma, VTE with DVT of left arm, right leg and left lung PE s/p IVC filter placement, GIB, esophageal ulcer I/O: 2510/2450 GI: abdomen flat, soft, non-tender, +flatus, +PEG Skin: multiple dried stable eschar to bilateral heels and left great to left knee healing abrasion, sacral DTI Labs: (11/13) Na 134, K 3.4, Glu 195 (11/10) Cl 109 H, Co2 21 L, BUN 33 H, Creatinine 1.35 H, Glucose 120 H, Ca 8.2 L Meds: ciprofloxacin, colace, protonix, lovenox Ht: 66in (per family) Wt: 138lb (per family) BMI: 22.3kg/m2 IBW: 142lb +/- 10% Malnutrition Evaluation (11/11/2019) The patient meets criteria for MODERATE protein-calorie malnutrition. Energy intake: <75% of estimated energy requirements for >3 months Weight loss: 7.5% in 3 months (Acute) Fat loss: Moderate somewhat hollow around orbital area Muscle loss: Moderate depression of temporal Supporting Evidence: Fluid accumulation: Mild Functional Status: decreased per family Nutrition Prescription (Diet Order): Vital AF @ goal rate of 55 mL/hr, water flushes of 50 mL q 4 hrs Estimated Nutritional Needs: Calories: 1260 1575kcal (20-25kcal/kg/d) Weight used: CBW Protein: 82 126g (1.3-2g/kg/d) Weight used: CBW Diet Adequacy: Tube feed order meets pts calorie and protein needs Tolerance: tolerating tube feeding Diet Education Needs Assessment: Diet education not indicated. Nutrition Care Level: Moderate Nutrition Diagnosis: Inadequate oral intake related to aspiration PNA as evidenced by pt requiring EN through PEG. Goal: Patient will meet 75-100% of estimated needs by follow up Progress: progressing Interventions: Composition, Rate, Route Monitoring/Evaluation: Total energy intake, Total protein intake, Formula/Solution, Weight change Signed: Leonie Wilde RD, LD
--- NOTE | 2019-11-14 19:15 | NUR ---
Report received. Assumed care. Assessment done. See interventions.
--- NOTE | 2019-11-14 20:13 | NUR ---
On Bipap with sats 99%. Vital AF TF @ 45ml/hr with 60ml flushes Q4H.
[2019-11-15] VITALS (29 sets, daily range): BP systolic 91–169; BP diastolic 45–93
[2019-11-15] MEDS: CIPROFLOXACIN 400 MG/D5W 200ML 200 ML IV SCH ×3 (00:03→23:30)
[2019-11-15] MEDS: IPRATROPIUM BROMIDE 0.02% 2.5 ML NEB NEB SCH ×4 (02:25→19:25)
[2019-11-15] MEDS: ALBUTEROL SULF 0.083% NEB SOLN 3 ML NEB NEB SCH ×6 (02:25→23:00)
[2019-11-15] MEDS: ACETAMINOPHEN 325 MG TAB PO PRN (03:38)
[2019-11-15 05:26] LABS: BASOPHILS % 0.2 % (0.0-1.0); EOSINOPHILS % 0.1 % (0.0-6.0); HEMATOCRIT 28.4 % (38.2-49.6); HEMOGLOBIN 8.7 g/dL (14.0-18.0); LYMPHOCYTES # (AUTO) 0.5 (1.0-3.2); LYMPHOCYTES % 4.6 % (18.0-39.1); MEAN CORPUSCULAR HEMOGLOBIN 26.7 pg (28-32); MEAN CORPUSCULAR HGB CONC 30.6 g/dL (31-35); MEAN CORPUSCULAR VOLUME 87.1 fL (81-99); MONOCYTES # (AUTO) 0.9 (0.2-0.8); MONOCYTES % 7.5 % (4.4-11.3); NEUTROPHILS # (AUTO) 9.6 (2.1-6.9); NEUTROPHILS % 85.3 % (38.7-80.0); PLATELET COUNT 240 x10e3/uL (140-360); RED BLOOD COUNT 3.26 x10e6/uL (4.3-5.7); RED CELL DISTRIBUTION WIDTH 15.3 % (11.7-14.4)
[2019-11-15 05:35] LABS: ANION GAP 7.7 mmol/L (8-16); BLOOD UREA NITROGEN 21 mg/dL (7-26); BUN/CREATININE RATIO 21 (6-25); CARBON DIOXIDE 28 mmol/L (22-29); CHLORIDE 106 mmol/L (98-107); CREATININE, SERUM 1.01 mg/dL (0.72-1.25); EST GLOMERULAR FILTRATION RATE > 60 ML/MIN (60-); GLUCOSE 204 mg/dL (74-118); POTASSIUM 3.7 mmol/L (3.5-5.1); SODIUM 138 mmol/L (136-145)
[2019-11-15] MEDS: CEFEPIME 1GM/NS 0.9% 50 ML 50 ML IV SCH ×3 (06:06→22:36)
--- NOTE | 2019-11-15 08:15 | NUR ---
patient on bipap through night. placed on vapotherm this morning. no changes in vital signs with vapotherm.
--- NOTE | 2019-11-15 08:19 | NUR ---
[id number] changed yesterday 1599 Addendum: 11/15/19 at 0820 by Jessica Mari RN entry error: wrong patient
[2019-11-15] MEDS: ACETYLCYSTEINE 200 MG/ML 4ML VIAL INH SCH (08:25)
[2019-11-15 08:28] LABS: LYMPHOCYTES % (MANUAL) 2 % (19-48); MONOCYTES % (MANUAL) 7 % (3.4-9.0); NEUTROPHILS % (MANUAL) 90 % (40-74)
[2019-11-15 08:29] LABS: BAND NEUTROPHILS % (MANUAL) 1 %; PLATELET ESTIMATE ADEQUATE; PLATELET MORPHOLOGY COMMENT NORMAL; RBC MORPHOLOGY COMMENT NORMAL
[2019-11-15] MEDS: PANTOPRAZOLE 40 MG 10ML VIAL IV SCH (08:45)
[2019-11-15] MEDS: BALSAM PERU/CASTOR OIL 60 GM OINT...G. TP SCH (08:45)
[2019-11-15] MEDS: DOCUSATE SODIUM LIQD 100 MG/10 ML UDC NG SCH (08:45)
--- NOTE | 2019-11-15 11:23 | NUR ---
IM- progress note O/N see below ROS; unobtainable v/s; revd PE INtubated atraumatic ns1s2 symmetric chest expansion soft PEG no edema; chr changes feet skin dry neuro: sedated; not interactive labs/meds revd A/P: 78yoM Acute resp failure- vented Oropharyngeal dysphagia- PEG in place; important to avoid oral intake Hyperkalemia- recheck UTI- iv zosyn; Sepsis- due to UTI; iv zosyn; rec'd vanco; ID eval. 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 States she is MPOA; will bring paperwork; Also states wants to make pt DNR. 11/10 GNR PNA; GNR UTI; cont abx; 11/11 AAA 3.5cm and 3.7cm; Serratia marcescens PNA. 11/12 f/u labs; febrile; leukocytosis resolving; 11/13 check labs; Serratia marcescens and Proteus mirabilis PNA; mau albicans and MDR pseudomonas UTI. 11-14 withdrawal of care pending Christian Lai MD, PHD.
[2019-11-15] MEDS: FENTANYL CITRATE INJ 2,000 MCG in SODIUM CHLORIDE 0.9% 250ML 210 ML IV PRN ×2 (11:30→14:00)
--- NOTE | 2019-11-15 12:07 | NUR ---
Attempted PT but patient lethargic and HR elevated in 120's at rest. Decided to defer PT. Was on bipap at the time. Rapid response called shortly after and patient now intubated. Will need new PT orders to resume care when medically stable. Addendum: 11/15/19 at 1208 by KADEEM CANALES PT Amended: Links added.
--- NOTE | 2019-11-15 12:32 | Diagnostic Imaging Report ---
EXAMINATION: CHEST SINGLE (PORTABLE) INDICATION: Endotracheal tube placement COMPARISON: Chest radiograph 11/14/2019 FINDINGS: LINES/TUBES:Interval intubation with endotracheal tube terminating approximately 3 cm above the gaby. Right PICC line terminates near the confluence of innominate veins. EKG leads overlie the chest. LUNGS:The lungs are moderately inflated. Unchanged consolidation at the left lung base. Mild patchy opacities at the right lung base. PLEURA:Likely small left pleural effusion. No pneumothorax. MEDIASTINUM:The cardiomediastinal silhouette appears unchanged in size and shape. BONES/SOFT TISSUES:No acute osseous injury. ABDOMEN:No free air under the diaphragm. IMPRESSION: Endotracheal tube terminates approximately 3 cm above the gaby. Unchanged left greater than right bibasilar patchy opacities, possibly aspiration and/or pneumonia in the proper clinical setting. Signed by: Eva Rose MD on 11/15/2019 12:29 PM
[2019-11-15 14:12] LABS: ABG HCO3 26 mmol/L (23-28); ABG PCO2 42 mmHg (41-51); ABG PH 7.39 (7.31-7.41); ABG PO2 90 mmHg (80-105)
--- NOTE | 2019-11-15 14:29 | NUR ---
WOUNDCARE CONSULT FOR FACE MASK RELATED INJURY TO PATIENT NOSE AND BILATERAL NARES RECOMMEND FOAM USAGE WITH MASK AND ALSO NASAL CANNULA FOR PROTECTION PATIENT DEBILITATED STATE MAKES HIM MORE SUSCEPTIBLE TO SKIN COMPLICATIONS WITH LESS SHEAR FORCE OR PRESSURE THAN WITH NON COMPROMISED CONDITIONS Addendum: 11/15/19 at 1434 by Mata Silverio RN Amended: Links added.
[2019-11-15] MEDS: ENOXAPARIN 30 MG/0.3 ML SYR SC SCH (16:45)
--- NOTE | 2019-11-15 18:12 | NUR ---
this morning, pt t volume decreased, pt desating. bench worker helper called. pt intubated. family and icu team notified. pt stablyzed and currently sedated with fentanyl. large amount of secretions from oral and ett. temp max 102.1 rectally. able to get down to 101 at this time. family decided to make patient total dnar. plan to extubate terminally tomorrow. unsure of time. poguera is Genna pt daughter. in stead of pt .
[2019-11-16] VITALS (23 sets, daily range): BP systolic 99–145; BP diastolic 45–74
[2019-11-16] MEDS: ALBUTEROL SULF 0.083% NEB SOLN 3 ML NEB NEB SCH ×4 (03:25→19:20)
[2019-11-16] MEDS: IPRATROPIUM BROMIDE 0.02% 2.5 ML NEB NEB SCH ×4 (03:25→19:25)
--- NOTE | 2019-11-16 05:58 | NUR ---
IM- progress note O/N see below ROS; unobtainable v/s; revd PE INtubated atraumatic ns1s2 symmetric chest expansion soft PEG no edema; chr changes feet skin dry neuro: sedated; not interactive labs/meds revd A/P: 78yoM Acute resp failure- vented Oropharyngeal dysphagia- PEG in place; important to avoid oral intake Hyperkalemia- recheck UTI- iv zosyn; Sepsis- due to UTI; iv zosyn; rec'd vanco; ID eval. 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 States she is MPOA; will bring paperwork; Also states wants to make pt DNR. 11/10 GNR PNA; GNR UTI; cont abx; 11/11 AAA 3.5cm and 3.7cm; Serratia marcescens PNA. 11/12 f/u labs; febrile; leukocytosis resolving; 11/13 check labs; Serratia marcescens and Proteus mirabilis PNA; mau albicans and MDR pseudomonas UTI. 11-14 withdrawal of care pending 11-15 plans to withdraw care today; d/w daughter/mPOA Christian Lai MD, PHD.
[2019-11-16] MEDS: ACETAMINOPHEN 325 MG TAB PO PRN (06:15)
[2019-11-16 06:36] LABS: ABG HCO3 25 mmol/L (23-28); ABG PCO2 43 mmHg (41-51); ABG PH 7.36 (7.31-7.41); ABG PO2 81 mmHg (80-105)
[2019-11-16] MEDS: CEFEPIME 1GM/NS 0.9% 50 ML 50 ML IV SCH ×3 (06:39→23:21)
[2019-11-16] MEDS: BALSAM PERU/CASTOR OIL 60 GM OINT...G. TP SCH (08:23)
[2019-11-16] MEDS: DOCUSATE SODIUM LIQD 100 MG/10 ML UDC NG SCH (09:00)
[2019-11-16] MEDS: PANTOPRAZOLE 40 MG 10ML VIAL IV SCH (09:45)
[2019-11-16] MEDS: CIPROFLOXACIN 400 MG/D5W 200ML 200 ML IV SCH ×2 (11:15→23:49)
--- NOTE | 2019-11-16 11:40 | NUR ---
WENT TO SEE PT, THEY HAD BEATER DUMPER IN ROOM, NURSE KARINA WILL CALL WHEN THEY ARE READY FOR ME TO RETURN.
--- NOTE | 2019-11-16 12:21 | NUR ---
patient extubated at 1120am to O2 nasal cannula to comfort care. family and extended family at bedside with patient. pt given last rites by . palliative and lead installer at bedside with patient and family this morning as well. pt currently calm, no distress. vital signs unchanged since extubation.
[2019-11-16] MEDS: MORPHINE SULFATE 2 MG/ML SYR 1ML IV PRN ×3 (14:41→19:38)
[2019-11-16] MEDS: ENOXAPARIN 30 MG/0.3 ML SYR SC SCH ×2 (17:00→17:24)
--- NOTE | 2019-11-16 17:14 | NUR ---
WENT TO ROOM DAUGHTER NOT PRESENT, CALLED [phone] NO ANSWER, WILL ATTEMPT AGAIN IN MORNING.
--- NOTE | 2019-11-16 18:08 | NUR ---
patient comfort measures: family called to bedside. patient desating to mid to low 80's. increased O2 to assist in comfort. pt not in any distress. hr 94bpm sinus rhythm with frequent pvc's and pac's. [id number], bp 143/54 85-88%pulse ox on 10Lnc
[2019-11-17] VITALS: BP 116/52
[2019-11-17] MEDS: ALBUTEROL SULF 0.083% NEB SOLN 3 ML NEB NEB SCH ×3 (02:20→13:45)
[2019-11-17] MEDS: IPRATROPIUM BROMIDE 0.02% 2.5 ML NEB NEB SCH ×3 (02:20→13:45)
[2019-11-17 04:08] VITALS: BP 132/51
--- NOTE | 2019-11-17 05:47 | NUR ---
IM- progress note O/N see below ROS; unobtainable v/s; revd PE INtubated atraumatic ns1s2 symmetric chest expansion soft PEG no edema; chr changes feet skin dry neuro: sedated; not interactive labs/meds revd A/P: 78yoM Acute resp failure- vented Oropharyngeal dysphagia- PEG in place; important to avoid oral intake Hyperkalemia- recheck UTI- iv zosyn; Sepsis- due to UTI; iv zosyn; rec'd vanco; ID eval. MIRIAM- IVF Hx VTE of lungs/arm/leg- s/p IVC filter in past; Hx GIB COPD- vented Hx cigs- remote; Nicotine dependence in remission Alzheimer's dementia- supportive Hx Prostate cancer Hx stroke with residual left sided weakness Physical deconditioning- PT Prop: IVC filter in place; GIB in past; use PPI Dispo: cct>35mins; D/w daughter Genna aHmpton, who also provided history. States she is MPOA; will bring paperwork; Also states wants to make pt DNR. 11/10 GNR PNA; GNR UTI; cont abx; 11/11 AAA 3.5cm and 3.7cm; Serratia marcescens PNA. 11/12 f/u labs; febrile; leukocytosis resolving; 11/13 check labs; Serratia marcescens and Proteus mirabilis PNA; mau albicans and MDR pseudomonas UTI. 11-14 withdrawal of care pending 11-15 plans to withdraw care today; d/w daughter/mPOA 11-16 extubated; transition to comfort care/hospice. Christian Lai MD, PHD.
[2019-11-17] MEDS: CEFEPIME 1GM/NS 0.9% 50 ML 50 ML IV SCH ×2 (07:06→14:00)
--- NOTE | 2019-11-17 07:06 | NUR ---
MD NICOLE BARBOZA ON FLOOR, ORDERED FOR HOSPICE EVALUATION, AND DC TELEMETRY WITH CONTINUOUS PULSE OXIMETRY
--- NOTE | 2019-11-17 07:10 | NUR ---
RCD PT AT BED PT IS ALERT AND AND RESTING ON BED FAMILY AT BED SIDE IV PATENT BY SALINE FLUSH HARTMAN DRAINING BY GRAVITY BED LOW AND LOCKED CALL LIGHT IN REACH
[2019-11-17 07:30] VITALS: BP 157/70
--- NOTE | 2019-11-17 07:30 | NUR ---
FAMILY REFUSED TUBE FEED
[2019-11-17 07:59] VITALS: BP 157/70
[2019-11-17] MEDS: PANTOPRAZOLE 40 MG 10ML VIAL IV SCH (09:00)
[2019-11-17] MEDS: DOCUSATE SODIUM LIQD 100 MG/10 ML UDC NG SCH (09:00)
[2019-11-17] MEDS: BALSAM PERU/CASTOR OIL 60 GM OINT...G. TP SCH (09:00)
--- NOTE | 2019-11-17 09:00 | NUR ---
FAMILY REFUSED ALL KINDS OF CARE AND MEDICATIONS EXCEPT MORPHINE AND LORAZEPAM
--- NOTE | 2019-11-17 10:06 | NUR ---
IM- progress note O/N see below ROS; unobtainable v/s; revd PE Extubated; agonal breathing atraumatic [id number] symmetric chest expansion soft PEG no edema; chr changes feet skin dry neuro: sedated; not interactive labs/meds revd A/P: 78yoM Acute resp failure- vented Oropharyngeal dysphagia- PEG in place; important to avoid oral intake Hyperkalemia- recheck UTI- iv zosyn; Sepsis- due to UTI; iv zosyn; rec'd vanco; ID eval. 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 States she is MPOA; will bring paperwork; Also states wants to make pt DNR. 11/10 GNR PNA; GNR UTI; cont abx; 11/11 AAA 3.5cm and 3.7cm; Serratia marcescens PNA. 11/12 f/u labs; febrile; leukocytosis resolving; 11/13 check labs; Serratia marcescens and Proteus mirabilis PNA; mau albicans and MDR pseudomonas UTI. 11-14 withdrawal of care pending 11-15 plans to withdraw care today; d/w daughter/mPOA 3 extubated; transition to comfort care/hospice. Christian Lai MD, PHD.
--- NOTE | 2019-11-17 10:08 | NUR ---
FAMILY SIGNED CHOICE WITH [facility] TO RETURN TO MEDICAL RESORT, FILED IN CHART. CONTACTED REP AND HE WILL LET ME KNOW WHEN THEY ARE READY TO TRANSPORT BACK TO FACILITY. FAXING CLINICALS TO [facility].
[2019-11-17] MEDS: MORPHINE SULFATE 2 MG/ML SYR 1ML IV PRN ×4 (10:30→17:30)
[2019-11-17] MEDS: CIPROFLOXACIN 400 MG/D5W 200ML 200 ML IV SCH (11:00)
[2019-11-17 11:23] VITALS: BP 157/67
[2019-11-17] MEDS: LORAZEPAM INJ 2 MG/ML VIAL IV PRN ×2 (11:25→14:44)
[2019-11-17] MEDS ORDERED: SUCCINYLCHOLINE CHLORIDE 20 MG/ML 10ML VIAL ONE (13:46)
[2019-11-17] MEDS ORDERED: ETOMIDATE 40 MG/ 20ML VIAL IV ONE (13:46)
--- NOTE | 2019-11-17 15:23 | NUR ---
AC TO [facility]PAT[facility] PT APPROVED BY [facility] SO PAGED DR RIVERA TO GET THE DISCHARGE ORDER
[2019-11-17 15:35] VITALS: BP 131/61
--- NOTE | 2019-11-17 15:35 | NUR ---
DR RIVERA RETURNED THE CALL AND GOT THE DISCHARGE ORDER
[2019-11-17] MEDS: ENOXAPARIN 30 MG/0.3 ML SYR SC SCH (17:00)
--- NOTE | 2019-11-17 17:30 | NUR ---
PAGED AND TALKED DR RIVERA REGARDING PICC LINE DC GOT THE ORDER TO DC PICC LINE
--- NOTE | 2019-11-17 17:43 | NUR ---
DC PICC LINE BY ORDER
--- NOTE | 2019-11-17 18:00 | NUR ---
NO SIGNS OF BLEEDING NOTED ON THE PICC LINE SITE
--- NOTE | 2019-11-17 18:25 | NUR ---
PATIENT DISCHARGED TO HOSPICE IN SAFE CONDITION
--- NOTE | 2019-11-17 18:33 | NUR ---
Follow Up Note Pt was extubated on 11/15 for comfort care. Nutrition services signing off at this time. Consult RD as needed.
== END 2019-11-17 18:54 | disposition hospice, inpatient (51) | DRG 871 ==
LOC: ER 13:04 → ERHOLD 14:30 → ICU 16:46 → MED/SURG2 11-17 06:11
PROVIDERS: ADMIT Internal Medicine; ATTEND Internal Medicine
PROC: 5A1945Z Respiratory Ventilation, 24-96 Consecutive Hours (ICD-10-PCS; principal; 2019-11-10)
PROC: 0BH17EZ Insertion of Endotracheal Airway into Trachea, Via Natural or Artificial Opening (ICD-10-PCS; 2019-11-10)
PROC: 02HV33Z Insertion of Infusion Device into Superior Vena Cava, Percutaneous Approach (ICD-10-PCS; 2019-11-10)
PROC: B548ZZA Ultrasonography of Superior Vena Cava, Guidance (ICD-10-PCS; 2019-11-10)
PROC: 5A1945Z Respiratory Ventilation, 24-96 Consecutive Hours (ICD-10-PCS; 2019-11-15)
PROC: 0BH17EZ Insertion of Endotracheal Airway into Trachea, Via Natural or Artificial Opening (ICD-10-PCS; 2019-11-15)
DX: A41.9 Sepsis, unspecified organism (principal); J69.0 Pneumonitis due to inhalation of food and vomit; J96.01 Acute respiratory failure with hypoxia; J15.6 Pneumonia due to other Gram-negative bacteria; N39.0 Urinary tract infection, site not specified; N17.9 Acute kidney failure, unspecified; E44.0 Moderate protein-calorie malnutrition; I69.254 Hemiplegia and hemiparesis following other nontraumatic intracranial hemorrhage affecting left non-dominant side; Z16.35 Resistance to multiple antimicrobial drugs; B37.49 Other urogenital candidiasis; E87.5 Hyperkalemia; I10 Essential (primary) hypertension; Z93.1 Gastrostomy status; R13.12 Dysphagia, oropharyngeal phase; Z87.440 Personal history of urinary (tract) infections; D64.9 Anemia, unspecified; Z68.22 Body mass index [BMI] 22.0-22.9, adult; Z86.711 Personal history of pulmonary embolism; Z95.828 Presence of other vascular implants and grafts; I73.9 Peripheral vascular disease, unspecified; Z86.718 Personal history of other venous thrombosis and embolism; J44.9 Chronic obstructive pulmonary disease, unspecified; Z87.891 Personal history of nicotine dependence; Z85.46 Personal history of malignant neoplasm of prostate; R53.81 Other malaise; G30.9 Alzheimer's disease, unspecified; F02.80 Dementia in other diseases classified elsewhere, unspecified severity, without behavioral disturbance, psychotic disturbance, mood disturbance, and anxiety; I71.4 Abdominal aortic aneurysm, without rupture; B96.4 Proteus (mirabilis) (morganii) as the cause of diseases classified elsewhere; B96.5 Pseudomonas (aeruginosa) (mallei) (pseudomallei) as the cause of diseases classified elsewhere; Z66 Do not resuscitate
CPT/HCPCS: 31720; 36415; 36569; 36600; 70450; 71045; 71250; 74176; 80048; 80053; 81001; 82550; 82553; 82805; 83605; 83735; 83880; 84145; 84484; 85025; 85610; 85730; 87040; 87070; 87086; 87186; 87205; 87400; 93005; 93971; 94002; 94003; 94640; 94660; 97139; 99285; J0330; J0692; J0696; J1650; J1940; J2060; J2270; J2543; J3370; J7030; J7050; J7070